=== PATIENT | female | born 1990 | race Caucasian/White ===

== ENCOUNTER → 2017-04-03 10:08 | Outpatient (CLI) | payer OTHER, SELFPAY ==
--- NOTE | 2017-04-03 10:11 | RAD_ITS ---
CLINICAL HISTORY: Female, 26 years old. Chronic left shoulder pain. PROCEDURE: ARTHROGRAM - LEFT SHOULDER CONSENT: The procedure as well as the benefits and possible complications including infection and bleeding were explained to the patient. Informed consent was obtained. FLUOROSCOPY TIME (if supplied): (0:40) minutes/seconds Injection Information: 10 cc of dilute Magnevist. Number of images obtained: 4 TECHNIQUE: (All elements of maximal sterile barrier technique followed, including US elements as applicable) The patient was in the supine position. The overlying skin was prepped and draped in usual sterile fashion. Following local anesthetic application and under direct fluoroscopic guidance, a 22-gauge spinal needle was advanced into the shoulder joint. 2 cc of Isovue-300 was injected for confirmation. Following this, 10 cc of dilute Magnevist was injected for MRI imaging. The patient tolerated the procedure well. RAD/Arthrogram Shoulder w/ MRI IMPRESSION: Successful left shoulder arthrogram for MRI imaging. Electronically Signed: John Thomas MD at 11:27 EST Tel [phone], Service support ,
--- NOTE | 2017-04-03 10:14 | MRI_ITS ---
STUDY: MRI ARTHROGRAM LEFT SHOULDER REASON FOR EXAM: Female, 26 years old. S/p fall 08/2016, exploratory surgery 09/2016 with no repair made , still has left shoulder pain and popping TECHNIQUE: Standardized fat and water weighted pulse sequences were obtained in all 3 orthogonal planes. Additional images were obtained with the arm in the ABER position. The examination was performed following intra-articular injection of 10 mL of a solution of 0.08 mL of Magnevist and 10 mL of saline COMPARISON: None. FINDINGS: Normal supraspinatus tendon. Normal infraspinatus tendon. Normal subscapularis tendon. Normal teres minor tendon. Normal supraspinatus muscle. Normal infraspinatus muscle. Normal subscapularis muscle. Normal teres minor muscle. Normal glenohumeral articulation. Normal humeral head and visualized proximal humerus. Normal biceps labral complex. Normal intracapsular long biceps tendon. Normal labrum. Normal capsulo- ligamentous complex. Normal rotator interval. Normal acromioclavicular articulation. Normal coracoclavicular ligaments. There is a Type II morphology (curved), with a neutral orientation. There is no subacromial-subdeltoid bursal fluid. Normal visualized coracohumeral and coracoacromial ligaments. Normal quadrilateral space. Normal axillary space. Normal deltoid muscle. Normal trapezius muscle. MRI/Upper Ext Jt Only W/Contrast IMPRESSION: Normal MRI arthrogram of the shoulder. No signs of internal derangement Electronically Signed: Joseph Lezama MD, FACR at 12:20 EST , Service support ,
== END ==
PROVIDERS: Family Provider Family Medicine; PCP Family Medicine; Visit Provider Orthopaedic Surgery
DX: M25.512 Pain in left shoulder (principal); G89.29 Other chronic pain
CPT/HCPCS: 23350; 73222; 77002; A9577; Q9967

== ENCOUNTER → 2018-12-30 09:00 | Outpatient (CLI) | payer OTHER, SELFPAY ==
[2017-02-13 08:20] VITALS: BMI 30.2
[2018-12-30 19:41] LABS: Chlamydia Trachomatis by PCR Negative (Negative); Neisserai gonorrhoeae by PCR Negative (Negative); Probe Check PASS; Sample Adequacy Control PASS; Specimen Processing Control PASS
[2019-01-04 17:57] LABS: HPV Reflexed? NOT INDICATED
== END ==
PROVIDERS: Family Provider Family Medicine; PCP Family Medicine; Referring Provider Obstetrics & Gynecology; Visit Provider Obstetrics & Gynecology
DX: Z12.4 Encounter for screening for malignant neoplasm of cervix (principal); Z11.3 Encounter for screening for infections with a predominantly sexual mode of transmission
CPT/HCPCS: 87491; 87591; 88175; G0145

== ENCOUNTER → 2019-01-06 06:43 | Outpatient (CLI) | payer OTHER, SELFPAY ==
[2019-01-06 07:08] LABS: Hematocrit 43.3 % (37-47); Hemoglobin 14.3 g/dL (12.0-15.0); Mean Corpuscular Hgb 28.9 pg (27.0-32.0); Mean Corpuscular Volume 87.7 fL (81-99); Mean Platelet Vol. 8.8 fl (6.2-12.0); Platelet Count 286 K/mm3 (150-450); RBC Distribution Width CV 12.5 % (11.6-14.6); RBC Distribution Width SD 40.2 fl (35.1-43.9); Red Blood Count 4.94 M/mm3 (4.2-5.4); White Blood Count 3.2 K/mm3 (4.4-11.0)
[2019-01-06 07:24] LABS: Glucose 75GTT - Fasting 91 mg/dL (70-99)
[2019-01-06 07:38] LABS: Homocysteine 7.4 umol/L (3.2-10.7)
[2019-01-06 07:40] LABS: ALB/GLOB Ratio 0.9 RATIO (0.9-2.4); AST(SGOT) 22 U/L (15-37); Alanine Aminotransfer ALT/SGPT 30 U/L (13-56); Albumin, Serum 3.8 g/dL (3.2-5.0); Alkaline Phosphatase 112 U/L (45-117); Anion Gap 4 (5-15); BUN 14 mg/dL (7-18); BUN/Creat Ratio 14.2 RATIO (10-20); Calcium,Total 9.1 mg/dL (8.5-10.1); Chloride 106 mmol/L (98-107); Creatinine, Serum 0.99 mg/dL (0.55-1.02); EST Glomerular Filtration Rate 72 mL/min (>60); Est Glom Filt Rate - Afr Amer 87 mL/min (>60); Estradiol 44.6 pg/mL; Follicle Stimulating Hormone 7.5 mIU/mL; Globulin 4.2 g/dL (2.2-4.2); Glucose 90 mg/dL (74-106); Potassium 3.9 mmol/L (3.5-5.1); Prolactin 12.5 ng/mL; Sodium Level 139 mmol/L (136-145); Thyroid Stim Hormone (TSH) 0.54 uIU/mL (0.358-3.74)
[2019-01-06 08:25] LABS: Glucose 75GTT - 30 minutes 137 mg/dL (100-160)
[2019-01-06 08:26] LABS: Glucose 75GTT - 60 minutes 91 mg/dL (100-160)
[2019-01-06 08:39] LABS: Insulin 75GTT - 60 min 56.4 mU/L (Not Estab)
[2019-01-06 08:39] LABS: Insulin 75GTT - Fasting 13.4 mU/L (2.6-37.6)
[2019-01-06 08:39] LABS: Insulin 75GTT - 30 MIN 185.4 mU/L (Not Estab.)
[2019-01-06 10:37] LABS: Glucose 75GTT - 120 minutes 87 mg/dL (70-140)
[2019-01-06 13:44] LABS: Insulin 75GTT - 120 min 75.2 mU/L (Not Estab.)
[2019-01-06 13:54] LABS: Vitamin B12 357 pg/mL (211-911); Vitamin D,25 Hydroxy 33.9 ng/mL (29.95-100.01)
[2019-01-08 15:42] LABS: Methylmalonic Acid Bld 312
[2019-01-09 12:07] LABS: DHEA Sulfate 237.8 ug/dL (84.8-378.0)
[2019-01-11 13:47] LABS: Anti-Mullerian Hormone,Serum 14.3 ng/mL (.); Sex Hormone-binding Globulin 36.5 nmol/L (24.6-122.0)
== END ==
PROVIDERS: Family Provider Family Medicine; PCP Family Medicine; Referring Provider Obstetrics & Gynecology; Visit Provider Obstetrics & Gynecology
DX: E28.2 Polycystic ovarian syndrome (principal); R73.09 Other abnormal glucose
CPT/HCPCS: 36415; 80053; 82306; 82607; 82627; 82670; 82951; 82952; 83001; 83090; 83516; 83525; 83921; 84146; 84270; 84403; 84443; 85027; 82626

== ENCOUNTER → 2021-09-05 | Outpatient (CLI) | payer OTHER, SELFPAY ==
[2021-09-11 13:56] LABS: HPV APTIMA, High Risk Negative (Negative)
== END | disposition home or self-care (01) ==
LOC: LABSPEC 13:35
PROVIDERS: PCP Family Medicine; Visit Provider Obstetrics & Gynecology
DX: Z12.4 Encounter for screening for malignant neoplasm of cervix (principal)
CPT/HCPCS: 87624; 88175; G0145

== ENCOUNTER 2023-08-11 22:20 | Emergency (ER) | payer OTHER, SELFPAY ==
[2023-08-11 22:20] VITALS: BP 123/87; PULSE 98; RESP 16; TEMP 36.6; O2SAT 99; BMI 35.6
[2023-08-11 22:49] LABS: Mucous, Urine 0 SEEN /hpf (<or=2+)
[2023-08-11 23:06] LABS: Color, Urine Yellow (Yellow); Glucose, Dipstick Normal (Normal); Ketone-Dipstick Negative (Negative); Leukocyte Esterase-Dipstick 500 /ul (Negative); Nitrite-Dipstick Negative (Negative); Occult Blood-Urine 250 /ul (Negative); Protein-Dipstick 30 mg/dl (Negative); Specific Gravity, Urine 1.015 (1.002-1.030); Urine Bilirubin Dipstick Negative (Negative); Urine Clarity Sl. Cloudy (Clear); Urine Urobilinogen Normal (Normal)
[2023-08-11 23:17] LABS: Red Blood Cells-Urine 25-50 SEEN /hpf (0-5)
[2023-08-11 23:18] LABS: Bacteria RARE /hpf (None Seen); Squamous Epithelial Cells - UA 0-5 SEEN /hpf (5-10); White Blood Cells 25-50 SEEN /hpf (0-5)
[2023-08-11 23:28] LABS: Internal QC Validated? YES +Cl - CLEAR BKGD; Pregnancy, Serum, hCG Quali. NEGATIVE Negative
--- NOTE | 2023-08-11 23:41 | CT_ITS ---
INDICATION: flank pain EXAMINATION: CT ABDOMEN AND PELVIS WITHOUT CONTRAST - CT Abdomen And Pelvis W/O Contrast Injection TECHNIQUE: Helically acquired images were obtained of the abdomen and pelvis without oral or IV contrast. The protocol utilizes one or more of the following dose reduction techniques: automated exposure control, adjustment of mA and/or kV according to patient size,and/or use of iterative reconstruction technique. IV Contrast dosage and agent: None. Oral contrast: None. RADIATION DOSAGE (If Supplied By Facility): CTDIvol = ( 15.77 ) mGy, DLP = ( 791.81 ) mGycm COMPARISON: No relevant prior comparison study available FINDINGS: LOWER CHEST: Lung bases are clear. No cardiomegaly or pericardial effusion. LIVER: Homogeneous. No focal mass. GALLBLADDER AND BILIARY TREE: No calcified gallstones. No gallbladder distension or wall edema. No intra- or extrahepatic biliary ductal dilation. PANCREAS: No focal cystic or solid mass. SPLEEN: Normal size without focal cystic or solid mass. ADRENAL GLANDS: No nodules. KIDNEYS AND URETERS: There is severe right renal atrophy. There is a nonobstructive stone in the right kidney measures 5 mm. There is moderate left hydronephrosis due to 7 mm stone in the proximal left ureter at the UPJ . PERITONEUM: No ascites or free air. No other fluid collection. BOWEL: No evidence of acute appendicitis. No stomach or bowel distension. No focal inflammatory change. LYMPH NODES: No enlarged mesenteric or retroperitoneal lymph nodes. VESSELS: Aorta is non-dilated. URINARY BLADDER: Unremarkable. REPRODUCTIVE ORGANS: Right ovarian cyst measures 4.5 cm. Left ovarian cyst measures 6 cm. ABDOMINAL WALL: No discrete abdominal or pelvic wall hernia. BONES: No lytic or blastic abnormality. CT/Abdomen/Pelvis without Cont IMPRESSION: There is moderate left hydronephrosis due to 7 mm stone in the proximal left ureter at the UPJ . Right ovarian cyst measures 4.5 cm. Left ovarian cyst measures 6 cm. Electronically Signed: Chelsey Cordova MD at 1:57 EDT Reading Location ID and State: [facility] / [place] Tel , Service support ,
[2023-08-11] MEDS: 0.9% Normal Saline (1000mL) 1,000 ML 999 ML IV (23:48)
[2023-08-11] MEDS: Ondansetron 4 MG/2 ML Vial IV (23:49)
[2023-08-11] MEDS: Morphine 4 MG/ML Syringe IV (23:49)
[2023-08-11 23:58] LABS: Absolute Lymphocyte Count 1.37 X10^3/uL (0.83-4.51); Absolute Neutrophil Count 10.3 X10^3/uL (2.0-7.7); Basophil# 0.06 X10^3/uL; Basophil% 0.5 % (0-1); Eosinophil# 0.07 X10^3/uL; Eosinophils% 0.5 % (0-5); Hematocrit 42.7 % (37-47); Hemoglobin 14.5 g/dL (12.0-15.0); Lymphocyte # 1.37 X10^3/ul (0.83-4.51); Lymphocyte % 10.7 % (19-41); Mean Corpuscular Hgb 29.5 pg (27.0-32.0); Mean Corpuscular Volume 86.8 fL (81-99); Mean Platelet Vol. 9.1 fl (6.2-12.0); Monocyte# 0.95 X10^3/uL; Monocyte% 7.4 % (0-10); NRBC Flagged by Analyzer 0 % (0-5); Neutrophil # 10.25 X10^3/uL (2.7-7.7); Neutrophil % 80.3 % (47-70); Platelet Count 367 K/mm3 (150-450); RBC Distribution Width CV 12.1 % (11.6-14.6); RBC Distribution Width SD 38.4 fl (35.1-43.9); Red Blood Count 4.92 M/mm3 (4.2-5.4); White Blood Count 12.8 K/mm3 (4.4-11.0)
[2023-08-12 00:20] VITALS: RESP 18
[2023-08-12 00:42] LABS: Anion Gap 7 (5-15); BUN 16 mg/dL (7-18); BUN/Creat Ratio 14.7 RATIO (10-20); Calcium,Total 9.4 mg/dL (8.5-10.1); Chloride 104 mmol/L (98-107); Creatinine, Serum 1.09 mg/dL (0.55-1.02); EST Glomerular Filtration Rate 62 mL/min (>60); Est Glom Filt Rate - Afr Amer 75 mL/min (>60); Estimated Creatinine Clearance 77.28 ml/min; Glucose 110 mg/dL (74-106); Potassium 3.3 mmol/L (3.5-5.1); Sodium Level 138 mmol/L (136-145)
--- NOTE | 2023-08-12 02:17 | EX.ED.DYSGE1 ---
HPI History of Present Illness Chief Complaint: Flank Pain Informant: patient and family Narrative Narrative: Patient is a 32-year-old female with no significant past medical history. She states for the past month she has been having pain in her left-sided low back. She states there is no excessive activity or trauma prior to the pain beginning. She denies any loss of bowel or bladder control or IV drug use. She states that however the pain became more intense and is radiating into her left groin/abdomen and secondary to the worsening symptoms she presents for evaluation [facility] Medical History no medical history Home Medications ?Medication ?Instructions ?Recorded ?Last Taken ?Type norgestimate 0.25 mg-ethinyl 1 tab PO QDAY 02/13/17 Unknown History estradiol 35 mcg tablet (Previfem) cephalexin 500 mg capsule 500 mg PO TID 7 days #21 caps 08/12/23 Unknown Rx ketorolac 10 mg tablet 10 mg PO 4X/DAY PRN pain 5 days 08/12/23 Unknown Rx #20 tabs ondansetron 4 mg disintegrating 4 mg PO TID PRN nausea and 08/12/23 Unknown Rx tablet vomiting #21 tabs oxycodone-acetaminophen 5 mg-325 1 tab PO Q6H PRN pain 3 days #12 08/12/23 Unknown Rx mg tablet (Percocet) tabs tamsulosin 0.4 mg capsule (Flomax) 0.4 mg PO DAILY #14 caps 08/12/23 Unknown Rx Allergy/AdvReac Type Severity Reaction Status Date / Time No Known Allergies Allergy Verified 08/11/23 22:22 Family History (Updated 02/13/17 @ 08:23 by Amilcar Sood) Father Hypertension Surgical History (Updated 02/13/17 @ 08:22 by Amilcar Sood) History of arthroscopy of left shoulder Cystic hygroma Social History (Updated 02/13/17 @ 12:[address] Jacki Pathak, DO) Smoking Status: Never smoker ROS ROS ED Constitutional Constitutional ED: Denies chills or fever(s) ENT ENT ED: Denies sore throat Cardiovascular Cardiovascular: Denies chest pain Respiratory/Chest Respiratory/Chest: Denies cough or dyspnea Gastrointestinal Gastrointestinal: Reports abdominal pain and nausea; Denies diarrhea or vomiting Genitourinary Genitourinary ED: Denies dysuria or hematuria Musculoskeletal Musculoskeletal: Reports back pain Integumentary Denies rash Neurologic Neurologic: Denies headache(s), paresthesias or weakness Hematologic/Lymphatic Hematologic/Lymphatic: Denies easy bleeding or easy bruising EXAM Physical Exam Const Vital Signs: 08/11/23 22:20 08/12/23 00:20 Temperature 97.8 F Temperature Source Temporal Pulse Rate 98 Respiratory Rate 16 18 Blood Pressure 123/87 H Blood Pressure Mean 99 Pulse Ox 99 Oxygen Delivery Method Room Air MDM MDM MDM Narrative Medical decision making narrative: Patient presented to the ER with stable vitals. However with her left-sided back pain increasing today there is concern for potential UTI versus pyelonephritis versus kidney stone versus ovarian cyst versus intestinal infection such as diverticulitis. Therefore basic blood work was obtained as well as CT scan. As the patient denied any loss of bowel or bladder control or IV drug use I do not feel there is workup needed for cauda equina or epidural abscess. Patient's blood work revealed no signs of acute kidney injury or severe electro abnormality and urine does not show changes concerning for acute infection. CT scan revealed a kidney stone on the left which correlates with her location and worsening pain but there is also bilateral ovarian cysts. Based on her chronicity of symptoms and location concern for torsion is low and therefore she will have an outpatient transvaginal ultrasound ordered by do not feel there is need for an emergent transvaginal ultrasound. On reevaluation the patient is resting comfortably and reports near resolution of her pain. Therefore with persistent stable vital signs no signs of acute kidney injury or urosepsis and low concern for torsion she can be discharged home and follow-up on an outpatient basis Lab Data Labs: Laboratory Results - last 24 hr 08/11/23 08/11/23 08/11/23 22:40 23:12 23:16 WBC RBC Hgb Hct MCV MCH MCHC RDW Std Deviation RDW Coeff of John Plt Count MPV Immature Gran % (Auto) Neut % (Auto) Lymph % (Auto) [place] % (Auto) Eos % (Auto) Baso % (Auto) Absolute Neuts (auto) Absolute Lymphs (auto) Nucleated RBC % Sodium 138 Potassium 3.3 L Chloride 104 Carbon Dioxide 27.0 Anion Gap 7 BUN 16 Creatinine 1.09 H Estim Creat Clear Calc 77.28 Est GFR (MDRD) Af Amer 75 Est GFR (MDRD) Non-Af 62 BUN/Creatinine Ratio 14.7 Glucose 110 H Calcium 9.4 Serum , Qual NEGATIVE Urine Color Yellow Urine Clarity Sl. Cloudy Urine pH 6.0 Ur Specific [place] 1.015 Urine Protein 30 H Urine Glucose (UA) Normal Urine Ketones Negative Urine Occult Blood 250 H Urine Nitrite Negative Urine Bilirubin Negative Urine Urobilinogen Normal Ur Leukocyte Esterase 500 H Urine RBC 25-50 SEEN Urine WBC 25-50 SEEN Ur Squamous Epith Cells 0-5 SEEN Urine Bacteria RARE Urine Mucus 0 SEEN 08/11/23 23:41 WBC 12.8 H RBC 4.92 Hgb 14.5 Hct 42.7 MCV 86.8 MCH 29.5 MCHC 34.0 RDW Std Deviation 38.4 RDW Coeff of John 12.1 Plt Count 367 MPV 9.1 Immature Gran % (Auto) 0.600 Neut % (Auto) 80.3 H Lymph % (Auto) 10.7 L [place] % (Auto) 7.4 Eos % (Auto) 0.5 Baso % (Auto) 0.5 Absolute Neuts (auto) 10.3 H Absolute Lymphs (auto) 1.37 Nucleated RBC % 0 Sodium Potassium Chloride Carbon Dioxide Anion Gap BUN Creatinine Estim Creat Clear Calc Est GFR (MDRD) Af Amer Est GFR (MDRD) Non-Af BUN/Creatinine Ratio Glucose Calcium Serum , Qual Urine Color Urine Clarity Urine pH Ur Specific [place] Urine Protein Urine Glucose (UA) Urine Ketones Urine Occult Blood Urine Nitrite Urine Bilirubin Urine Urobilinogen Ur Leukocyte Esterase Urine RBC Urine WBC Ur Squamous Epith Cells Urine Bacteria Urine Mucus Radiography Diagnostic Testing: Clinical Impression(s) from Imaging Studies Abdomen/Pelvis CT 08/11/23 23:41 IMPRESSION: There is moderate left hydronephrosis due to 7 mm stone in the proximal left ureter at the UPJ . Right ovarian cyst measures 4.5 cm. Left ovarian cyst measures 6 cm. Electronically Signed: Chelsey Cordova MD at 1:57 EDT , Discharge Plan Triage Chief Complaint: Flank Pain ED Provider: Buddy Alvarez Dx/Rx/DC Orders Clinical Impression: Kidney stone, Renal colic, Ovarian cyst Instructions: ED Ovarian Cyst, ED Kidney Stone with Pain Prescriptions: New ketorolac 10 mg tablet 10 mg PO 4X/DAY PRN (Reason: pain) 5 Days Qty: 20 0RF tamsulosin [Flomax] 0.4 mg capsule 0.4 mg PO DAILY Qty: 14 0RF cephalexin 500 mg capsule 500 mg PO TID 7 Days Qty: 21 0RF oxycodone-acetaminophen [Percocet] 5-325 mg tablet 1 tab PO Q6H PRN (Reason: pain) 3 Days Qty: 12 0RF ondansetron 4 mg tablet,disintegrating 4 mg PO TID PRN (Reason: nausea and vomiting) Qty: 21 0RF No Action norgestimate-ethinyl estradiol [Previfem] 0.25-35 mg-mcg tablet 1 tab PO QDAY Primary Care Provider: Jc Leslie Referrals: Jc Leslie DO [Primary Care Provider] - Lee Walsh MD [Med Staff - Active Staff] - Activity Restrictions/Additional Instructions: Please obtain your outpatient ultrasound to further assess your ovarian cysts. Take the prescribed medication as directed to help control pain from the kidney stone. If your pain is not controlled or you develop a fever over 100.4 please return for repeat evaluation. Otherwise follow-up with urology to discuss further treatment options such as stenting or lithotripsy if you do not pass the stone spontaneously. Print Language: Other Disposition Disposition: Home, Self Care Discharge Date/Time: 08/12/23 02:50
[2023-08-12] MEDS: Ketorolac 30 MG/ML Syringe IV (02:32)
[2023-08-12 02:39] VITALS: BP 128/91; PULSE 84; RESP 18; TEMP 36.7; O2SAT 97
== END 2023-08-12 02:50 | disposition home or self-care (01) ==
PROVIDERS: Emergency Provider Emergency Medicine; PCP Family Medicine; Visit Provider Emergency Medicine
DX: N13.2 Hydronephrosis with renal and ureteral calculous obstruction (principal); N83.202 Unspecified ovarian cyst, left side; N83.201 Unspecified ovarian cyst, right side; Z79.899 Other long term (current) drug therapy
CPT/HCPCS: 74176; 80048; 81001; 84703; 85025; 96361; 96374; 96375; 99282; J7030; A4216; J2405

== ENCOUNTER → 2023-08-12 | Outpatient (CLI) | payer OTHER, SELFPAY ==
--- NOTE | 2023-08-12 11:18 | US_ITS ---
STUDY: ULTRASOUND OF THE FEMALE PELVIS - COMPLETE REASON FOR EXAM: Female, 32 years old. Bilateral ovarian cyst LMP: July 07, 2023. TECHNIQUE: Transvaginal TECHNICAL QUALITY: Adequate. COMPARISON: Comparison is made with prior CT scan done and pelvis dated August 12, 2023. FINDINGS: The uterus is anteverted and is in a midline position. The uterus measures 8 cm x 3.8 cm x 3.4 cm. There are nabothian cysts of the cervix. The endometrium measures 4 mm in thickness, and is hyperechoic. There is no demonstrated endometrial mass. There is no demonstrated myometrial mass. I.U.D. - The patient does not have an I.U.D. The right ovary is visualized. The right ovary measures 4.2 cm x 4 cm x 2.3 cm. There is a 2.9 cm x 3.8 cm x 1.9 cm simple cyst in the ovary. There is no visualized right adnexal mass or complex lesion. There is normal arterial and normal venous vascularity. The left ovary is visualized. The left ovary measures 5.3 cm x 5.2 cm x 4 cm. There is a 4.9 cm x 4.47 x 3.4 cm complex cyst in the left ovary. Septations are seen within it. Sonographic follow-up recommended. There is no visualized left adnexal mass or complex lesion. There is normal arterial and normal venous vascularity. There is minimal fluid in the cul-de-sac. US/Transvaginal Non- IMPRESSION: Simple cyst in the right ovary. Complex cyst in the left ovary as described. Sonographic follow-up recommended. Electronically Signed: John Thomas MD at 13:01 EDT ,
== END | disposition home or self-care (01) ==
LOC: US 11:15
PROVIDERS: PCP Family Medicine; Referring Provider Emergency Medicine; Visit Provider Emergency Medicine
DX: N83.201 Unspecified ovarian cyst, right side (principal); N83.202 Unspecified ovarian cyst, left side
CPT/HCPCS: 76830

== ENCOUNTER → 2023-10-06 | Outpatient (CLI) | payer OTHER, SELFPAY | END | disposition home or self-care (01) | LOC: LABSPEC 16:42 | PROVIDERS: PCP Family Medicine; Referring Provider Urology; Visit Provider Urology | DX: N39.0 Urinary tract infection, site not specified (principal) | CPT/HCPCS: 87086; 87088 ==

== ENCOUNTER → 2024-10-05 | Outpatient (CLI) | payer OTHER, SELFPAY ==
--- NOTE | 2024-10-05 08:20 | RAD_ITS ---
PROCEDURE: ABDOMEN SINGLE VIEW 10/05/2024 REASON FOR EXAM: CALCULUS OF URETER TECHNIQUE: ABDOMEN SINGLE VIEW COMPARISON: 08/12/2023 CT FINDINGS: Clear lung bases. No free air. Nonobstructed bowel. 2 mm left renal calcification. 2 mm right renal calcification. Previously noted left ureteral stone no longer seen. RAD/Abdomen Single View IMPRESSION: Previously noted left ureteral stone is no longer seen and has probably passed. Correlate with clinical history. Reading Location: [facility]-
== END | disposition home or self-care (01) ==
LOC: LAB 08:12 → RAD 08:13
PROVIDERS: PCP Family Medicine; Referring Provider Urology; Visit Provider Urology
DX: N20.1 Calculus of ureter (principal)
CPT/HCPCS: 74018

== ENCOUNTER 2024-12-22 15:27 | Emergency (ER) | payer OTHER, SELFPAY ==
[2024-12-22 15:28] VITALS: BP 133/86; PULSE 123; RESP 16; TEMP 36.6; O2SAT 99; BMI 30.9
--- NOTE | 2024-12-22 16:21 | ED.VIS.FEGU ---
HPI HPI - Female History of Present Illness Chief Complaint: Complaint Informant: patient Associated Symptoms Associated Symptoms: Positive for Dysuria Narrative Narrative: 34-year-old female history of kidney stones and UTI. Also has a degenerative right kidney. But still functions. States she has had hematuria for 2 days body aches. Has been taking Azo without relief. Denies any significant unilateral pain. Denies any fever or chills. Says she has had dysuria and hematuria. Prior similar symptoms: Yes Recent Illness/Hospitalization: No PFSH PFSH Home Medications ?Medication ?Instructions ?Recorded ?Last Taken ?Type norgestimate 0.25 mg-ethinyl 1 tab PO QDAY 02/13/17 Unknown History estradiol 0.035 mg tablet (Previfem) nitrofurantoin 100 mg PO Q12H 5 days #10 caps 12/22/24 Unknown Rx monohydrate/macrocrystals 100 mg capsule (Macrobid) phentermine 37.5 mg tablet 37.5 mg PO DAILY 12/22/24 Unknown History topiramate 50 mg tablet 50 mg PO DAILY 12/22/24 Unknown History venlafaxine 75 mg capsule,extended 75 mg PO DAILY 12/22/24 Unknown History release 24 hr Allergy/AdvReac Type Severity Reaction Status Date / Time No Known Allergies Allergy Verified 12/22/24 15:32 Family History Father Hypertension Surgical History History of arthroscopy of left shoulder Cystic hygroma Social History Smoking Status: Never smoker ROS ROS ED ROS Narrative Dysuria. Hematuria. Constitutional Constitutional ED: Denies chills or fever(s) ENT ENT ED: Denies ear pain Cardiovascular Cardiovascular: Denies chest pain Respiratory/Chest Respiratory/Chest: Denies cough or dyspnea Gastrointestinal Gastrointestinal: Denies abdominal pain, constipation, diarrhea, melena, nausea or vomiting Genitourinary Genitourinary ED: Reports dysuria and hematuria Musculoskeletal Musculoskeletal: Denies arthralgias Integumentary Denies abscess Neurologic Neurologic: Denies headache(s) Psychiatric Psychiatric: Denies anxiety Endocrine Endocrinology: Denies heat intolerance Hematologic/Lymphatic Hematologic/Lymphatic: Denies easy bleeding, easy bruising or lymphadenopathy Allergic/Immunologic Allergic/Immunologic ED: Denies mouth swelling, tongue swelling or urticaria EXAM Physical Exam Narrative Exam Narrative: 34-year-old female sitting upright in bed vital signs stable afebrile. No acute distress. Pulse ox 99% on room air no hypoxia. H EENT exam pupils round react light. Moist with membranes. Neck nontender no lymphadenopathy. Back nontender. No CVA tenderness. Lungs clear to auscultation bilaterally. Heart regular rhythm rate about 110 no murmur. Chest wall ribs nontender. Abdomen soft, nontender, nondistended, normal bowel sounds without peritoneal signs. No localizing tenderness. Moving all 4 extremities. Nontender no edema. Normal strength and range of motion. Neurologically she is awake alert. Answering questions following commands. Benign exam. Const Vital Signs: 12/22/24 15:28 12/22/24 17:28 12/22/24 18:29 Temperature 97.8 F 98.2 F Temperature Source Oral Pulse Rate 123 H 111 H 107 H Respiratory Rate 16 18 18 Blood Pressure 133/86 H 119/86 H 120/79 Blood Pressure Mean 101 97 92 Pulse Ox 99 97 97 Oxygen Delivery Method Room Air Room Air MDM MDM MDM Narrative Medical decision making narrative: 34-year-old female suspect UTI clinically does not appear to be a kidney stone. UA will be checked. Last menstrual period was 2 weeks ago and she states there is no issue to be . I do not think she needs blood work. Repeat exam around 6:11 PM patient doing well. UA is cloudy with positive nitrates will be treated with UTI. Macrobid given here. 1 pill twice a day for 5 days. Outpatient follow-up as needed. Return if worse. History & Record Review Discussion w/independent historian: Patient Additional record(s) reviewed:: Prior inpatient record, Prior outpatient record, Prior ED visit and Prior labs Lab Data Attestation: I reviewed the patient's lab results. Lab results narrative: UA consistent with UTI. Cloudy and positive nitrates. 5-10 white cells. 25-50 red cells and 4+ bacteria. Labs: Laboratory Results - last 24 hr 12/22/24 16:20 Urine Color SEE COMMENT BELOW Urine Clarity Sl. Cloudy Urine pH 6.0 Ur Specific [place] 1.015 Urine Protein 15 H Urine Glucose (UA) Normal Urine Ketones Negative Urine Occult Blood 50 H Urine Nitrite Positive H Urine Bilirubin 3 H Urine Urobilinogen 8 H Ur Leukocyte Esterase 100 H Urine RBC 5-10 SEEN Urine WBC 25-50 SEEN Ur Squamous Epith Cells 0-5 SEEN Amorphous Sediment 1+ Urine Bacteria 4+ Urine Mucus 0 SEEN Discharge Plan Triage Chief Complaint: Complaint ED Provider: Roger Granado Dx/Rx/DC Orders Clinical Impression: UTI (urinary tract infection) Instructions: ED Cystitis Female Adult Prescriptions: New nitrofurantoin monohyd/m-cryst [Macrobid] 100 mg capsule 100 mg PO Q12H 5 Days Qty: 10 0RF Rx Instructions: must administer with a meal/food No Action norgestimate-ethinyl estradiol [Previfem] 0.25-35 mg-mcg tablet 1 tab PO QDAY phentermine 37.5 mg tablet 37.5 mg PO DAILY topiramate 50 mg tablet 50 mg PO DAILY venlafaxine 75 mg capsule,extended release 24hr 75 mg PO DAILY Primary Care Provider: Care Physician,No Primary Referrals: Jc Leslie DO [Non-Staff, Family Practice] - 3-5 Days if not improving Activity Restrictions/Additional Instructions: Plenty of fluids. You can continue the Azo. Cranberry juice. You have a urinary tract infection. You will be started on antibiotic Macrobid 1 pill twice a day for 5 days. Follow-up with your doctor if not improving or return to emergency department feeling a lot worse. Print Language: Other Disposition Disposition: Home, Self Care Discharge Date/Time: 12/22/24 18:30
[2024-12-22 16:32] LABS: Mucous, Urine 0 SEEN /hpf (<or=2+)
[2024-12-22 17:17] LABS: Glucose, Dipstick Normal (Normal); Ketone-Dipstick Negative (Negative); Leukocyte Esterase-Dipstick 100 /ul (Negative); Nitrite-Dipstick Positive (Negative); Occult Blood-Urine 50 /ul (Negative); Protein-Dipstick 15 mg/dl (Negative); Specific Gravity, Urine 1.015 (1.002-1.030)
[2024-12-22 17:26] LABS: Color, Urine SEE COMMENT BELOW (Yellow); Urine Bilirubin Dipstick 3 mg/dL (Negative)
[2024-12-22 17:28] VITALS: BP 119/86; PULSE 111; RESP 18; O2SAT 97
[2024-12-22 18:29] VITALS: BP 120/79; PULSE 107; RESP 18; TEMP 36.8; O2SAT 97
[2024-12-22 18:33] LABS: Red Blood Cells-Urine 5-10 SEEN /hpf (0-5); Squamous Epithelial Cells - UA 0-5 SEEN /hpf (5-10)
== END 2024-12-22 18:30 | disposition home or self-care (01) ==
PROVIDERS: Emergency Provider Emergency Medicine; Visit Provider Emergency Medicine
DX: N39.0 Urinary tract infection, site not specified (principal); N28.89 Other specified disorders of kidney and ureter
CPT/HCPCS: 81001; 99282

== ENCOUNTER → 2025-02-01 | Outpatient (CLI) | payer OTHER, SELFPAY ==
--- NOTE | 2025-02-01 16:02 | CT_ITS ---
PROCEDURE: CT ABDOMEN/PELVIS WITHOUT CONTRAST 02/01/2025 REASON FOR EXAM: GENERALIZED ABDOMINAL PAIN TECHNIQUE: Procedure Code: CTABDPEL Modality: CT Procedure: ABDOMEN/PELVIS WITHOUT CONT Noncontrast technique limits evaluation of the abdominal and pelvic viscera. Coronal and Sagittal reconstruction series were provided. One or more dose reduction techniques were used (e.g., Automated exposure control, adjustment of the mA and/or kV according to patient size, use of iterative reconstruction technique). RADIATION DOSE SUMMARY: CTDlvol: 12.01 mGy DLP: 557.14 mGycm COMPARISON: 08/12/2023 FINDINGS: Lung bases: Clear. Liver: Unremarkable. Gallbladder: Unremarkable. Spleen: Unremarkable. Pancreas: Unremarkable. Adrenals: Unremarkable. Kidneys: Atrophic right kidney with nephrolithiasis and/or parenchymal calcifications, unchanged. Tiny subcentimeter nonobstructive stone versus parenchymal calcification in the lower pole of the left kidney, unchanged. No ureteral calculi or hydroureteronephrosis. Bladder: Mild circumferential bladder wall thickening versus underdistention. Reproductive Organs: Unremarkable uterus and adnexae. Bowel: No evidence of obstruction or active inflammation. Normal appendix. Lymph nodes: No enlarged abdominopelvic lymph nodes. Vasculature: Normal caliber abdominal aorta and IVC. Peritoneum / Retroperitoneum: No ascites or free air. Bones: No significant abnormality. CT/Abdomen/Pelvis without Cont IMPRESSION: Urinary bladder wall thickening versus underdistention; correlate clinically fo r possible cystitis. Small subcentimeter nonobstructive renal stones and/or parenchymal calcificatio ns. No ureteral calculi or hydroureteronephrosis on either side. Atrophic right kidney, unchanged. Reading Location: [id number]
== END | disposition home or self-care (01) ==
LOC: CT 16:01
PROVIDERS: PCP Family Medicine; Referring Provider Urology; Visit Provider Urology
DX: R10.84 Generalized abdominal pain (principal)
CPT/HCPCS: 74176

== ENCOUNTER → 2025-02-01 | Outpatient (CLI) | payer OTHER, SELFPAY ==
--- OUTSIDE RECORDS SUMMARY | 2025-02-01 19:09 | XMS RPT_ITS | CCD ---
Author Organization [facility] Care Team Providers Care Tanning Consultant Name Role Phone AlekpieterYannick Unavailable Unavailable UNKNOWN, PROVIDER Unavailable Unavailable Petrilla, Jc Unavailable Unavailable Rejisspieter Yannick Unavailable Unavailable UNKNOWN, PROVIDER Unavailable Unavailable Mariama, Jc Unavailable Unavailable Petrilla DOJc F Primary Care Provider Mariama DO, Jc Primary Care Provider Mariama DO [facility] Primary Care Provider [phone] Mariama RIVAS [facility] Primary Care Provider Mariama RIVAS Jc Ольга Primary Care Provide r Mariama RIVAS, Dr. Greene Primary Care Provider Nico MARTINEZ, Dr. Lee Guerrero Attending Provider Nico MARTINEZ, Dr. Lee Guerrero Referring Provider JC LESLIE Attending Unavailable PETRILLA, JC Primary Care Unavailable YOON DUDLEY Attending Unavailable PETRILLA, JC Referring Unavailable PETRILLA, JC Primary Care Unavailable TIMOTHY XIAO Admitting Unavailable TIMOTHY XIAO Attending Unavailable PETRILLA, JC Primary Care Unavailable BLACK, YOON Attending Unavailable PETRILLA, JC Primary Care Unavailable PETRILLA, JC Attending Unavailable PETRILLA, JC Primary Care Unavailable BLACK, YOON Attending Unavailable BLACK YOON Referring Unavailable PETRILLA, JC Primary Care Unavailable PETRILLA, JC Attending Unavailable PETRILLA, JC Primary Care Unavailable VELMA BENNETT Attending Unavail able PETRILLA, JC ОЛЬГА Primary Care Unavail able PETRILLA, [facility] Primary Care Unavail able PETRILLA, [facility] Primary Care Unavail able LILLY MUNIZ Referring Unavailable VELMA BENNETT Attending Unavail able [facility] Unavail able VELMA BENNETT Referring Unavail able [facility] MARTHA MEYER Attending Unavailable [facility] Unavail able MARIELY SANCHES Attending Unavailable [facility] Unavail able VELMA BENNETT Attending Unavail able VELMA BENNETT Attending Unavail able [facility] Unavail able [facility] Unavailable Lee Walsh Referring Unavailable Lee Walsh Attending Unavailable Roger Granado Attending Unavailable Care Physician, No Primary Primary Care Unava ilable Medications Current Medications Medication Drug Class(es) Dates Sig (Normalized) Sig (Original) amoxicillin 500 mg oral capsule (2 sources) Penicillin-class Antibacterial Start: 04-27-2024 End: 05-07-2024 take 1 capsule by mouth three times daily amoxicillin (Amoxil) 500 MG capsule Take 1 capsule (500 mg) by mouth 3 times daily for 10 days. 30 capsule 04/27/2024 05/07/2024 Active cefuroxime 250 mg oral tablet (1 source) Cephalosporin Antibacterial Start: 12-26-2022 End: 01-05-2023 take 1 tablet by mouth twice daily cefuroxime (Ceftin) 250 MG tablet Take 1 tablet (250 mg) by mouth 2 times daily for 10 days. 20 tablet 0 12/26/2022 01/05/2023 Active Ethinyl Estradiol / norgestimate (20 sources) Progestin, Estrogen Start: 10-15-2024 take 1 tablet by mouth once daily norgestimate-ethi nyl estradiol 0.25-0.035 mg tablet Indications: Irregular periods Take 1 tablet by mouth once daily. 28 tablet 3 10/15/2024 Active Start: 12-09-2023 take 1 tablet by tete th once daily Sprintec 28 0.25-35 MG-MCG tablet Take 1 tablet by mouth daily. 12/09/2023 Active Start: 11-20-2023 End: 10-14-2024 take 1 tablet by mouth once daily norgestimate 0.25 mg-ethinyl estradiol 35 mcg 0.25-35 mg-mcg per tablet Indications: Irregular periods Take 1 tablet by mouth once daily. 90 tablet 3 11/20/2023 10/14/2024 Discontinued Start: 11-20-2023 take 1 tablet by tete th once daily norgestimate 0.25 mg-ethinyl estradiol 35 mcg 0.25-35 mg-mcg per tablet Indications: Irregular periods Take 1 tablet by mouth once daily. 90 tablet 3 11/20/2023 Active Start: 01-17-2021 End: 09-02-2023 ESTARYLLA 0.25-35 mg-mcg per tablet Start: 01-17-2021 ESTARYLLA 0.25 -35 mg-mcg per tablet Start: 02-13-2017 Norgestimate-E thinyl Estradiol (Previfem) 0.25-35 mg-mcg tablet Active 1 {tbl} PO daily February 13, 2017 1:00am Start: 02-13-2017 take 1 tablet by tete th once daily Norgestimate-Ethinyl Estradiol (Previfem) 0.25-35 mg-mcg tablet Active 1 TABLET PO daily February 13, 2017 1:00am Start: 02-07-2017 End: 02-13-2017 Norgestimate-Ethinyl Estradi ol (Tri-Sprintec (28)) 0.18/0.215/0.25 mg-35 mcg (28) tablet Discontinued 1 {tbl} PO daily February 07, 2017 1:00am February 13, 2017 9:21am Start: 02-07-2017 End: 02-13-2017 take 1 tablet by mouth once daily Norgestimate-Ethinyl Estradiol (Tri-Sprintec (28)) 0.18/0.215/0.25 mg-35 mcg (28) tablet Discontinued 1 TABLET PO daily February 07, 2017 1:00am February 13, 2017 9:21am ketorolac tromethamine 10 mg oral tablet (1 source) Nonsteroidal Anti-inflammatory Drug, Cyclooxygenase Inhibitor Start: 08-12-2023 take 1 tablet by mouth four times daily as needed for pain Ketorolac 10 mg tablet Active 10 mg PO 4 TIMES DAILY as needed for pain 20 5 0 August 12, 2023 2:18am 24 hr metFORMIN hydrochloride 500 mg extended release oral tablet (3 sources) Biguanide Start: 09-07-2024 End: 12-06-2024 take 2 tablets by mouth twice daily metFORMIN ER (GLUCOPHAGE XR) 500 mg 24 hr tablet Indications: Insulin resistance Take 2 tablets by mouth two times a day. 120 tablet 2 09/07/2024 12/06/2024 Active phentermine hydrochloride 37.5 mg oral tablet (10 sources) Sympathomimetic Amine Anorectic Start: 07-27-2024 End: 01-23-2025 Phentermine HCl 37.5 mg tablet Indications: Class 2 obesity with body mass index (BMI) of 35.0 to 35.9 in adult, unspecified obesity type, unspecified whether serious comorbidity present Take 1 tablet by mouth daily before breakfast for 90 days. Patient should start on October 25, 2024. 30 tablet 2 10/25/2024 01/23/2025 Active predniSONE 10 mg oral tablet (1 source) Start: 08-19-2024 End: 08-31-2024 predniSONE (DELTASONE) 10 mg tablet Indications: Skin rash Take 4 tabs daily x 3 days, then 3 tabs x 3 days, 2 tabs x 3 days, then 1 tab x3 days with food. 30 tablet 08/19/2024 08/31/2024 Active sulfamethoxazole 800 mg / trimethoprim 160 mg oral tablet (1 source) Dihydrofolate Reductase Inhibitor Antibacterial, Sulfonamide Antimicrobial Start: 08-19-2024 End: 2024 take 1 tablet by mouth twice daily sulfamethoxazole -trimethoprim (BACTRIM DS) 800-160 mg per tablet Indications: Skin rash Take 1 tablet by mouth two times a day for 7 days. 14 tablet 08/19/2024 2024 Active tamsulosin hydrochloride 0.4 mg oral capsule (4 sources) alpha-Adrenergic Sushil Start: 08-12-2023 End: 11-20-2023 tamsulosin (FLOMAX) 0.4 mg 08/12/2023 11/20/2023 Discontinued topiramate 50 mg oral tablet (10 sources) Start: 07-27-2024 End: 01-12-2025 take 1 tablet by mouth once daily at bedtime topiramate (TOPAMAX) 50 mg tablet Indications: Migraine without status migrainosus, not intractable, unspecified migraine type Take 1 tablet by mouth daily at bedtime. 30 tablet 2 10/14/2024 01/12/2025 Active 24 hr venlafaxine 75 mg extended release oral capsule (20 sources) Serotonin and Norepinephrine Reuptake Inhibitor Start: 04-27-2024 End: 12-10-2024 take 1 capsule by mouth once daily at mealtime venlafaxine XR (Effexor XR) 75 MG 24 hr capsule Take 1 capsule (75 mg) by mouth daily. Take with food. 30 capsule 5 10/11/2024 12/10/2024 Active Start: 03-02-2024 End: 04-27-2024 take 1 capsule by mouth every twenty-four hours venlafaxine XR (Effexor XR) 37.5 MG 24 hr capsule TAKE 1 CAPSULE BY MOUTH DAILY.DO NOT CRUSH OR CHEW 90 capsule 1 03/02/2024 04/27/2024 Discontinued (Dose adjustment) Start: 01-08-2024 End: 03-08-2024 take 1 capsule by mouth once daily venlafaxine XR (Effexor XR) 37.5 MG 24 hr capsule Take 1 capsule (37.5 mg) by mouth daily. Do not crush or chew. 30 capsule 1 01/08/2024 03/02/2024 Discontinued venlafaxine ER ( EFFEXOR XR) 37.5 mg 24 hr capsule 75 mg. Active Completed/Discontinued Medications Medication Drug Class(es) Dates Sig (Normalized) Sig (Original) acetaminophen 325 mg / oxyCODONE hydrochloride 5 mg oral tablet (9 sources) Opioid Agonist Start: 08-12-2023 End: 11-20-2023 oxyCODONE-acetamino phen 5 mg-325 mg/5 mL (PERCOCET) 5-325 mg/5 mL solution 08/12/2023 11/20/2023 Discontinued Start: 08-12-2023 End: 01-08-2024 take 1 tablet by mouth every six hours as needed for pain oxyCODONE-acetaminophen (Percocet) 5-325 MG tablet Indications: Renal stone Take 1 tablet by mouth every 6 hours as needed for severe pain (7-10) for up to 20 doses. 20 tablet 08/14/2023 01/08/2024 Discontinued (Therapy completed) barium sulfate (E-Z-Paque) 96 % suspension 146.6667 g (2 sources) Start: 06-29-2024 End: 06-29-2024 take 146.6667 g by mouth once as needed 146.6667 g (50 mL), Oral, IMG once PRN, UGI, Starting on Fri06/29/24 at 0950, For 1 dose cephalexin 500 mg oral capsule (6 sources) Cephalosporin Antibacterial Start: 08-16-2024 End: 08-21-2024 take 1 capsule by mouth four times daily cephALEXin (KEFLEX) 500 mg capsule Take 1 capsule by mouth four times daily for 5 days. 20 capsule 08/16/2024 08/19/2024 Discontinued Start: 08-12-2023 take 1 capsule by [facility] three times daily Cephalexin 500 mg capsule Active 500 mg PO THREE TIMES A DAY 21 7 0 August 12, 2023 12:00am Start: 03-10-2023 End: 03-17-2023 cephalexin (Keflex) 500 MG c apsule Indications: Cellulitis of chest wall Take 1 capsule (500 mg) by mouth in the morning and 1 capsule (500 mg) at noon and 1 capsule (500 mg) in the evening and 1 capsule (500 mg) before bedtime. Do all this for 7 days. 28 capsule 0 03/10/2023 03/17/2023 Active ibuprofen 200 mg oral tablet (20 sources) Nonsteroidal Anti-inflammatory Drug End: 01-08-2024 take 1 tablet by mouth every six hours as needed ibuprofen 200 MG tablet Take 200 mg by mouth every 6 hours as needed. 01/08/2024 Discontinued (Therapy completed) insulin lispro 100 unt/ml injectable solution (2 sources) Insulin Analog Start: 02-07-2017 End: 02-13-2017 inject 1 [IU] by subcutaneous injection every hour Insulin Lispro (Humalog U-100 Insulin) 100 unit/mL solution Discontinued 1 units/hr Continuous Subcutaneous Infusion February 07, 2017 1:00am February 13, 2017 9:40am naproxen 500 mg oral tablet (4 sources) Nonsteroidal Anti-inflammatory Drug Start: 05-17-2022 End: 05-17-2023 take 1 tablet by mouth in the morning naproxen (Naprosyn) 500 MG tablet Indications: Chronic pain of left knee Take 1 tablet (500 mg) by mouth in the morning and 1 tablet (500 mg) in the evening. Take with meals. 30 tablet 0 05/17/2022 07/30/2022 Discontinued (Therapy completed) omeprazole 40 mg delayed release oral capsule (16 sources) Proton Pump Inhibitor Start: 08-24-2024 End: 11-22-2024 take 1 capsule by mouth twice daily before mealtime omeprazole (PriLOSEC) [address] capsule Take 1 capsule (40 mg) by mouth 2 times daily (before meals). Do not crush or chew. 180 capsule 08/24/2024 10/11/2024 Discontinued (Therapy completed) Start: 05-25-2024 End: 08-24-2024 take 1 capsule by mouth once daily before dinner omeprazole (PriLOSEC) [address] capsule Take 1 capsule (40 mg) by mouth daily (before dinner). Do not crush or chew. 90 capsule 05/25/2024 08/24/2024 Discontinued 2 ml ondansetron 2 mg/ml injection (3 sources) Serotonin-3 Receptor Antagonist Start: 08-24-2024 End: 08-24-2024 4 mg, IntraVENous, Once PRN, nausea, vomiting, Starting on Fri08/24/24 at 0705, For 1 dose, Preprocedure Start: 08-12-2023 take 1 tablet by tete th three times daily as needed for nausea and vomiting Ondansetron 4 mg tablet,disintegrating Active 4 mg PO THREE TIMES A DAY as needed for nausea and vomiting 0 August 12, 2023 2:20am pantoprazole 40 mg delayed release oral tablet (13 sources) Proton Pump Inhibitor Start: 01-08-2024 End: 09-07-2024 take 1 tablet by mouth once daily pantoprazole (ProtoNix) 40 MG EC tablet TAKE 1 TABLET (40 MG) BY MOUTH DAILY. DO NOT CRUSH, CHEW, OR SPLIT. 90 tablet 1 03/02/2024 05/25/2024 Discontinued (Ineffective) 5 ml sodium chloride 9 mg/ml injection (6 sources) Start: 08-24-2024 End: 08-24-2024 10 mL, IntraVENous, Every 12 hours scheduled (2 times per day), First dose on Fri08/24/24 at 0900, Preprocedure Start: 08-24-2024 End: 08-24-2024 take 100 mL intravenously every hour as needed, then take 20 mL intravenously every hour as needed 5-250 mL/hr, IntraVENous, PRN, if patient receiving piggyback infusions and maintenance fluids are not ordered OR KVO fluids to protect IV site / prevent frequent line interruptions/ long duration, Starting on Fri08/24/24 at 0705, Preprocedure, For piggyback infusion, administer at same rate as piggyback for a total of 25 mL. Enter 25 mL into dose field and piggyback rate into rate field of order. If piggyback is infusing at a rate less than 100 mL/hr, enter 25 mL into dose field and 100 mL/hr into rate field of order. For KVO fluids, enter rate of 20 mL/hr or less into rate field of order. Start: 08-24-2024 End: 08-24-2024 take 10 mL intravenously once as needed 10 mL, IntraVENous, PRN, line care, Starting on Fri08/24/24 at 0705, Preprocedure, After every IV line use Problems Active Problems Problem Classification Problem Date Documented Da te Episodic/Chronic Abdominal hernia (17 sources) Hiatal hernia; Translations: [Diaphragmatic hernia without obstruction or gangrene] Onset: 5 07-27-2024 Episodic Abdominal pain (2 sources) Pain in female pelvis; Translations: [Pelvic and perineal pain] 11-20-2023 Episodic Anxiety disorders (20 sources) Mixed anxiety and depressive disorder; Translations: [Anxiety disorder, unspecified] Onset: 4 01-08-2024 Chronic Calculus of urinary tract (20 sources) Kidney stone; Translations: [Calculus of kidney] Onset: 4 08-14-2023 Episodic Disorders of lipid metabolism (5 sources) Dyslipidemia; Translations: [Hyperlipidemia, unspecified] Onset: 5 11-28-2023 Chronic Esophageal disorders (20 sources) Gastroesophageal reflux disease without esophagitis; Translations: [Gastro-esophageal reflux disease without esophagitis] Onset: 4 Resolved: 5 01-08-2024 Chronic Female infertility (1 source) Anovulation; Translations: [Female infertility associated with anovulation] 08-20-2023 Chronic Genitourinary symptoms and ill-defined conditions (1 source) Hematuria, unspecified; Translations: [Hematuria, unspecified] Onset: 5 Episodic Headache; including migraine (4 sources) Migraine; Translations: [Migraine, unspecified, not intractable, without status migrainosus] Onset: 5 07-27-2024 Chronic Joint disorders and dislocations; trauma-related (9 sources) Patellofemoral syndrome of left knee; Translations: [Patellofemoral disorders, left knee] Chronic Joint disorders and dislocations; trauma-related (1 source) Subluxation of patellofemoral joint; Translations: [Unspecified subluxation of left patella, initial encounter] Episodic Menstrual disorders (4 sources) Irregular periods; Translations: [Irregular menstruation, unspecified] 11-20-2023 Chronic Mood disorders (2 sources) Mood disorders; Translations: [Depression, unspecified] Onset: Other and unspecified benign neoplasm (1 source) Osteochondroma of bone; Translations: [Benign neoplasm of long bones of left lower limb] 07-30-2022 Episodic Other connective tissue disease (9 sources) Hamstring injury; Translations: [Other specified enthesopathies of left lower limb, excluding foot] Episodic Other diseases of kidney and ureters (1 source) Hydronephrosis co-occurrent and due to calculus of kidney and ureter; Translations: [Hydronephrosis with renal and ureteral calculous obstruction] 08-20-2023 Episodic Other gastrointestinal disorders (2 sources) Constipation; Translations: [Constipation, unspecified] 09-07-2024 Episodic Other gastrointestinal disorders (1 source) Constipation, unspecified; Translations: [Constipation, unspecified constipation type] Onset: 5 Episodic Other non-traumatic joint disorders (2 sources) Other specific joint derangements of left shoulder, not elsewhere classified; Translations: [Oth specific joint derangements of left shoulder, NEC] Onset: 7 Chronic Other nutritional; endocrine; and metabolic disorders (4 sources) Obesity; Translations: [Class 2 obesity with body mass index (BMI) of 35.0 to 35.9 in adult, unspecified obesity type, unspecified whether serious comorbidity present] 11-28-2023 Chronic Other nutritional; endocrine; and metabolic disorders (3 sources) Insulin resistance; Translations: [Insulin resistance] 07-27-2024 Chronic Other nutritional; endocrine; and metabolic disorders (3 sources) Cholesterol level - finding; Translations: [Lipoprotein deficiency] 07-27-2024 Chronic Other nutritional; endocrine; and metabolic disorders (1 source) Lipoprotein deficiency; 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)] Onset: 5 Chronic Other nutritional; endocrine; and metabolic disorders (1 source) Body mass index (BMI) 35.0-35.9, adult; Translations: [Class 2 obesity with body mass index (BMI) of 35.0 to 35.9 in adult, unspecified obesity type, unspecified whether serious comorbidity present] Onset: 5 Chronic Other skin disorders (1 source) Mass of lower limb; Translations: [Localized swelling, mass and lump, left lower limb] Episodic Other skin disorders (1 source) Eruption; Translations: [Rash and other nonspecific skin eruption] 08-19-2024 Episodic Other upper respiratory infections (1 source) Chronic sinusitis; Translations: [Chronic sinusitis, unspecified] 12-26-2022 Chronic Ovarian cyst (3 sources) Complex ovarian cyst; Translations: [Other ovarian cyst, unspecified side] 08-20-2023 Episodic Residual codes; unclassified (1 source) Insomnia, unspecified; Translations: [Insomnia, unspecified type] Onset: 5 Episodic Unclassified (2 sources) GI Problem; Translations: [GI Problem] Onset: 4 Unclassified (1 source) Insulin resistance; Translations: [Insulin resistance] Onset: 5 Unclassified (1 source) Class 2 obesity with body mass index (BMI) of 35.0 to 35.9 in adult, unspecified obesity type, unspecified whether serious comorbidity present; Translations: [Class 2 obesity with body mass index (BMI) of 35.0 to 35.9 in adult, unspecified obesity type, unspecified whether serious comorbidity present] Onset: 5 Past or Other Problems Problem Classification Problem Date Documented Da te Episodic/Chronic Allergic reactions (2 sources) Inflammatory dermatosis; Translations: [Dermatitis, unspecified] Onset: 08-16-2024 08-16-2024 Episodic Other non-traumatic joint disorders (2 sources) Pain in left shoulder; Translations: [Pain in left shoulder] Onset: 09-02-2016 Episodic Other non-traumatic joint disorders (20 sources) Pain in left knee; Translations: [Pain in joint, lower leg] Onset: 05-17-2022 Resolved: 12-26-2022 Episodic Other screening for suspected conditions (not mental disorders or infectious disease) (12 sources) Patient encounter status; Translations: [Encounter for screening for lipoid disorders] Onset: 07-27-2024 07-27-2024 Episodic Other skin disorders (1 source) Rash and other nonspecific skin eruption; Translations: [Skin rash] Onset: 08-19-2024 Episodic Other upper respiratory disease (1 source) Pain in throat Onset: 04-15-2024 Episodic Other upper respiratory infections (4 sources) Sore throat symptom; Translations: [Acute pharyngitis, unspecified] Onset: 04-27-2024 04-15-2024 Episodic Skin and subcutaneous tissue infections (20 sources) Cellulitis of chest wall ; Translations: [Cellulitis of chest wall] Onset: 03-10-2023 Resolved: 01-08-2024 03-10-2023 Episodic Results Test Name Value Interpretation Reference Range Facility Emergency Department Summary on 12-22-2024 Emergency Department Summary [facility] Medical Records Department [address] [place] [id number] Emergency Department Summary 12/22/24 MR#: [id number] Acct: [id number] Name: SWATHI NEELY Rep #: [id number] : 1990 34 From: Roger Granado MD PCP: Care Physician,No Primary Status:DEP ER Location: ED HPI HPI - Female History of Present Illness Chief Complaint: Complaint Informant: patient Associated Symptoms Associated Symptoms: Positive for Dysuria Narrative Narrative: 34-year-old female history of kidney stones and UTI. Also has a degenerative right kidney. But still functions. States she has had hematuria for 2 days body aches. Has been taking Azo without relief. Denies any significant unilateral pain. Denies any fever or chills. Says she has had dysuria and hematuria. Prior similar symptoms: Yes Recent Illness/Hospitalizatio n: No PFSH PFSH Home Medications ???Medication ???Instructions ???Recorded ???Last Taken ???Type norgestimate 0.25 mg-ethinyl 1 tab PO QDAY 02/13/17 Unknown His tory estradiol 0.035 mg tablet (Previfem) nitrofurantoin 100 mg PO Q12H 5 days #10 caps Unknown Rx monohydrate/macrocryst als 100 mg capsule (Macrobid) phentermine 37.5 mg tablet 37.5 mg PO DAILY 12/22/24 Unknown History topiramate 50 mg tablet 50 mg PO DAILY 12/22/24 Unknown Hi story venlafaxine 75 mg capsule,extended 75 mg PO DAILY 12/22/24 Unknown History release 24 hr Allergy/AdvReac Type Severity Reaction Status Date / Time No Known Allergies Allergy Verified 12/22/24 15:32 Family History Father Hypertension Surgical History History of arthroscopy of left shoulder Cystic hygroma Social History Smoking Status: Never smoker ROS ROS ED ROS Narrative Dysuria. Hematuria. Constitutional Constitutional ED: Denies chills or fever(s) ENT ENT ED: Denies ear pain Cardiovascular Cardiovascular: Denies chest pain Respiratory/Chest Respiratory/Chest: Denies cough or dyspnea Gastrointestinal Gastrointestinal: Denies abdominal pain, constipation, diarrhea, melena, nausea or vomiting Genitourinary Genitourinary ED: Reports dysuria and hematuria Musculoskeletal Musculoskeletal: Denies arthralgias Integumentary Denies abscess Neurologic Neurologic: Denies headache(s) Psychiatric Psychiatric: Denies anxiety Endocrine Endocrinology: Denies heat intolerance Hematologic/Lymphatic Hematologic/Lymphatic: Denies easy bleeding, easy bruising or lymphadenopathy Allergic/Immunologic Allergic/Immunologic ED: Denies mouth swelling, tongue swelling or urticaria EXAM Physical Exam Narrative Exam Narrative: 34-year-old female sitting upright in bed vital signs stable afebrile. No acute distress. Pulse ox 99% on room air no hypoxia. H EENT exam pupils round react light. Moist with membranes. Neck nontender no lymphadenopathy. Back nontender. No CVA tenderness. Lungs clear to auscultation bilaterally. Heart regular rhythm rate about 110 no murmur. Chest wall ribs nontender. Abdomen soft, nontender, nondistended, normal bowel sounds without peritoneal signs. No localizing tenderness. Moving all 4 extremities. Nontender no edema. Normal strength and range of motion. Neurologically she is awake alert. Answering questions following commands. Benign exam. Const Vital Signs: 12/22/24 15:28 12/22/24 17:28 12/22/24 18:29 Temperature 97.8 F 98.2 F Temperature Source Oral Pulse Rate 123 H 111 H 107 H Respiratory Rate 16 18 18 Blood Pressure 133/86 H 119/86 H 120/79 Blood Pressure Mean 101 97 92 Pulse Ox 99 97 97 Oxygen Delivery Method Room Air Room Air MDM MDM MDM Narrative Medical decision making narrative: 34-year-old female suspect UTI clinically does not appear to be a kidney stone. UA will be checked. Last menstrual period was 2 weeks ago and she states there is no issue to be . I do not think she needs blood work. Repeat exam around 6:11 PM patient doing well. UA is cloudy with positive nitrates will be treated with UTI. Macrobid given here. 1 pill twice a day for 5 days. Outpatient follow-up as needed. Return if worse. History Record Review Discussion w/independent historian: Patient Additional record(s) reviewed:: Prior inpatient record, Prior outpatient record, Prior ED visit and Prior labs Lab Data Attestation: I reviewed the patient's lab results. Lab results narrative: UA consistent with UTI. Cloudy and positive nitrates. 5-10 white cells. 25-50 red cells and 4+ bacteria. Labs: Laboratory Results - last 24 hr 12/22/24 16:20 Urine Color SEE COMMENT BELOW Urine Clarity Sl. Cloudy (more content not included)... Normal [facility] Urinalysis, Completeon 12-22 AMORPHOUS 1+ Normal [facility] Comment on above: Order Comment: CLEAN CATCH Performed By: #### L [id number] #### [facility] [address] [place], [place], [id number] BACTERIA 4+ /hpf Normal None Seen [facility] Comment on above: Order Comment: CLEAN CATCH Performed By: #### L [id number] #### [facility] [address] [place], [address] EPI,SQUAMOUS 0-5 SEEN Normal 5-10 [facility] Comment on above: Order Comment: CLEAN CATCH Performed By: #### [id number] #### [facility] [address] [place], [address] RBC 5-10 SEEN Normal 0-5 [facility] Comment on above: Order Comment: CLEAN CATCH Performed By: #### L [id number] #### [facility] [address] [place], [address] WBC 25-50 SEEN Normal 0-5 [facility] Comment on above: Order Comment: CLEAN CATCH Performed By: #### L [id number] #### [facility] [address] [place], [address] Mucus Ql (Urine sed) 0 SEEN Normal [facility] Comment on above: Order Comment: CLEAN CATCH Performed By: #### L [id number] #### [facility] [address] [place], [address] CNOVon 12-08-2024 CNOV Office Visit (OBGYWM ) SWATHI NEELY ([id number]) 1990 F Date Time Provider Department 12/08/24 3:30 PM VELMA BENNETT OBGYWM During your visit today, we recorded the following information about you: Pulse Blood pressure Weight 97/minute 116/80 75.3 kg Velma Bennett MD 12/08/2024 4:29 PM Signed Some documentation from previous visit of 10/14/24 was copied and pasted, documentation has been reviewed and edited as necessary for today's visit. Patient Summary: Swathi is a 34 year old Female who presents for follow-up evaluation of obesity/weight management to treat and prevent related co-morbidities. In our previous visits we have discussed lifestyle intervention including a nutrition recommendations and physical activity optimization. Her last office visit was 8 weeks ago. Assessment/plan from last visit: - Patient has not been taking metformin consistently due to nausea and forgetfulness. - Advised setting an alarm to take metformin with dinner; instructed to titrate dose slowly as tolerated. - Recommended Super B complex supplement to prevent B12 deficiency. - Encouraged continuation of high-protein, low-carbohydrate diet; advised to increase protein intake to 120g/day and maintain hydration. - Advised to continue daily walks and incorporate resistance training 2-4 times per week. - Continue topiramate. - Discussed potential for topiramate to cause spotting with control pills. - Weight reduced from 199 lbs to 168 lbs; waist circumference reduced from 37.5 inches to 33.5 inches. - Continue phentermine; prescription refilled. - Discussed that weight loss can also impact menstrual cycles. - Follow-up in November. 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 - Despite challenges, has lost 2-3 pounds since the last visit and views maintaining weight as a positive outcome. - Consistently consumes a protein drink for breakfast but struggles with lunch and dinner planning due to a busy schedule and limited food preferences. - Engages in physical activity, including playing pickleball 2-3 times a week and occasional walking, but notes a decrease in activity since the school year began. - Enjoys salty snacks, particularly popcorn, and has switched to mini bags to control portions. - Denies any issues with current medications, including phentermine and topiramate, and is taking topiramate once daily. - Takes metformin with dinner when remembered but finds it challenging to maintain consistency due to a variable schedule. - Reports poor sleep quality, attributing it to stress from work. - not tracking food currently - eating more high carb Weight loss since last vist: 2 lbs total weight lost 33 lbs 16%= 166lbs 12/08/24 166 lb 10/14/24 168 lb 09/07/24 182lbs 07/27/24: 199lbs (initial weight) Anti-obesity medications: Topiramate/phentermine . Benefit:decreased cravings, decreased portion sizes Adverse effects: tingling in fingers occasionally, constipation Anti-obesity medications: Metformin (start 09/07/24) Benefit:insulin 18 Adverse effects: Weight promoting medications: Effexor Previous Diet (initial appointment): Awake - 5:45-6 during school year B -7:30- flavored water with javed w/ caffeine, pack of PB crackers S - L - [id number]- yogurt- chobani (regular), pretzels, leftovers- cheesy potato, pasta, chicken quesadila S - D - 3:30-4pm- chicken quesadilla, pasta, cheesy potato. Out to dinner once per week- maldivian S - 8pm- popcorn, pretzels, chips- salty Fluids: water w/ javed (48-54 oz), ning, smirnoff one per day in evening. Bedtime - 9-10pm (wakes up 2-3x per night) Quality of diet: 24hr recall suggests unhealthy diet. Characterization of diet:Structured and evening snacking. Clay Hoister of impaired eating habits:excessive hunger, mindlessness , boredom, and emotion Eating Disorder no Cravings: salty Dietary changes: B - protein shake - muscle milk now fairlife S - L - deer bologna and cheese, sausage and cheese , protein shake instead sometimes if busy, apple. Leftovers- lasagna S - D - meat and vegetable w/ fruit apple or omaira S - Fluids - 64-80oz one x per week sugar free smirnoff Eating 3 meals a day, including breakfast Increasing water intake Controlling portions Identify hunger and satiety cues Limiting processed foods Increasing protein Reducing carbohydrates Mindful Eating strategies Current Barriers: reduced physical activity Exercise: stable Regular exercise: no Strength/resistance exercise:no Barriers to regular exercise? no Work-related activity:Sedentary.but is on her f (more content not included)... Normal [facility] CNOVon 10-14-2024 CNOV Office Visit (OBGYWM ) SWATHI NEELY ([id number]) 1990 F Date Time Provider Department 10/14/24 9:20 AM VELMA BENNETT During your visit today, we recorded the following information about you: Pulse Blood pressure Weight Last Period 120/minute 120/80 76.2 kg 10/10/24 Velma Bennett MD 10/14/2024 10:17 AM Signed Some documentation from previous visit of 09/07/24 was copied and pasted, documentation has been reviewed and edited as necessary for today's visit. Patient Summary: Swathi is a 34 year old Female who presents for follow-up evaluation of obesity/weight management to treat and prevent related co-morbidities. In our previous visits we have discussed lifestyle intervention including a nutrition recommendations and physical activity optimization. Her last office visit was 5 weeks ago. Assessment/plan from last visit: - Initiated Metformin 500 mg once daily with dinner, with gradual titration as tolerated to a maximum of 2000 mg daily (1000 mg BID). - Continue current management with Effexor. -continue topiramate - Significant weight loss of 17 lbs and reduction in waist circumference from 37.5 inches to 35.25 inches. - Current medications include Phentermine and Topiramate, both taken in the morning. - Discussed potential side effect of tingling in fingers, likely related to medication. - Advised on the importance of maintaining a high protein intake (minimum 90 grams daily) and incorporating two protein shakes per day if necessary to meet protein goals. - continue tracking - exercise reviewed - Encouraged continuation of current dietary habits, including a protein shake for breakfast and balanced meals with protein, vegetables, and limited carbohydrates. - Discussed the benefits of Metformin in conjunction with current medications for weight management. - Scheduled follow-up appointments on October 14 and December 08 to monitor progress and adjust treatment as needed. Interval History PT specifies the following items as new or significant updates since the last appointment: -trying to get more walks in in evening - 30min - went on vacation - [place] - didn't eat perfect but - - Reports difficulty sleeping over the past week and a half. 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 - Typically experiences sleep disturbances two weeks before and after the start of the school year. - Current medication: Effexor 75 mg for anxiety. - Reports tingling in hands, which she considers normal. -- Uses the Lose It nish to track food intake. - Reports constipation has improved. Weight loss since last vist: 14 lbs total weight lost 31 lbs 10/14/24 168 lb 09/07/24 182lbs 07/27/24: 199lbs (initial weight) Anti-obesity medications: Topiramate/phentermine . Benefit:decreased cravings, decreased portion sizes Adverse effects: tingling in fingers occasionally, constipation Anti-obesity medications: Metformin (start 09/07/24) Benefit:insulin 18 Adverse effects: Weight promoting medications: Effexor Previous Diet (initial appointment): Awake - 5:45-6 during school year B -7:30- flavored water with javed w/ caffeine, pack of PB crackers S - L - [id number]- yogurt- chobani (regular), pretzels, leftovers- cheesy potato, pasta, chicken quesadila S - D - 3:30-4pm- chicken quesadilla, pasta, cheesy potato. Out to dinner once per week- maldivian S - 8pm- popcorn, pretzels, chips- salty Fluids: water w/ javed (48-54 oz), ning, smirnoff one per day in evening. Bedtime - 9-10pm (wakes up 2-3x per night) Quality of diet: 24hr recall suggests unhealthy diet. Characterization of diet:Structured and evening snacking. Clay Hoister of impaired eating habits:excessive hunger, mindlessness , boredom, and emotion Eating Disorder no Cravings: salty Dietary changes: B - protein shake - muscle milk now fairlife S - L - deer bologna and cheese, sausage and cheese , protein shake instead sometimes if busy S - D - meat and vegetable w/ fruit apple or omaira S - Fluids - 64-80oz one x per week sugar free smirnoff Eating 3 meals a day, including breakfast Increasing water intake Controlling portions Identify hunger and satiety cues Limiting processed foods Increasing protein Reducing carbohydrates Mindful Eating strategies Current Barriers: reduced physical activity Exercise: stable Regular exercise: no Strength/resistance exercise:no Barriers to regular exercise? no Work-related activity:Sedentary.but is on her feet all day Gym Membership: no Activity Tracker: no average steps per day N/A Stress: stableStress:no, Cause:None Sleep: stableDuration: 6-7 hours. EDUIN NO ; CPAP NO naps 30min-2hrs Estimated Creatinine Clearance: 96.2 mL/min (bas (more content not included)... Normal [facility] Office Visiton 10-11-2024 Follow-up visit [id number] Swathi Neely 1990 F Date Provider Department Center 10/11/2024 [id number] LESLIE F [facility] Family History Problem Relation Age of Onset No Known Problems Mother Gout Father No Known Problems Brother No Known Problems Maternal Grandmother No Known Problems Maternal Grandfather Cancer Paternal Grandmother Comments: ?intrabd Cancer Paternal Grandfather Comments: ? Colon Family Status - Relation Status Age at Mother Alive Father Alive Brother Alive Maternal Grandmother Alive Maternal Grandfather Alive Paternal Grandmother Paternal Grandfather Level of Service:[id number] [place] OFFICE/OUTPATIENT ESTABLISHED LOW MDM 20 MIN Reason for Visit and Comments: Follow-up [[id number]] - Med check Normal [facility] Progress Noteon 10-11-2024 Progress Note [facility] - [address] [facility] [id number] Visit type: Established Patient Reason for Visit: Follow-up (Med check) Assessment / Plan: Swathi was seen today for follow-up. Diagnoses and all orders for this visit: Anxiety and depression (Primary) Comments: Control, continue Effexor Gastroesophageal reflux disease without esophagitis Comments: Stable with avoidance measures History of renal calculi Comments: Noted, discussed risk for recurrent renal stones on topiramate Other orders - venlafaxine XR (Effexor XR) 75 MG 24 hr capsule; Take 1 capsule (75 mg) by mouth daily. Take with food. Subjective: Patient ID: Swathi Neely is a 34 y.o. female. HPI patient presents for Effexor refill for generalized anxiety and depression. She continues to do well. 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 Had an allergic reaction to lemon juice with a left elbow swelling. Saw Dr. Smith and treated appropriately. He is now on topiramate for migraine prevention and phentermine for weight loss purposes by her money position officer Review of Systems of note did have kidney stones last year. She knows the risk of recurrent stones on topiramate. She feels Effexor has been helpful. Not interested in cutting down the dosage. Her family and friends are very supportive. No cardiac or pulmonary concerns. No change in bowels or bladder at this time Allergies[1] Current Medications[2] Problem List[3] Social History Tobacco Use Smoking status: Never Smokeless tobacco: Never Substance Use Topics Alcohol use: Yes Alcohol/week: 1.0 standard drink of alcohol Surgical History[4] Family History[5] Objective: BP 107/78 Pulse (!) 118 Temp 36.8 ?C (98.2 ?F) (Temporal) Ht 5' 2 (1.575 m) Wt 171 lb (77.6 kg) SpO2 99% BMI 31.28 kg/m? Physical Exam Very engaging. She is well-groomed has good insight and eye contact. No thyroid or neck masses. Physiologic reflexes. Heart is regular. Pulse 100. No ectopy or murmurs. Lungs are clear. Abdomen without pain hepatosplenomegaly or masses. Extremities are pink without edema. Pulses are excellent. [1] No Known Allergies [2] Current Outpatient Medications: phentermine (Adipex-P) 37.5 MG tablet, Take 37.5 mg by mouth every morning (before breakfast)., Disp: , Rfl: Sprintec 28 0.25-35 MG-MCG tablet, Take 1 tablet by mouth daily., Disp: , Rfl: topiramate 50 MG tablet, Take 1 tablet by mouth Nightly., Disp: , Rfl: venlafaxine XR (Effexor XR) 75 MG 24 hr capsule, Take 1 capsule (75 mg) by mouth daily. Take with food., Disp: 30 capsule, Rfl: 5 [3] Patient Active Problem List Diagnosis History of renal calculi Anxiety and depression Gastroesophageal reflux disease Hiatal hernia [4] Past Surgical History: Procedure Laterality Date EGD (HISTORICAL) 08/2024 Dr. Xiao- duodenitis- bilous stasis EXTRACORPOREAL SHOCK WAVE LITHOTRYPSY, KIDNEY CALCULI (HISTORICAL) Left 07/2023 Dr. Walsh- removal 08/2023 HEMANGIOMA EXCISION 1990 SHOULDER ARTHROSCOPY Left [address] Hill [5] Family History Problem Relation Name Age of Onset No Known Problems Mother Gout Father No Known Problems Brother No Known Problems Maternal Grandmother No Known Problems Maternal Grandfather Cancer Paternal Grandmother ?intrabd Cancer Paternal Grandfather ? Colon Normal [facility] Abdomen Single Viewon 2024 Abdomen Single View [facility] Imaging Services [address] [place], [place] [address] Abdomen Single View MR#: [id number] Acct: [id number] Name: SWATHI NEELY Rep #: [id number] : 1990 F 34 From: Angel Eubanks MD PCP: Dr. Jc Leslie DO Status: REG CLI Study: Abdomen Single View Date of Exam: 10/05/24 Exam# [id number] Ordering Dr: Lee Walsh MD PROCEDURE: ABDOMEN SINGLE VIEW 10/05/2024 REASON FOR EXAM: CALCULUS OF URETER TECHNIQUE: ABDOMEN SINGLE VIEW COMPARISON: 08/12/2023 CT FINDINGS: Clear lung bases. No free air. Nonobstructed bowel. 2 mm left renal calcification. 2 mm right renal calcification. Previously noted left ureteral stone no longer seen. RAD/Abdomen Single View IMPRESSION: Previously noted left ureteral stone is no longer seen and has probably passed. Correlate with clinical history. Reading Location: [place] [address] CC: Dr. Jc Leslie DO; Dr. Lee Walsh MD Edge Drummer: Signed Normal [facility] 36on 09-08-2024 36 Called and informed of EGD results and recommendations to continue PPI therapy on going. No questions at this time. Normal [facility] CNOVon 09-07-2024 CNOV Office Visit (OBGYWM ) SWATHI NEELY ([id number]) 1990 F Date Time Provider Department 09/07/24 3:30 PM VELMA BENNETT OBMIRACLEWLisandra During your visit today, we recorded the following information about you: Pulse Blood pressure Weight 100/minute 130/92 82.6 kg Velma Bennett MD 09/07/2024 4:51 PM Signed Some documentation from previous visit of 07/27/24 was copied and pasted, documentation has been reviewed and edited as necessary for today's visit. Patient Summary: Swathi is a 34 year old Female who presents for follow-up evaluation of obesity/weight management to treat and prevent related co-morbidities. In our previous visits we have discussed lifestyle intervention including a nutrition recommendations and physical activity optimization. Her last office visit was 1 month ago. Assessment/plan from last visit: -discussed surgical options- declines - protein goal 90-135g - tracking reviewed - Consider Nutrition next visit - will start toprimate and phentermine. Reviewed off label use, common SE. Discussed h/o Stones- discussed needing to drink more water 64-90 oz minimum. - Power reviewed -previous labs reviewed from 10/2024 Interval History PT specifies the following items as new or significant updates since the last appointment: - Reports feeling more energetic and less inclined to lay around all day on days off. - Denies current issues with binge eating, emotional eating, stress eating, food cravings, high-calorie foods, large portion sizes, grazing throughout the day, excessive hunger, lack of motivation, poor sleep, or reduced physical activity. - Denies chest pain, palpitations, brain fog, or excessive grogginess from current medications. - Reports occasional tingling in fingers, more noticeable at work when exposed to cold temperatures. - Reports constipation, noting it has worsened over the last two weeks. - Struggles to eat dinner by 6:00 or 6:30 PM, sometimes not hungry but eats to avoid hunger later. - Uses a food log to track intake, shared the log with a coworker who has since lost 30 lbs. - has suggested dietary modifications for coworkers and mom. Weight loss since last vist: 17lbs total weight lost 17lbs 09/07/24 182lbs 07/27/24: 199lbs (initial weight) Anti-obesity medications: Topiramate/phentermine . Benefit:decreased cravings, decreased portion sizes Adverse effects: tingling in fingers occasionally, constipation Anti-obesity medications: Metformin (start 09/07/24) Benefit:insulin 18 Adverse effects: Weight promoting medications: Effexor Previous Diet (initial appointment): Awake - 5:45-6 during school year B -7:30- flavored water with javed w/ caffeine, pack of PB crackers S - L - [id number]- yogurt- chobani (regular), pretzels, leftovers- cheesy potato, pasta, chicken quesadila S - D - 3:30-4pm- chicken quesadilla, pasta, cheesy potato. Out to dinner once per week- maldivian S - 8pm- popcorn, pretzels, chips- salty Fluids: water w/ javed (48-54 oz), ning, smirnoff one per day in evening. Bedtime - 9-10pm (wakes up 2-3x per night) Quality of diet: 24hr recall suggests unhealthy diet. Characterization of diet:Structured and evening snacking. Clay Hoister of impaired eating habits:excessive hunger, mindlessness , boredom, and emotion Eating Disorder no Cravings: salty Dietary changes: B - protein shake - muscle milk now fairlife S - L - deer bologna and cheese, sausage and cheese S - D - meat and vegetable w/ fruit apple or omaira S - Fluids - 64-80oz one x per week sugar free smirnoff Eating 3 meals a day, including breakfast Increasing water intake Controlling portions Identify hunger and satiety cues Limiting processed foods Increasing protein Reducing carbohydrates Mindful Eating strategies Current Barriers: reduced physical activity Exercise: stable Regular exercise: no Strength/resistance exercise:no Barriers to regular exercise? no Work-related activity:Sedentary.but is on her feet all day Gym Membership: no Activity Tracker: no average steps per day N/A Stress: stableStress:no, Cause:None Sleep: stableDuration: 6-7 hours. EDUIN NO ; CPAP NO naps 30min-2hrs Estimated Creatinine Clearance: 100.3 mL/min (based on SCr of 0.8 mg/dL). PAST MEDICAL HISTORY Diagnosis Date History of depression Irregular periods Kidney stones Current Outpatient Medications Medication Sig Dispense Refill topiramate (TOPAMAX) 50 mg tablet Take 1 tablet by mouth daily at bedtime. 30 tablet 2 Phentermine HCl 37.5 mg tablet Take 1 tablet by mouth daily before breakfast for 90 days. 30 tablet 2 venlafaxine ER (EFFEXOR XR) 37.5 mg 24 hr capsule 75 mg. norgestimate 0.25 mg-ethinyl estradiol 35 mcg 0.25-35 mg-mcg per tablet Take 1 tablet by mouth once daily. [address] (PROTONIX) 40 (more content not included)... Normal [facility] 36on 09-01-2024 36 Left to call nilo delgado to review EGD results. Final Diagnosis A. DUODENUM, 1ST PART, BIOPSY: - PEPTIC DUODENITIS Comment: The biopsy shows gastric foveolar (mucin cell) metaplasia, mild non specific inflammation in lamina propria and overall preserved villous pattern, consistent with chronic peptic duodenitis. B. STOMACH, ANTRUM, BIOPSY: - REACTIVE GASTROPATHY Comment: H&E sections show no evidence of H. pylori. No intestinal metaplasia, dysplasia or malignancy identified. C. ESOPHAGO-GASTRIC JUNCTION, BIOPSY: - SQUAMOUS MUCOSA WITH ELONGATE PAPILLAE, BASAL HYPERTROPHY AND REACTIVE CHANGES. - GLANDULAR MUCOSA WITH MILD TO MODERATE CHRONIC INACTIVE GASTRITIS; NEGATIVE FOR INTESTINAL METAPLASIA OR DYSPLASIA. Comment: No intestinal metaplasia, dysplasia or malignancy identified. Overall recommendations is to continue PPI. Okay to release message as written [facility] 36 ----- Message from Timothy Xiao MD sent at 2024 4:07 PM EDT ----- Regarding: GERD EGD results Yoon, At your convenience, please inform Swathi regarding her EGD results - peptic duodenitis and some gastritis. No h. Pylori. Recommend continued PPI therapy ongoing. No evidence of Davis's on Z-line biopsy but the z-line did appear irregular overall. Thanks, KR ----- Message ----- From: BUILD UserFrancisco Javier Sent: 2024 2:14 PM EDT To: Timothy Xiao MD [facility] Nursing Noteon 07-01-2025 Nursing Note Pt and family verbalized understanding of recovery instructions, pt verbalized a readiness to be discharged home. Pt discharged home via wheelchair accompanied by RN/volunteer. Pt has had all their belongings returned to them at discharge Normal [facility] Nursing Note Pt recieved from ENDOSCOPY to phase 2 via cart with CLIENT SERVICE ASSOCIATE in attendance, pt has spontaneous respirations,pt place on monitor with alarms on, will continue to monitor Normal [facility] CNOVon 08-19-2024 CNOV Office Visit (UCWSTR ) RAMY NEELYN Antonella ([id number]) 1990 F Date Time Provider Department 08/19/24 11:00 AM MARIELY SANCHES [facility] During your visit today, we recorded the following information about you: Temperature Pulse Respiration Blood pressure 98 degrees 98/minute 20/minute 127/88 Weight 85 kg Mariely Sanches APRN.CANNERY WORKER 08/19/2024 11:47 AM Signed [facility] Subjective HPI HPI Swathi Antonella Neely is a 33 year old female who presents today for CC of painful rash/blistering of left arm. This started 5 days ago, treated with cephalexin at that time, still on that medication. Symptoms are worsened by nothing known. No known insect bite or sting. Full rom of elbow, no deep pain, only pain at rash. .Patient presents with: Derm Problem: Left arm anti cubital area, x 5 days, redness warmth whole ext, blistering, tender, increasing in blisters PAST MEDICAL HISTORY Diagnosis Date History of depression Irregular periods Kidney stones PAST SURGICAL HISTORY Procedure Laterality Date PAST SURGICAL HISTORY OF right neck/shoulder cystic hygroma SHOULDER SURGERY HX Left 2018 ALLERGIES Patient has no known allergies. MEDICATIONS topiramate (TOPAMAX) 50 mg tablet Take 1 tablet by mouth daily at bedtime. venlafaxine ER (EFFEXOR XR) 37.5 mg 24 hr capsule 75 mg. norgestimate 0.25 mg-ethinyl estradiol 35 mcg 0.25-35 mg-mcg per tablet Take 1 tablet by mouth once daily. sulfamethoxazole-trime thoprim (BACTRIM DS) 800-160 mg per tablet Take 1 tablet by mouth two times a day for 7 days. predniSONE (DELTASONE) 10 mg tablet Take 4 tabs daily x 3 days, then 3 tabs x 3 days, 2 tabs x 3 days, then 1 tab x3 days with food. Phentermine HCl 37.5 mg tablet Take 1 tablet by mouth daily before breakfast for [address] (PROTONIX) 40 mg tablet take 1 tablet (40 mg) by mouth daily. do not crush, chew, or split. (Patient not taking: Reported on 07/27/2024) No family history on file. Social History Tobacco Use Smoking status: Never Smokeless tobacco: Never Vaping Use Vaping status: Never Used Substance Use Topics Alcohol use: Yes Drug use: Never Review of Systems Constitutional: Negative for fever. Objective BP 127/88 Pulse 115 Temp 36.7 ?C (98 ?F) Resp 20 Wt 85 kg (187 lb 6.3 oz) LMP 07/27/2024 (Approximate) SpO2 97% BMI 34.00 kg/m? HR rechecked manual by provider 98 Physical Exam Constitutional: General: She is not in acute distress. Appearance: She is not toxic-appearing or diaphoretic. HENT: Head: Normocephalic and atraumatic. Cardiovascular: Rate and Rhythm: Normal rate and regular rhythm. Pulmonary: Effort: Pulmonary effort is normal. No accessory muscle usage or respiratory distress. Skin: Neurological: Mental Status: She is alert and oriented to person, place, and time. {ASSESSMENT/PLAN: 1. 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 Disposition The patient was discharged. Procedures Allergies As of Date: 08/19/2024 (No Known Allergies) Date Reviewed: 08/19/2024 Reviewed by: Ines Bazan LPN - Fully Assessed Reason for Visit: Derm Problem [33] Cmt: Left arm anti cubital area, x 5 days, redness warmth whole ext, blistering, tender, increasing in blisters Primary Visit Diagnosis:Skin rash [R21] Order(s):sulfamethoxaz ole-trimethoprim (BACTRIM DS) 800-160 mg per tabletTake 1 tablet by mouth two times a day for 7 days.Disp: 14 tabletRfl: 0 predniSONE (DELTASONE) 10 mg tabletTake 4 tabs daily x 3 days, then 3 tabs x 3 days, 2 tabs x 3 days, then 1 tab x3 days with food.Disp: 30 tabletRfl: 0 Prescriptions as of 08/19/2024 - sulfamethoxazole-trime thoprim (BACTRIM DS) 800-160 mg per tablet Take 1 tablet by mouth two times a day for 7 days. - predniSONE (DELTASONE) 10 mg tablet Take 4 tabs daily x 3 days, then 3 tabs x 3 days, 2 tabs x 3 days, then 1 tab x3 days with food. - topiramate (TOPAMAX) 50 mg tablet Take 1 tablet by mouth daily at bedtime. - Phentermine HCl 37.5 mg tablet Take 1 tablet by mouth daily before breakfast for 90 days. - pantoprazole DR (PROTONIX) 40 mg tablet take 1 tablet (40 mg) by mouth daily. do not crush, chew, or split. - venlafaxine ER (EFFEXOR XR) 37.5 mg 24 hr capsule 75 mg. - norgestimate 0.25 mg-ethinyl estradiol 35 mcg 0.25-35 mg-mcg per tablet Take 1 tablet by mouth once daily. Problem List As Of Date: 08/19/2024 (None) Prescriptions ordered this encounter Disp Refills Start End SULFAMETHOXAZOLE 800 MG-TRIMETHOPRIM* 14 t (more content not included)... Normal [facility] 36on 08-16-2024 36 S: Patient spoke wit h [facility] nurse regarding tender reddened spot on lt arm B: Onset of symptoms/concern yesterday A: patient states she woke with the concern, assumed it was a local allergic reaction. There is a reddened area about the size of her palm on the inside of elbow, swelling, warm to touch and difficulty bending lt arm. Today, the area is tender to the touch with multiple small blisters. She denies any itching, new foods, detergents, known environmental or drainage from the site. Patient has applied ice with relief. Patient unable to make it to POD appt in [place] R: Patient states she will go to local [facility]. No further needs at this time. Patient instructed to call back with new or worsening symptoms or for a follow up appt. Reason for Disposition Multiple small blisters grouped together in one area of body (i.e., dermatomal distribution or 'band' or 'stripe') and painful Protocols used: [id number] [facility] CNOVon 08-16-2024 CN Office Visit (UCWSTR ) CHINSWATHI ([id number]) 1990 F Date Time Provider Department 08/16/24 9:45 AM MARTHA MEYER [facility] During your visit today, we recorded the following information about you: Temperature Pulse Respiration Blood pressure 98.6 degrees 115/minute 21/minute 110/88 Weight 86.8 kg Martha Meyer PA 08/16/2024 9:57 AM Signed [facility] Subjective Swathi Berman Chin is a 33 year old female. Patient presents with: Rash: Blistered rash on left inner elbow x 1 day HPI Rash: - Rash began as a giant red spot on the arm yesterday, now blistered and enlarged today. - Rash is hot to the touch and very painful, but not pruritic. - Applied ice with some relief; ibuprofen provided minimal relief. - Suspects allergic reaction to lotion from mother's lawn chair. - Denies visible bite mckoy. - History of allergies to scents and lotions; uses hypoallergenic lotions. - Denies or . PAST MEDICAL HISTORY Diagnosis Date History of depression Irregular periods Kidney stones PAST SURGICAL HISTORY Procedure Laterality Date PAST SURGICAL HISTORY OF right neck/shoulder cystic hygroma SHOULDER SURGERY HX Left 2018 ALLERGIES Patient has no known allergies. MEDICATIONS topiramate (TOPAMAX) 50 mg tablet Take 1 tablet by mouth daily at bedtime. Phentermine HCl 37.5 mg tablet Take 1 tablet by mouth daily before breakfast for 90 days. venlafaxine ER (EFFEXOR XR) 37.5 mg 24 hr capsule 75 mg. norgestimate 0.25 mg-ethinyl estradiol 35 mcg 0.25-35 mg-mcg per tablet Take 1 tablet by mouth once daily. cephALEXin (KEFLEX) 500 mg capsule Take 1 capsule by mouth four times daily for [address] (PROTONIX) 40 mg tablet take 1 tablet (40 mg) by mouth daily. do not crush, chew, or split. (Patient not taking: Reported on 07/27/2024) No family history on file. Social History Tobacco Use Smoking status: Never Smokeless tobacco: Never Vaping Use Vaping status: Never Used Substance Use Topics Alcohol use: Yes Drug use: Never Review of Systems Skin: (+) arm erythema, (+) arm blisters, (+) localized warmth, (+) arm tenderness, (-) pruritus Objective BP 110/88 Pulse 115 Temp 37 ?C (98.6 ?F) Resp 21 Wt 86.8 kg (191 lb 5 oz) LMP 07/27/2024 (Approximate) SpO2 99% BMI 34.71 kg/m? Physical Exam Vitals and nursing note reviewed. Constitutional: General: She is not in acute distress. Appearance: Normal appearance. She is not toxic-appearing. Skin: General: Skin is warm and dry. Findings: Erythema and rash present. Rash is vesicular. Comments: Erythematous circular area to L inner elbow. + warmth noted. No lymphatic streaking. Blistering noted. Neurological: Mental Status: She is alert. {1. Dermatitis (L30.9) 2. Skin infection (L08.9) - Erythematous, blistering rash on the arm, warm and tender to touch, no pruritus. Onset following contact with potential allergen (mother's lotion) on a lawn chair. - Differential diagnosis includes allergic contact dermatitis and skin infection. - Obtained swab for varicella-zoster virus (shingles) testing; results pending. - Initiated antibiotic therapy to cover potential bacterial infection. - Advised to keep the affected area clean and dry, and to continue applying ice for symptomatic relief. - Instructed to monitor for signs of systemic infection, such as red streaks or high fever, and to seek emergency care if these occur. - Patient may continue working; advised to cover the area to prevent blister rupture if desired. - Will notify patient of shingles test results within 1-2 days; will prescribe antiviral treatment if positive. Normal kidney function on labs 10/2023. Recording using [employer] software for draft documentation of the visit was discussed with the patient/authorized sales and merchandising representative; all questions welcomed and answered. Patient/authorized sales and merchandising representative agreed to proceed History and Record Review External record(s) reviewed: prior outpatient record and prior labs/imaging. Findings from review of prior labs/imaging: Previous Renal Function Panel Reviewed 11/20/2023: BUN 16; Creatinine 0.87; Estimated Glomerular Filtration Rate 91 07/27/2024: BUN 11; Creatinine 0.80; Estimated Glomerular Filtration Rate 101 Differential Diagnoses - dermatitis/skin infection is more likely for the following reason(s): suggested by HANDP - shingles is less likely for the following reason(s): awaiting swab Disposition The patient was discharged. Procedures Allergies As of Date: 08/16/2024 (No Known Allergies) Date Reviewed: 08/16/2024 Reviewed by: Marysol Cruz MA - Fully Assessed Reason for Visit: Rash [1087] Cmt: Blistered rash on left inner elbow x 1 day Primary Visit Diagnosis:Dermatitis [L30.9] Other Visit Diagnosis:Skin infection [L08.9] Order (more content not included)... Normal [facility] HSV+VZV DNA SADIE+probe Ql (Un sp spec)on 08-16-2024 HSV 1 DNA SADIE+probe Ql (Unsp spec) Not detected Normal Not Detected [facility] Comment on above: Order Comment: Speci men Type: SWABOrdering Facility: [facility] Address: [address] [place] [address] Performed By: #### 3 3027-4 ####[facility] LABCLIA [id number] [place] [address] [place] HSV 2 DNA SADIE+probe Ql (Unsp spec) Not detected Normal Not Detected [facility] Comment on above: Order Comment: Speci men Type: SWABOrdering Facility: [facility] Address: [address] [place] [address] Performed By: #### 3 3027-4 ####[facility] LABCLIA [id number] [address] [facility] VZV DNA SADIE+probe Ql (Unsp spec) Not detected Normal Not Detected [facility] Comment on above: Order Comment: Speci men Type: SWABOrdering Facility: [facility] Address: [address] [place] [address] Performed By: #### 3 3027-4 ####[facility] [id number] [address] 36on 08-10-2024 36 Left message for patient to return call to the office. To schedule nurse visit. [facility] 36 Car Barbosa MA Notified from alternate office that patient blood pressure was elevated. Have her recheck blood pressure in the office in 3 to 4 weeks Previous Messages ----- Message ----- From: FLORA Joseph CNP Sent: 07/27/2024 1:57 PM EDT To: Jc Leslie DO Attached Notes Progress Notes by Zoila León MA at 07/27/2024 1:00 PM Author: Zoila León MA Service: General Surgery Author Type: Calenderer Filed: 07/27/2024 1:57 PM Encounter Date: 07/27/2024 Note Type: Progress Notes Status: Signed Timber Framer: Zoila León MA (Calenderer) We want to inform you that your patient's blood pressure was noted to be elevated in our office today. We thank you for trusting us with your patient's health. Last BP: BP Readings from Last 2 Encounters: 07/27/24 (!) 145/100 05/25/24 (!) 136/90 Normal [facility] 36 Our office spoke wit h the patient to remind them of their EGD appointment . The patient is scheduled with Dr. Xiao on 08/24/2024 with arrival time of 6:30 at [facility]. Verified that the patient has the prep information and all questions were answered. Normal [facility] 25(OH)D3 [facility] 25-hydroxyvitamin D3 [Mass/Vol] 55.9 ng/mL Normal 31.0-80.0 [facility] Comment on above: Order Comment: Speci men Type: BLOOD SPECIMENOrdering Facility: [facility] Address: [address] [place] [address] Result Comment: Clas sification of 25 [place] Vitamin D status: Deficiency/Insufficiency: < or = 30 ng/ml. Sufficiency/Optimal Levels: 31-80 ng/mL Toxicity: > 100 ng/mL. Test performed by chemiluminescent immunoassay. Performed By: #### 1 989-3 ####[facility] LABCLIA [id number] [address] OF [facility] CNOVon 07-27-2024 CNOV Office Visit (OBGYWM ) SWATHI NEELY ([id number]) 1990 F Date Time Provider Department 07/27/24 10:20 AM VELMA BENNETT OBGY[facility] During your visit today, we recorded the following information about you: Pulse Blood pressure Weight Height 100/minute 112/62 90.3 kg 1.581 m Last Period 07/27/24 Velma Bennett MD 07/27/2024 1:01 PM Signed Patient Summary: Swathi Neely is a 33 year old female with obesity who presents for an initial evaluation of overweight/obesity to treat and prevent co-morbidities and is interested in open to all options. Motivation for seeking treatment for the disease of overweight/obesity : She wants to feel better about herself. Goal weight: 160 lb Lowest recall weight: 140 lb (winter 2013) Highest non- recall weight: 199 lb Patient identified barriers to weight loss: She loses motivation when she doesn't see result. Time was A factor in the past. Weight History: She reports a family history of obesity and early adulthood weight gain. She states her weight gain is related to the following factors, including reduced physical activity-she was in sports in school and once she went to college her weight started going up.. Difficulty losing weight? Yes she feels she lacks motivation. History of weight loss with regain? In the past she lost weight due to stress that was her lightest weight (140 lbs) When she was not under the stress and started eating normal she gained weight back and then more. - Last Wt 07/27/24 : 90.3 kg (199 lb) 5% weight loss = 189 lbs, 10% weight loss = 179 lbs WEIGHT GRAPH: Diet/Nutrition overview: Awake - 5:45-6 during school year B -7:30- flavored water with javed w/ caffeine, pack of PB crackers S - L - 11-94H34mp- yogurt- chobani (regular), pretzels, leftovers- cheesy potato, pasta, chicken quesadila S - D - 3:30-4pm- chicken quesadilla, pasta, cheesy potato. Out to dinner once per week- maldivian S - 8pm- popcorn, pretzels, chips- salty Fluids: water w/ javed (48-54 oz), ning, smirnoff one per day in evening. Bedtime - 9-10pm (wakes up 2-3x per night) Quality of diet: 24hr recall suggests unhealthy diet. Characterization of diet:Structured and evening snacking. Clay Hoister of impaired eating habits:excessive hunger, mindlessness , boredom, and emotion Eating Disorder no Cravings: salty Sleep Duration: 6-7 hours. EDUIN NO ; CPAP NO naps 30min-2hrs Stress Stress:no, Cause:None Obesity Related Comorbidities: Prior Weight Loss Surgery:No PAST MEDICAL HISTORY Diagnosis Date History of depression Irregular periods Kidney stones PAST SURGICAL HISTORY Procedure Laterality Date PAST SURGICAL HISTORY OF right neck/shoulder cystic hygroma SHOULDER SURGERY HX Left 2018 History reviewed. No pertinent family history. Social History Tobacco Use Smoking status: Never Smokeless tobacco: Never Vaping Use Vaping status: Never Used Substance Use Topics Alcohol use: Yes Drug use: Never AOM Medications: Weight Promoting Medications: Effexor Diet/weight loss History: Past weight loss attempts? self-directed. Low Carbohydrate diet and eating healthier Exercise: Regular exercise: no Strength/resistance exercise:no Barriers to regular exercise? 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 Contraception: combined hormonal contraceptives Obesity ROS/ FHx GEN: Fatigue:yes CV: h/o palpitations/cardiac arrhythmia, Chest pain: no HTN: no PULM: Asthma:no GI: GERD:yes-had XR 06/29/24 sees Yoon Dud[facility] ; Gallstones:no ; Fatty liver disease:no Pancreatitis: no MSK: Joint Pain:no : Nephrolithiasis: yes- summer 2023 left kidney (lithotripsy) Symptoms of PCOS: no NEURO: Migraines/ROME: yes (once per month- lasts 2-3 days) ; H/o seizures: no Glaucoma:no; Cataracts no Symptoms of or History of pseudotumor cerebri:no Family or personal History of MEN2 or Medullary thyroid cancer: no PE BP 112/62 Pulse 100 Ht 158.1 cm (5' 2.25) Wt 90.3 kg (199 lb) LMP 07/27/2024 (Approximate) SpO2 98% BMI 36.11 kg/m? Waist Circumference: 37.5 Neck Circumference: 37cm GENERAL: Female in NAD. General adiposity. SKIN: acanthosis nigricans no, Skin tags: no Hirsutism: no HEENT: PERRL, No supraclavicular adiposity. No dorsal adiposity. ABDOMEN: Large pannus; EXTREMITIES: peripheral edema: no Results: reviewed with the patient No visits with results within 3 Month(s) from this visit. Latest known visit with results is: Office Visit on 04/15/2024 Component Date Value Ref Range Status Strep A (POCT) 04/15/2024 Negative Negative Final Procedural Control 04/15/2024 Valid Final Impression: Swathi Neely is a 33 year old Female (more content not included)... Normal [facility] Comprehensive metabolic 2000 panelOrdered By: Mounika Whitt on 07-27-2024 Albumin [Mass/Vol] 4 g/dL 3.9 - 4.9 g/dL [facility] ALP [Catalytic activity/Vol] 102 U/L 34 - 123 U/L [facility] ALT [Catalytic activity/Vol] 16 U/L 7 - 38 U/L [facility] Anion gap [Moles/Vol] 13 mmol/L 8 - 15 mmol/L [facility] AST [Catalytic activity/Vol] 16 U/L 13 - 35 U/L [facility] Bilirubin [Mass/Vol] 0.3 mg/dL 0.2 - 1 .3 mg/dL [facility] Calcium [Mass/Vol] 9.4 mg/dL 8.5 - 10. 2 mg/dL [facility] Chloride [Moles/Vol] 101 mmol/L 98 - 10 7 mmol/L [facility] CO2 [Moles/Vol] 22 mmol/L 22 - 30 mmol/L [facility] Creatinine [Mass/Vol] 0.8 mg/dL 0.58 - 0.96 mg/dL [facility] GFR/1.73 sq M.predicted among non-blacks MDRD (S/P/Bld) [Vol rate/Area] 101 mL/min/{1.73_m2} - PINF [facility] Comment on above: Estimated Glomerular Filtration Rate (eGFR) is calculated using the 2020 CKD-EPI creatinine equation. This equation utilizes serum creatinine, sex, and age as parameters. The creatinine assay has traceable calibration to isotope dilution-mass spectrometry. Refer to KDIGO guidelines for clinical interpretation. In patients with unstable renal function, e.g. those with acute kidney injury, the eGFR may not accurately reflect actual GFR. Glucose [Mass/Vol] 88 mg/dL 74 - 99 mg/dL [facility] Comment on above: The [place] Diabete s Association (ADA) provides guidance for cutoff values for fasting glucose and random glucose. The ADA defines fasting as no caloric intake for at least 8 hours. Fasting plasma glucose results between 100 to 125 mg/dL indicate increased risk for diabetes (prediabetes). Fasting plasma glucose results greater than or equal to 126 mg/dL meet the criteria for diagnosis of diabetes. In the absence of unequivocal hyperglycemia, results should be confirmed by repeat testing. In a patient with classic symptoms of hyperglycemia or hyperglycemic crisis, random plasma glucose results greater than or equal to 200 mg/dL meet the criteria for diagnosis of diabetes. Reference: Standards of Medical Care in Diabetes 2016, [place] Diabetes Association. Diabetes Care. 2016.39(Suppl 1). Interpretation and review of laboratory results Normal [facility] Potassium [Moles/Vol] 3.9 mmol/L 3.7 - 5.1 mmol/L [facility] Protein [Mass/Vol] 7.7 g/dL 6.3 - 8.0 g/dL [facility] Sodium [Moles/Vol] 136 mmol/L 136 - 144 mmol/L [facility] Urea nitrogen [Mass/Vol] 11 mg/dL 7 - 21 mg/dL [facility] Comprehensive metabolic 2000 panelon 07-27-2024 Albumin [Mass/Vol] 4.0 g/dL Normal 3.9-4.9 [facility] Comment on above: Order Comment: Evy frias Type: BLOOD SPECIMENOrdering Facility: [facility] Address: [address] [place] [address] Performed By: #### 2 4323-8 ####[facility] NORTHLIA [id number] [place] [address] [place] ALP [Catalytic activity/Vol] 102 U/L Normal 34-123 [facility] Comment on above: Order Comment: Evy frias Type: BLOOD SPECIMENOrdering Facility: [facility] Address: [address] [place] [address] Performed By: #### 2 4323-8 ####[facility] [id number] [place] [address] [place] ALT [Catalytic activity/Vol] 16 U/L Normal 7-38 [facility] Comment on above: Order Comment: Evy frias Type: BLOOD SPECIMENOrdering Facility: [facility] Address: [address] [place] [address] Performed By: #### 2 4323-8 ####[facility] [id number] [place] [address] [place] Anion gap [Moles/Vol] 13 mmol/L Normal 8-15 [facility] Comment on above: Order Comment: Speci men Type: BLOOD SPECIMENOrdering Facility: [facility] Address: [address] [place] [address] Performed By: #### 2 4323-8 ####[facility] [id number] [place] [address] [place] AST [Catalytic activity/Vol] 16 U/L Normal 13-35 [facility] Comment on above: Order Comment: Speci men Type: BLOOD SPECIMENOrdering Facility: [facility] Address: [address] [place] [address] Performed By: #### 2 4323-8 ####[facility] [id number] [place] [address] [place] Bilirubin [Mass/Vol] 0.3 mg/dL Normal 0.2-1.3 [facility] Comment on above: Order Comment: Speci men Type: BLOOD SPECIMENOrdering Facility: [facility] Address: [address] [place] [address] Performed By: #### 2 4323-8 ####[facility] [id number] [place] [address] [place] Calcium [Mass/Vol] 9.4 mg/dL Normal 8.5-10.2 [facility] Comment on above: Order Comment: Speci men Type: BLOOD SPECIMENOrdering Facility: [facility] Address: [address] [place] [address] Performed By: #### 2 4323-8 ####[facility]CL[facility] [id number] [place] [address] [place] Chloride [Moles/Vol] 101 mmol/L Normal 98-107 [facility] Comment on above: Order Comment: Speci men Type: BLOOD SPECIMENOrdering Facility: [facility] Address: [address] [place] [address] Performed By: #### 2 4323-8 ####[facility] [id number] [place] [address] [place] CO2 [Moles/Vol] 22 mmol/L Normal 22-30 [facility] Comment on above: Order Comment: Speci men Type: BLOOD SPECIMENOrdering Facility: [facility] Address: [address] [place] [address] Performed By: #### 2 4323-8 ####[facility] [id number] [place] [address] [place] Creatinine [Mass/Vol] 0.80 mg/dL Normal 0.58-0.96 [facility] Comment on above: Order Comment: Speci men Type: BLOOD SPECIMENOrdering Facility: [facility] Address: [address] [place] [address] Performed By: #### 2 4323-8 ####[facility]PITALNCA [id number] [address] [place] Creatinine and Glomerular filtration rate.predicted panel (S/P/Bld) 101 mL/min/1.73m??? Normal >=60 [facility] Comment on above: Order Comment: Speci men Type: BLOOD SPECIMENOrdering Facility: [facility] Address: [address] [place] [address] Result Comment: Lita mated Glomerular Filtration Rate (eGFR) is calculated using the 2020 CKD-EPI creatinine equation. This equation utilizes serum creatinine, sex, and age as parameters. The creatinine assay has traceable calibration to isotope dilution-mass spectrometry. Refer to KDIGO guidelines for clinical interpretation. In patients with unstable renal function, e.g. those with acute kidney injury, the eGFR may not accurately reflect actual GFR. Performed By: #### 2 4323-8 ####[facility] [id number] [place] [id number] [place] Glucose [Mass/Vol] 88 mg/dL Normal 74-99 [facility] Comment on above: Order Comment: Speci men Type: BLOOD SPECIMENOrdering Facility: [facility] Address: [address] [place], [place] [id number] Result Comment: The [place] Diabetes Association (ADA) provides guidance for cutoff values for fasting glucose and random glucose. The ADA defines fasting as no caloric intake for at least 8 hours. Fasting plasma glucose results between 100 to 125 mg/dL indicate increased risk for diabetes (prediabetes). Fasting plasma glucose results greater than or equal to 126 mg/dL meet the criteria for diagnosis of diabetes. In the absence of unequivocal hyperglycemia, results should be confirmed by repeat testing. In a patient with classic symptoms of hyperglycemia or hyperglycemic crisis, random plasma glucose results greater than or equal to 200 mg/dL meet the criteria for diagnosis of diabetes. Reference: Standards of Medical Care in Diabetes 2016, [place] Diabetes Association. Diabetes Care. 2016.39(Suppl 1). Performed By: #### 2 4323-8 ####[facility] [id number] [place] [address] [place] Potassium [Moles/Vol] 3.9 mmol/L Normal 3.7-5.1 [facility] Comment on above: Order Comment: Speci men Type: BLOOD SPECIMENOrdering Facility: [facility] Address: [address] [place] [address] Performed By: #### 2 4323-8 ####[facility] [id number] [place] [address] [place] Protein [Mass/Vol] 7.7 g/dL Normal 6.3-8.0 [facility] Comment on above: Order Comment: Speci men Type: BLOOD SPECIMENOrdering Facility: [facility] Address: [address] [place], [place] [address] Performed By: #### 2 4323-8 ####[facility] [id number] [place] [address] [facility] [place] Sodium [Moles/Vol] 136 mmol/L Normal 136-144 [facility] Comment on above: Order Comment: Speci men Type: BLOOD SPECIMENOrdering Facility: [facility] Address: [address] [place] [address] Performed By: #### 2 4323-8 ####[facility] [id number] [address] [place] Urea nitrogen [Mass/Vol] 11 mg/dL Normal 7-21 [facility] Comment on above: Order Comment: Speci men Type: BLOOD SPECIMENOrdering Facility: [facility] Address: [address] [place] [address] Performed By: #### 2 4323-8 ####[facility] [id number] [address] Office Visiton 07-27-2024 Follow-up visit [id number] Swathi Neely 1990 F Date Provider Department Center 07/27/2024 [place] [facility] [place] [facility] None Family History Problem Relation Age of Onset No Known Problems Mother Gout Father No Known Problems Brother Family Status - Relation Status Age at Mother Alive Father Alive Brother Alive Level of Service:77893 [place] OFFICE/OUTPATIENT ESTABLISHED LOW MDM 20 MIN Reason for Visit and Comments: Follow-up [778174] - FU GERD Normal [facility] Progress Noteon 07-27-2024 Progress Note Placed call to patient. Unable to reach them by phone to discuss lab results. Left detailed message to return call to discuss results. Please release information to patient Normal [facility] Progress Note We want to inform yo u that your patient's blood pressure was noted to be elevated in our office today. We thank you for trusting us with your patient's health. Last BP: BP Readings from Last 2 Encounters: 07/27/24 (!) 145/100 05/25/24 (!) 136/90 Normal [facility] RF Upper gastrointestinal tr act and Small bowel Single view W contrast Heather 06-29-2024 Small hiatal hernia without spontaneous gastroesophageal reflux. Satisfactory emptying of marshmallow and bagel from the esophagus into the stomach within two stripping waves. Report Dictated on Electronically Signed By: Mariely Georges MD Electronically Signed Date/Time: 06/29/2024 2:57 PM EDT [facility] Patient Name: SWATHI NEELY : 1990 Exam Date/Time: 06/29/2024 09:48 Procedure: FL UPPER GI DOUBLE CONTRAST W KUB Ordering Provider: DUDLEY RYAN Reason For Exam: Night time reflux, regurgitation when laying flat AIR CONTRAST UGI SERIES WITH ADDITIONAL MARSHMALLOW/BAGEL BARIUM SWALLOW CLINICAL INDICATIONS: GERD. Reflux with regurgitation. COMPARISON: None. FLUOROSCOPY DOSE: Ka,r= 206.8 mGy TECHNIQUE: Biphasic exam was performed with barium and air. Barium coated food products may also be used. FINDINGS: Barium and air are administered. The esophagus is studied in the upright as well as the horizontal positions. The esophagus is normal in course and caliber. There is a small hiatal hernia without spontaneous gastroesophageal reflux. Barium flows freely from the esophagus into the stomach. The stomach and duodenum show normal mucosal patterns, with no discrete ulcer or mass. The visualized proximal jejunum is unremarkable. Additional marshmallow/bagel barium swallow performed under fluoroscopy shows satisfactory emptying of marshmallow and bagel from the esophagus into the stomach within two stripping waves. [facility] Mariely Georges MD - 06/29/2024 Patient Name: SWATHI NEELY : 1990 Exam Date/Time: 06/29/2024 09:48 Procedure: FL UPPER GI DOUBLE CONTRAST W KUB Ordering Provider: DUDLEY RYAN Reason For Exam: Night time reflux, regurgitation when laying flat AIR CONTRAST UGI SERIES WITH ADDITIONAL MARSHMALLOW/BAGEL BARIUM SWALLOW CLINICAL INDICATIONS: GERD. Reflux with regurgitation. COMPARISON: None. FLUOROSCOPY DOSE: Ka,r= 206.8 mGy TECHNIQUE: Biphasic exam was performed with barium and air. Barium coated food products may also be used. FINDINGS: Barium and air are administered. The esophagus is studied in the upright as well as the horizontal positions. The esophagus is normal in course and caliber. There is a small hiatal hernia without spontaneous gastroesophageal reflux. Barium flows freely from the esophagus into the stomach. The stomach and duodenum show normal mucosal patterns, with no discrete ulcer or mass. The visualized proximal jejunum is unremarkable. Additional marshmallow/bagel barium swallow performed under fluoroscopy shows satisfactory emptying of marshmallow and bagel from the esophagus into the stomach within two stripping waves. IMPRESSION: Small hiatal hernia without spontaneous gastroesophageal reflux. Satisfactory emptying of marshmallow and bagel from the esophagus into the stomach within two stripping waves. Report Dictated on Electronically Signed By: Mariely Georges MD Electronically Signed Date/Time: 06/29/2024 2:57 PM EDT [facility] Radiology Study observation (narrative) [facility] RF Upper gastrointestinal tr act and Small bowel Single view W contrast POOrdered By: Mariely Georges on 06-29-2024 [facility] Office Visiton 05-25-2024 Follow-up visit [id number] Swathi Neely 1990 Provider Department Center 05/25/2024 [place] [facility] None Family History Problem Relation Age of Onset No Known Problems Mother Gout Father No Known Problems Brother Family Status - Relation Status Age at Mother Alive Father Alive Brother Alive Level of Service:24882 [place] OFFICE/OUTPATIENT NEW MODERATE MDM 45 MINUTES Reason for Visit and Comments: New Patient [542] - STEREOTYPER GERD Normal [facility] Progress Noteon 05-25-2024 Progress Note We want to inform yo u that your patient's blood pressure was noted to be elevated in our office today. We thank you for trusting us with your patient's health. Last BP: BP Readings from Last 2 Encounters: 05/25/24 (!) 135/95 04/27/24 120/82 Normal [facility] Office Visiton 04-27-2024 Follow-up visit [id number] Swathi Neely 1990 Provider Department Center 04/27/2024 [id number] SANCHEZ [facility] Family History Problem Relation Age of Onset No Known Problems Mother Gout Father No Known Problems Brother Family Status - Relation Status Age at Mother Alive Father Alive Brother Alive Level of Service:56251 [place] OFFICE/OUTPATIENT ESTABLISHED LOW MDM 20 MIN Reason for Visit and Comments: Follow-up [783312] - Med check Cough [28] - And sore throat and drainage for three weeks Normal [facility] Progress Noteon 04-27-2024 Progress Note [facility] - [address] [facility] [address] Visit type: Established Patient Reason for Visit: Follow-up (Med check) and Cough (And sore throat and drainage for three weeks) Assessment / Plan: Swathi was seen today for follow-up and cough. Diagnoses and all orders for this visit: Anxiety and depression (Primary) Comments: Improving but not at goal, increase Effexor, should consider therapy, call with update in 1 month Gastroesophageal reflux disease without esophagitis Comments: Recurrent, GI referral continue pantoprazole Acute recurrent frontal sinusitis Comments: 3 weeks of symptoms. Amoxicillin Other orders - amoxicillin (Amoxil) 500 MG capsule; Take 1 capsule (500 mg) by mouth 3 times daily for 10 days. - venlafaxine XR (Effexor XR) 75 MG 24 hr capsule; Take 1 capsule (75 mg) by mouth daily. Take with food. Subjective: Patient ID: Swathi Neely is a 33 y.o. female. HPI patient presents for refill on Effexor which has been somewhat helpful for generalized anxiety and depression. Her work is going well. However developed a URI that it has been lasting for about 3 weeks. Sinus and head congestion. No fever or confusion. No chest pain or shortness of breath. Review of Systems Protonix has helped her heartburn but persistent. No dysphagia. No lifestyle changes that would contribute to acid reflux. No early satiety melena or blood or bowel changes. control has been effective on controlling menses. No Known Allergies Current Outpatient Medications on File Prior to Visit Medication Sig Dispense Refill pantoprazole (ProtoNix) 40 MG EC tablet TAKE 1 TABLET (40 MG) BY MOUTH DAILY. DO NOT CRUSH, CHEW, OR SPLIT. 90 tablet 1 Sprintec 28 0.25-35 MG-MCG tablet Take 1 tablet by mouth daily. [DISCONTINUED] venlafaxine XR (Effexor XR) 37.5 MG 24 hr capsule TAKE 1 CAPSULE BY MOUTH DAILY.DO NOT CRUSH OR CHEW 90 capsule 1 No current facility-administered medications on file prior to visit. Patient Active Problem List Diagnosis History of renal calculi Anxiety and depression Gastroesophageal reflux disease without esophagitis Social History Tobacco Use Smoking status: Never Smokeless tobacco: Never Substance Use Topics Alcohol use: Yes Alcohol/week: 1.0 standard drink of alcohol Past Surgical History: Procedure Laterality Date EXTRACORPOREAL SHOCK WAVE LITHOTRYPSY, KIDNEY CALCULI (HISTORICAL) Left 07/2023 Dr. Walsh- removal 08/2023 HEMANGIOMA EXCISION 1990 SHOULDER ARTHROSCOPY Left [address] Hill Family History Problem Relation Name Age of Onset No Known Problems Mother Gout Father No Known Problems Brother Objective: BP 120/82 Pulse 99 Temp 36.7 ?C (98.1 ?F) (Temporal) Ht 5' 2 (1.575 m) Wt 202 lb (91.6 kg) SpO2 99% BMI 36.95 kg/m? Physical Exam no acute distress. Alert and pleasant cooperative. She has good insight eye contact and is well-groomed. Normal eardrums and oropharynx. Great postnasal drip. No neck masses or thyroid lesions. Reflexes normal. Heart is regular without murmurs. Lungs are clear. Abdomen without pain hepatosplenomegaly or masses. Extremities are normal. Normal [facility] 04-15-2024 [facility] Office Visit (UCWSTR ) SWATHI NEELY ([id number]) 1990 F Date Time Provider Department 04/15/24 3:45 PM PRIETO THOMAS [facility] During your visit today, we recorded the following information about you: Temperature Pulse Respiration Blood pressure 98.7 degrees 102/minute 16/minute 138/82 Weight Last Period 91.3 kg 03/31/24 Prieto Thomas MD 04/15/2024 4:19 PM Signed Patient presents with: Sore Throat: Entered by patient Cough: With congestion AND sore throat x10 days HPI: Feeling sick for 1 1/2 weeks. She was feeling better Friday after sleeping a lot on . 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 Positive symptoms: Cough, Sore throat, Nasal Congestion, Rhinorrhea, Fatigue, hoarse voice, Negative symptoms: Shortness of breath, Chest pain, Sinus pressure/pain, Fever, OTC: Mucinex, Nyquil, nasal spray MEDICATIONS: Current Outpatient Medications Medication Sig pantoprazole DR (PROTONIX) 40 mg tablet take 1 tablet (40 mg) by mouth daily. do not crush, chew, or split. venlafaxine ER (EFFEXOR XR) 37.5 mg 24 hr capsule TAKE 1 CAPSULE BY MOUTH DAILY.DO NOT CRUSH OR CHEW norgestimate 0.25 mg-ethinyl estradiol 35 mcg 0.25-35 mg-mcg per tablet Take 1 tablet by mouth once daily. No current facility-administered medications for this visit. ALLERGIES: ALLERGIES No Known Allergies VITALS: BP 138/82 Pulse 102 Temp 37.1 ?C (98.7 ?F) (Left Tympanic) Resp 16 Wt 91.3 kg (201 lb 4.5 oz) LMP 03/31/2024 (Approximate) SpO2 99% BMI 36.81 kg/m? PHYSICAL EXAM: GEN: mildly ill appearing HEENT: PERRL, EOMI, conjunctiva clear Ears: canals clear. TMs without erythema, bulge, or effusion Sinuses: non-tender frontal sinus, non-tender maxillary sinuses Throat: moist mucous membranes, mild erythema, no exudate Neck: supple, no thyromegaly, no lymphadenopathy, hoarse voice HEART: regular rate, regular rhythm, no murmurs LUNGS: clear to auscultation, no wheezes or crackles, no increased WOB ASSESSMENT/PLAN: 1. Sore throat - ICD9: 462, ICD10: J02.9 - STREP A MOLECULAR (POC) - negative. - suspect viral URI, possibly new illness the last 5 days. No clear signs or symptoms of secondary bacterial infection. - Discussed supportive care treatment with rest, cold medicine, and analgesia. Reviewed nasal saline irrigation as a treatment to reduce post-nasal drainage and hoarse voice. MD Gaurav Bender Kevin J, MD 04/15/2024 4:14 PM Signed NASAL SALINE IRRIGATION Sinus rinses can help with the nasal congestion and discomfort associated with sinusitis. They can clear or thin excessive mucus, remove crusting, and even remove allergy causing particles such as pollen from the nose. You can purchase commercially prepared salt mixtures or prepare your own rinse with the recipe below: INSTRUCTIONS FOR THE PREPARATION OF ISOTONIC NASAL IRRIGATION SOLUTION Fill one bottle with 8 ounces of distilled water. If you use tap water, boil it first and let it cool to room temperature. Add 1/2 teaspoon non-iodized table salt. Add 1/2 teaspoon baking soda. Mix well until dissolved. Irrigate each nostril with solution Use a commercial squeeze bottle or bulb syringe. Use ? of the bottle or one full syringe in each nostril. Squeeze saline into the upper nostril gently with your head rotated and tilted down and over a sink. Breathe through your mouth. The saline solution should come out the other nostril. A small amount may get into your mouth. Repeat the process with the other nostril. You may use these salt water rinses one to four times a day. If your nose is severely blocked do not use rinses. If you experience pain, nose bleeds, or other difficulties with the rinses, DO NOT use them. Contact your health care provider with any problems. Allergies As of Date: 04/15/2024 (No Known Allergies) Date Reviewed: 04/15/2024 Reviewed by: Susy José MA - Fully Assessed Reason for Visit: Sore Throat [200] Cmt: Entered by patient Cough [28] Cmt: With congestion AND sore throat x10 days Primary Visit Diagnosis:Sore throat [J02.9] Order(s):STREP A MOLECULAR (POC) [5430599] Order #: [id number]. #:[id number] Prescriptions as of 04/15/2024 - pantoprazole DR (PROTONIX) 40 mg tablet take 1 tablet (40 mg) by mouth daily. do not crush, chew, or split. - venlafaxine ER (EFFEXOR XR) 37.5 mg 24 hr capsule TAKE 1 CAPSULE BY MOUTH DAILY.DO NOT CRUSH OR CHEW - norgestimate 0.25 mg-ethinyl estradiol 35 mcg 0.25-35 mg-mcg per tablet Take 1 tablet by mouth once daily. Problem List As Of Date: 04/15/2024 (None) Other instructions from your clinician: NASAL SALINE IRRIGATION Sinus rinses can help with the nasal congestion and discomfort associated with sinusitis. They can clear or thin excessive mucus, remove crusting (more content not included)... Normal [facility] STREP A MOLECULAR (POC)on Procedural Control Valid [facility] Strep A (POCT) Negative Negative [facility] 36on 03-02-2024 36 Recent Visits Date Type Provider Dept 01/08/24 Office Visit Jc Leslie DO [facility] [place] Showing recent visits within past 365 days and meeting all other requirements Future Appointments Date Type Provider Dept 03/10/24 Appointment Jc Leslie DO [facility] [place] Showing future appointments within next 90 days and meeting all other requirements Requested Prescriptions Pending Prescriptions Disp Refills venlafaxine XR (Effexor XR) 37.5 MG 24 hr capsule [Pharmacy Med Name: VENLAFAXINE HCL ER 37.5 MG CAP] 30 capsule 1 Sig: TAKE 1 CAPSULE BY MOUTH DAILY.DO NOT CRUSH OR CHEW pantoprazole (ProtoNix) 40 MG EC tablet [Pharmacy Med Name: PANTOPRAZOLE SOD DR 40 MG TAB] 30 tablet 1 Sig: TAKE 1 TABLET (40 MG) BY MOUTH DAILY. DO NOT CRUSH, CHEW, OR SPLIT. Provider: Jc Leslie DO Verified pharmacy: yes Verified day(s) supplied: yes Verified refill(s) needed (previous prescription showing no refills in chart): Yes Have you received any controlled medications from any other provider? N/A Overdue for visit: No If yes - patient scheduled? Yes Most recent labs completed in chart? N/A Normal [facility] 37on 01-08-2024 37 Call with update in one month on symptoms. Normal [facility] Office Visiton 01-08-2024 Follow-up visit [id number] Swathi Neely 1990 F Date Provider Department Center 01/08/2024 [id number] LESLIE [facility] Family History Problem Relation Age of Onset No Known Problems Mother Gout Father No Known Problems Brother Family Status - Relation Status Age at Mother Alive Father Alive Brother Alive Level of Service:57965 AR OFFICE/OUTPATIENT ESTABLISHED LOW MDM 20 MIN Reason for Visit and Comments: GI Problem [156158] - Over the last month if she eats late it comes back up in her throat and the last 2 wks every time she eats she feels sick to her stomach. Normal [facility] Progress Noteon 01-08-2024 Progress Note [facility] - [address] [facility] [address] Visit type: Established Patient Reason for Visit: GI Problem (Over the last month if she eats late it comes back up in her throat and the last 2 wks every time she eats she feels sick to her stomach. ) Assessment / Plan: Swathi was seen today for gi problem. Diagnoses and all orders for this visit: Gastroesophageal reflux disease without esophagitis (Primary) Comments: Recurrent, Protonix for 6 weeks and call with update. Will need endoscopy if no better Anxiety and depression Comments: New onset, Effexor, call with update in 1 month. She defers counseling referral History of renal calculi Comments: Improved, recheck with urology in 1 year for repeat ultrasound Other orders - pantoprazole (ProtoNix) 40 MG EC tablet; Take 1 tablet (40 mg) by mouth daily. Do not crush, chew, or split. - venlafaxine XR (Effexor XR) 37.5 MG 24 hr capsule; Take 1 capsule (37.5 mg) by mouth daily. Do not crush or chew. Subjective: Patient ID: Swathi Neely is a 33 y.o. female. HPI non-smoker presents concern of a few weeks of substernal burning when she tries to lay down at night. Often feeling of burning up in the throat when she lays down. Some nausea without vomiting. Denies dysphagia or true abdominal pain. No bowel changes. No melena or blood. No loss of appetite or weight. She does not drink excessive alcohol or caffeine. No NSAID use. No history of ulcers. Review of Systems Recent workup for ovarian cyst and kidney stones reviewed. Things are better. Had a left sided lithotripsy a few months ago and that went well. There is a question of a small right kidney but urology will be following that. Creatinine normal. Extensive lab and CT of the abdomen with ultrasound of the pelvis were reviewed. Resolved ovarian cyst. Was placed on control per [employer]. Patient is concerned about ongoing anxiety and symptoms of depression. Some loss of motivation and crying spells. 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 She does not smoke or drink. He is still single. She gets along with her brother and mother and father. They are very supportive. No hallucinations or suicidal ideation. She is interested in prescription antidepressants and might consider counseling. No Known Allergies Current Outpatient Medications on File Prior to Visit Medication Sig Dispense Refill Sprintec 28 0.25-35 MG-MCG tablet Take 1 tablet by mouth daily. [DISCONTINUED] ibuprofen 200 MG tablet Take 200 mg by mouth every 6 hours as needed. [DISCONTINUED] oxyCODONE-acetaminophe n (Percocet) 5-325 MG tablet Take 1 tablet by mouth every 6 hours as needed for severe pain (7-10) for up to 20 doses. 20 tablet 0 No current facility-administered medications on file prior to visit. Patient Active Problem List Diagnosis History of renal calculi Anxiety and depression Gastroesophageal reflux disease without esophagitis Social History Tobacco Use Smoking status: Never Smokeless tobacco: Never Substance Use Topics Alcohol use: Yes Alcohol/week: 1.0 standard drink of alcohol Past Surgical History: Procedure Laterality Date EXTRACORPOREAL SHOCK WAVE LITHOTRYPSY, KIDNEY CALCULI (HISTORICAL) Left 07/2023 Dr. Walsh- removal 08/2023 HEMANGIOMA EXCISION 1990 SHOULDER ARTHROSCOPY Left [address] Hill Family History Problem Relation Name Age of Onset No Known Problems Mother Gout Father No Known Problems Brother Objective: BP 112/79 (BP Location: Left arm, Patient Position: Sitting, BP Cuff Size: Large adult) Pulse 85 Temp 36.6 ?C (97.8 ?F) (Temporal) Ht 5' 2 (1.575 m) Wt 197 lb (89.4 kg) SpO2 99% BMI 36.03 kg/m? Physical Exam very pleasant alert and engaging. She is well-groomed has good insight and eye contact. She is tearful as she talks about her depression. Normal ENT. No thyroid or neck masses. Heart is regular without murmurs. Lungs are clear. Abdomen without pain hepatosplenomegaly masses or ascites. No adenopathy. Extremities are pink without pallor or edema. Reflexes normal. Normal [facility] US Pelvison 11-24-2023 Indication irregular periods. history of cysts Impression Normal appearing anteverted uterus that measures 72 mm x 36 mm x 40 mm. Heterogeneous myometrium with few cystic areas. Endometrium has a normal trilaminar appearance and measures 6.9 mm. Normal endoemtrial contour. Both ovaries are visualized and appear normal with follicular change. No adnexal masses were observed. There is no free fluid visualized in the peritoneal cavity. Recommendations Follow up as clinically indicated. Menstrual History LMP on 09/26/2023. Contraception: none Method Transvaginal, 3D ultrasound examination, Color Doppler examination. View: Adequate visualization Uterus Uterus: Visualized Uterus position: anteverted Description of uterine malformations: none Myometrium: small cyst measuring 3 mm x 2 mm x 3 mm Endometrium: three-layer pattern Cervix details: cystic lesions identified suggesting superficial Nabothian cysts Uterus length 72 mm Uterus width 40 mm Uterus height 36 mm Uterus Vol 53.8 cm Endometrial thickness, total 6.9 mm Fibroids: No fibroids identified Polyps: No polyps identified Right Ovary Rt ovary: Visualized Rt ovary morphology: premenopausal normal follicular Rt ovary D1 25 mm Rt ovary D2 24 mm Rt ovary D3 19 mm Rt ovary Vol 5.8 cm Left Ovary Lt ovary: Visualized Lt ovary morphology: premenopausal normal follicular Lt ovary D1 23 mm Lt ovary D2 20 mm Lt ovary D3 17 mm Lt ovary Vol 4.2 cm Cul de Sac Visualized. no free fluid visualized Performed By: Tracy Bello RDMS Read By: Argenis Rivera M.D. MATERNAL MEDICINE [facility] US [place] 11-21-2023 Radiology Study observation (narrative) [facility] Comprehensive metabolic 2000 panelOrdered By: Mounika Whitt on 11-20-2023 Albumin [Mass/Vol] 4.4 g/dL 3.9 - 4.9 g/dL [facility] ALP [Catalytic activity/Vol] 105 U/L 34 - 123 U/L [facility] ALT [Catalytic activity/Vol] 12 U/L 7 - 38 U/L [facility] Anion gap [Moles/Vol] 13 mmol/L 8 - 15 mmol/L [facility] AST [Catalytic activity/Vol] 13 U/L 13 - 35 U/L [facility] Bilirubin [Mass/Vol] 0.5 mg/dL 0.2 - 1 .3 mg/dL [facility] Calcium [Mass/Vol] 9.8 mg/dL 8.5 - 10. 2 mg/dL [facility] Chloride [Moles/Vol] 102 mmol/L 98 - 10 7 mmol/L [facility] CO2 [Moles/Vol] 22 mmol/L 22 - 30 mmol/L [facility] Creatinine [Mass/Vol] 0.87 mg/dL 0.58 - 0.96 mg/dL [facility] GFR/1.73 sq M.predicted among non-blacks MDRD (S/P/Bld) [Vol rate/Area] 91 mL/min/{1.73_m2} - PINF [facility] Comment on above: Estimated Glomerular Filtration Rate (eGFR) is calculated using the 2020 CKD-EPI creatinine equation. This equation utilizes serum creatinine, sex, and age as parameters. The creatinine assay has traceable calibration to isotope dilution-mass spectrometry. Refer to KDIGO guidelines for clinical interpretation. In patients with unstable renal function, e.g. those with acute kidney injury, the eGFR may not accurately reflect actual GFR. Glucose [Mass/Vol] 95 mg/dL 74 - 99 mg/dL [facility] Comment on above: The [place] Diab[employer] [place] Association (ADA) provides guidance for cutoff values for fasting glucose and random glucose. The ADA defines fasting as no caloric intake for at least 8 hours. Fasting plasma glucose results between 100 to 125 mg/dL indicate increased risk for diabetes (prediabetes). Fasting plasma glucose results greater than or equal to 126 mg/dL meet the criteria for diagnosis of diabetes. In the absence of unequivocal hyperglycemia, results should be confirmed by repeat testing. In a patient with classic symptoms of hyperglycemia or hyperglycemic crisis, random plasma glucose results greater than or equal to 200 mg/dL meet the criteria for diagnosis of diabetes. Reference: Standards of Medical Care in Diabetes 2016, [place] Diabetes Association. Diabetes Care. 2016.39(Suppl 1). Interpretation and review of laboratory results Normal [facility] Potassium [Moles/Vol] 4.0 mmol/L 3.7 - 5.1 mmol/L [facility] Protein [Mass/Vol] 7.9 g/dL 6.3 - 8.0 g/dL [facility] Sodium [Moles/Vol] 137 mmol/L 136 - 144 mmol/L [facility] Urea nitrogen [Mass/Vol] 16 mg/dL 7 - 21 mg/dL [facility] [place] 09-02-2023 Indication Ovarian cyst, complex Impression The uterus is anteverted and measures 75 mm x 32 mm x 42 mm. The endometrial thickness is 6 mm. The right ovary measures 30 mm x 23 mm x 17 mm. The left ovary measures 34 mm x 20 mm x 23 mm and contains a 13 mm x 15 mm x 15 mm. Hemorrhagic cyst with reticular pattern/clot. There is no free fluid visualized. Recommendations Normal pelvic ultrasound. Hemorrhagic cyst normal in premenopausal patient. Menstrual History LMP on 08/23/2023. Day of cycle 10 Method Transabdominal, transvaginal, 3D ultrasound examination, Color Doppler examination Uterus Uterus: Visualized Uterus position: anteverted Description of uterine malformations: normally shaped Myometrium: normal Endometrium: normal Cervix details: cystic lesions identified suggesting superficial Nabothian cysts Uterus length 75 mm Uterus width 42 mm Uterus height 32 mm Uterus Vol 52.4 cm Endometrial thickness, total 6.0 mm Right Ovary Rt ovary: Visualized Rt ovary morphology: normal Rt ovary D1 30 mm Rt ovary D2 23 mm Rt ovary D3 17 mm Rt ovary Vol 6.4 cm Left Ovary Lt ovary: Visualized Lt ovary D1 34 mm Lt ovary D2 20 mm Lt ovary D3 23 mm Lt ovary Vol 8.1 cm Lt ovarian cyst(s): Cysts identified Lt ovarian cyst D1 13 mm Lt ovarian cyst D2 15 mm Lt ovarian cyst D3 15 mm Lt ovarian cyst mean 14.3 mm Lt ovarian cyst vol 1.532 cm Lt ovarian cyst findings: Hemorrhagic cyst with reticular pattern/clot Cul de Sac Visualized. no free fluid visualized Performed By: Jumana Cortes RDMS Read By: Cheryl Camilo M.D. MATERNAL MEDICINE [facility] [place] 09-01-2023 Radiology Study observation (narrative) [facility] Cervical or vagninal specime n microscopic examination by cytology stain (reported ason 09-05-2021 Cytology report Cyto stain Doc (Cvx/Vag) Comment . [facility] Work Phone: Comment on above: The Pap smear is a s creening test designed to aid in thedetection of premalignant and malignant conditions of theuterine cervix. It is not a diagnostic procedure andshould not be used as the sole means of detecting cervicalcancer. Both false-positive and false-negative reports dooccur. Detection in cervical specim en of any of human papilloma virus (HPV) 16, 18, 31, 33,on 09-05-2021 HPV 16+18+31+33+35+39+45+ 51+52+56+58+59+66+68 DNA Probe+sig amp Ql (Cvx) Negative Negative [facility] Work Phone: Comment on above: This nucleic acid am plification test detects fourteen high- risk HPV types (16,18,31,33,35,39,45,51,52,56,58,59,66,68)without differentiation.Performed at: [facility] - [facility] [id number] Director: Heavenly Lopez MD, Phone: [phone] at: =G - [facility] [address] [id number] Director: Heavenly Lopez MD, Phone: [phone] Laboratory - Cytologyon 08-24 Tutor Coordinator Cyto stain Nom (Cvx/Vag) [ID] Comment . [facility] Work Phone: Comment on above: Geovany Nice, Utility Bag Assembler (ASCP) Laboratory - Miscellaneous t estson 09-05-2021 Service comment (Unsp spec) [Interp] Comment . [facility] Work Phone: Comment on above: This liquid based Th inPrep(R) pap test was screened withthe use of an image guided system. Service comment (Unsp spec) [Interp] . . [facility] Work Phone: No Panel Informationon 09-05 Pathology report final diagnosis Narrative Comment . [facility] Work Phone: Comment on above: NEGATIVE FOR INTRAEP ITHELIAL LESION OR MALIGNANCY.CELLULAR CHANGES ASSOCIATED WITH INFLAMMATION ARE PRESENT. MRI Up Ext Joint w/o Contras t Lefton 09-05-2016 MRI Up Ext Joint w/o Contrast Left Patient Name: SWATHI NEELY MRI Exam Date/Time 09/05/2016 07:51:40 EDT Exam MRI Up Ext Joint w/o Contrast Left Ordering Physician DO GRIGGS PAUL E. Accession Number [id number] CPT4 Codes 83292 () Reason For Exam Internal derangement Report Clinical Information: Left shoulder internal derangement MRI left shoulder: Comparison: X-ray left shoulder September 02, 2016 Axial, oblique sagittal and oblique coronal MR imaging of the left shoulder was performed. Findings: The patient is somewhat internally rotated in position. No intrinsic signal or structural abnormality of the supraspinatus tendon is identified. There is no atrophy of the muscle belly. No fluid is seen in the subacromial- subdeltoid bursa. The infraspinatus and muscle and tendon are intact. There is mild thickening of the subscapularis tendon and subtle hyperintense T2 signal suggesting mild tendinopathy. No significant soft tissue edema is seen within the shoulder. The long head of the biceps tendon is normally located within the bicipital groove. Intra-articular biceps tendon is somewhat suboptimally visualized, felt to likely be in part due to the internal rotation of the humerus. The glenoid labrum is grossly intact. There is no significant abnormality of the acromioclavicular joint. Impression: No evidence of rotator cuff tear. Mild thickening and subtle signal within the subscapularis suggesting mild tendinopathy. Report Dictated on Final Dictating Physician: JACKIE MAGALLANES Signed Date and Time: 09/05/2016 8:14 am Signed by: JACKIE MAGALLANES Transcribed Date and Time: 09/05/2016 8:15 Normal [facility] CR Shoulder 2+ Views Lefton 09-02-2016 CR Shoulder 2+ Views Left Patient Name: SWATHI NEELY Diagnostic Radiology Exam Date/Time 09/02/2016 12:07:42 EDT Exam CR Shoulder 2+ Views Left Ordering Physician DO GRIGGS PAUL E. Accession Number [id number] CPT4 Codes 57848 () Reason For Exam pain Report CLINICAL HISTORY: pain COMPARISON: None. Technique: AP views were obtained of the left shoulder in internal/external rotation. Additionally, an axillary view was obtained. FINDINGS: Three views of the left shoulder show no acute fracture or dislocation. The joint spaces are normal with no significant degenerative changes. The alignment is anatomic. The visualized lungs are clear. IMPRESSION: No acute osseous abnormality of the left shoulder. Report Dictated on Final Dictating Physician: MD FORREST YUN ROBERT Signed Date and Time: 09/02/2016 1:59 pm Signed by: MD FORREST YUN ROBERT Transcribed Date and Time: 09/02/2016 2:00 Normal [facility] Vital Signs Date Time Vital Sign Value Performing Clinician Facility 10-14-2024 09:05-0400 Body mass index (BMI) [Ratio] 30.48 kg/m2 Velma Rivas MD Work Phone: [facility] 10-14-2024 09:05-0400 Body weight 76.2 kg Velma Rivas MD Work Phone: [facility] 10-14-2024 09:05-0400 Diastolic blood pressure 80 mm[Hg] Velma Rivas MD Work Phone: [facility] 10-14-2024 09:05-0400 Heart rate 120 /min Velma Rivas MD Work Phone: [facility] 10-14-2024 09:05-0400 SaO2% (BldA) [Mass fraction] 97 % Velma Rivas MD Work Phone: [facility] 10-14-2024 09:05-0400 Systolic blood pressure 120 mm[Hg] Velma Rivas MD Work Phone: [facility] 10-11-2024 08:20-0400 Body height 157.5 cm Jc Leslie DO Work Phone: [facility] 10-11-2024 08:20-0400 Body mass index (BMI) [Ratio] 31.28 kg/m2 Jc Leslie DO Work Phone: [facility] 10-11-2024 08:20-0400 Body temperature 98.2 [degF] Jc Leslie DO Work Phone: [facility] [place] 10-11-2024 08:20-0400 Body weight 77.56 kg Jc Leslie DO Work Phone: [facility] [facility] 10-11-2024 08:20-0400 Diastolic blood pressure 78 mm[Hg] Jc Leslie DO Work Phone: [facility] [place] [facility] 10-11-2024 08:20-0400 Heart rate 118 /min Jc Leslie DO Work Phone: [facility] [facility] 10-11-2024 08:20-0400 SaO2% (BldA) [Mass fraction] 99 % Jc Leslie DO Work Phone: [facility] [place] [facility] 10-11-2024 08:20-0400 Systolic blood pressure 107 mm[Hg] Jc Leslie DO Work Phone: [facility] 09-07-2024 15:22-0400 Body mass index (BMI) [Ratio] 33.02 kg/m2 Velma Rivas MD Work Phone: [facility] 09-07-2024 15:22-0400 Body weight 82.56 kg Velma Rivas MD Work Phone: [facility] 09-07-2024 15:22-0400 Diastolic blood pressure 92 mm[Hg] Velma Rivas MD Work Phone: [facility] 09-07-2024 15:22-0400 Heart rate 100 /min Velma Rivas MD Work Phone: [facility] 09-07-2024 15:22-0400 SaO2% (BldA) [Mass fraction] 99 % Velma Rivas MD Work Phone: [facility] 09-07-2024 15:22-0400 Systolic blood pressure 130 mm[Hg] Velma Rivas MD Work Phone: [facility] 08-24-2024 08:12-0400 Diastolic blood pressure 92 mm[Hg] Timothy Xiao MD Work Phone: [facility] 08-24-2024 08:12-0400 Heart rate 62 /min Timothy Xiao MD Work Phone: [facility] 08-24-2024 08:12-0400 Respiratory rate 16 /min Timothy Xiao MD Work Phone: [facility] [place] 08-24-2024 08:12-0400 SaO2% (BldA) [Mass fraction] 96 % Timothy Xiao MD Work Phone: [facility] 08-24-2024 08:12-0400 Systolic blood pressure 116 mm[Hg] Timothy Xiao MD Work Phone: [facility] 08-24-2024 07:52-0400 Body temperature 98.01 [degF] Timothy Xiao MD Work Phone: [facility] [place] 08-24-2024 06:53-0400 Body height 170.2 cm Timothy Xiao MD Work Phone: [facility] 08-24-2024 06:53-0400 Body mass index (BMI) [Ratio] 31.19 kg/m2 Timothy Xiao MD Work Phone: [facility] [place] 08-24-2024 06:53-0400 Body weight 90.32 kg Timothy Xiao MD Work Phone: [facility] 08-19-2024 11:44-0400 Heart rate 98 /min Mariely Sanches APRN.CANNERY WORKER Work Phone: [facility] Comment on above: regular, rechecked by provider manually. 08-19-2024 10:54-0400 Body mass index (BMI) [Ratio] 34 kg/m2 Mariely Sanches APRN.CANNERY WORKER Work Phone: [facility] 08-19-2024 10:54-0400 Body temperature 98.01 [degF] Mariely Myron PHOTOGRAPHY PROFESSOR.CANNERY WORKER Work Phone: [facility] 08-19-2024 10:54-0400 Body weight 85 kg Mariely Sanches PHOTOGRAPHY PROFESSOR.CANNERY WORKER Work Phone: [facility] 08-19-2024 10:54-0400 Diastolic blood pressure 88 mm[Hg] Mariely Sanches PHOTOGRAPHY PROFESSOR.CANNERY WORKER Work Phone: [facility] 08-19-2024 10:54-0400 Respiratory rate 20 /min Mariely Sanches PHOTOGRAPHY PROFESSOR.CANNERY WORKER Work Phone: [facility] 08-19-2024 10:54-0400 SaO2% (BldA) [Mass fraction] 97 % Mariely Sanches PHOTOGRAPHY PROFESSOR.CANNERY WORKER Work Phone: [facility] 08-19-2024 10:54-0400 Systolic blood pressure 127 mm[Hg] Mariely Sanches PHOTOGRAPHY PROFESSOR.CANNERY WORKER Work Phone: [facility] 08-16-2024 09:45-0400 Body mass index (BMI) [Ratio] 34.71 kg/m2 Krislyn Aberegg PA Work Phone: [facility] 08-16-2024 09:45-0400 Body temperature 98.6 [degF] Krislyn Aberegg PA Work Phone: [facility] 08-16-2024 09:45-0400 Body weight 86.78 kg Krislyn Aberegg PA Work Phone: [facility] 08-16-2024 09:45-0400 Diastolic blood pressure 88 mm[Hg] Krislyn Aberegg PA Work Phone: [facility] 08-16-2024 09:45-0400 Heart rate 115 /min Krislyn Aberegg PA Work Phone: [facility] 08-16-2024 09:45-0400 Respiratory rate 21 /min Krislyn Aberegg PA Work Phone: [facility] 08-16-2024 09:45-0400 SaO2% (BldA) [Mass fraction] 99 % Krislyn Aberegg PA Work Phone: [facility] 08-16-2024 09:45-0400 Systolic blood pressure 110 mm[Hg] Martha Meyer PA Work Phone: [facility] 07-27-2024 13:00-0400 Diastolic blood pressure 92 mm[Hg] Yoon Dudley PHOTOGRAPHY PROFESSOR - CANNERY WORKER Work Phone: [facility] 07-27-2024 13:00-0400 Systolic blood pressure 132 mm[Hg] Yoon Black PHOTOGRAPHY PROFESSOR - CANNERY WORKER Work Phone: [facility] 07-27-2024 12:57-0400 Body height 170.2 cm Yoon Dudley PHOTOGRAPHY PROFESSOR - CANNERY WORKER Work Phone: [facility] 07-27-2024 12:57-0400 Body mass index (BMI) [Ratio] 31.29 kg/m2 Yoon Luis Enrique PHOTOGRAPHY PROFESSOR - CANNERY WORKER Work Phone: [facility] 07-27-2024 12:57-0400 Body temperature 97.39 [degF] Yoon Dudley PHOTOGRAPHY PROFESSOR - CANNERY WORKER Work Phone: [facility] 07-27-2024 12:57-0400 Body weight 90.63 kg Yoon Dudley PHOTOGRAPHY PROFESSOR - CANNERY WORKER Work Phone: [facility] 07-27-2024 12:57-0400 Heart rate 74 /min Yoon Dudley PHOTOGRAPHY PROFESSOR - CANNERY WORKER Work Phone: [facility] 07-27-2024 10:11-0400 Body height 158.1 cm Velma Rivas MD Work Phone: [facility] 07-27-2024 10:11-0400 Body mass index (BMI) [Ratio] 36.11 kg/m2 Velma Rivas MD Work Phone: [facility] 07-27-2024 10:11-0400 Body weight 90.27 kg Velma Rivas MD Work Phone: [facility] 07-27-2024 10:11-0400 Diastolic blood pressure 62 mm[Hg] Velma Rivas MD Work Phone: [facility] 07-27-2024 10:11-0400 Heart rate 100 /min Velma Rivas MD Work Phone: [facility] 07-27-2024 10:11-0400 SaO2% (BldA) [Mass fraction] 98 % Velma Rivas MD Work Phone: [facility] 07-27-2024 10:11-0400 Systolic blood pressure 112 mm[Hg] Velma Rivas MD Work Phone: [facility] 05-25-2024 13:03-0400 Diastolic blood pressure 90 mm[Hg] Yoon Luis Enrique PHOTOGRAPHY PROFESSOR - CANNERY WORKER Work Phone: [facility] [facility] 05-25-2024 13:03-0400 Systolic blood pressure 136 mm[Hg] Yoon Luis Enrique PHOTOGRAPHY PROFESSOR - CANNERY WORKER Work Phone: [facility] [place] 05-25-2024 12:57-0400 Body height 170.2 cm Yoon Black PHOTOGRAPHY PROFESSOR - CANNERY WORKER Work Phone: [facility] [place] 05-25-2024 12:57-0400 Body mass index (BMI) [Ratio] 30.89 kg/m2 Yoon Luis Enrique PHOTOGRAPHY PROFESSOR - CANNERY WORKER Work Phone: [facility] [place] 05-25-2024 12:57-0400 Body temperature 97 [degF] Yoon Luis Enrique PHOTOGRAPHY PROFESSOR - CANNERY WORKER Work Phone: [facility] [place] 05-25-2024 12:57-0400 Body weight 89.45 kg Yoon Black PHOTOGRAPHY PROFESSOR - CANNERY WORKER Work Phone: [facility] [place] 05-25-2024 12:57-0400 Heart rate 97 /min Yoon Luis Enrique PHOTOGRAPHY PROFESSOR - CANNERY WORKER Work Phone: [facility] 04-27-2024 16:18-0500 Body height 157.5 cm Jc Leslie DO Work Phone: [facility] 04-27-2024 16:18-0500 Body mass index (BMI) [Ratio] 36.95 kg/m2 Jc Leslie DO Work Phone: [facility] 04-27-2024 16:18-0500 Body temperature 98.1 [degF] Jc Leslie DO Work Phone: [facility] 04-27-2024 16:18-0500 Body weight 91.63 kg Jc Leslie DO Work Phone: [facility] 04-27-2024 16:18-0500 Diastolic blood pressure 82 mm[Hg] Jc Leslie DO Work Phone: [facility] 04-27-2024 16:18-0500 Heart rate 99 /min Jc Leslie DO Work Phone: [facility] [facility] 04-27-2024 16:18-0500 SaO2% (BldA) [Mass fraction] 99 % Jc Leslie DO Work Phone: [facility] 04-27-2024 16:18-0500 Systolic blood pressure 120 mm[Hg] Jc Leslie DO Work Phone: [facility] 04-15-2024 15:28-0500 Body mass index (BMI) [Ratio] 36.81 kg/m2 Prieto Thomas MD Work Phone: [facility] 04-15-2024 15:28-0500 Body temperature 98.71 [degF] Prieto Thomas MD Work Phone: [facility] 04-15-2024 15:28-0500 Body weight 91.3 kg Prieto Thomas MD Work Phone: [facility] 04-15-2024 15:28-0500 Diastolic blood pressure 82 mm[Hg] Prieto Thomas MD Work Phone: [facility] 04-15-2024 15:28-0500 Heart rate 102 /min Prieto Thomas MD Work Phone: [facility] 04-15-2024 15:28-0500 Respiratory rate 16 /min Prieto Thomas MD Work Phone: [facility] 04-15-2024 15:28-0500 SaO2% (BldA) [Mass fraction] 99 % Prieto Thomas MD Work Phone: [facility] 04-15-2024 15:28-0500 Systolic blood pressure 138 mm[Hg] Prieto Thomas MD Work Phone: [facility] 01-08-2024 15:47-0500 Body height 157.5 cm Jc Freeda DO Work Phone: [facility] 01-08-2024 15:47-0500 Body mass index (BMI) [Ratio] 36.03 kg/m2 Jc Freeda DO Work Phone: [facility] 01-08-2024 15:47-0500 Body temperature 97.81 [degF] Jc Freeda DO Work Phone: [facility] 01-08-2024 15:47-0500 Body weight 89.36 kg Jc Freeda DO Work Phone: [facility] 01-08-2024 15:47-0500 Diastolic blood pressure 79 mm[Hg] Jc Freeda DO Work Phone: [facility] 01-08-2024 15:47-0500 Heart rate 85 /min Jc Freeda DO Work Phone: [facility] 01-08-2024 15:47-0500 SaO2% (BldA) [Mass fraction] 99 % Jc Freeda DO Work Phone: [facility] 01-08-2024 15:47-0500 Systolic blood pressure 112 mm[Hg] Jc Sifuenteslla DO Work Phone: [facility] 11-28-2023 07:13-0400 Body height 157.5 cm Lilly Muniz APRN.CNP Work Phone: [facility] 11-28-2023 07:13-0400 Body mass index (BMI) [Ratio] 35.85 kg/m2 Lilly Muniz APRN.CNP Work Phone: [facility] 11-28-2023 07:13-0400 Body weight 88.91 kg Lilly Haury PHOTOGRAPHY PROFESSOR.CANNERY WORKER Work Phone: [facility] 11-28-2023 07:13-0400 Diastolic blood pressure 64 mm[Hg] Lilly Haury PHOTOGRAPHY PROFESSOR.CANNERY WORKER Work Phone: [facility] 11-28-2023 07:13-0400 Systolic blood pressure 114 mm[Hg] Lilly Haury PHOTOGRAPHY PROFESSOR.CANNERY WORKER Work Phone: [facility] 11-20-2023 07:14-0400 Body weight 88.45 kg Lilly Haury PHOTOGRAPHY PROFESSOR.CANNERY WORKER Work Phone: [facility] 11-20-2023 07:14-0400 Diastolic blood pressure 78 mm[Hg] Lilly Haury PHOTOGRAPHY PROFESSOR.CANNERY WORKER Work Phone: [facility] 11-20-2023 07:14-0400 Systolic blood pressure 110 mm[Hg] Lilly Haury PHOTOGRAPHY PROFESSOR.CANNERY WORKER Work Phone: [facility] 08-20-2023 08:18-0400 Body weight 86.64 kg Vicente Lin MD Work Phone: [facility] 08-20-2023 08:18-0400 Diastolic blood pressure 68 mm[Hg] Vicente Lin MD Work Phone: [facility] 08-20-2023 08:18-0400 Systolic blood pressure 114 mm[Hg] Vicente Lin MD Work Phone: [facility] 03-10-2023 10:51-0500 Body mass index (BMI) [Ratio] 35.3 kg/m2 Annaalessandra Zamora PHOTOGRAPHY PROFESSOR - CANNERY WORKER Work Phone: [facility] 03-10-2023 10:51-0500 Body temperature 98.4 [degF] Anna Velaal PHOTOGRAPHY PROFESSOR - CANNERY WORKER Work Phone: [facility] 03-10-2023 10:51-0500 Body weight 87.54 kg Annaalessandra Contrerasenthal PHOTOGRAPHY PROFESSOR - CANNERY WORKER Work Phone: [facility] [place] 03-10-2023 10:51-0500 Diastolic blood pressure 74 mm[Hg] Anna Benenthal PHOTOGRAPHY PROFESSOR - CANNERY WORKER Work Phone: [facility] [place] 03-10-2023 10:51-0500 Heart rate 78 /min Anna Bridenthal PHOTOGRAPHY PROFESSOR - CANNERY WORKER Work Phone: [facility] [place] 03-10-2023 10:51-0500 Respiratory rate 18 /min Anna Bridenthal PHOTOGRAPHY PROFESSOR - CANNERY WORKER Work Phone: [facility] [place] 03-10-2023 10:51-0500 SaO2% (BldA) [Mass fraction] 97 % Anna Bridenthal PHOTOGRAPHY PROFESSOR - CANNERY WORKER Work Phone: [facility] [place] 03-10-2023 10:51-0500 Systolic blood pressure 126 mm[Hg] Anna Benenthal PHOTOGRAPHY PROFESSOR - CANNERY WORKER Work Phone: [facility] 12-26-2022 15:27-0400 Body height 157.5 cm Jc Leslie DO Work Phone: [facility] [place] 12-26-2022 15:27-0400 Body mass index (BMI) [Ratio] 35.3 kg/m2 Jc Leslie DO Work Phone: [facility] 12-26-2022 15:27-0400 Body temperature 97.7 [degF] Jc Leslie DO Work Phone: [facility] [place] 12-26-2022 15:27-0400 Body weight 87.54 kg Jc Leslie DO Work Phone: [employer] [place] 12-26-2022 15:27-0400 Diastolic blood pressure 66 mm[Hg] Jc Leslie DO Work Phone: [employer] [place] 12-26-2022 15:27-0400 Heart rate 96 /min Jc Leslie DO Work Phone: [facility] [place] 12-26-2022 15:27-0400 SaO2% (BldA) [Mass fraction] 99 % Jc Leslie DO Work Phone: [facility] [place] 12-26-2022 15:27-0400 Systolic blood pressure 110 mm[Hg] Jc Leslie DO Work Phone: [facility] [place] 07-30-2022 08:43-0400 Body height 157.5 cm Maddie Marina MD Work Phone: [facility] [place] 07-30-2022 08:43-0400 Body mass index (BMI) [Ratio] 36.95 kg/m2 Maddie Marina MD Work Phone: [facility] 07-30-2022 08:43-0400 Body weight 91.63 kg Maddie Marina MD Work Phone: [facility] [place] 06-13-2022 11:15-0400 Body height 157.5 cm Maddie Marina MD Work Phone: [facility] [place] 06-13-2022 11:15-0400 Body mass index (BMI) [Ratio] 36.21 kg/m2 Maddie Marina MD Work Phone: [facility] [place] 06-13-2022 11:15-0400 Body temperature 97.11 [degF] Maddie Marina MD Work Phone: [facility] [place] 06-13-2022 11:15-0400 Body weight 89.81 kg Maddie Marina MD Work Phone: [facility] [place] 05-24-2022 15:17-0400 Body height 157.5 cm Aminta Monroe PHOTOGRAPHY PROFESSOR - CANNERY WORKER Work Phone: [facility] [place] 05-24-2022 15:17-0400 Body mass index (BMI) [Ratio] 37.13 kg/m2 Aminta Monroe PHOTOGRAPHY PROFESSOR - CANNERY WORKER Work Phone: [facility] [place] 05-24-2022 15:17-0400 Body temperature 97.81 [degF] Aminta Monroe PHOTOGRAPHY PROFESSOR - CANNERY WORKER Work Phone: [facility] [place] 05-24-2022 15:17-0400 Body weight 92.08 kg Aminta Monroe PHOTOGRAPHY PROFESSOR - CANNERY WORKER Work Phone: [facility] [place] 05-24-2022 15:17-0400 Diastolic blood pressure 77 mm[Hg] Aminta Monroe PHOTOGRAPHY PROFESSOR - CANNERY WORKER Work Phone: [facility] [place] 05-24-2022 15:17-0400 Heart rate 76 /min Aminta Monroe PHOTOGRAPHY PROFESSOR - CANNERY WORKER Work Phone: [facility] [place] 05-24-2022 15:17-0400 SaO2% (BldA) [Mass fraction] 99 % Aminta Monroe PHOTOGRAPHY PROFESSOR - CANNERY WORKER Work Phone: [facility] [place] 05-24-2022 15:17-0400 Systolic blood pressure 112 mm[Hg] Aminta Monroe PHOTOGRAPHY PROFESSOR - CANNERY WORKER Work Phone: [facility] [place] 05-17-2022 14:46-0400 Body height 157.5 cm Aminta Monroe PHOTOGRAPHY PROFESSOR - CANNERY WORKER Work Phone: [facility] [place] 05-17-2022 14:46-0400 Body mass index (BMI) [Ratio] 36.76 kg/m2 Aminta Monroe PHOTOGRAPHY PROFESSOR - CANNERY WORKER Work Phone: [facility] [place] 05-17-2022 14:46-0400 Body temperature 97.81 [degF] Aminta Monroe PHOTOGRAPHY PROFESSOR - CANNERY WORKER Work Phone: [facility] [place] 05-17-2022 14:46-0400 Body weight 91.17 kg Aminta Monroe PHOTOGRAPHY PROFESSOR - CANNERY WORKER Work Phone: [facility] [place] 05-17-2022 14:46-0400 Diastolic blood pressure 76 mm[Hg] Aminta Monroe PHOTOGRAPHY PROFESSOR - CANNERY WORKER Work Phone: [facility] [place] 05-17-2022 14:46-0400 Heart rate 84 /min Aminta Monroe PHOTOGRAPHY PROFESSOR - CANNERY WORKER Work Phone: [facility] [place] 05-17-2022 14:46-0400 SaO2% (BldA) [Mass fraction] 97 % Aminta Monroe PHOTOGRAPHY PROFESSOR - CANNERY WORKER Work Phone: [facility] [place] 05-17-2022 14:46-0400 Systolic blood pressure 114 mm[Hg] Aminta Monroe PHOTOGRAPHY PROFESSOR - CANNERY WORKER Work Phone: [facility] Encounters Encounter Date Encounter Type Care Provider Facility Start: 12-22-2024 End: 12-22-2024 Emergency department patient visit Roger Loy Facility:[facility] Start: 12-08-2024 End: 12-08-2024 ambulatory VELMA RIVAS Facility:[facility] Start: 10-14-2024 End: 10-15-2024 Patient encounter procedure Velma Rivas MD Work Phone: OB/Gynecology Comment on above: Insulin resistance ( Primary Dx); Constipation, unspecified constipation type; Low HDL (under 40); Dyslipidemia; Migraine without status migrainosus, not intractable, unspecified migraine type; Class 2 obesity with body mass index (BMI) of 35.0 to 35.9 in adult, unspecified obesity type, unspecified whether serious comorbidity present Refill Request Start: 10-14-2024 End: 10-14-2024 ambulatory VELMA RIVAS Facility:[facility] Start: 10-11-2024 End: 10-11-2024 Office outpatient visit 15 minutes Jc Leslie DO Work Phone: [facility] Comment on above: Anxiety and depressi on (Primary Dx); Gastroesophageal reflux disease without esophagitis; History of renal calculi Start: 10-11-2024 End: 10-11-[address] [facility] Start: 10-05-2024 End: 10-05-[address] Jc Leslie DO Work Phone: -Radiology [facility] Start: 10-05-2024 End: 10-05-[address] Lee Walsh MD -Radiology [facility] Work Phone: Start: 10-05-2024 End: 10-05-2024 ambulatory Jc Leslie Facility:[facility] Start: 09-07-2024 End: 09-07-2024 Patient encounter procedure Velma Rivas MD Work Phone: OB/Gynecology Comment on above: Insulin resistance ( Primary Dx); Constipation, unspecified constipation type; Low HDL (under 40); Dyslipidemia; Migraine without status migrainosus, not intractable, unspecified migraine type; Class 2 obesity with body mass index (BMI) of 35.0 to 35.9 in adult, unspecified obesity type, unspecified whether serious comorbidity present Start: 09-07-2024 End: 09-07-2024 ambulatory [facility] Facility:[facility] Start: 09-01-2024 End: 09-01-2024 Follow-up encounter Yoon Dudley FLORA - CANNERY WORKER Work Phone: [facility] Comment on above: Tissue exam Start: 08-24-2024 End: 08-24-2024 ambulatory [facility] Start: 08-24-2024 End: 08-24-2024 Subsequent hospital visit by physician Timothy Xiao MD Work Phone: [facility] Endoscopy Comment on above: Gastroesophageal ref lux disease, unspecified whether esophagitis present; Hiatal hernia Start: 08-19-2024 End: 08-19-2024 Patient encounter procedure Mariely Sanches FLORA.CANNERY WORKER Work Phone: [facility] Comment on above: Skin rash (Primary D x) Start: 08-19-2024 End: 08-19-2024 ambulatory [facility] Facility:[facility] Start: 08-17-2024 End: 08-17-2024 Follow-up encounter Martha SIMMONS Work Phone: [facility] Comment on above: Results Start: 08-16-2024 End: 10-04-2024 Patient encounter procedure Martha SIMMONS Work Phone: [facility] Comment on above: Dermatitis (Primary Dx); Skin infection Start: 08-16-2024 End: 10-04-2024 ambulatory Swathi Weinberg [facility] Clinical Communication Start: 08-10-2024 End: 08-10-2024 Telephone encounter Timothy Xiao MD Work Phone: [facility] Start: 07-28-2024 End: 09-27-2024 Follow-up encounter Velma Rivas MD Work Phone: OB/Gynecology Start: 07-27-2024 End: 07-27-2024 Admission to same day surgery center Yoon Correa CNP Work Phone: [facility] Comment on above: Gastroesophageal ref lux disease, unspecified whether esophagitis present (Primary Dx); Hiatal hernia Start: 07-27-2024 End: 07-27-2024 Office outpatient visit 15 minutes Yoon Correa CNP Work Phone: [facility] Comment on above: Gastroesophageal ref lux disease without esophagitis (Primary Dx) Start: 07-27-2024 End: 07-27-2024 Patient encounter procedure Velma Rivas MD Work Phone: OB/Gynecology Comment on above: Insulin resistance ( Primary Dx); Low HDL (under 40); Dyslipidemia; Screening cholesterol level; Screening for deficiency anemia; Screening for diabetes mellitus; Screening for metabolic disorder; Screening for thyroid disorder; Encounter for vitamin deficiency screening; Class 2 obesity with body mass index (BMI) of 35.0 to 35.9 in adult, unspecified obesity type, unspecified whether serious comorbidity present; Migraine without status migrainosus, not intractable, unspecified migraine type Start: 07-27-2024 End: 07-27-2024 ambulatory Yoon Correa CNP Work Phone: [facility] Start: 07-26-2024 End: 07-26-2024 E-mail encounter from caregiver Velma Rivas MD Work Phone: OB/Gynecology Start: 07-26-2024 End: 07-26-2024 Patient encounter procedure Velma Rivas MD Work Phone: OB/Gynecology Comment on above: Weight Management co nsult appointment Start: 06-29-2024 End: 06-29-2024 Subsequent hospital visit by physician Yoon Correa CNP Work Phone: [facility] X-ray Imaging Comment on above: Gastroesophageal ref lux disease without esophagitis Start: 06-29-2024 End: 06-29-2024 ambulatory YOON DUDLEY [facility] Start: 05-25-2024 End: 05-25-2024 Office outpatient new 45 minutes Yoon Dudley PHOTOGRAPHY PROFESSOR - CANNERY WORKER Work Phone: [facility] [place] Comment on above: Gastroesophageal ref lux disease without esophagitis Start: 05-25-2024 End: 05-25-2024 ambulatory YOON DUDLEY [facility] Start: 04-29-2024 End: 04-29-2024 Telephone encounter Jc Meyer Lourdesclifford DO Work Phone: [facility] Comment on above: Referral ([facility]) Start: 04-27-2024 End: 04-27-2024 Office outpatient visit 15 minutes Jc Leslie DO Work Phone: [facility] [place] Comment on above: Anxiety and depressi on (Primary Dx); Gastroesophageal reflux disease without esophagitis; Acute recurrent frontal sinusitis Start: 04-27-2024 End: 04-27-2024 ambulatory [facility] Start: 04-15-2024 End: 04-15-2024 ambulatory JC ROLON LOURDESClifford Facility:[facility] Start: 04-15-2024 End: 04-15-2024 Patient encounter procedure Prieto Thomas MD Work Phone: [facility] Comment on above: Sore throat (Primary Dx) Start: 03-02-2024 End: 03-02-2024 Refill Jc Meyer Lourdesclifford DO Work Phone: [facility] [place] Start: 01-08-2024 End: 01-08-2024 Office outpatient visit 15 minutes Jc Meyer Mariama DO Work Phone: [facility] Comment on above: Gastroesophageal ref lux disease without esophagitis (Primary Dx); Anxiety and depression; History of renal calculi Start: 01-08-2024 End: 01-08-2024 ambulatory [facility] Start: 11-28-2023 End: 11-28-2023 Patient encounter procedure Lilly Romeedward HINES.CANNERY WORKER Work Phone: OB/Gynecology Comment on above: Pelvic pain in femal e (Primary Dx); Irregular periods; Class 2 obesity with body mass index (BMI) of 35.0 to 35.9 in adult, unspecified obesity type, unspecified whether serious comorbidity present; Dyslipidemia Start: 11-21-2023 End: 11-21-2023 ambulatory [facility] Start: 11-21-2023 End: 11-21-2023 Patient encounter procedure [employer] [facility] Start: 11-20-2023 End: 11-20-2023 Patient encounter procedure Lilly Romeedward HINES.CANNERY WORKER Work Phone: OB/Gynecology Comment on above: Pelvic pain in femal e (Primary Dx); Irregular periods Start: 09-01-2023 End: 09-02-2023 ambulatory Cheryl Camilo MD Work Phone: OB/Gynecology Start: 09-01-2023 End: 09-02-2023 Patient encounter procedure Cheryl Camilo MD Work Phone: OB/Gynecology Start: 08-20-2023 End: 08-20-2023 Patient encounter procedure Vicente Lin MD Work Phone: OB/Gynecology Comment on above: Anovulation (Primary Dx); Ovarian cyst, complex; Hydronephrosis with renal and ureteral calculus obstruction Start: 08-15-2023 End: 08-15-2023 Telephone encounter Jc Betsy Mariama DO Work Phone: [facility] Comment on above: Referral Start: 08-14-2023 End: 08-14-2023 Orders Only Jc Betsy Mariama DO Work Phone: [facility] Comment on above: Renal stone (Primary Dx) Start: 03-10-2023 ambulatory Geetha thomas RN [facility] Clinical Communication Start: 03-10-2023 Patient encounter procedure Geetha Orr RN [facility] Clinical Communication Start: 03-10-2023 End: 03-10-2023 Office outpatient visit 15 minutes Anna Contrerasstella PHOTOGRAPHY PROFESSOR - CANNERY WORKER Work Phone: [facility] Comment on above: Cellulitis of chest wall (Primary Dx) Start: 12-26-2022 End: 12-26-2022 Office outpatient visit 15 minutes Jc Leslie Work Phone: [facility] Comment on above: Sinobronchitis (Prim janis Dx) Start: 12-26-2022 ambulatory Jud [facility] Cl inical Communication Start: 12-26-2022 Patient encounter procedure Jud [facility] Clinical Communication Start: 09-11-2022 End: 09-11-2022 Follow-up encounter Maddie Marina MD Work Phone: [facility] Comment on above: Hamstring tendonitis of left thigh (Primary Dx); Patellofemoral pain syndrome of left knee Start: 09-04-2022 End: 09-04-2022 ambulatory Maddie Marina MD Work Phone: [facility] Comment on above: Hamstring tendonitis of left thigh (Primary Dx); Patellofemoral pain syndrome of left knee Start: 08-28-2022 End: 08-28-2022 Follow-up encounter Maddie Marina MD Work Phone: [facility] Comment on above: Hamstring tendonitis of left thigh (Primary Dx); Patellofemoral pain syndrome of left knee Start: 08-19-2022 End: 08-19-2022 Follow-up encounter Maddie Marina MD Work Phone: [facility] Comment on above: Hamstring tendonitis of left thigh (Primary Dx); Patellofemoral pain syndrome of left knee Start: 08-12-2022 End: 08-12-2022 Follow-up encounter Vince Brandt PT [facility] Comment on above: Hamstring tendonitis of left thigh (Primary Dx); Patellofemoral pain syndrome of left knee Start: 07-30-2022 End: 07-30-2022 Office outpatient visit 15 minutes Maddie Marina MD Work Phone: [facility] Comment on above: Patellofemoral pain syndrome of left knee (Primary Dx); Hamstring tendonitis of left thigh; Osteochondroma of fibula, left Start: 06-13-2022 End: 06-13-2022 Office outpatient new 45 minutes Maddie Marina MD Work Phone: [facility] Comment on above: Lower leg mass, left (Primary Dx); Chronic pain of left knee; Patellar subluxation, left, initial encounter; Patellofemoral pain syndrome of left knee; Hamstring tendonitis of left thigh Start: 05-24-2022 End: 05-24-2022 Office outpatient visit 10 minutes Aminta Monroe PHOTOGRAPHY PROFESSOR - CANNERY WORKER Work Phone: [facility] Comment on above: Chronic pain of left knee (Primary Dx) Start: 05-17-2022 End: 05-17-2022 Office outpatient visit 15 minutes Aminta Monroe PHOTOGRAPHY PROFESSOR - CANNERY WORKER Work Phone: [facility] Comment on above: Chronic pain of left knee (Primary Dx) Start: 09-05-2021 End: 09-05-2021 Patient encounter procedure [facility], Specimen Start: 09-05-2016 Ambulatory [facility] Start: 09-02-2016 Ambulatory [facility] Facility: [id number] Procedures Date Procedure Procedure Detail Performing Clinician Start: 10-05-2024 Plain X-ray abdomen Dr. Jc Leslie DO Work Phone: Start: 07-27-2024 Follow-up visit Follow-up YOON LUDWIG Start: 06-29-2024 Radiologic exam upr gi trc double contrast study Yoon Dudley PHOTOGRAPHY PROFESSOR - CANNERY WORKER Work Phone: Start: 04-15-2024 STREP A MOLECULAR (POC) Prieto Thomas MD Work Phone: Start: 11-21-2023 Us pelvic nonobstetr ic real-time image complete Lilly Muniz CANNERY WORKER Work Phone: Start: 09-01-2023 Us pelvic nonobstetr ic real-time image complete Vicente Lin MD Work Phone: Plan of Treatment Date Care Activity Detail Author Start: 08-25-2066 RSV Immunization for Adults (1 - 1-dose 75+ series) RSV Immunization for Adults (1 - 1-dose 75+ series) [facility] Start: 2051 RSV Immunization aged 60 or older (1 - 1-dose 60+ series) RSV Immunization aged 60 or older (1 - 1-dose 60+ series) [facility] Start: 08-25-2041 Zoster Vaccines (1 of 2) Zoster Vaccines (1 of 2) [facility] Start: 03-01-2025 End: 03-01-2025 Patient encounter procedure 03/01/2025 3:30 PM EST Office Visit OB/Gynecology [address] [place] [address] Velma Bennett MD [address] [place] [address] weight management follow up OB/Gynecology Comment on above: weight management follow up Start: 12-08-2024 End: 12-08-2024 Patient encounter procedure 12/08/2024 3:30 PM EDT Office Visit OB/Gynecology [address] [place] [address] Velma Bennett MD [address] [place] [address] weight management follow up OB/Gynecology Comment on above: weight management follow up Start: 10-28-2024 Depression Monitoring Depression Monitoring [facility] Start: 10-25-2024 Influenza vaccination [facility] Start: 10-20-2024 End: 10-20-2024 Patient encounter procedure 10/20/2024 8:00 AM EDT Office Visit [facility] [address] [place] [id number] Jc Leslie, [address] [place] [address] [facility] Start: 10-14-2024 End: 10-14-2024 Patient encounter procedure 10/14/2024 9:20 AM EDT Office Visit OB/Gynecology [address] [place], [place] [id number] Velma Bennett MD [address] [place], [place] [phone] weight management follow up OB/Gynecology Comment on above: weight management follow up Start: 09-09-2024 End: 09-09-2024 Patient encounter procedure 09/09/2024 2:00 PM EDT Office Visit OB/Gynecology [address] [place], [place] [id number] Velma Bennett MD [address] [place], [place] [id number] weight management follow up OB/Gynecology Comment on above: weight management follow up Start: 08-24-2024 End: 08-24-2024 Admission to same day surgery center 08/24/2024 7:30 AM EDT - 08/24/2024 8:15 AM EDT Surgery [facility] Endoscopy [address] [place] [address] Timothy Xiao MD [address] [place], [place] [id number] ESOPHAGOGASTRODUODENOSCOPY WITH BIOPSY [21167 (CPT )] [facility] Endoscopy Comment on above: ESOPHAGOGASTRODUODENOSCOPY WITH BIOPSY [ 61541 (CPT )] Start: 08-24-2024 Subsequent hospital visit by physician 08/24/2024 7:30 AM EDT Hospital Encounter [facility] Endoscopy [address] [place] [id number] Timothy Xiao MD [address] [place] [address] [facility] Endoscopy Start: 08-24-2024 End: 08-24-2024 Egd transoral biopsy single/multiple [facility] Gastroenterology Start: 08-16-2024 End: 11-15-2024 Herpes simplex virus+Varicella zoster virus DNA [Presence] in Unspecified specimen by SADIE with probe detection 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 ZOSTER VIRUS (VZV), NAAT, LESION SWAB Lab Routine Dermatitis Skin infection Expected: 08/16/2024, Expires: 11/15/2024 [facility] Work Phone: Comment on above: Expected: 08/16/2024, Expires: Start: 08-02-2024 End: 08-02-2024 Patient encounter procedure 08/02/2024 10:20 AM EDT Office Visit OB/Gynecology [address] [place], [place] [phone] Velma Bennett MD [address] [place] [address] NEW WEIGHT MGT OB/Gynecology Comment on above: NEW WEIGHT MGT Start: 07-27-2024 End: 10-26-2024 25-hydroxyvitamin D3 [Mass/volume] in Serum or Plasma [facility] Work Phone: Comment on above: Expected: 07/27/2024, Expires: Start: 07-27-2024 End: 07-27-2024 Patient encounter procedure OB/Gynecolog y Comment on above: NEW WEIGHT MGT-LM patient needs 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 Start: 07-06-2024 Depression Monitoring Depression Monitoring [facility] Start: 06-29-2024 End: 06-29-2024 Patient encounter procedure 06/29/2024 9:00 AM EDT Appointment [facility] [address] [place] [phone] Yoon Dudley APRN - CANNERY WORKER [address] [facility] [address] [place] [address] [facility] X-ray Imaging Start: 05-25-2024 End: 05-25-2025 RF Upper gastrointestinal tract and Small bowel Single view W contrast PO FL upper GI double contrast w KUB Imaging Routine Gastroesophageal reflux disease without esophagitis Expected: 05/25/2024, Expires: 05/25/2025 [facility] Work Phone: Comment on above: Expected: 05/25/2024, Expires: Start: 03-10-2024 End: 03-10-2024 Patient encounter procedure 03/10/2024 4:30 PM EST Office Visit [facility] [address] [place] [address] Jc Leslie F, [address] [place] [address] [facility] Start: 11-21-2023 End: 11-21-2023 ambulatory 11/21/2023 2:00 PM EDT Procedure OB/Gynecology [address] [place] [address] Irregular periods [N92.6] OB/Gynecology Comment on above: Irregular periods [N92.6] Start: 11-20-2023 End: 02-19-2024 17-Hydroxyprogesterone [Mass/volume] in Serum or Plasma [facility] Comment on above: Expected: 11/20/2023, Expires: Start: 11-20-2023 End: 02-19-2024 Choriogonadotropin.beta subunit [Units/volume] in Serum or Plasma [facility] Comment on above: Expected: 11/20/2023, Expires: 4 Start: 11-20-2023 End: 12-26-2024 DHEA-S BLD [facility] Comment on above: Expected: 11/20/2023, Expires: Start: 11-20-2023 End: 02-19-2024 Fasting glucose [Mass/volume] in Serum or Plasma [facility] Comment on above: Expected: 11/20/2023, Expires: Start: 11-20-2023 End: 02-19-2024 Follitropin [Units/volume] in Serum or Plasma [facility] Comment on above: Expected: 11/20/2023, Expires: Start: 11-20-2023 End: 02-19-2024 Hemoglobin A1c in Blood [facility] Comment on above: Expected: 11/20/2023, Expires: Start: 11-20-2023 End: 02-19-2024 Insulin [Units/volume] in Serum or Plasma [facility] Comment on above: Expected: 11/20/2023, Expires: Start: 11-20-2023 End: 02-19-2024 Lipid 1996 panel - Serum or Plasma [facility] Comment on above: Expected: 11/20/2023, Expires: Start: 11-20-2023 End: 02-19-2024 Lutropin [Units/volume] in Serum or Plasma [facility] Comment on above: Expected: 11/20/2023, Expires: Start: 11-20-2023 End: 02-19-2024 Progesterone [Mass/volume] in Serum or Plasma [facility] Comment on above: Expected: 11/20/2023, Expires: 4 Start: 11-20-2023 End: 02-19-2024 Prolactin [Mass/volume] in Serum or Plasma [facility] Comment on above: Expected: 11/20/2023, Expires: Start: 11-20-2023 End: 02-19-2024 TESTOSTERONE, FREE AND TOTAL, BY EQUILIBRIUM ULTRAFILTRATION MASS SPECTROMETRY [facility] Comment on above: Expected: 11/20/2023, Expires: Start: 11-20-2023 End: 02-19-2024 Thyrotropin [Units/volume] in Serum or Plasma [facility] Work Phone: Comment on above: Expected: 11/20/2023, Expires: 4 Start: 11-20-2023 End: 11-19-2024 US Pelvis PELVIC US WHI Anc Imaging Routine Irregular periods Expected: 11/20/2023, Expires: 11/19/2024 [facility] Comment on above: Expected: 11/20/2023, Expires: 5 Start: 10-26-2023 Covid-19 Vaccine ( season) Covid-19 Vaccine () [facility] Start: 10-26-2023 Influenza vaccination [facility] Start: 2023 End: 2023 ambulatory 2023 9:30 AM EDT Procedure OB/Gynecology [address] [place] [address] Ovarian cyst, complex [N83.299] OB/Gynecology Comment on above: Ovarian cyst, complex [N83.299] Start: 08-20-2023 End: 11-19-2023 Cancer Ag 125 [Units/volume] in Serum or Plasma [facility] Work Phone: Comment on above: Expected: 08/20/2023, Expires: 4 Start: 08-20-2023 End: 08-19-2024 US Pelvis PELVIC US I Anc Imaging Routine Ovarian cyst, complex Expected: 08/20/2023, Expires: 08/19/2024 [facility] Comment on above: Expected: 08/20/2023, Expires: 5 Start: 02-24-2023 Behavioral Health Screening Behavioral Health Screening [facility] Start: 10-25-2022 COVID-19 Vaccine ( season) COVID-19 Vaccine () [facility] Start: 10-25-2022 Influenza vaccination [facility] Start: 10-02-2022 End: 10-02-2022 ambulatory 10/02/2022 3:00 PM EDT Evaluation [facility] [address] [place] [address] Vince Brandt, PT [facility] Start: 09-18-2022 End: 09-18-2022 Follow-up encounter 09/18/2022 4:00 PM EDT Follow-Up [facility] [address] [place] [address] Vince Brandt, PT [facility] Start: 09-11-2022 End: 09-11-2022 Follow-up encounter 09/11/2022 3:00 PM EDT Follow-Up [facility] [address] [place] [address] Vince Brandt, PT [facility] Start: 09-10-2022 End: 09-10-2022 Patient encounter procedure 09/10/2022 8:30 AM EDT Office Visit [facility] [address] [place] [address] Maddie Marina MD [address] [place] [address] [facility] Start: 09-02-2022 End: 09-02-2022 ambulatory 09/02/2022 3:30 PM EDT Evaluation [facility] [address] [place] [address] Vince Brandt, PT [facility] Start: 08-28-2022 End: 08-28-2022 Follow-up encounter 08/28/2022 4:00 PM EDT Follow-Up [facility] [address] [place] [address] Maddie Marina MD [address] [place] [address] Vince Brandt, PT [facility] Start: 2022 End: 2022 Follow-up encounter 2022 3:30 PM EDT Follow-Up [facility] [address] [place] [address] Vijay Garcia, PT [facility] Start: 08-19-2022 End: 08-19-2022 Follow-up encounter 08/19/2022 3:30 PM EDT Follow-Up [facility] [address] [place] [address] Vijay Garcia, PT [facility] Start: 08-05-2022 End: 08-05-2022 ambulatory 08/05/2022 3:30 PM EDT Evaluation [facility] [address] [place] [address] Maddie Marina MD [address] [place] [address] Vince Brandt, PT [facility] Start: 06-13-2022 End: 06-14-2023 MR Lower leg - left WO contrast MR tibia fibula left wo IV contrast Imaging Routine Chronic pain of left knee Patellar subluxation, left, initial encounter Lower leg mass, left Expected: 06/13/2022, Expires: 06/14/2023 [facility] Work Phone: Comment on above: Expected: 06/13/2022, Expires: Start: 05-24-2022 End: 05-24-2022 Patient encounter procedure 05/24/2022 Office Visit Family Medicine Aminta Monroe, PHOTOGRAPHY PROFESSOR - CANNERY WORKER [address] [place] [address] [facility] Start: 05-17-2022 End: 05-18-2023 XR Knee - left 4 Views [facility] Work Phone: Comment on above: Expected: 05/17/2022, Expires: 4 Start: 10-25-2021 Influenza vaccination Influenza Vaccine (#1) [facility] Start: 08-25-2021 Screening for malignant neoplasm of cervix [facility] Start: 08-25-2018 HPV Vaccine (1 - 3-dose SCDM series) HPV Vaccine (1 - 3-dose SCDM series) [facility] Start: 08-25-2012 Screening for malignant neoplasm of cervix [facility] Start: 08-25-2010 DTaP/Tdap/Td Vaccines (1 - Tdap) DTaP/Tdap/Td Vaccines (1 - Tdap) [facility] Start: 08-25-2010 Hepatitis B Vaccine (1 of 3 - 19+ 3-dose series) Hepatitis B Vaccine (1 of 3 - 19+ 3-dose series) [facility] Start: 08-25-2010 Hepatitis B Vaccines (1 of 3 - 19+ 3-dose series) Hepatitis B Vaccines (1 of 3 - 19+ 3-dose series) [facility] Start: 08-25-2010 Urine microalbumin profile DTaP,Tdap,Td Vaccine (1 - Tdap) [facility] Start: 08-25-2009 Anxiety Screening Anxiety Screening [facility] Start: 08-25-2009 Depression Screening Depression Screening [facility] Start: 08-25-2009 Hepatitis C screening Hepatitis C Screening [facility] Start: 08-25-2009 HIV screening HIV Screening [facility] Start: 08-25-2004 Varicella vaccination Varicella Vaccines (1 of 2 - 13+ 2-dose series) [facility] Start: 2003 Depression Screening Depression Screening [facility] Start: 08-25-1998 DTaP/Tdap/Td Vaccines (1 - Tdap) DTaP/Tdap/Td Vaccines (1 - Tdap) [facility] Start: 08-25-1992 MMR Vaccines (1 of 1 - Standard series) MMR Vaccines (1 of 1 - Standard series) [facility] Start: 08-25-1992 Varicella vaccination Varicella Vaccines (1 of 2 - 2-dose childhood series) [facility] Start: 02-26-1992 COVID-19 Vaccine (#1) COVID-19 Vaccine (#1) [facility] Start: 1991 Hepatitis B Vaccines (1 of 3 - 3-dose series) Hepatitis B Vaccines (1 of 3 - 3-dose series) [facility] Start: 1991 HIV screening HIV Screening [facility] Start: 1991 Lipid panel Lipid Panel [facility] Tissue exam [facility] Work Phone: Comment on above: Release Upon Ordering for 1 Occurrences starting 08/24/2024 Immunizations Immunization Date Immunization Notes Care Provider Kraig rendon 08-31-2013 tuberculin skin test ; purified protein derivative solution, intradermal Aminta Correa CNP Work Phone: [facility] Payers Date Payer Category Payer Self-pay [id number] 2022 Private Health Insurance MMO SUP ERMED PPO [id number] 2021 Commercial Managed C are - HMO MMO SUPERMED [id number] 2021 Unknown 2021 Unknown [id number] Unknown [id number] Social History Date Type Detail Facility Start: 02-13-2017 Tobacco smoking stat us KYIS Unknown if ever smoked [facility] Work Phone: Start: 1990 Sex Assigned At Female W [facility] Start: 08-11-2023 End: 08-20-2023 Tobacco smoking status KYIS Never smoked tobacco [facility] Start: 05-17-2022 End: 08-19-2024 Alcohol intake Current drinker of alcohol (finding) [facility] Start: 05-17-2022 End: 08-20-2023 Alcohol intake [facility] Start: 1990 Sex Assigned At Not on file [facility] Start: 05-07-2022 End: 09-11-2022 Exposure to SARS-CoV-2 (event) Not sure [facility] Start: 07-30-2022 End: 08-20-2023 Tobacco use panel [facility] Start: 08-20-2023 Tobacco use and exposure Smokeless tobacco non-user [facility] Start: 09-11-2018 National Score (1-10 0), lower number is lower risk 62 [facility] Has the Replise, or Voltea threatened to shut off services in your home in past 12Mo No [facility] Are you now , , , , never or living with a partner? Never [facility] How often to you hav e a drink containing alcohol? 2-4 times a month [facility] How many standard drinks containing alcohol do you have on a typical day? 1 or 2 [facility] How often do you hav e 6 or more drinks on 1 occasion? Never [facility] Do you feel stress - tense, restless, nervous, or anxious, or unable to sleep at night because your mind is troubled all the time - these days [OSQ] To some extent [employer] (I/We) worried wheth er (my/our) food would run out before (I/we) got money to buy more. Never true [employer] Start: 09-24-2021 Sex Female (finding) [employer] [facility] Clinical Notes 09-05-2021 to 12-13-2024 Telephone Encounter - Michelle Molina RN - 10/15/2024 9:38 AM EDTTelephone Encounter - Michelle Molina RN - 10/15/2024 9:38 AM EDTPatient InstructionsJc Leslie DO - 10/11/2024 8:40 AM EDT Note Date & Type Note Facility 12-13-2024 Note HNO ID: [id number] Author: ?, ?, ? Service: ? Author Type: ? Type: Progress Notes Filed: 12/13/2024 09:29 Note Text: POPULATION HEALTH NAVIGATION OUTREACH Action/FYI Pcp rashmi Morris Sent mychart Reason for Outreach Attribution: Consult to Primary Care Care Gaps due: Establish Care Appointment Patient Contacted: Unable or unnecessary to reach patient: Left message [employer] message sent Navigation Signature: Carlie Villasenor Population Health Navigator December 13, 2024 9:28 AM [facility] 12-13-2024 Note Patient Outreach (NE TNAV) ---- SWATHI NEELY ([id number]) 1990 F Date Time Provider Department 12/13/24 CARLIE VILLASENOR During your visit today, we recorded the following information about you: [facility] Population Health Carlie Bazan 12/13/2024 9:29 AM Signed POPULATION HEALTH NAVIGATION OUTREACH Action/FYI Pcp rashmi Morris Sent Home Inventory S[pecialistshart Reason for Outreach Attribution: Consult to Primary Care Care Gaps due: Establish Care Appointment Patient Contacted: Unable or unnecessary to reach patient: Left message [employer] message sent Navigation Signature: Carlie Luna Health Navigator December 13, 2024 9:28 AM Allergies As of Date: 12/13/2024 (No Known Allergies) Date Reviewed: 12/08/2024 Reviewed by: Ya Morrow MA - Fully Assessed Reason for Visit: Population Health Navigation Outreach [3910] Cmt: Pcp wq Prescriptions as of 12/13/2024 - topiramate (TOPAMAX) 50 mg tablet Take 1 tablet by mouth two times a day. - metFORMIN ER (GLUCOPHAGE XR) 500 mg 24 hr tablet Take 2 tablets by mouth two times a day. - venlafaxine ER (EFFEXOR XR) 75 mg 24 hr capsule Take 75 mg by mouth. - norgestimate-ethinyl estradiol 0.25-0.035 mg tablet Take 1 tablet by mouth once daily. - Phentermine HCl 37.5 mg tablet Take 1 tablet by mouth daily before breakfast for 90 days. Patient should start on October 25, 2024. Problem List As Of Date: 12/13/2024 (None) Encounter Status:Closed by [facility] NAVIGATOR, CARLIE Antonella on 12/13/24 [facility] 12-08-2024 Note HNO ID: [id number] Author: VELMA BENNETT MD Service: ? Author Type: Physician Type: Progress Notes Filed: 12/08/2024 16:29 Note Text: Some documentation from previous visit of 10/14/24 was copied and pasted, documentation has been reviewed and edited as necessary for today's visit. Patient Summary: Swathi is a 34 year old Female who presents for follow-up evaluation of obesity/weight management to treat and prevent related co-morbidities. In our previous visits we have discussed lifestyle intervention including a nutrition recommendations and physical activity optimization. Her last office visit was 8 weeks ago. Assessment/plan from last visit: - Patient has not been taking metformin consistently due to nausea and forgetfulness. - Advised setting an alarm to take metformin with dinner; instructed to titrate dose slowly as tolerated. - Recommended Super B complex supplement to prevent B12 deficiency. - Encouraged continuation of high-protein, low-carbohydrate diet; advised to increase protein intake to 120g/day and maintain hydration. - Advised to continue daily walks and incorporate resistance training 2-4 times per week. - Continue topiramate. - Discussed potential for topiramate to cause spotting with control pills. - Weight reduced from 199 lbs to 168 lbs; waist circumference reduced from 37.5 inches to 33.5 inches. - Continue phentermine; prescription refilled. - Discussed that weight loss can also impact menstrual cycles. - Follow-up in November. 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 - Despite challenges, has lost 2-3 pounds since the last visit and views maintaining weight as a positive outcome. - Consistently consumes a protein drink for breakfast but struggles with lunch and dinner planning due to a busy schedule and limited food preferences. - Engages in physical activity, including playing pickleball 2-3 times a week and occasional walking, but notes a decrease in activity since the school year began. - Enjoys salty snacks, particularly popcorn, and has switched to mini bags to control portions. - Denies any issues with current medications, including phentermine and topiramate, and is taking topiramate once daily. - Takes metformin with dinner when remembered but finds it challenging to maintain consistency due to a variable schedule. - Reports poor sleep quality, attributing it to stress from work. - not tracking food currently - eating more high carb Weight loss since last vist: 2 lbs total weight lost 33 lbs 16%= 166lbs 12/08/24 166 lb 10/14/24 168 lb 09/07/24 182lbs 07/27/24: 199lbs (initial weight) Anti-obesity medications: Topiramate/phentermine . Benefit:decreased cravings, decreased portion sizes Adverse effects: tingling in fingers occasionally, constipation Anti-obesity medications: Metformin (start 09/07/24) Benefit:insulin 18 Adverse effects: Weight promoting medications: Effexor Previous Diet (initial appointment): Awake - 5:45-6 during school year B -7:30- flavored water with javed w/ caffeine, pack of PB crackers S - L - [id number]- yogurt- chobani (regular), pretzels, leftovers- cheesy potato, pasta, chicken quesadila S - D - 3:30-4pm- chicken quesadilla, pasta, cheesy potato. Out to dinner once per week- maldivian S - 8pm- popcorn, pretzels, chips- salty Fluids: water w/ javed (48-54 oz), ning, smirnoff one per day in evening. Bedtime - 9-10pm (wakes up 2-3x per night) Quality of diet: 24hr recall suggests unhealthy diet. Characterization of diet:Structured and evening snacking. Clay Hoister of impaired eating habits:excessive hunger, mindlessness , boredom, and emotion Eating Disorder no Cravings: salty Dietary changes: B - protein shake - muscle milk now fairlife S - L - deer bologna and cheese, sausage and cheese , protein shake instead sometimes if busy, apple. Leftovers- lasagna S - D - meat and vegetable w/ fruit apple or omaira S - Fluids - 64-80oz one x per week sugar free smirnoff Eating 3 meals a day, including breakfast Increasing water intake Controlling portions Identify hunger and satiety cues Limiting processed foods Increasing protein Reducing carbohydrates Mindful Eating strategies Current Barriers: reduced physical activity Exercise: stable Regular exercise: no Strength/resistance exercise:no Barriers to regular exercise? no Work-related activity:Sedentary.but is on her feet all day Gym Membership: no Activity Tracker: no average steps per day N/A Stress: stableStress:no, Cause:None Sleep: stableDuration: 6-7 hours. EDUIN NO ; CPAP NO naps 30min-2hrs Estimated Creatinine Clearance: 95.5 mL/min (based on SCr of 0.8 mg/ (more content not included)... [facility] 10-15-2024 Telephone encounter Note Request received via [employer]. Order changed to 30 day. Patient comment: Can this be sent as 30 day refills instead of 90 day refills so that my insurance will cover it? Michelle Molina RN [facility] 10-15-2024 Miscellaneous Notes Request received via [employer]. Order changed to 30 day. Patient comment: Can this be sent as 30 day refills instead of 90 day refills so that my insurance will cover it? Michelle Molina RN documented in this encounter [facility] 10-14-2024 Instructions Velma Bennett MD - 10/14/2024 10:16 AM EDT - Medications and Supplements - Continue your topiramate and phentermine as prescribed; your insurance requires 30-day refills for both. Plan to potato picker phentermine around October 22 (first fill available October 25). - Re-start metformin daily with dinner; set a phone alarm at dinner time and gradually increase your dose as tolerated, aiming for up to 3-4 pills per day. - Begin a daily B-complex vitamin to prevent B12 deficiency once you re taking metformin regularly. - Add magnesium (glycinate or theanate) and ashwagandha supplements to help with sleep quality and stress; trial for about 3 months and stop if you notice no benefit. 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 - Continue aiming for two consistent meals each day to make the third meal more flexible. - Track your intake on the Lose It nish; push your protein goal toward 120 grams per day and keep carbs around 50-60 grams. - Drink about three 16-ounce bottles of water daily (roughly 64 ounces total). - Physical Activity - Walk at least 10-15 minutes every day, aiming for 30 minutes when possible; keep walking shoes in your car or school to fit walks into your schedule. - Incorporate resistance training 2-4 times per week for about 10 minutes--use dumbbells, bodyweight squats, overhead presses, or a weighted vest on walks. - Each week (or every two weeks), write down specific goals (e.g., walk three times, lift twice ) and check them off to stay motivated. - Reproductive Health - Continue your current control (Sprintec); irregular spotting is most likely due to weight loss and topiramate, not a change in contraceptive effectiveness. - Follow-Up - Your next appointment is scheduled for November 29 at 3:30 pm (in-office or virtual). After that visit, we ll move to [id number] check-ins. Supplements that may improve energy/fatigue: B-complex vitamins- may support cellular energy and can reduce fatigue CoQ10- (coenzyme Q10)-could enhance mitochondrial energy production, may reduce fatigue Iron (only if iron deficiency) Rhodiola Rosea-is an Adaptogen that may reduce fatigue and boost endurance, improve depression Ashwagandha-is an adaptogen that may support stress resistance and may improve energy levels indirectly. Supports cortisol balance and may help with Abdominal fat. Creatine- may increase physical performance and short bursts of energy. L-Carnitine- could assist in fat metabolism and may improve energy Magnesium Glycinate- may improve sleep,m muscle relaxation, blood sugar control and mood. Ginseng: an adaptogen that may improve fatigue *Adaptogens: are active ingredients in certain plants and mushrooms that may impact how your body deals with stress, anxiety and fatigue. For hormonal balance and Metabolic health: Elvin-Inositol and K-Rgpfb-Glfdiotj-can improve insulin sensitivity, often used for PCOS- related weight management Magnesium- may support glucose metabolism and energy production Magnesium L-Threonate- improved sleep quality and brain health Magnesium Glycinate- calm, deeper sleep Magnesium Citrate- can aide in constipation relief Magnesium Malate- may help with chronic pain, fibromyalgia, and fatigue Morrison 3 fatty acids (fish oils)- may reduce inflammation, supports metabolism, and may aid in fat loss Chromium Picolinate- may improve blood sugar control and reduce cravings Vitamin D- low levels can be associated with weight gain and fatigue. Can aid in bone health, depression, gut health etc. Berberine- may enhance insulin sensitivity, support weight loss and blood sugar balance. N-Acetyl Cysteine (NAC) - may support ovulation, reduce insulin resistance, antioxidant benefits. CoQ10 (Ubiquinone) - used as an antioxidant which protects your cells from damage. This supplement may help with migraines, heart failure and high blood pressure. Collagen Peptides- may help with joints, skin hair and nails (note this is not a complete protein and should not be used as your protein source) Probiotics- can help support a healthy gut microbiome, which can improve digestion and overall well-being. Fiber Supplement- may improve digestive health, help with weight management, and potentially lower cholesterol levels. Fish Oil- provides Morrison 3- fatty acids which can be beneficial for heart health, reduce inflammation and support brain function. L-Carnitine- vital in transporting fatty acids in to cells for energy production. Some potential benefits are cardiovascular health, Brain function, Exercise performance and recovery, reduce fasting glucose levels. Red Yeast Rice- may help to lower cholesterol levels, particularly LDL (the bad choleasterol) it may also improve blood vessel function and decrease arterial stiffness. Not all supplements work for everyone and data can be limited. Some supplements may interfere with medications you are taking. Cholesterol Total cholesterol- is the total amount of cholesterol circulating in your blood. LDL (low density lipoprotein)- BAD cholesterol that contributes to plaque build-up your arteries which leads to heart attacks or stroke. HDL (High density lipoprotein)- GOOD cholesterol that helps clear out the cholesterol your body doesn t need Triglycerides- A type of fat that can increase your risk of heart attack or stroke. How to manage your cholesterol: Diet: reduce saturated and trans fats- which are found in full-fat dairy, red meats, processed foods (increase LDL) Increase soluble fiber (foods like beans, oats, fruits, vegetables) Incorporate healthy fats (avocados, nuts, olive oil, fatty fish)- which can increase HDL and lower LDL levels Limit sugar sweetened beverages Limit refined carbohydrates - pasta, breads, cereals etc. Focus on Whole Foods Exercise: Routine exercise can help increase HDL and lower LDL (vigorous exercise can especially help to increase HDL) Lifestyle: Maintain healthy weight Smoking cessation (smoking lowers HDL and raises LDL) Limit alcohol consumption Manage stress Medications: Statins help to lower LDL cholesterol Supplements: Fish oil , red yeast rice, Niacin, Garlic, Flaxseed What the Food Groups Do For You Miniature Set Constructor are always stressing the importance of a balanced diet, and for good reason. Each food group--and each food within a given group--offers a different nutrient package. This doesn t mean that you have to cover each group in every meal. But over the course of a day, you should have something from each group. And over the longer term--say, a week or a month--you should strive to eat a variety of foods from within each group, particularly vegetables and fruits.Here s a quick overview of what each group has to offer--and how much we should all be consuming. Vegetables and fruits. Fruit and vegetable intake is associated with reduced risk of a number of chronic diseases, including cardiovascular disease, type 2 diabetes, certain kinds of cancer, and dementia. Some of these benefits come from the nutrients and fiber in produce. These include not only the obvious vitamins and minerals, but also phytochemicals ranging from the anti-carcinogenic isothiocyanates in cruciferous vegetables like broccoli and cauliflower to antioxidants like vitamin C and hesperetin in citrus fruits. Fiber, too, is associated with a host of benefits, including bowel health, increased insulin sensitivity, and slower digestion that makes you feel garland longer. Increasing your intake of fruits and vegetables may also improve your overall diet simply by displacing less healthy foods. The USDA now recommends daily consumption of 2 to 3 cups (roughly four to six half-cup servings) of vegetables and another 1 to 2 cups of fruit (three to four half-cup servings; see Table 1, page 9).Whole grains. Carbohydrates are primarily an energy source to fuel your body. But whole grains--such as quinoa, barley, and brown rice--do even more for you. Whole grains come packaged with their natural fiber, vitamins, minerals, and phytochemicals, so they deliver additional health benefits. Perhaps that s why research shows that people who eat whole grains tend to live longer and have a lower risk of chronic diseases, especially cardiovascular disease. By contrast, refined grains (such as white flour) have been stripped of their fiber-rich bran (the outer coating of the kernel) as well as the vitamin- and mineral-packed germ (see Figure 2, at left). For people up to age 50, the recommended intake is 38 grams for men and 25 grams for women (unless they are or , in which case the recommendation goes up to 28 grams and 29 grams, respectively). The recommendation is lower for people over age 50: 30 grams for men, and 21 grams for women. Dairy. Our first food as infants is milk, and dairy is associated with improved bone health, especially in children and adolescents. While adults don t need to consume dairy products, dairy foods offer protein and an array of vitamins and minerals, including calcium. Some dairy foods ([place] yogurt, cottage cheese, other cheeses) are better sources of protein than others (milk, regular yogurt), but keep in mind that many types of cheese are high in sodium and saturated fat. If you can t consume dairy or prefer not to, make sure you meet your calcium needs through other foods or supplements. Protein. You need protein in order to maintain your muscles, bones, skin, and every other organ and tissue in your body. Protein also helps you stay satisfied and manage hunger. Not only is protein important in your overall diet, but emerging research suggests that you should have some at all three meals, especially if you are older. However, keep in mind that while it s important to get enough protein, more is not necessarily better!Protein foods are a diverse group, including both animal sources (fish and seafood, meats, poultry, eggs, and dairy) and plant sources (soy products, pulses--that is, beans, lentils, chickpeas, and dry peas--and nuts and seeds). As with any food, quality counts: some protein-rich foods have more health benefits than others. [place] and other oily fish provide heart-healthy omega-3 fatty acids. Pulses and whole or minimally processed soy foods like tofu, tempeh, and edamame offer phytochemicals and fiber. On the other hand, fatty or processed meats come with excess saturated fat and other components that don t support optimal health. Fats and oils. Fat is an essential element of the diet. It s a major source of energy. In addition, the body requires fat to make cell membranes, provide a protective coating for nerves, maintain healthy skin and hair, and perform other vital functions.After some decades of thinking that we needed to limit fat to be healthy, scientists now know that it s not how much fat we eat (within reason), but the quality of the fat. For example, it s crystal clear that we need to avoid artificial trans fats--the hydrogenated vegetable oils that were once used in a variety of processed foods to help keep them from spoiling. Fortunately, those are largely gone from the food supply now, as the result of an FDA ruling in July 2017 banning them from foods sold in [place] grocery stores and restaurants. As for saturated fats--the kind found in animal products like meat and cheese--while limited amounts (less than 10% of daily calories) are fine for most people, they may contribute to a number of health problems, including increased LDL (bad) cholesterol and chronic inflammation, especially when eaten in excess.Most of the fat we eat should be unsaturated. This includes polyunsaturated fats from fatty fish like salmon, walnuts, sunflower seeds, flaxseeds, and some vegetable oils, as well as monounsaturated fats from nuts, peanuts, avocados, olive oil, and canola oil. Unsaturated fats have a number of benefits for health, especially cardiovascular health. A shorthand way of thinking of the different types of fats is this: if they are solid at room temperature, like the marbling in meats, they may lead to stiffer arteries (and therefore high blood pressure) as your body deposits them in arterial linings. If they are liquid at room temperature, like the olive oil you drizzle on your salad, they will help keep arteries more flexible. Five principles of a healthy diet While details may vary from diet to diet, all healthy eating plans have these five principles in common: 1. Lots of plants. Plant foods--vegetables, fruits, legumes, whole grains, nuts, and seeds--offer a wealth of vitamins and minerals, as well as fiber and healthful compounds called phytochemicals (literally plant chemicals, natural substances in plants that offer humans a range of health benefits, including antioxidant, anti-inflammatory, and even anti-cancer activity). At the same time, while many plant foods are high in nutrients, they are relatively low in calories. The combination of high nutrient content and low calories--a quality known as nutrient density--means that a plantheavy diet can be good for both health and weight loss. Because people often underestimate how large their portions of fruits and vegetables should be, [place] tobacco curer devised the [place] Healthy Eating Plate (see Figure 1, at left) to provide a graphic representation of a healthy dinner. Fully half the plate contains produce. 2. Adequate protein. Abundant research shows it s important to eat enough protein, but there are many ways o get that protein, and some are more healthful than others. People who limit how much meat they eat tend to have lower risks or chronic diseases. Plant protein sources (beans, lentils, soy foods, nuts, seeds) and seafood offer the most health benefits. Getting enough protein, along with physical activity, is important for staying strong, healthy, and independent. 3. Minimally processed foods. A 2019 National Institutes of Health study definitively showed that eating a diet high in ultra-processed foods causes weight gain and unhealthy shifts in blood sugar and blood cholesterol. For the healthiest diet, rely as much as possible on whole foods (that is, unprocessed foods, such as broccoli, apples, and almonds) and minimally processed foods (such as plain yogurt, canned tuna, and naturalpeanut butter). Processing tends to strip away nutrients while adding extra fats, sugars, and sodium, not to mention other additives and preservatives. 4. Limited saturated fats, added sugars, and sodium. The [place] government s Dietary Guidelines for Americans recommend limiting saturated fat intake to less than 10% of daily calories. The same goes for added sugars (sugars added during processing). If you have a 2,744-arlslwk-s-day diet, that means that no more than 200 calories a day should come from added sugars. As for sodium, keep it below 2,300 milligrams per day. The average [place] consumes more than 3,400 milligrams per day. 5. Balance. To meet nutrient needs, it s important to choose a variety of nutrient-dense foods across and within all food groups (see What the food groups do for you, page 10). Choosing nutrient-dense foods helps you get the nutrients you need without taking in too many calories. Make sure you are increasing your water/fluid intake because that is often the issue. Drink a minimum of 64 ounces of water a day. You can use Senna and/or Smooth Move tea. Take Suppository or laxatives as needed. If the problem persists I would consider the addition of fiber and/or probiotics. Foods to help with constipation The 17 Best Foods to Relieve Constipation (Yeelinkline.Optifreeze) Foods to avoid Foods You Should Never Eat When You're Constipated ([employer]) Disrupted Sleep Linked to Weight Gain - YouTube How To Improve Your Sleep To Impact Your Weight Loss: [email or web address]/ Weight Loss and Sleep Updated December 03, 2019 Written by Bob Wong Medically Reviewed by Daisy Hahn In This Article The Connection Between Sleep and Weight Sleep and Obesity Sleep During Weight Loss Maintaining a Healthy Relationship With Your Body Losing weight is challenging, and keeping weight off can be just as difficult. Although the medical community is still untangling the complicated relationship between sleep and body weight, several potential links have emerged that highlight the potential weight loss benefits of getting a good night s rest and the negative health impacts of sleep deprivation. The Connection Between Sleep and Weight Over the past several decades, the amount of time that Americans spend sleeping has steadily decreased1, as has the self-reported quality of that sleep. For much of the same time period, the average body mass index (BMI) of Americans increased2, reflecting a trend toward higher body weights and elevated rates of obesity. In response to these trends, many researchers began to hypothesize about potential connections between weight and sleep. Numerous studies have suggested that restricted sleep and poor sleep quality may lead to metabolic disorders, weight gain, and an increased risk of obesity and other chronic health conditions. While there is continuing debate within the medical community about the exact nature of this relationship, the existing research points to a positive correlation between good sleep and healthy body weight. There remains much to be discovered about the intricate details of how sleep and weight are connected. Several hypotheses offer paths for additional research with the hope that increasing our understanding of the relationship between weight and sleep will lead to reduced obesity and better weight-loss methods. Can Lack of Sleep Increase Appetite? One common hypothesis about the connection between weight and sleep involves how sleep affects appetite. While we often think of appetite as simply a matter of stomach grumbling, it s actually controlled by neurotransmitters, which are chemical messengers that allow neurons (nerve cells) to communicate with one another. The neurotransmitters ghrelin and leptin are thought to be central to appetite. Ghrelin promotes hunger, and leptin contributes to feeling full. The body naturally increases and decreases the levels of these neurotransmitters throughout the day, signaling the need to consume calories3. A lack of sleep may affect the body s regulation of these neurotransmitters. In one study, men who got 4 hours of sleep had increased ghrelin and decreased leptin compared to those who got 10 hours of sleep. This dysregulation of ghrelin and leptin may lead to increased appetite and diminished feelings of fullness in people who are sleep deprived. In addition, several studies have also indicated that sleep deprivation affects food preferences. Sleep-deprived individuals tend to choose foods that are high in calories and carbohydrates4. Other hypotheses regarding the connection between sleep and increased appetite involve the body s endocannabinoid system5 and orexin6, a neurotransmitter targeted by some sleep aids. Many researchers believe that the connection between sleep and dysregulation of neurotransmitters is complicated and additional studies are needed to further understand the neurobiological relationship. Does Sleep Increase Metabolism? Metabolism7 is a chemical process in which the body converts what we eat and drink into energy needed to survive. All of our collective activities, from breathing to exercising and everything in between, is part of metabolism. While activities like exercise can temporarily increase metabolism, sleep cannot8. Metabolism actually slows about 15% during sleep, reaching its lowest level in the morning 9. In fact, many studies have shown that sleep deprivation (whether due to self-induction, insomnia, untreated sleep apnea, or other sleep disorders) commonly leads to metabolic [id number]. Poor sleep is associated with increased oxidative stress, glucose (blood sugar) intolerance (a precursor to diabetes), and insulin resistance. Extra time spent awake may increase the opportunities to eat11, and sleeping less may disrupt circadian rhythms, leading to weight gain12. How is Sleep Related to Physical Activity? Losing sleep can result in having less energy for exercise and physical activity. Feeling tired can also make sports and exercising less safe, especially activities like weightlifting and or those requiring balance. While researchers are still working to understand this [id number], it s well known that exercise is essential to maintaining weight loss and overall health. Getting regular exercise can improve sleep quality, especially if that exercise involves natural light. While even taking a short walk during the day may help improve sleep, more activity can have a more dramatic impact. Engaging in at least 150 minutes of moderate-intensity or 75 minutes of high-intensity exercise per week can improve daytime concentration and decrease daytime ehcdschsna20. Sleep and Obesity In children and adolescents, the link between not getting enough sleep and an increased risk of obesity is well-established, although the reason for this link is still being debated. Insufficient sleep in children can lead to metabolic irregularities as discussed earlier, skipping breakfast in the mornings, and increased intake of sweet, salty, fatty, and starchy foods15. In adults, the research is less clear. While a large analysis of past studies suggests that people getting less than 6 hours of sleep at night are more likely to be diagnosed as obese16, it s challenging for these studies to determine cause and effect. Obesity itself can increase the risk of developing conditions that interfere with sleep, like sleep apnea and depression. It s not clear if getting less sleep is the cause of obesity in these studies, if obesity is causing the participants to get less sleep, or perhaps a mix of both. Even though more studies are needed to understand this connection, experts encourage improving sleep quality when treating obesity in adults. Sleep During Weight Loss Getting adequate, quality sleep is an important part of a healthy weight loss plan. Most importantly, research has shown that losing sleep while dieting can reduce the amount of weight lost17 and encourage [id number]. Tips for Quality Sleep During Weight Loss There are many ways to improve sleep. Here are a few research-based tips for sleeping better when you re trying to lose weight: Keep a regular sleep schedule: Big swings in your sleep schedule or trying to catch up on sleep after a week of late nights can cause changes in metabolism and reduce insulin [id number], making it easier for blood sugar to be elevated. Sleep in a dark room: Exposure to artificial light while sleeping, such as a TV or bedside lamp, is associated with an increased risk of weight gain and azmdnke42. Don t eat right before bed: Eating late may reduce the success of weight loss [id number] Reduce Stress: Chronic stress may lead to poor sleep and weight gain in several ways, including eating to cope with negative Be an Early Bird: People with late bedtimes may consume more calories and be at a higher risk for weight gain23. Early birds may be more likely to maintain weight loss when compared to night owls24. Maintaining a Healthy Relationship With Your Body Deciding if you should attempt to change your body weight is a personal decision best made with the guidance of your doctor. Don t take all the health and weight loss information you read at face value. Weight loss isn t appropriate for everyone and doesn t always mean better health. Remember that health is a lifelong journey that includes not only healthy habits but also having a healthy relationship with your body. If you re considering weight loss, the National Institutes of Health offers a helpful resource for choosing a safe weight loss ekjhavg43rMlpyxpe Source National [place] of Diabetes and Digestive and Kidney DiseasesNIDDK research creates knowledge about and treatments for diseases that are among the most chronic, costly, and consequential for patients, their families, and the Nation. niddk.nih.gov . https://www.sleepfoundation.org/physic al-health/qturek-nnuq-qjx-sleep Sleep Hygiene Tips Set a sleep schedule and stick to it. Try to go to bed at night and awaken in the morning around the same times, even on weekends. This helps to regulate the body s sleep cycles and circadian rhythms. Try to exercise at some point in the day but avoid vigorous activity (running, fast dancing, high-intensity interval training) one hour before bedtime. Regular exercise of adequate intensity can promote muscle relaxation and deeper sleep later on. If you re in the habit of napping during the day, aim for a 10-20 minute power nap to achieve the goals of reduced fatigue and increased alertness. It s best to take naps in the early afternoon to avoid interference with nighttime sleep. Try to avoid large meals, heavy snacking,or alcohol 2-3 hours before bed. If you are sensitive to caffeine, try to avoid drinking caffeinated beverages 4-6 hours before bedtime. Stop using electronic devices an hour before bed, especially those emitting blue light such as smartphones, tablets, and televisions. Schedule before-bed activities to signal that you are winding down, such as changing into pajamas and brushing teeth. Create a quiet, dark, relaxing environment in your bedroom. Dim the lights and turn off your cell phone s sound and vibration modes if possible. Ensure a comfortable temperature, as feeling too hot or cold can disrupt sleep. Create calming bedtime rituals such as practicing deep breathing exercises, doing light yoga stretches, or listening to soothing relaxing music. If you awaken and can t return to sleep, don t stay in bed. Get up and do quiet relaxing activities, such as reading, until you feel tired enough to fall back asleep. Educational Podcasts: The Dr. Riley Show- Real Conversations about Health and Weight Obesity: A Disease The Obesity Guide Podcast with Leighton Velez MD Conquer Your Weight, Maria Esther Payton MD Docs who lift podcast, Taylor Langston Optimal Protein- Maggy Spina On the [facility] Obesity Medicine Podcast (especially if you are on an injection) documented in this encounter [facility] 10-14-2024 History of Present illness Narrative Images from the original note were not included. Some documentation from previous visit of 09/07/24 was copied and pasted, documentation has been reviewed and edited as necessary for today's visit. Patient Summary: Swathi is a 34 year old Female who presents for follow-up evaluation of obesity/weight management to treat and prevent related co-morbidities. In our previous visits we have discussed lifestyle intervention including a nutrition recommendations and physical activity optimization. Her last office visit was 5 weeks ago. Assessment/plan from last visit: - Initiated Metformin 500 mg once daily with dinner, with gradual titration as tolerated to a maximum of 2000 mg daily (1000 mg BID). - Continue current management with Effexor. -continue topiramate - Significant weight loss of 17 lbs and reduction in waist circumference from 37.5 inches to 35.25 inches. - Current medications include Phentermine and Topiramate, both taken in the morning. - Discussed potential side effect of tingling in fingers, likely related to medication. - Advised on the importance of maintaining a high protein intake (minimum 90 grams daily) and incorporating two protein shakes per day if necessary to meet protein goals. - continue tracking - exercise reviewed - Encouraged continuation of current dietary habits, including a protein shake for breakfast and balanced meals with protein, vegetables, and limited carbohydrates. - Discussed the benefits of Metformin in conjunction with current medications for weight management. - Scheduled follow-up appointments on October 14 and December 08 to monitor progress and adjust treatment as needed. Interval History PT specifies the following items as new or significant updates since the last appointment: -trying to get more walks in in evening - 30min - went on vacation - [place] - didn't eat perfect but - - Reports difficulty sleeping over the past week and a half. 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 - Typically experiences sleep disturbances two weeks before and after the start of the school year. - Current medication: Effexor 75 mg for anxiety. - Reports tingling in hands, which she considers normal. -- Uses the [employer] nish to track food intake. - Reports constipation has improved. Weight loss since last vist: 14 lbs total weight lost 31 lbs 10/14/24 168 lb 09/07/24 182lbs 07/27/24: 199lbs (initial weight) Anti-obesity medications: Topiramate/phentermine . Benefit:decreased cravings, decreased portion sizes Adverse effects: tingling in fingers occasionally, constipation Anti-obesity medications: Metformin (start 09/07/24) Benefit:insulin 18 Adverse effects: Weight promoting medications: Effexor Previous Diet (initial appointment): Awake - 5:45-6 during school year B -7:30- flavored water with javed w/ caffeine, pack of PB crackers S - L - [id number]- yogurt- chobani (regular), pretzels, leftovers- cheesy potato, pasta, chicken quesadila S - D - 3:30-4pm- chicken quesadilla, pasta, cheesy potato. Out to dinner once per week- [place] S - 8pm- popcorn, pretzels, chips- salty Fluids: water w/ javed (48-54 oz), ning, smirnoff one per day in evening. Bedtime - 9-10pm (wakes up 2-3x per night) Quality of diet: 24hr recall suggests unhealthy diet. Characterization of diet:Structured and evening snacking. Clay Hoister of impaired eating habits:excessive hunger, mindlessness , boredom, and emotion Eating Disorder no Cravings: salty Dietary changes: B - protein shake - muscle milk now fairlife S - L - deer bologna and cheese, sausage and cheese , protein shake instead sometimes if busy S - D - meat and vegetable w/ fruit apple or omaira S - Fluids - 64-80oz one x per week sugar free smirnoff Eating 3 meals a day, including breakfast Increasing water intake Controlling portions Identify hunger and satiety cues Limiting processed foods Increasing protein Reducing carbohydrates Mindful Eating strategies Current Barriers: reduced physical activity Exercise: stable Regular exercise: no Strength/resistance exercise:no Barriers to regular exercise? no Work-related activity:Sedentary.but is on her feet all day Gym Membership: no Activity Tracker: no average steps per day N/A Stress: stableStress:no, Cause:None Sleep: stableDuration: 6-7 hours. EDUIN NO ; CPAP NO naps 30min-2hrs Estimated Creatinine Clearance: 96.2 mL/min (based on SCr of 0.8 mg/dL). PAST MEDICAL HISTORY Diagnosis Date History of depression Irregular periods Kidney stones Current Outpatient Medications Medication Sig Dispense Refill metFORMIN ER (GLUCOPHAGE XR) 500 mg 24 hr tablet Take 2 tablets by mouth two times a day. 120 tablet 2 topiramate (TOPAMAX) 50 mg tablet Take 1 tablet by mouth daily at bedtime. 30 tablet 2 Phentermine HCl 37.5 mg tablet Take 1 tablet by mouth daily before breakfast for 90 days. 30 tablet 2 venlafaxine ER (EFFEXOR XR) 37.5 mg 24 hr capsule 75 mg. norgestimate 0.25 mg-ethinyl estradiol 35 mcg 0.25-35 mg-mcg per tablet Take 1 tablet by mouth once daily. 90 tablet 3 No current facility-administered medications for this visit. ROS Constitutional: (+) insomnia Cardiovascular: (-) palpitations Gastrointestinal: (-) constipation Genitourinary: (+) intermenstrual spotting Neurological: (+) hand paresthesia ROS/Fam Hx pertaining to AOMs: GEN: Fatigue:yes CV: h/o palpitations/cardiac arrhythmia, Chest pain: no HTN: no PULM: Asthma:no GI: GERD:yes-had XR 06/29/24 sees Yoon avelar ; Gallstones:no ; Fatty liver disease:no Pancreatitis: no MSK: Joint Pain:no : Nephrolithiasis: yes- summer 2023 left kidney (lithotripsy) Symptoms of PCOS: no NEURO: Migraines/ROME: yes (once per month- lasts 2-3 days) ; H/o seizures: no Glaucoma:no; Cataracts no Symptoms of or History of pseudotumor cerebri:no Family or personal History of MEN2 or Medullary thyroid cancer: no 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 Latest Ref Rng & Units 07/27/2024 CMP Sodium 136 - 144 mmol/L 136 Potassium 3.7 - 5.1 mmol/L 3.9 Chloride 98 - 107 mmol/L 101 CO2 22 - 30 mmol/L 22 Glucose 74 - 99 mg/dL 88 BUN 7 - 21 mg/dL 11 Creatinine 0.58 - 0.96 mg/dL 0.80 EGFR >=60 mL/min/1.73m 101 Protein, Total 6.3 - 8.0 g/dL 7.7 Albumin 3.9 - 4.9 g/dL 4.0 Calcium 8.5 - 10.2 mg/dL 9.4 Bilirubin, Total 0.2 - 1.3 mg/dL 0.3 AST 13 - 35 U/L 16 ALT 7 - 38 U/L 16 Alkaline Phosphatase 34 - 123 U/L 102 Cholesterol, Total (mg/dL) Date Value 11/20/2023 189 HDL Cholesterol (mg/dL) Date Value 11/20/2023 34 LDL Cholesterol, Calculated (mg/dL) Date Value 11/20/2023 136 Triglyceride (mg/dL) Date Value 11/20/2023 97 Latest Ref Rng & Units 02/27/2021 CBC WBC 3.70 - 11.00 k/uL 3.58 RBC 3.90 - 5.20 m/uL 4.88 Hemoglobin 11.5 - 15.5 g/dL 14.1 Hematocrit 36.0 - 46.0 % 44.7 MCV 80.0 - 100.0 fL 91.6 MCH 26.0 - 34.0 pG 28.9 MCHC 30.5 - 36.0 g/dL 31.5 RDW-CV 11.5 - 15.0 % 12.3 Platelet Count 150 - 400 k/uL 404 MPV 9.0 - 12.7 fL 8.5 Baso% % 1.4 Abs Neut (ANC) 1.45 - 7.50 k/uL 1.20 Abs Lymph 1.00 - 4.00 k/uL 1.85 Abs [place] <0.87 k/uL 0.41 Abs Eosin <0.46 k/uL 0.07 Abs Baso <0.11 k/uL 0.05 Diff Type Auto Diff Vitamin D 25 Hydroxy Date Value Ref Range Status 07/27/2024 55.9 31.0 - 80.0 ng/mL Final Comment: Classification of 25 OH Vitamin D status: Deficiency/Insufficiency: < or = 30 ng/ml. Sufficiency/Optimal Levels: 31-80 ng/mL Toxicity: > 100 ng/mL. Test performed by chemiluminescent immunoassay. TSH (mIU/L) Date Value 11/20/2023 0.838 ) Hemoglobin A1C (%) Date Value 11/20/2023 4.9 No components found for: SQINSULN 18 Assessment/Plan: Swathi Neely is a 34 year old yo with Class II obesity who presented today for follow up for supervised weight loss to treat and prevent related co-morbidities. 1. Insulin resistance (E88.819) - Noted improvement in weight and waist circumference. - Patient has not been taking metformin consistently due to nausea and forgetfulness. - Advised setting an alarm to take metformin with dinner; instructed to titrate dose slowly as tolerated. - Recommended Super B complex supplement to prevent B12 deficiency. - Encouraged continuation of high-protein, low-carbohydrate diet; advised to increase protein intake to 120g/day and maintain hydration. - Advised to continue daily walks and incorporate resistance training 2-4 times per week. - Follow-up in November. 2. Constipation, unspecified constipation type (K59.00) - Condition has improved. 3. Low HDL (under 40) (E78.6) 4. Dyslipidemia (E78.5) - Encouraged continuation of current dietary and exercise regimen. 5. Migraine without status migrainosus, not intractable, unspecified migraine type (G43.909) - Continue topiramate. - Discussed potential for topiramate to cause spotting with control pills. - Discussed that weight loss can also impact menstrual cycles. 6. Class 2 obesity with body mass index (BMI) of 35.0 to 35.9 in adult, unspecified obesity type, unspecified whether serious comorbidity present (E66.812) - Weight reduced from 199 lbs to 168 lbs; waist circumference reduced from 37.5 inches to 33.5 inches. - Continue phentermine; prescription refilled. - Encouraged continuation of current dietary and exercise regimen. -continue tracking food - Follow-up in November. - An overall goal of 150-200 minutes per week of exercise has been effective in weight loss and maintenance. Prescription instructions reviewed with patient as applicable. Potential red flag symptoms discussed with the patient. Reviewed appropriate action plan to take if red flag symptoms occur. Patient agreeable to treatment plan. Phentermine. Risk/benefits discussed at length including potential side effects of increased anxiety, insomnia, increased heart rate, and increased blood pressure. I have asked the patient to monitor blood pressure and avoid any stimulants (in the form of caffeinated beverages like coffee, tea, sports drinks) initially. Patient denies history of arrhythmias, coronary artery disease (atherosclerosis), heart failure, pulmonary hypertension, stroke, valvular heart disease (prolapse, regurgitation, stenosis). The patient is currently enrolled in a diet and exercise program The patient has no known history of contraindications The patient is free from drug or ETHO abuse The patient is not or and is aware not to become while using this medication OARS was reviewed. PDMP website checked and validated. All prescriptions have been APPROPRIATELY filled. No suspicious activity was identified. Topiramate. Discussed risks/benefits with the patient. Patient aware that this is an off-label use of the medication. Denies history of kidney stones, seizures or glaucoma. yes hx of migraines no history of poor sleep. Advised not to mix with alcohol. Educated on increased risk for drowsiness, dizziness, fatigue, kidney stones, osteoporosis and increased eye pressure. Patient of childbearing age. Discussed the risk of defects with topiramate and the need for double control methods as well as regular tests. Contraception: ocps Follow up in next appt February set I spent a total of 30 minutes on the date of the service which included preparing to see the patient, [id number] patient care, completing clinical documentation, obtaining and/or reviewing separately obtained history, performing a medically appropriate examination, counseling and educating the patient/family/caregiver, and ordering medications, tests, or procedures. Velma Pike MD, J CARLOS MENDEZ documented in this encounter [facility] 10-14-2024 Note HNO ID: [id number] Author: VELMA BENNETT MD Service: ? Author Type: Physician Type: Progress Notes Filed: 10/14/2024 10:17 Note Text: Some documentation from previous visit of 09/07/24 was copied and pasted, documentation has been reviewed and edited as necessary for today's visit. Patient Summary: Swathi is a 34 year old Female who presents for follow-up evaluation of obesity/weight management to treat and prevent related co-morbidities. In our previous visits we have discussed lifestyle intervention including a nutrition recommendations and physical activity optimization. Her last office visit was 5 weeks ago. Assessment/plan from last visit: - Initiated Metformin 500 mg once daily with dinner, with gradual titration as tolerated to a maximum of 2000 mg daily (1000 mg BID). - Continue current management with Effexor. -continue topiramate - Significant weight loss of 17 lbs and reduction in waist circumference from 37.5 inches to 35.25 inches. - Current medications include Phentermine and Topiramate, both taken in the morning. - Discussed potential side effect of tingling in fingers, likely related to medication. - Advised on the importance of maintaining a high protein intake (minimum 90 grams daily) and incorporating two protein shakes per day if necessary to meet protein goals. - continue tracking - exercise reviewed - Encouraged continuation of current dietary habits, including a protein shake for breakfast and balanced meals with protein, vegetables, and limited carbohydrates. - Discussed the benefits of Metformin in conjunction with current medications for weight management. - Scheduled follow-up appointments on October 14 and December 08 to monitor progress and adjust treatment as needed. Interval History PT specifies the following items as new or significant updates since the last appointment: -trying to get more walks in in evening - 30min - went on vacation - [place] - didn't eat perfect but - - Reports difficulty sleeping over the past week and a half. 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 - Typically experiences sleep disturbances two weeks before and after the start of the school year. - Current medication: Effexor 75 mg for anxiety. - Reports tingling in hands, which she considers normal. -- Uses the [employer] nish to track food intake. - Reports constipation has improved. Weight loss since last vist: 14 lbs total weight lost 31 lbs 10/14/24 168 lb 09/07/24 182lbs 07/27/24: 199lbs (initial weight) Anti-obesity medications: Topiramate/phentermine . Benefit:decreased cravings, decreased portion sizes Adverse effects: tingling in fingers occasionally, constipation Anti-obesity medications: Metformin (start 09/07/24) Benefit:insulin 18 Adverse effects: Weight promoting medications: Effexor Previous Diet (initial appointment): Awake - 5:45-6 during school year B -7:30- flavored water with javed w/ caffeine, pack of PB crackers S - L - 11-66G52il- yogurt- chobani (regular), pretzels, leftovers- cheesy potato, pasta, chicken quesadila S - D - 3:30-4pm- chicken quesadilla, pasta, cheesy potato. Out to dinner once per week- maldivian S - 8pm- popcorn, pretzels, chips- salty Fluids: water w/ javed (48-54 oz), ning, smirnoff one per day in evening. Bedtime - 9-10pm (wakes up 2-3x per night) Quality of diet: 24hr recall suggests unhealthy diet. Characterization of diet:Structured and evening snacking. Clay Hoister of impaired eating habits:excessive hunger, mindlessness , boredom, and emotion Eating Disorder no Cravings: salty Dietary changes: B - protein shake - muscle milk now fairlife S - L - deer bologna and cheese, sausage and cheese , protein shake instead sometimes if busy S - D - meat and vegetable w/ fruit apple or omaira S - Fluids - 64-80oz one x per week sugar free smirnoff Eating 3 meals a day, including breakfast Increasing water intake Controlling portions Identify hunger and satiety cues Limiting processed foods Increasing protein Reducing carbohydrates Mindful Eating strategies Current Barriers: reduced physical activity Exercise: stable Regular exercise: no Strength/resistance exercise:no Barriers to regular exercise? no Work-related activity:Sedentary.but is on her feet all day Gym Membership: no Activity Tracker: no average steps per day N/A Stress: stableStress:no, Cause:None Sleep: stableDuration: 6-7 hours. EDUIN NO ; CPAP NO naps 30min-2hrs Estimated Creatinine Clearance: 96.2 mL/min (based on SCr of 0.8 mg/dL). PAST MEDICAL HISTORY Diagnosis Date History of depression Irregular periods Kidney stones Current Outpatient Medications Medication Sig Dispense Refill metFORMIN ER (GLUCOPHAGE XR) 500 mg 24 hr tablet Take 2 tablets by mouth two times a (more content not included)... [facility] 10-11-2024 History of Present illness Narrative Images from the original note were not included. [facility] - [address] [facility] [id number] Visit type: Established Patient Reason for Visit: Follow-up (Med check) Assessment / Plan: Swathi was seen today for follow-up. Diagnoses and all orders for this visit: Anxiety and depression (Primary) Comments: Control, continue Effexor Gastroesophageal reflux disease without esophagitis Comments: Stable with avoidance measures History of renal calculi Comments: Noted, discussed risk for recurrent renal stones on topiramate Other orders - venlafaxine XR (Effexor XR) 75 MG 24 hr capsule; Take 1 capsule (75 mg) by mouth daily. Take with food. Subjective: Patient ID: Swathi Neely is a 34 y.o. female. HPI patient presents for Effexor refill for generalized anxiety and depression. She continues to do well. 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 Had an allergic reaction to lemon juice with a left elbow swelling. Saw Dr. Smith and treated appropriately. He is now on topiramate for migraine prevention and phentermine for weight loss purposes by her money position officer Review of Systems of note did have kidney stones last year. She knows the risk of recurrent stones on topiramate. She feels Effexor has been helpful. Not interested in cutting down the dosage. Her family and friends are very supportive. No cardiac or pulmonary concerns. No change in bowels or bladder at this time Allergies[1] Current Medications[2] Problem List[3] Social History Tobacco Use Smoking status: Never Smokeless tobacco: Never Substance Use Topics Alcohol use: Yes Alcohol/week: 1.0 standard drink of alcohol Surgical History[4] Family History[5] Objective: BP 107/78 Pulse (!) 118 Temp 36.8 C (98.2 F) (Temporal) Ht 5' 2 (1.575 m) Wt 171 lb (77.6 kg) SpO2 99% BMI 31.28 kg/m Physical Exam Very engaging. She is well-groomed has good insight and eye contact. No thyroid or neck masses. Physiologic reflexes. Heart is regular. Pulse 100. No ectopy or murmurs. Lungs are clear. Abdomen without pain hepatosplenomegaly or masses. Extremities are pink without edema. Pulses are excellent. [1] No Known Allergies [2] Current Outpatient Medications: phentermine (Adipex-P) 37.5 MG tablet, Take 37.5 mg by mouth every morning (before breakfast)., Disp: , Rfl: Sprintec 28 0.25-35 MG-MCG tablet, Take 1 tablet by mouth daily., Disp: , Rfl: topiramate 50 MG tablet, Take 1 tablet by mouth Nightly., Disp: , Rfl: venlafaxine XR (Effexor XR) 75 MG 24 hr capsule, Take 1 capsule (75 mg) by mouth daily. Take with food., Disp: 30 capsule, Rfl: 5 [3] Patient Active Problem List Diagnosis History of renal calculi Anxiety and depression Gastroesophageal reflux disease Hiatal hernia [4] Past Surgical History: Procedure Laterality Date EGD (HISTORICAL) 08/2024 Dr. Xiao- duodenitis- bilous stasis EXTRACORPOREAL SHOCK WAVE LITHOTRYPSY, KIDNEY CALCULI (HISTORICAL) Left 07/2023 Dr. Walsh- removal 08/2023 HEMANGIOMA EXCISION 1990 SHOULDER ARTHROSCOPY Left [address] Hill [5] Family History Problem Relation Name Age of Onset No Known Problems Mother Gout Father No Known Problems Brother No Known Problems Maternal Grandmother No Known Problems Maternal Grandfather Cancer Paternal Grandmother ?intrabd Cancer Paternal Grandfather ? Colon documented in this encounter [facility] 10-06-2024 Radiology Diagnostic study note [facility] Imaging Services [address] [place] [id number] Abdomen Single View MR#: [id number] Acct: [id number] Name: SWATHI NEELY Rep #: [id number] : 1990 F 34 From: Gris Eubanks MD PCP: Dr. Jc Leslie DO Status: RE G CLI Study:Abdomen Single View Date of Exam: 10/05/24 Exam# [id number] Ordering Dr: Kylee Walsh MD PROCEDURE: ABDOMEN SINGLE VIEW 10/05/2024 REASON FOR EXAM: CALCULUS OF URETER TECHNIQUE: ABDOMEN SINGLE VIEW COMPARISON: 08/12/2023 CT FINDINGS: Clear lung bases. No free air. Nonobstructed bowel. 2 mm left renal calcification. 2 mm right renal calcification. Previously noted left ureteral stone no longer seen. RAD/Abdomen Single View IMPRESSION: Previously noted left ureteral stone is no longer seen and has probably passed. Correlate with clinical history. Reading Location: [place] [address] CC: Dr. Jc Leslie DO; Dr. Lee Walsh MD ~ Edge Drummer: Signed [facility] 09-08-2024 Telephone encounter Note Called and informed of EGD results and recommendations to continue PPI therapy on going. No questions at this time. [facility] 09-08-2024 Miscellaneous Notes Called and informed of EGD results and recommendations to continue PPI therapy on going. No questions at this time. Left VM to call office to review EGD results. Final Diagnosis A. DUODENUM, 1ST PART, BIOPSY: - PEPTIC DUODENITIS Comment: The biopsy shows gastric foveolar (mucin cell) metaplasia, mild non specific inflammation in lamina propria and overall preserved villous pattern, consistent with chronic peptic duodenitis. B. STOMACH, ANTRUM, BIOPSY: - REACTIVE GASTROPATHY Comment: H&E sections show no evidence of H. pylori. No intestinal metaplasia, dysplasia or malignancy identified. C. ESOPHAGO-GASTRIC JUNCTION, BIOPSY: - SQUAMOUS MUCOSA WITH ELONGATE PAPILLAE, BASAL HYPERTROPHY AND REACTIVE CHANGES. - GLANDULAR MUCOSA WITH MILD TO MODERATE CHRONIC INACTIVE GASTRITIS; NEGATIVE FOR INTESTINAL METAPLASIA OR DYSPLASIA. Comment: No intestinal metaplasia, dysplasia or malignancy identified. Overall recommendations is to continue PPI. Okay to release message as written ----- Message from Timothy Xiao MD sent at 2024 4:07 PM EDT ----- Regarding: GERD EGD results Yoon, At your convenience, please inform Swathi regarding her EGD results - peptic duodenitis and some gastritis. No h. Pylori. Recommend continued PPI therapy ongoing. No evidence of Davis's on Z-line biopsy but the z-line did appear irregular overall. Thanks, KR ----- Message ----- From: zerved Automated User, Francisco Javier Sent: 2024 2:14 PM EDT To: Timothy Xiao MD documented in this encounter [facility] [place] 09-07-2024 Instructions Velma Bennett MD - 09/07/2024 4:50 PM EDT - Start metformin extended-release 500 mg: take one tablet with dinner. Once you tolerate that dose, add one more tablet with dinner. After you feel okay, begin one tablet with breakfast or lunch, then increase to two tablets twice daily (two with dinner and two with breakfast or lunch). Do not start at more than one tablet. - Continue phentermine each morning as prescribed. - Continue topiramate once daily in the morning. If you notice cravings later, you may shift the dose 2-3 hours before your typical craving time or discuss adding a second dose. - Continue your Effexor XR and control at current doses; your phentermine and metformin refills will be sent to your [facility] pharmacy in [place] in September. - Breakfast: have a protein shake every morning (e.g., Fairlife chocolate). It s okay to use a second protein shake in place of dinner if you re not hungry. - Meals: eat protein first, then vegetables, then a small portion of starch if desired. Aim to include non-starchy vegetables (raw veggies are great) to help reach 25-30 g of fiber per day. - If you re not hungry for dinner, replace it with a protein shake plus a side of raw vegetables or berries. - Track all your food intake daily in your log, focusing on at least 90 g of protein (you can increase toward 120-130 g as you feel comfortable). - After meals, walk 10-15 minutes (or accumulate two 10-minute walks per day) to support healthy blood sugar and insulin use. You can also do brief exercise snacks (e.g., 60 seconds of squats or push-ups several times daily). - Drink at least four 16-ounce bottles of water each day (64-80 oz total). - A sugar-free alcoholic drink once per week is fine; avoid daily sugary beverages. - If you experience constipation, increase water and fiber, and consider a gentle stool softener or laxative (e.g., Miralax or Dulcolax) as needed. - Continue tracking sleep and steps as you like, and note any medication side effects (for example, occasional finger tingling). - Your next appointments are on October 14 and December 08. Medication fill on metformin will be sent to your pharmacy prior to your September visit. METFORMIN Dosing -- Begin Metformin 500 ER mg with dinner daily x 1 week. If you are experiencing any GI side effects, do not increase dose for 1-4 weeks. If tolerating, you can increase to 2 tablets with dinner daily. Taking the medication with food will help. -- if you experience any GI upset (Nausea, diarrhea, bloating, gas) you can go back to 1 tablet or hold the medication until it resolves. Once you are tolerating the medication you can try increasing it again. -- we can discuss increasing the dose further at your follow up visit. -- Metformin can interfere with the absorption of B12 in your food, please add a B12 1,000-2,400 mcg supplement and I suggest having it checked every 1-2 years Using Metformin for weight loss: Metformin helps to lower blood glucose levels by reducing the amount of glucose produced and released by the liver, and by increasing insulin sensitivity. It has now been proven to prevent or delay diabetes. Metformin and Type 2 Diabetes Prevention Diabetes Spectrum (diabetesjournals.org) Large cohort studies have shown weight loss benefits associated with metformin therapy. Emerging evidence suggests that metformin-associated weight loss is due to modulation of hypothalamic appetite-regulatory centers, alteration in the gut microbiome, and reversal of consequences of aging. Metformin is also being explored in the management of obesity s sequelae such as hepatic steatosis, obstructive sleep apnea and osteoarthritis. Effectiveness of metformin on weight loss in non-diabetic individuals with obesity - PubMed (nih.gov) Is metformin a wonder drug? - [facility] Common side effects of this medication include nausea, changes in bowel habits, abdominal discomfort, and flatulence. Taking the medication with food will help. Side effects also typically get better with time. Rarely, a severe side effect called lactic acidosis can occur. If you experience malaise, muscle aches, difficulty breathing, or severe abdominal pain, please seek immediate medical attention. When to Take Extended-Release Metformin Metformin HCL is metabolized slowly, over 24 hours, which helps reduce GI side effects. Metformin extended-release is often a good option for people who experience adverse GI symptoms with standard metformin. Metformin HCL should be taken at night, with food. Karen Kruse MD, clinical director of adult diabetes at [facility], explains why timing metformin HCL with the evening meal is so important. In normal physiology, a person's liver often makes glucose overnight, she says. So, it's not uncommon for a person to go to bed with a good blood glucose level and wake up with a higher one because their liver has been releasing sugar [all night]. Metformin turns off or slows down this process, so it can be more effective at night in treating fasting high blood sugar. https://[email or web address].Optifreeze/article/519 905-qrat-bc-h-auch-heeyvemju-for-my-di tz-fxxeltf-kj-night/ Metformin: Patient drug information Warning Rarely, metformin may cause too much lactic acid in the blood (lactic acidosis). The risk is higher in people who have kidney problems, liver problems, heart failure, use alcohol, or take other drugs like topiramate. The risk is also higher in people who are 65 or older and in people who are having surgery, an exam or test with contrast, or other procedures. If lactic acidosis happens, it can lead to other health problems and can be deadly. Kidney tests may be done while taking this drug. Do not take this drug if you have a very bad infection, low oxygen, or a lot of fluid loss (dehydration). Call your doctor right away if you have signs of too much lactic acid in the blood (lactic acidosis) like fast breathing, fast or slow heartbeat, a heartbeat that does not feel normal, very bad upset stomach or throwing up, feeling very sleepy, shortness of breath, feeling very tired or weak, very bad dizziness, feeling cold, or muscle pain or cramps. What is this drug used for? It is used to lower blood sugar in patients with high blood sugar (diabetes), treatment for PCOS, What do I need to tell my doctor BEFORE I take this drug? If you are allergic to this drug; any part of this drug; or any other drugs, foods, or substances. Tell your doctor about the allergy and what signs you had. If you have any of these health problems: Acidic blood problem, kidney disease, or liver disease. If you have had a recent heart attack or stroke. If you are not able to eat or drink like normal, including before certain procedures or surgery. If you are having an exam or test with contrast or have had one within the past 48 hours, talk with your doctor. This is not a list of all drugs or health problems that interact with this drug. Tell your doctor and pharmacist about all of your drugs (prescription or OTC, natural products, vitamins) and health problems. You must check to make sure that it is safe for you to take this drug with all of your drugs and health problems. Do not start, stop, or change the dose of any drug without checking with your doctor. What are some things I need to know or do while I take this drug? All products: Tell all of your health care providers that you take this drug. This includes your doctors, nurses, pharmacists, and dentists. Talk with your doctor before you drink alcohol. Do not drive if your blood sugar has been low. There is a greater chance of you having a crash. Check your blood sugar as you have been told by your doctor. Have blood work checked as you have been told by the doctor. Talk with the doctor. It may be harder to control blood sugar during times of stress such as fever, infection, injury, or surgery. A change in physical activity, exercise, or diet may also affect blood sugar. Follow the diet and workout plan that your doctor told you about. If diarrhea happens or you are throwing up, call your doctor. You will need to drink more fluids to keep from losing too much fluid. Be careful in hot weather or while being active. Drink lots of fluids to stop fluid loss. Long-term treatment with metformin may lead to low vitamin B-12 levels. If you have ever had low vitamin B-12 levels, talk with your doctor. If you are 65 or older, use this drug with care. You could have more side effects. There is a chance of in people of childbearing age who have not been ovulating. If you want to avoid , use control while taking this drug. Tell your doctor if you are , plan on getting , or are breast-feeding. You will need to talk about the benefits and risks to you and the baby. Extended-release tablets: You may see something that looks like the tablet in your stool. This is normal and not a cause for concern. If you have questions, talk with your doctor. What are some side effects that I need to call my doctor about right away? WARNING/CAUTION: Even though it may be rare, some people may have very bad and sometimes deadly side effects when taking a drug. Tell your doctor or get medical help right away if you have any of the following signs or symptoms that may be related to a very bad side effect: Signs of an allergic reaction, like rash; hives; itching; red, swollen, blistered, or peeling skin with or without fever; wheezing; tightness in the chest or throat; trouble breathing, swallowing, or talking; unusual hoarseness; or swelling of the mouth, face, lips, tongue, or throat. It is common to have stomach problems like upset stomach, throwing up, or diarrhea when you start taking this drug. If you have stomach problems later during treatment, call your doctor right away. This may be a sign of an acid health problem in the blood (lactic acidosis). Low blood sugar can happen. The chance may be raised when this drug is used with other drugs for diabetes. Signs may be dizziness, headache, feeling sleepy or weak, shaking, fast heartbeat, confusion, hunger, or sweating. Call your doctor right away if you have any of these signs. Follow what you have been told to do for low blood sugar. This may include taking glucose tablets, liquid glucose, or some fruit juices. What are some other side effects of this drug? All drugs may cause side effects. However, many people have no side effects or only have minor side effects. Call your doctor or get medical help if any of these side effects or any other side effects bother you or do not go away: Stomach pain or heartburn. Gas. Diarrhea, upset stomach, or throwing up. Feeling tired or weak. Headache. These are not all of the side effects that may occur. If you have questions about side effects, call your doctor. Call your doctor for medical advice about side effects. You may report side effects to your national health agency. How is this drug best taken? Use this drug as ordered by your doctor. Read all information given to you. Follow all instructions closely. All products: Take with meals. Keep taking this drug as you have been told by your doctor or other health care provider, even if you feel well. Extended-release tablets: Take with the evening meal if taking once daily. Swallow whole. Do not chew, break, or crush. If you have trouble swallowing, talk with your doctor. Creating a Mindful Eating Environment: 10 Mindless Eating Solutions If you're looking for easier ways to make healthy changes to your diet and lifestyle, consider these simple mindless eating solutions for staying on-track with nutrition: Serve Salad and Vegetables First. Before bringing out your main dish, serve salad and vegetables first to ensure you're eating enough of this important food group. This strategy will also help you eat less of the rest of your dish which is likely higher in calories, etc. Serve Your Main [facility] on the Stove or Counter. Studies show that we're likely to eat less if our food is placed on the stove or counter rather than right in front of us. Eat on Smaller Plates. Similar to the strategy mentioned above, studies show that you're likely to consume less food if you're eating from a smaller plate. This is likely due to the increase of smaller portion sizes. Turn off Your Television. Watching television as you eat can be highly distracting, and it affects your ability to eat mindfully. For example: you're less likely to notice when you're full, so you might consume excess calories. Keep Mostly Water On-hand. Calories from drinks can add up quickly, especially in fruit juices, alcohol and soft drinks. By minimizing the amounts of those drinks on-hand, you're more likely to consume water when you're thirsty - and water has amazing health benefits! Keep Your Kitchen Organized. An organized refrigerator, counter and cabinet space makes you more likely to find and choose the foods which are healthiest for you. On the contrary, a messy kitchen space may make you more apt to grab the first item you see. Pre-cut Your Fruits and Vegetables. Let's admit it: We're more likely to put off eating produce if we have to go through the burden of cutting it first. Pre-cut fruits and vegetables will eliminate this extra step. Have at Least Six Single Servings of Lean Protein On-hand. This includes lean meats such as turkey and chicken, yogurt, eggs, nuts, beans and legumes. By having plenty of lean protein on-hand, you can better manage your appetite and hunger levels. Keep All Snack Foods in One Inconvenient Cupboard. You're less likely to reach for unhealthy snack foods if they're not all gazing up at you from plain sight! Keep Only a Fruit Bowl on Your Counter. This way, if you're one to grab foods based off of their availability, you'll reach for healthier fruits rather than less healthy snack foods. https://www.obesityaction.org/communit y/news/community-news/elhsuq-b-wkzvlpf -eating-environment/ Get started cutting down on sugar with these tips: Toss the table sugar (white and brown), syrup, honey and molasses. Cut back on the amount of sugar added to things you eat or drink regularly like cereal, pancakes, coffee or tea. Try cutting the usual amount of sugar you add by half and wean down from there. Swap out the soda. Water is best, but if you want something sweet to drink or are trying to lose weight, diet drinks can be a better choice than sugary drinks. Eat fresh, frozen, dried or canned fruits. Choose fruit canned in water or natural juice. Avoid fruit canned in syrup, especially heavy syrup. Drain and rinse in a colander to remove excess syrup or juice. Compare food labels and choose products with the lowest amounts of added sugars. Dairy and fruit products will contain some natural sugars. Added sugars can be identified in the ingredients list. Add fruit. Instead of adding sugar to cereal or oatmeal, try fresh fruit (bananas, cherries or strawberries) or dried fruit (raisins, cranberries or apricots). Cut the serving back. When baking cookies, brownies or cakes, cut the sugar called for in your recipe by one-third to one-half. Often you won t notice the difference. Try extracts. Instead of adding sugar in recipes, use extracts like almond, vanilla, orange or lemon. Replace it completely. Enhance foods with spices instead of sugar. Try mila, allspice, cinnamon or nutmeg. Substitute. Switch out sugar with unsweetened applesauce in recipes (use equal amounts). Limit Non-nutritive Sweeteners. If you are trying to lose weight, a temporary fix to satisfying your sweet tooth may be with non-nutritive sweeteners. But watch out! Make sure that swapping sugary options for non-nutritive sweeteners now doesn t lead to eating more later. https://www.heart.org/en/healthy-livin g/healthy-eating/eat-smart/sugar/tips- vii-abothwt-zrdw-on-sugar Why You May Want to Weigh Yourself Every Day At any given moment, an estimated 24% of men and 38% of women in the [place] are trying to lose weight (1Trusted Source). Meanwhile, obesity has skyrocketed and working-age adults are gaining about 2.2 pounds (1 kg) annually, on average (2Trusted Source, 3Trusted Source). Recent studies have shown that daily self-weighing may be a powerful tool for both losing and maintaining weight. However, many people believe that weighing yourself daily contributes to bad mental health and disordered eating habits. So what should you believe? This article sets the record straight on whether you should start weighing yourself daily. Weighing Yourself Daily Helps You Lose More Weight The simple act of self-weighing has received lots of attention and stirred up controversy for years. Some people have even thrown away their scale, claiming that it s a highly misleading weight loss tool that results in bad self-esteem and disordered eating habits (4, 5). However, recent studies generally agree that daily weighing is associated with greater weight loss and less weight regain than less-frequent self-weighing (6Trusted Source, 7, 8, 9). One study showed that participants who weighed themselves daily for six months lost 13 more pounds (6 kg), on average, than those who weighed themselves less frequently (10. What s more, those who weigh themselves daily tend to adopt more favorable weight control behaviors, exercise better restraint toward food and eat impulsively less often (10, 11). Interestingly, adopting healthy weight-related behaviors has been shown to be especially important when people emerge from adolescence into adulthood (12). One study in participants aged 18-25 showed that daily self-weighing resulted in better weight loss than less-frequent weighing (13). The researchers concluded that daily self-weighing is a particularly valuable self-regulation tool for this age group. Furthermore, another study showed that people who weighed themselves every day ate 347 fewer calories per day than those who did not. After six months, the group that weighed themselves daily ended up losing a whopping 10 times more weight than the control group (14). BOTTOM LINE: Daily self-weighing may cause people to lose more weight and gain less of it back, compared to less-frequent weighing. Daily Weighing May Motivate You and Improve Self-Control Being aware of your weight is a march factor in successful weight loss. Awareness of your weight trend -- that is, whether your weight is going up or down -- is also important. In fact, weighing yourself more often is linked to weight control, while weighing yourself less often has been associated with weight gain. One study found that participants who weighed themselves less often were more likely to report increased calorie intake and decreased restraint toward food (15). Self-weighing promotes self-regulation and awareness of your weight trend and weight-related behaviors. That s why it generally results in greater weight loss (14). Although the exact number on the scale may be unimportant, monitoring weight loss progress motivates you to keep going and generally improves weight-related behavior and self-control. Also, by being more aware of your weight, you can quickly react to lapses in your progress and make necessary adjustments to maintain your goal. Since most people are able to sustain a habit of daily self-weighing, the adherence and acceptability of it is generally quite high (16Trusted Source, 17, 18, 19, 20). It s a minor addition to your daily routine that may help you reap major benefits for your weight. BOTTOM LINE: Daily self-weighing helps you maintain awareness of your weight. Monitoring weight loss progress further motivates you to keep going and improves your self-control. Daily Weighing Helps You Keep the Weight Off Frequent self-weighing has been shown to be a great way to prevent weight gain in the long-term (15, 2, 22, 23). One study investigated how much self-weighing frequency predicted weight oil change technician two years in working adults (24Trusted Source). It found that there was a significant link between self-weighing frequency and weight change. In normal-weight individuals, daily weighing resulted in a slight weight loss, while those who weighed themselves monthly gained 4.4 pounds (2 kg), on average. However, the largest difference was in overweight individuals. Those who weighed themselves daily lost 10 pounds (4.4 kg), while those who weighed themselves monthly gained 2.2 pounds (1 kg), on average (24). Another study came to a similar conclusion, showing that self-weighing was a significant predictor of body weight over time. Participants lost an extra pound (0.45 kg) of body weight for every 11 days they self-weighed (25). The main reason why this is so effective is that consistent self-weighing allows you to catch weight gain before it escalates and make the necessary changes to prevent more weight gain (15). BOTTOM LINE: Daily weighing may help prevent long-term weight gain, especially in overweight people. Weighing Yourself Daily Is Not as Bad as People Think Not so long ago, frequent self-weighing was thought to be damaging to your mental health. This notion still exists today. Self-weighing is claimed to have negative effects on your mood by continuously reinforcing that your body size is not ideal or appropriate, resulting in an increased risk of developing an eating disorder (4Trusted Source, 5Trusted Source). Although this may be true in a small group of people, most studies have repeatedly come to a different conclusion (9Trusted Source, 26Trusted Source, 27Trusted Source). The available research suggests there is very little evidence that frequent self-weighing is a cause of negative mood or body dissatisfaction, especially as part of a weight loss program (8Trusted Source, 12Trusted Source, 14Trusted Source, 26Trusted Source, 28Trusted Source, 29Trusted Source). In fact, studies indicate that frequent self-weighing may increase body satisfaction, rather than decrease it (9Trusted Source). That said, there is a group of people who may develop a negative body image, low self-esteem or undesirable eating behaviors as a result of daily self-weighing (30Trusted Source). If you find that daily self-weighing causes you to have bad feelings about yourself or your eating behaviors, you should find other methods to measure your progress. BOTTOM LINE: Most studies do not link frequent self-weighing to negative mood or body dissatisfaction. Some even associate them with higher body satisfaction. How to Weigh Yourself for Best Results The best time to weigh yourself is right after you wake up, after going to the bathroom and before you eat or drink. Your weight tends to fluctuate less in the morning than later in the day when you ve had plenty to eat and drink. That is also why people weigh the least in the morning. Also, it is best if you always weigh yourself in similar clothing each day. However, you need to keep in mind that your weight may fluctuate from day to day and can be affected by many factors, including: What you ate or drank the previous day Bloating or water retention Menstrual cycle Whether you ve had bowel movements recently Therefore, it is important to assess the trend of your weight over a longer period of time, instead of drawing conclusions from each and every weighing. A basic scale will do just fine. However, many scales also have the ability to measure your body mass index (BMI), body fat percentage and muscle mass, which may help you get a better picture of your progress. There are also several apps available for your phone or computer that allow you to easily enter your daily weight and see the trend of your weight change. Happy Scale for iPhone and Lizbeth for Android are two such apps. BOTTOM LINE: It is best to weigh yourself right after you wake up, after going to the bathroom and before you eat or drink anything. Other Ways to Track Your Progress Although self-weighing may be a valuable tool, it has some limitations. If you re exercising and gaining muscle, the scale may not show your progress and instead simply show that you have gained weight. While losing weight can indicate progress, a scale does not differentiate between healthy weight (muscle) and unhealthy weight (fat). Therefore, it may be good to add other ways of tracking your progress to your regimen. Here are some examples: Measure circumference: Muscle has much less volume than fat, so your circumference may be decreasing even if your weight stays the same or goes up. Measure body fat percentage: By measuring your body fat percentage, you can observe changes in fat mass, regardless of your weight. Take pictures of yourself regularly: You can observe any changes in your physique by comparing photos of yourself in similar clothing. Note how your clothes feel: Any changes in your weight will probably affect how your clothes fit. Feeling them become looser or tighter is one of the best indicators of changes in your body. BOTTOM LINE: Other ways to track your progress include measuring your circumference, measuring your body fat percentage and taking pictures of yourself. Take Home Message Weighing yourself every day can help increase your awareness of your weight and weight-related behaviors. It may help you lose more weight and prevent you from gaining that weight back in the long-term. Daily self-weighing may just be that extra motivation you need to achieve your weight goals. [email or web address].[employer].com/nutrition/d aily-weighing documented in this encounter [facility] 09-07-2024 History of Present illness Narrative Images from the original note were not included. Some documentation from previous visit of 07/27/24 was copied and pasted, documentation has been reviewed and edited as necessary for today's visit. Patient Summary: Swathi is a 34 year old Female who presents for follow-up evaluation of obesity/weight management to treat and prevent related co-morbidities. In our previous visits we have discussed lifestyle intervention including a nutrition recommendations and physical activity optimization. Her last office visit was 1 month ago. Assessment/plan from last visit: -discussed surgical options- declines - protein goal 90-135g - tracking reviewed - Consider Nutrition next visit - will start toprimate and phentermine. Reviewed off label use, common SE. Discussed h/o Stones- discussed needing to drink more water 64-90 oz minimum. - Power reviewed -previous labs reviewed from 10/2024 Interval History PT specifies the following items as new or significant updates since the last appointment: - Reports feeling more energetic and less inclined to lay around all day on days off. - Denies current issues with binge eating, emotional eating, stress eating, food cravings, high-calorie foods, large portion sizes, grazing throughout the day, excessive hunger, lack of motivation, poor sleep, or reduced physical activity. - Denies chest pain, palpitations, brain fog, or excessive grogginess from current medications. - Reports occasional tingling in fingers, more noticeable at work when exposed to cold temperatures. - Reports constipation, noting it has worsened over the last two weeks. - Struggles to eat dinner by 6:00 or 6:30 PM, sometimes not hungry but eats to avoid hunger later. - Uses a food log to track intake, shared the log with a coworker who has since lost 30 lbs. - has suggested dietary modifications for coworkers and mom. Weight loss since last vist: 17lbs total weight lost 17lbs 09/07/24 182lbs 07/27/24: 199lbs (initial weight) Anti-obesity medications: Topiramate/phentermine . Benefit:decreased cravings, decreased portion sizes Adverse effects: tingling in fingers occasionally, constipation Anti-obesity medications: Metformin (start 09/07/24) Benefit:insulin 18 Adverse effects: Weight promoting medications: Effexor Previous Diet (initial appointment): Awake - 5:45-6 during school year B -7:30- flavored water with javed w/ caffeine, pack of PB crackers S - L - [id number]- yogurt- chobani (regular), pretzels, leftovers- cheesy potato, pasta, chicken quesadila S - D - 3:30-4pm- chicken quesadilla, pasta, cheesy potato. Out to dinner once per week- maldivian S - 8pm- popcorn, pretzels, chips- salty Fluids: water w/ javed (48-54 oz), ning, smirnoff one per day in evening. Bedtime - 9-10pm (wakes up 2-3x per night) Quality of diet: 24hr recall suggests unhealthy diet. Characterization of diet:Structured and evening snacking. Clay Hoister of impaired eating habits:excessive hunger, mindlessness , boredom, and emotion Eating Disorder no Cravings: salty Dietary changes: B - protein shake - muscle milk now fairlife S - L - deer bologna and cheese, sausage and cheese S - D - meat and vegetable w/ fruit apple or omaira S - Fluids - 64-80oz one x per week sugar free smirnoff Eating 3 meals a day, including breakfast Increasing water intake Controlling portions Identify hunger and satiety cues Limiting processed foods Increasing protein Reducing carbohydrates Mindful Eating strategies Current Barriers: reduced physical activity Exercise: stable Regular exercise: no Strength/resistance exercise:no Barriers to regular exercise? no Work-related activity:Sedentary.but is on her feet all day Gym Membership: no Activity Tracker: no average steps per day N/A Stress: stableStress:no, Cause:None Sleep: stableDuration: 6-7 hours. EDUIN NO ; CPAP NO naps 30min-2hrs Estimated Creatinine Clearance: 100.3 mL/min (based on SCr of 0.8 mg/dL). PAST MEDICAL HISTORY Diagnosis Date History of depression Irregular periods Kidney stones Current Outpatient Medications Medication Sig Dispense Refill topiramate (TOPAMAX) 50 mg tablet Take 1 tablet by mouth daily at bedtime. 30 tablet 2 Phentermine HCl 37.5 mg tablet Take 1 tablet by mouth daily before breakfast for 90 days. 30 tablet 2 venlafaxine ER (EFFEXOR XR) 37.5 mg 24 hr capsule 75 mg. norgestimate 0.25 mg-ethinyl estradiol 35 mcg 0.25-35 mg-mcg per tablet Take 1 tablet by mouth once daily. [address] (PROTONIX) 40 mg tablet take 1 tablet (40 mg) by mouth daily. do not crush, chew, or split. (Patient not taking: Reported on 07/27/2024) No current facility-administered medications for this visit. ROSConstitutional: (+) decreased appetite, (-) insomnia Cardiovascular: (-) chest pain, (-) palpitations Gastrointestinal: (+) constipation Neurological: (+) finger tingling, (-) numbness, (-) brain fog Psychiatric: (-) stress ROS/Fam Hx pertaining to AOMs: GEN: Fatigue:yes CV: h/o palpitations/cardiac arrhythmia, Chest pain: no HTN: no PULM: Asthma:no GI: GERD:yes-had XR 06/29/24 sees Yoon avelar ; Gallstones:no ; Fatty liver disease:no Pancreatitis: no MSK: Joint Pain:no : Nephrolithiasis: yes- summer 2023 left kidney (lithotripsy) Symptoms of PCOS: no NEURO: Migraines/ROME: yes (once per month- lasts 2-3 days) ; H/o seizures: no Glaucoma:no; Cataracts no Symptoms of or History of pseudotumor cerebri:no Family or personal History of MEN2 or Medullary thyroid cancer: no 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 Latest Ref Rng & Units 07/27/2024 CMP Sodium 136 - 144 mmol/L 136 Potassium 3.7 - 5.1 mmol/L 3.9 Chloride 98 - 107 mmol/L 101 CO2 22 - 30 mmol/L 22 Glucose 74 - 99 mg/dL 88 BUN 7 - 21 mg/dL 11 Creatinine 0.58 - 0.96 mg/dL 0.80 EGFR >=60 mL/min/1.73m 101 Protein, Total 6.3 - 8.0 g/dL 7.7 Albumin 3.9 - 4.9 g/dL 4.0 Calcium 8.5 - 10.2 mg/dL 9.4 Bilirubin, Total 0.2 - 1.3 mg/dL 0.3 AST 13 - 35 U/L 16 ALT 7 - 38 U/L 16 Alkaline Phosphatase 34 - 123 U/L 102 Cholesterol, Total (mg/dL) Date Value 11/20/2023 189 HDL Cholesterol (mg/dL) Date Value 11/20/2023 34 LDL Cholesterol, Calculated (mg/dL) Date Value 11/20/2023 136 Triglyceride (mg/dL) Date Value 11/20/2023 97 Latest Ref Rng & Units 02/27/2021 CBC WBC 3.70 - 11.00 k/uL 3.58 RBC 3.90 - 5.20 m/uL 4.88 Hemoglobin 11.5 - 15.5 g/dL 14.1 Hematocrit 36.0 - 46.0 % 44.7 MCV 80.0 - 100.0 fL 91.6 MCH 26.0 - 34.0 pG 28.9 MCHC 30.5 - 36.0 g/dL 31.5 RDW-CV 11.5 - 15.0 % 12.3 Platelet Count 150 - 400 k/uL 404 MPV 9.0 - 12.7 fL 8.5 Baso% % 1.4 Abs Neut (ANC) 1.45 - 7.50 k/uL 1.20 Abs Lymph 1.00 - 4.00 k/uL 1.85 Abs [place] <0.87 k/uL 0.41 Abs Eosin <0.46 k/uL 0.07 Abs Baso <0.11 k/uL 0.05 Diff Type Auto Diff Vitamin D 25 Hydroxy Date Value Ref Range Status 07/27/2024 55.9 31.0 - 80.0 ng/mL Final Comment: Classification of 25 OH Vitamin D status: Deficiency/Insufficiency: < or = 30 ng/ml. Sufficiency/Optimal Levels: 31-80 ng/mL Toxicity: > 100 ng/mL. Test performed by chemiluminescent immunoassay. TSH (mIU/L) Date Value 11/20/2023 0.838 ) Hemoglobin A1C (%) Date Value 11/20/2023 4.9 No components found for: SQINSULN 18 Assessment/Plan: Swathi Neely is a 34 year old yo with Class II obesity who presented today for follow up for supervised weight loss to treat and prevent related co-morbidities. 1. Insulin resistance (E88.819) - Insulin level at 15. - Initiated Metformin 500 mg once daily with dinner, with gradual titration as tolerated to a maximum of 2000 mg daily (1000 mg BID). - Educated on potential side effects of Metformin, including bloating, diarrhea, and nausea; advised to maintain a low-carbohydrate, low-sugar, and low-fat diet to minimize side effects. - Discussed the importance of Metformin in improving insulin sensitivity and reducing the risk of developing diabetes. - continue whole foods. high protein, low carb 2. Constipation, unspecified constipation type (K59.00) - Likely secondary to Phentermine use. - Advised increasing water intake to 64-80 oz daily and consuming high-fiber foods such as raw vegetables and fruits. - Recommended use of stool softeners or laxatives (e.g., Dulcolax, Miralax) as needed. 3. Low HDL (under 40) (E78.6) 4. Dyslipidemia (E78.5) - Encouraged continuation of current dietary habits focusing on high protein intake and reduction of processed foods. - Advised incorporating more whole foods and vegetables to improve lipid profile. - routine exercise 5. Migraine without status migrainosus, not intractable, unspecified migraine type (G43.909) - Continue current management with Effexor. -continue topiramate 6. Class 2 obesity with body mass index (BMI) of 35.0 to 35.9 in adult, unspecified obesity type, unspecified whether serious comorbidity present (E66.812) - Significant weight loss of 17 lbs and reduction in waist circumference from 37.5 inches to 35.25 inches. - Current medications include Phentermine and Topiramate, both taken in the morning. - Discussed potential side effect of tingling in fingers, likely related to medication. - Advised on the importance of maintaining a high protein intake (minimum 90 grams daily) and incorporating two protein shakes per day if necessary to meet protein goals. - continue tracking - exercise reviewed - Encouraged continuation of current dietary habits, including a protein shake for breakfast and balanced meals with protein, vegetables, and limited carbohydrates. - Discussed the benefits of Metformin in conjunction with current medications for weight management. - Scheduled follow-up appointments on October 14 and December 08 to monitor progress and adjust treatment as needed. - An overall goal of 150-200 minutes per week of exercise has been effective in weight loss and maintenance. Prescription instructions reviewed with patient as applicable. Potential red flag symptoms discussed with the patient. Reviewed appropriate action plan to take if red flag symptoms occur. Patient agreeable to treatment plan. Phentermine. Risk/benefits discussed at length including potential side effects of increased anxiety, insomnia, increased heart rate, and increased blood pressure. I have asked the patient to monitor blood pressure and avoid any stimulants (in the form of caffeinated beverages like coffee, tea, sports drinks) initially. Patient denies history of arrhythmias, coronary artery disease (atherosclerosis), heart failure, pulmonary hypertension, stroke, valvular heart disease (prolapse, regurgitation, stenosis). The patient is currently enrolled in a diet and exercise program The patient has no known history of contraindications The patient is free from drug or ETHO abuse The patient is not or and is aware not to become while using this medication OARS was reviewed. PDMP website checked and validated. All prescriptions have been APPROPRIATELY filled. No suspicious activity was identified. Topiramate. Discussed risks/benefits with the patient. Patient aware that this is an off-label use of the medication. Denies history of kidney stones, seizures or glaucoma. yes hx of migraines no history of poor sleep. Advised not to mix with alcohol. Educated on increased risk for drowsiness, dizziness, fatigue, kidney stones, osteoporosis and increased eye pressure. Patient of childbearing age. Discussed the risk of defects with topiramate and the need for double control methods as well as regular tests. Contraception: ocps Follow up in next appt set I spent a total of 40 minutes on the date of the service which included preparing to see the patient, [id number] patient care, completing clinical documentation, obtaining and/or reviewing separately obtained history, performing a medically appropriate examination, counseling and educating the patient/family/caregiver, and ordering medications, tests, or procedures. Velma Pike MD, FACOG, J CARLOS documented in this encounter [facility] 09-07-2024 Note HNO ID: [id number] Author: VELMA BENNETT MD Service: ? Author Type: Physician Type: Progress Notes Filed: 09/07/2024 16:51 Note Text: Some documentation from previous visit of 07/27/24 was copied and pasted, documentation has been reviewed and edited as necessary for today's visit. Patient Summary: Swathi is a 34 year old Female who presents for follow-up evaluation of obesity/weight management to treat and prevent related co-morbidities. In our previous visits we have discussed lifestyle intervention including a nutrition recommendations and physical activity optimization. Her last office visit was 1 month ago. Assessment/plan from last visit: -discussed surgical options- declines - protein goal 90-135g - tracking reviewed - Consider Nutrition next visit - will start toprimate and phentermine. Reviewed off label use, common SE. Discussed h/o Stones- discussed needing to drink more water 64-90 oz minimum. - Power reviewed -previous labs reviewed from 10/2024 Interval History PT specifies the following items as new or significant updates since the last appointment: - Reports feeling more energetic and less inclined to lay around all day on days off. - Denies current issues with binge eating, emotional eating, stress eating, food cravings, high-calorie foods, large portion sizes, grazing throughout the day, excessive hunger, lack of motivation, poor sleep, or reduced physical activity. - Denies chest pain, palpitations, brain fog, or excessive grogginess from current medications. - Reports occasional tingling in fingers, more noticeable at work when exposed to cold temperatures. - Reports constipation, noting it has worsened over the last two weeks. - Struggles to eat dinner by 6:00 or 6:30 PM, sometimes not hungry but eats to avoid hunger later. - Uses a food log to track intake, shared the log with a coworker who has since lost 30 lbs. - has suggested dietary modifications for coworkers and mom. Weight loss since last vist: 17lbs total weight lost 17lbs 09/07/24 182lbs 07/27/24: 199lbs (initial weight) Anti-obesity medications: Topiramate/phentermine . Benefit:decreased cravings, decreased portion sizes Adverse effects: tingling in fingers occasionally, constipation Anti-obesity medications: Metformin (start 09/07/24) Benefit:insulin 18 Adverse effects: Weight promoting medications: Effexor Previous Diet (initial appointment): Awake - 5:45-6 during school year B -7:30- flavored water with javed w/ caffeine, pack of PB crackers S - L - [id number]- yogurt- chobani (regular), pretzels, leftovers- cheesy potato, pasta, chicken quesadila S - D - 3:30-4pm- chicken quesadilla, pasta, cheesy potato. Out to dinner once per week- maldivian S - 8pm- popcorn, pretzels, chips- salty Fluids: water w/ javed (48-54 oz), ning, smirnoff one per day in evening. Bedtime - 9-10pm (wakes up 2-3x per night) Quality of diet: 24hr recall suggests unhealthy diet. Characterization of diet:Structured and evening snacking. Clay Hoister of impaired eating habits:excessive hunger, mindlessness , boredom, and emotion Eating Disorder no Cravings: salty Dietary changes: B - protein shake - muscle milk now fairlife S - L - deer bologna and cheese, sausage and cheese S - D - meat and vegetable w/ fruit apple or omaira S - Fluids - 64-80oz one x per week sugar free smirnoff Eating 3 meals a day, including breakfast Increasing water intake Controlling portions Identify hunger and satiety cues Limiting processed foods Increasing protein Reducing carbohydrates Mindful Eating strategies Current Barriers: reduced physical activity Exercise: stable Regular exercise: no Strength/resistance exercise:no Barriers to regular exercise? no Work-related activity:Sedentary.but is on her feet all day Gym Membership: no Activity Tracker: no average steps per day N/A Stress: stableStress:no, Cause:None Sleep: stableDuration: 6-7 hours. EDUIN NO ; CPAP NO naps 30min-2hrs Estimated Creatinine Clearance: 100.3 mL/min (based on SCr of 0.8 mg/dL). PAST MEDICAL HISTORY Diagnosis Date History of depression Irregular periods Kidney stones Current Outpatient Medications Medication Sig Dispense Refill topiramate (TOPAMAX) 50 mg tablet Take 1 tablet by mouth daily at bedtime. 30 tablet 2 Phentermine HCl 37.5 mg tablet Take 1 tablet by mouth daily before breakfast for 90 days. 30 tablet 2 venlafaxine ER (EFFEXOR XR) 37.5 mg 24 hr capsule 75 mg. norgestimate 0.25 mg-ethinyl estradiol 35 mcg 0.25-35 mg-mcg per tablet Take 1 tablet by mouth once daily. [address] (PROTONIX) 40 mg tablet take 1 tablet (40 mg) by mouth daily. do not crush, chew, or split. (Patient not taking: Reported on 07/27/2024) No current facility-administered medications for this visit. ROSConstitutional: (+) decreased appetite, (-) insomnia Cardiovascular (more content not included)... [facility] 09-01-2024 Telephone encounter Note Left VM to call office to review EGD results. Final Diagnosis A. DUODENUM, 1ST PART, BIOPSY: - PEPTIC DUODENITIS Comment: The biopsy shows gastric foveolar (mucin cell) metaplasia, mild non specific inflammation in lamina propria and overall preserved villous pattern, consistent with chronic peptic duodenitis. B. STOMACH, ANTRUM, BIOPSY: - REACTIVE GASTROPATHY Comment: H&E sections show no evidence of H. pylori. No intestinal metaplasia, dysplasia or malignancy identified. C. ESOPHAGO-GASTRIC JUNCTION, BIOPSY: - SQUAMOUS MUCOSA WITH ELONGATE PAPILLAE, BASAL HYPERTROPHY AND REACTIVE CHANGES. - GLANDULAR MUCOSA WITH MILD TO MODERATE CHRONIC INACTIVE GASTRITIS; NEGATIVE FOR INTESTINAL METAPLASIA OR DYSPLASIA. Comment: No intestinal metaplasia, dysplasia or malignancy identified. Overall recommendations is to continue PPI. Okay to release message as written [facility] 09-01-2024 Telephone encounter Note ----- Message from Timothy Xiao MD sent at 2024 4:07 PM EDT ----- Regarding: GERD EGD results Yoon, At your convenience, please inform Swathi regarding her EGD results - peptic duodenitis and some gastritis. No h. Pylori. Recommend continued PPI therapy ongoing. No evidence of Davis's on Z-line biopsy but the z-line did appear irregular overall. Thanks, KR ----- Message ----- From: zerved Francisco Javier Bautista Sent: 2024 2:14 PM EDT To: Timothy Xiao MD [facility] 09-01-2024 Miscellaneous Notes Left VM to call office to review EGD results. Final Diagnosis A. DUODENUM, 1ST PART, BIOPSY: - PEPTIC DUODENITIS Comment: The biopsy shows gastric foveolar (mucin cell) metaplasia, mild non specific inflammation in lamina propria and overall preserved villous pattern, consistent with chronic peptic duodenitis. B. STOMACH, ANTRUM, BIOPSY: - REACTIVE GASTROPATHY Comment: H&E sections show no evidence of H. pylori. No intestinal metaplasia, dysplasia or malignancy identified. C. ESOPHAGO-GASTRIC JUNCTION, BIOPSY: - SQUAMOUS MUCOSA WITH ELONGATE PAPILLAE, BASAL HYPERTROPHY AND REACTIVE CHANGES. - GLANDULAR MUCOSA WITH MILD TO MODERATE CHRONIC INACTIVE GASTRITIS; NEGATIVE FOR INTESTINAL METAPLASIA OR DYSPLASIA. Comment: No intestinal metaplasia, dysplasia or malignancy identified. Overall recommendations is to continue PPI. Okay to release message as written ----- Message from Timothy Xiao MD sent at 2024 4:07 PM EDT ----- Regarding: GERD EGD results Yoon, At your convenience, please inform Swathi regarding her EGD results - peptic duodenitis and some gastritis. No h. Pylori. Recommend continued PPI therapy ongoing. No evidence of Davis's on Z-line biopsy but the z-line did appear irregular overall. Thanks, KR ----- Message ----- From: zerved Automated UserFrancisco Javier Sent: 2024 2:14 PM EDT To: Timothy Xiao MD documented in this encounter [facility] 08-24-2024 Miscellaneous Notes Pt and family verbalized understanding of recovery instructions, pt verbalized a readiness to be discharged home. Pt discharged home via wheelchair accompanied by RN/volunteer. Pt has had all their belongings returned to them at discharge Pt recieved from ENDOSCOPY to phase 2 via cart with CLIENT SERVICE ASSOCIATE in attendance, pt has spontaneous respirations,pt place on monitor with alarms on, [facility] Name: Swathi Neely Procedure Date: 08/24/2024 7:02 AM Gender: Female Date of : 1990 Age: 33 Admit Type: Outpatient Note Status: Finalized Endoscopist: Timothy Xiao MD, Procedure: Upper GI endoscopy Indications: Epigastric abdominal pain, Heartburn, Suspected esophageal reflux Findings: The Z-line was irregular. Biopsies were taken with a cold forceps for histology. Verification of patient identification for the specimen was done. Estimated blood loss was minimal. Localized mild inflammation characterized by erythema and friability was found in the gastric antrum. Biopsies were taken with a cold forceps for Helicobacter pylori testing. Verification of patient identification for the specimen was done. Estimated blood loss was minimal. Biopsies were taken with a cold forceps for Helicobacter pylori testing. Verification of patient identification for the specimen was done. Estimated blood loss was minimal. Localized mild inflammation was found in the duodenal bulb. Biopsies were taken with a cold forceps for histology. Verification of patient identification for the specimen was done. Estimated blood loss was minimal. The second portion of the duodenum was normal. Bilious fluid was found in the entire examined stomach. Impression: - Z-line irregular. Biopsied. - Duodenitis. Biopsied. - Normal second portion of the duodenum. - Bilious gastric fluid. Recommendation: - Patient has a contact number available for emergencies. The signs and symptoms of potential delayed complications were discussed with the patient. Return to normal activities tomorrow. Written discharge instructions were provided to the patient. - Resume previous diet indefinitely. - Continue present medications. - Use a proton pump inhibitor PO BID. Referring MD: Jc Wallace, Medicines: Propofol per Anesthesia Procedure: Pre-Anesthesia Assessment: - Prior to the procedure, a History and Physical was performed, and patient medications and allergies were reviewed. The patient's tolerance of previous anesthesia was also reviewed. The risks and benefits of the procedure and the sedation options and risks were discussed with the patient. All questions were answered, and informed consent was obtained. Prior Anticoagulants: The patient has taken no anticoagulant or antiplatelet agents. ASA Grade Assessment: II - A patient with mild systemic disease. After reviewing the risks and benefits, the patient was deemed in satisfactory condition to undergo the procedure. - The anesthesia plan was to use monitored anesthesia care (MAC). After obtaining informed consent, the endoscope was passed under direct vision. Throughout the procedure, the patient's blood pressure, pulse, and oxygen saturations were monitored continuously. The Endoscope was introduced through the mouth, and advanced to the second part of duodenum. The upper GI endoscopy was accomplished without difficulty. The patient tolerated the procedure well. Complications: No immediate complications. Procedure Code(s): --- Professional --- 38279, Esophagogastroduodenoscopy, flexible, transoral; with biopsy, single or multiple --- Technical --- 05429, Esophagogastroduodenoscopy, flexible, transoral; with biopsy, single or multiple Diagnosis Code(s): --- Professional --- K22.89, Other specified disease of esophagus K29.80, Duodenitis without bleeding R10.13, Epigastric pain R12, Heartburn --- Technical --- K22.89, Other specified disease of esophagus K29.80, Duodenitis without bleeding R10.13, Epigastric pain R12, Heartburn CPT copyright 2021 [employer]. All rights reserved. The codes documented in this report are preliminary and upon software tester review may be revised to meet current compliance requirements. Timothy Xiao MD 08/24/2024 7:52:25 AM Number of Addenda: 0 Note Initiated On: 08/24/2024 7:02 AM documented in this encounter [facility] 08-24-2024 Nurse Note Pt and family verbalized understanding of recovery instructions, pt verbalized a readiness to be discharged home. Pt discharged home via wheelchair accompanied by RN/volunteer. Pt has had all their belongings returned to them at discharge [facility] Work Phone: 08-24-2024 Note Patient: Swathi Salas er Procedure Summary Date: 08/24/24 Room / Location: [place] [address] / [facility] Gastroenterology Anesthesia Start: 728 Anesthesia Stop: 749 Procedure: ESOPHAGOGASTRODUODENOSCOPY WITH BIOPSY Diagnosis: Gastroesophageal reflux disease, unspecified whether esophagitis present Hiatal hernia (Gastroesophageal reflux disease, unspecified whether esophagitis present [K21.9]) (Hiatal hernia [K44.9]) Providers: Timothy Xiao MD Responsible Provider: No Anesthesiologist - Ray/MscMD Anesthesia Type: TIVA ASA Status: 2 Anesthesia Type: TIVA Vitals Value Taken Time BP 116/92 08/24/24 08:12 Temp 36.7 ?C (98 ?F) 08/24/24 07:52 Pulse 62 08/24/24 08:12 Resp 16 08/24/24 08:12 SpO2 96 % 08/24/24 08:12 Anesthesia Post Evaluation Patient location during evaluation: PACU Patient participation: complete - patient participated Level of consciousness: awake and alert Pain management: satisfactory to patient Airway patency: patent Dental Injury: no Cardiovascular status: acceptable, blood pressure returned to baseline and hemodynamically stable Respiratory status: acceptable and spontaneous ventilation Hydration status: euvolemic Nausea/Vomiting: controlled No notable events documented. Patient can be discharged once all PACU criteria has been met. [facility] 08-24-2024 Note Patient: Swathi Salas er Procedure Summary Date: 08/24/24 Room / Location: [facility] / [facility] Gastroenterology Anesthesia Start: 728 Anesthesia Stop: 749 Procedure: ESOPHAGOGASTRODUODENOSCOPY WITH BIOPSY Diagnosis: Gastroesophageal reflux disease, unspecified whether esophagitis present Hiatal hernia (Gastroesophageal reflux disease, unspecified whether esophagitis present [K21.9]) (Hiatal hernia [K44.9]) Providers: Timothy Xiao MD Responsible Provider: Sharon Anesthesiologist - Ray/MD Jamie Anesthesia Type: TIVA ASA Status: 2 Anesthesia Type: TIVA Vitals Value Taken Time BP 116/92 08/24/24 08:12 Temp 36.7 ?C (98 ?F) 08/24/24 07:52 Pulse 62 08/24/24 08:12 Resp 16 08/24/24 08:12 SpO2 96 % 08/24/24 08:12 Anesthesia Post Evaluation Patient participation: complete - patient participated Level of consciousness: alert and awake Pain management: satisfactory to patient Multimodal analgesia pain management approach Airway patency: patent Two or more strategies used to mitigate risk of obstructive sleep apnea Respiratory status: acceptable Cardiovascular status: acceptable Hydration status: acceptable No notable events documented. MIPS #430 PONV Patient did not receive an inhalational anesthetic (XX430) MIPS # 424 Perioperative Temperature Management Anesthesia time was less than 60 minutes (4256F) MIPS #477 Multimodal Pain Management Not emergent case Patient was administered multimodal pain management (two or more drugs and/or interventions excluding systemic opioids) in the periopeartive period occurring at some time between 6 hours prior to anesthesia start time until discharged from PACU (G2148) MIPS #404 Anesthesiology Smoking Abstinence The patient is not a current smoker (e.g. cigarette, cigar, pipe, e-cigarette/vaping/marijuana) If no stop here (XX404) I completed my handoff to the receiving clinician during which we: 1. Identified the patient 2. Identified the responsible provider 3. Reviewed the pertinent medical history 4. Discussed the surgical course 5. Reviewed intra-op anesthesia management and issues during anesthesia 6. Set expectations for post-procedure period 7. Allowed opportunity for questions and acknowledgement of understanding. [facility] 08-24-2024 Nurse Note Pt recieved from ENDOSCOPY to phase 2 via cart with CLIENT SERVICE ASSOCIATE in attendance, pt has spontaneous respirations,pt place on monitor with alarms on, will continue to monitor [facility] 08-24-2024 History and physical note Images from the original note were not included. Endoscopy History and Physical HPI: Swathi Neely is a 33 y.o. female who presents with GERD, here for EGD. As per our office's prior encounters for details, she underwent UGI and PPI was trialed on Omeprazole. Notes very minimal improvement with continued reflux and heartburn at night time. Did not really notice a notable difference with Omeprazole. UGI with small hiatal hernia without spontaneous GERD. She has been experiencing heartburn, bilious reflux, symptoms primarily relate to meals, and lying down after meals, symptoms occur at night for many years but for the past year seems to have been worsening. Previously tried Pantoprazole without improvement of symptoms. She reports symptoms really only at night time and states seems to happen if she eats 30-60 minutes before bed. She reports almost immediately with symptoms. Has only ever tried PPI. States does not take any OTC heartburn medications. She reports sometimes works late and does not eat until right before bed. ROS: patient denies chest pain, cough, wheezing, weight loss, dysphagia, black stools, hematemesis, diarrhea, constipation, fever, history of PUD, history of GI bleeding, irritation, globus, shortness of breath, or coughing with swallowing. Social history: no or minimal alcohol, nonsmoker, no or mild caffeine use, no ASA or NSAID's. Main complaint night time heartburn, and regurgitation No components found for: HELICOBACTER PYLORI Imaging/Endoscopy: EGD: NA UGI/Barium Swallow: 06/29/24 IMPRESSION: Small hiatal hernia without spontaneous gastroesophageal reflux. Satisfactory emptying of marshmallow and bagel from the esophagus into the stomach within two stripping waves. CT abd/pelvis: None US: None Colonoscopy: None PMHx: Medical History[1] PSHx: Surgical History[2] PFMHx: Family History[3] ALL: Allergies[4] MEDS: Current Outpatient Medications Medication Instructions omeprazole (PRILOSEC) 40 mg, Oral, Daily before dinner, Do not crush or chew. Sprintec 28 0.25-35 MG-MCG tablet 1 tablet, Daily venlafaxine XR (EFFEXOR XR) 75 mg, Oral, Daily, Take with food. 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 algebra at [employer], NS or ETOH abuse Social Drivers of Health Financial Resource Strain: Low Risk (01/07/2024) Overall Financial Resource Strain (CARDIA) Difficulty of Paying Living Expenses: Not hard at all Food Insecurity: No Food Insecurity (01/07/2024) Hunger Vital Sign Worried About Running Out of Food in the Last Year: Never true Ran Out of Food in the Last Year: Never true Transportation Needs: No Transportation Needs (01/07/2024) PRAPARE - Transportation Lack of Transportation (Medical): No Lack of Transportation (Non-Medical): No Physical Activity: Insufficiently Active (01/07/2024) Exercise Vital Sign Days of Exercise per Week: 2 days Minutes of Exercise per Session: 20 min Stress: Stress Concern Present (01/07/2024) [place] [employer] - Occupational Stress Questionnaire Feeling of Stress : To some extent Social Connections: Socially Isolated (01/07/2024) Social Connection and Isolation Panel [NHANES] Frequency of Communication with Friends and Family: More than three times a week Frequency of Social Gatherings with Friends and Family: More than three times a week Attends Sabianist Services: Never Active Member of Clubs or Organizations: No Attends Club or Organization Meetings: Never Marital Status: Never Intimate Partner Violence: Not on file Housing Stability: Low Risk (01/07/2024) Housing Stability Vital Sign Unable to Pay for Housing in the Last Year: No Number of Times Moved in the Last Year: 0 Homeless in the Last Year: No Review of Systems: I personally reviewed the patient intake form with the patient. The ROS is negative except for what is listed in HPI. Physical Examination: BP 109/80 Pulse 75 Temp (!) 35.4 C (95.8 F) (Temporal) Resp 18 Ht 5' 7 (1.702 m) Wt 199 lb 1.9 oz (90.3 kg) LMP 07/25/2024 (Approximate) SpO2 95% BMI 31.19 kg/m She stands @FLOWAMB(11)@ tall with a weight of @FLOWAMB(14)@ , resulting in a BMI of Body mass index is 31.19 kg/m .. General: The patient is awake, alert, and oriented, and is in no apparent distress. Normal affect. Head and Neck: Normocephalic and atraumatic. Normal ROM Cardiac: Regular rate and rhythm, patient on monitor Respiratory: No respiratory distress. Equal chest rise. Good inspiratory effort. Abdomen: soft, non-tender, non-distended, no masses or organomegaly Extremities: Ambulatory without assistance. Neurological: Intact sensation in 4 extremities, no focal deficits notes. Skin: No rashes or lesions noted. Warm and dry. Rectal: Not done. Hernia: no hernias found on exam Assessment and Plan Patient Active Problem List Diagnosis Date Noted History of renal calculi 01/08/2024 Anxiety and depression 01/08/2024 Gastroesophageal reflux disease without esophagitis 01/08/2024 Gastroesophageal reflux disease 07/27/2024 Hiatal hernia 07/27/2024 Plan: 33 y.o. female who presents with GERD Will perform EGD today Patient counseled on risks, benefits, and alternatives of treatment plan at length. Patient states an understanding and willingness to proceed with plan. 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 Walsh- removal 08/2023 HEMANGIOMA EXCISION 1991 SHOULDER ARTHROSCOPY Left [address] Hill [3] Family History Problem Relation Name Age of Onset No Known Problems Mother Gout Father No Known Problems Brother [4] No Known Allergies [facility] 08-24-2024 Note Endoscopy History an d Physical HPI: Swathi Neely is a 33 y.o. female who presents with GERD, here for EGD. As per our office's prior encounters for details, she underwent UGI and PPI was trialed on Omeprazole. Notes very minimal improvement with continued reflux and heartburn at night time. Did not really notice a notable difference with Omeprazole. UGI with small hiatal hernia without spontaneous GERD. She has been experiencing heartburn, bilious reflux, symptoms primarily relate to meals, and lying down after meals, symptoms occur at night for many years but for the past year seems to have been worsening. Previously tried Pantoprazole without improvement of symptoms. She reports symptoms really only at night time and states seems to happen if she eats 30-60 minutes before bed. She reports almost immediately with symptoms. Has only ever tried PPI. States does not take any OTC heartburn medications. She reports sometimes works late and does not eat until right before bed. ROS: patient denies chest pain, cough, wheezing, weight loss,dysphagia, black stools, hematemesis, diarrhea, constipation, fever, history of PUD, history of GI bleeding, irritation, globus, shortness of breath, or coughing with swallowing. Social history: no or minimal alcohol, nonsmoker, no or mild caffeine use, no ASA or NSAID's. Main complaint night time heartburn, and regurgitation No components found for: HELICOBACTER PYLORI Imaging/Endoscopy: EGD: NA UGI/Barium Swallow: 06/29/24 IMPRESSION: Small hiatal hernia without spontaneous gastroesophageal reflux. Satisfactory emptying of marshmallow and bagel from the esophagus into the stomach within two stripping waves. CT abd/pelvis: None US: None Colonoscopy: None PMHx: Medical History[1] PSHx: Surgical History[2] PFMHx: Family History[3] ALL: Allergies[4] MEDS: Current Outpatient Medications Medication Instructions omeprazole (PRILOSEC) 40 mg, Oral, Daily before dinner, Do not crush or chew. Sprintec 28 0.25-35 MG-MCG tablet 1 tablet, Daily venlafaxine XR (EFFEXOR XR) 75 mg, Oral, Daily, Take with food. 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 algebra at [employer], NS or ETOH abuse Social Drivers of Health Financial Resource Strain: Low Risk (01/07/2024) Overall Financial Resource Strain (CARDIA) Difficulty of Paying Living Expenses: Not hard at all Food Insecurity: No Food Insecurity (01/07/2024) Hunger Vital Sign Worried About Running Out of Food in the Last Year: Never true Ran Out of Food in the Last Year: Never true Transportation Needs: No Transportation Needs (01/07/2024) PRAPARE - Transportation Lack of Transportation (Medical): No Lack of Transportation (Non-Medical): No Physical Activity: Insufficiently Active (01/07/2024) Exercise Vital Sign Days of Exercise per Week: 2 days Minutes of Exercise per Session: 20 min Stress: Stress Concern Present (01/07/2024) [place] [employer] - Occupational Stress Questionnaire Feeling of Stress : To some extent Social Connections: Socially Isolated (01/07/2024) Social Connection and Isolation Panel [NHANES] Frequency of Communication with Friends and Family: More than three times a week Frequency of Social Gatherings with Friends and Family: More than three times a week Attends Sabianist Services: Never Active Member of Clubs or Organizations: No Attends Club or Organization Meetings: Never Marital Status: Never Intimate Partner Violence: Not on file Housing Stability: Low Risk (01/07/2024) Housing Stability Vital Sign Unable to Pay for Housing in the Last Year: No Number of Times Moved in the Last Year: 0 Homeless in the Last Year: No Review of Systems: I personally reviewed the patient intake form with the patient. The ROS is negative except for what is listed in HPI. Physical Examination: BP 109/80 Pulse 75 Temp (!) 35.4 ?C (95.8 ?F) (Temporal) Resp 18 Ht 5' 7 (1.702 m) Wt 199 lb 1.9 oz (90.3 kg) LMP 07/25/2024 (Approximate) SpO2 95% BMI 31.19 kg/m? She stands @FLOWAMB(11)@ tall with a weight of @FLOWAMB(14)@ , resulting in a BMI of Body mass index is 31.19 kg/m?.. General: The patient is awake, alert, and oriented, and is in no apparent distress. Normal affect. Head and Neck: Normocephalic and atraumatic. Normal ROM Cardiac: Regular rate and rhythm, patient on monitor Respiratory: No res (more content not included)... [facility] 08-24-2024 History and physical note Images from the original note were not included. Endoscopy History and Physical HPI: Swathi Neely is a 33 y.o. female who presents with GERD, here for EGD. As per our office's prior encounters for details, she underwent UGI and PPI was trialed on Omeprazole. Notes very minimal improvement with continued reflux and heartburn at night time. Did not really notice a notable difference with Omeprazole. UGI with small hiatal hernia without spontaneous GERD. She has been experiencing heartburn, bilious reflux, symptoms primarily relate to meals, and lying down after meals, symptoms occur at night for many years but for the past year seems to have been worsening. Previously tried Pantoprazole without improvement of symptoms. She reports symptoms really only at night time and states seems to happen if she eats 30-60 minutes before bed. She reports almost immediately with symptoms. Has only ever tried PPI. States does not take any OTC heartburn medications. She reports sometimes works late and does not eat until right before bed. ROS: patient denies chest pain, cough, wheezing, weight loss, dysphagia, black stools, hematemesis, diarrhea, constipation, fever, history of PUD, history of GI bleeding, irritation, globus, shortness of breath, or coughing with swallowing. Social history: no or minimal alcohol, nonsmoker, no or mild caffeine use, no ASA or NSAID's. Main complaint night time heartburn, and regurgitation No components found for: HELICOBACTER PYLORI Imaging/Endoscopy: EGD: NA UGI/Barium Swallow: 06/29/24 IMPRESSION: Small hiatal hernia without spontaneous gastroesophageal reflux. Satisfactory emptying of marshmallow and bagel from the esophagus into the stomach within two stripping waves. CT abd/pelvis: None US: None Colonoscopy: None PMHx: Medical History[1] PSHx: Surgical History[2] PFMHx: Family History[3] ALL: Allergies[4] MEDS: Current Outpatient Medications Medication Instructions omeprazole (PRILOSEC) 40 mg, Oral, Daily before dinner, Do not crush or chew. Sprintec 28 0.25-35 MG-MCG tablet 1 tablet, Daily venlafaxine XR (EFFEXOR XR) 75 mg, Oral, Daily, Take with food. 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 algebra at [employer], NS or ETOH abuse Social Drivers of Health Financial Resource Strain: Low Risk (01/07/2024) Overall Financial Resource Strain (CARDIA) Difficulty of Paying Living Expenses: Not hard at all Food Insecurity: No Food Insecurity (01/07/2024) Hunger Vital Sign Worried About Running Out of Food in the Last Year: Never true Ran Out of Food in the Last Year: Never true Transportation Needs: No Transportation Needs (01/07/2024) PRAPARE - Transportation Lack of Transportation (Medical): No Lack of Transportation (Non-Medical): No Physical Activity: Insufficiently Active (01/07/2024) Exercise Vital Sign Days of Exercise per Week: 2 days Minutes of Exercise per Session: 20 min Stress: Stress Concern Present (01/07/2024) [place] [employer] - Occupational Stress Questionnaire Feeling of Stress : To some extent Social Connections: Socially Isolated (01/07/2024) Social Connection and Isolation Panel [NHANES] Frequency of Communication with Friends and Family: More than three times a week Frequency of Social Gatherings with Friends and Family: More than three times a week Attends Sabianist Services: Never Active Member of Clubs or Organizations: No Attends Club or Organization Meetings: Never Marital Status: Never Intimate Partner Violence: Not on file Housing Stability: Low Risk (01/07/2024) Housing Stability Vital Sign Unable to Pay for Housing in the Last Year: No Number of Times Moved in the Last Year: 0 Homeless in the Last Year: No Review of Systems: I personally reviewed the patient intake form with the patient. The ROS is negative except for what is listed in HPI. Physical Examination: BP 109/80 Pulse 75 Temp (!) 35.4 C (95.8 F) (Temporal) Resp 18 Ht 5' 7 (1.702 m) Wt 199 lb 1.9 oz (90.3 kg) LMP 07/25/2024 (Approximate) SpO2 95% BMI 31.19 kg/m She stands @FLOWAMB(11)@ tall with a weight of @FLOWAMB(14)@ , resulting in a BMI of Body mass index is 31.19 kg/m .. General: The patient is awake, alert, and oriented, and is in no apparent distress. Normal affect. Head and Neck: Normocephalic and atraumatic. Normal ROM Cardiac: Regular rate and rhythm, patient on monitor Respiratory: No respiratory distress. Equal chest rise. Good inspiratory effort. Abdomen: soft, non-tender, non-distended, no masses or organomegaly Extremities: Ambulatory without assistance. Neurological: Intact sensation in 4 extremities, no focal deficits notes. Skin: No rashes or lesions noted. Warm and dry. Rectal: Not done. Hernia: no hernias found on exam Assessment and Plan Patient Active Problem List Diagnosis Date Noted History of renal calculi 01/08/2024 Anxiety and depression 01/08/2024 Gastroesophageal reflux disease without esophagitis 01/08/2024 Gastroesophageal reflux disease 07/27/2024 Hiatal hernia 07/27/2024 Plan: 33 y.o. female who presents with GERD Will perform EGD today Patient counseled on risks, benefits, and alternatives of treatment plan at length. Patient states an understanding and willingness to proceed with plan. 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 Walsh- shannon 08/2023 HEMANGIOMA EXCISION 1991 SHOULDER ARTHROSCOPY Left [address] Hill [3] Family History Problem Relation Name Age of Onset No Known Problems Mother Gout Father No Known Problems Brother [4] No Known Allergies documented in this encounter [facility] [place] [facility] 08-24-2024 Note Patient: Swathi Salas er Procedure Information Date/Time: 08/24/24729 Procedure: ESOPHAGOGASTRODUODENOSCOPY WITH BIOPSY - Please schedule for 45 mins Location: [place] [id number] / [facility] Gastroenterology Providers: Timothy Xiao MD Relevant Problems Anesthesia (+) History of renal calculi GI (+) Gastroesophageal reflux disease (+) Gastroesophageal reflux disease without esophagitis (+) Hiatal hernia Neuro/Psych (+) Anxiety and depression Past Medical History: Past Medical History: 08/2023: Bilateral renal stones Comment: s/p Left lithotrypsy per Dr Walsh No date: GERD (gastroesophageal reflux disease) No date: Hemangioma Comment: cystic hemangioma of neck - removed at 5wks of age No date: Scoliosis No date: 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 Walsh- shannon 08/2023: HEMANGIOMA EXCISION 2017: SHOULDER ARTHROSCOPY; Left Comment: neg per Dr. Hill Social History: TOBACCO: reports that she has never smoked. She has never used smokeless tobacco. ETOH: reports current alcohol use of about 1.0 standard drink of alcohol per week. Social History Substance and Sexual Activity Drug Use No Family History: Family History[1] Screening: Having periods Clinical information reviewed: Tobacco Allergies Meds Med Hx Surg Hx OB Status Fam Hx Soc Hx Physical Exam Airway Mallampati: II TM distance: >3 FB Neck ROM: full Mouth Open: normalendotracheal tube not in place Cardiovascular Dental dentition normal Pulmonary Abdominal Anesthesia Plan patient is NPO appropriate Any family history or previous problems with anesthesia no ASA 2 TIVA Any family history or previous problems with anesthesia no The patient is not a current smoker. Anesthetic plan and risks discussed with patient. EDUIN Screening Labs: No results found for: WBC, HGB, HCT, MCV, PLT No results found for: SODIUM, NA, POTASSIUM, K, CHLORIDE, CL, CO2, BUN, CREATININE, GLUCOSE, CALCIUM, PROT, BILIRUBINFL, ALKPHOS, AST, ALT, EGFR, GLOB No echocardiogram results found for the past 14 days No results found for this or any previous visit. Equipment Requests: Additional Equipment Requests [1] Family History Problem Relation Name Age of Onset No Known Problems Mother Gout Father No Known Problems Brother [facility] 08-24-2024 Note Endoscopy Center- [facility] Patient Name: Swathi Neely Procedure Date: 08/24/2024 7:02 AM Gender: Female Date of : 1990 Age: 33 Admit Type: Outpatient Note Status: Finalized Endoscopist: Timothy Xiao MD, Procedure: Upper GI endoscopy Indications: Epigastric abdominal pain, Heartburn, Suspected esophageal reflux Findings: The Z-line was irregular. Biopsies were taken with a cold forceps for histology. Verification of patient identification for the specimen was done. Estimated blood loss was minimal. Localized mild inflammation characterized by erythema and friability was found in the gastric antrum. Biopsies were taken with a cold forceps for Helicobacter pylori testing. Verification of patient identification for the specimen was done. Estimated blood loss was minimal. Biopsies were taken with a cold forceps for Helicobacter pylori testing. Verification of patient identification for the specimen was done. Estimated blood loss was minimal. Localized mild inflammation was found in the duodenal bulb. Biopsies were taken with a cold forceps for histology. Verification of patient identification for the specimen was done. Estimated blood loss was minimal. The second portion of the duodenum was normal. Bilious fluid was found in the entire examined stomach. Impression: - Z-line irregular. Biopsied. - Duodenitis. Biopsied. - Normal second portion of the duodenum. - Bilious gastric fluid. Recommendation: - Patient has a contact number available for emergencies. The signs and symptoms of potential delayed complications were discussed with the patient. Return to normal activities tomorrow. Written discharge instructions were provided to the patient. - Resume previous diet indefinitely. - Continue present medications. - Use a proton pump inhibitor PO BID. Referring MD: Jc Wallace, Medicines: Propofol per Anesthesia Procedure: Pre-Anesthesia Assessment: - Prior to the procedure, a History and Physical was performed, and patient medications and allergies were reviewed. The patient's tolerance of previous anesthesia was also reviewed. The risks and benefits of the procedure and the sedation options and risks were discussed with the patient. All questions were answered, and informed consent was obtained. Prior Anticoagulants: The patient has taken no anticoagulant or antiplatelet agents. ASA Grade Assessment: II - A patient with mild systemic disease. After reviewing the risks and benefits, the patient was deemed in satisfactory condition to undergo the procedure. - The anesthesia plan was to use monitored anesthesia care (MAC). After obtaining informed consent, the endoscope was passed under direct vision. Throughout the procedure, the patient's blood pressure, pulse, and oxygen saturations were monitored continuously. The Endoscope was introduced through the mouth, and advanced to the second part of duodenum. The upper GI endoscopy was accomplished without difficulty. The patient tolerated the procedure well. Complications: No immediate complications. Procedure Code(s): --- Professional --- 54276, Esophagogastroduodenoscopy, flexible, transoral; with biopsy, single or multiple --- Technical --- 55199, Esophagogastroduodenoscopy, flexible, transoral; with biopsy, single or multiple Diagnosis Code(s): --- Professional --- K22.89, Other specified disease of esophagus K29.80, Duodenitis without bleeding R10.13, Epigastric pain R12, Heartburn --- Technical --- K22.89, Other specified disease of esophagus K29.80, Duodenitis without bleeding R10.13, Epigastric pain R12, Heartburn CPT copyright 2021 [employer]. All rights reserved. The codes documented in this report are preliminary and upon software tester review may be revised to meet current compliance requirements. Timothy Xiao MD 08/24/2024 7:52:25 AM Number of Addenda: 0 Note Initiated On: 08/24/2024 7:02 AM [facility] 08-24-2024 Procedure note Endoscopy [facility] Procedure Date: 08/24/2024 7:02 AM Gender: Female Date of : 1990 Age: 33 Admit Type: Outpatient Note Status: Finalized Endoscopist: Timothy Xiao MD, Procedure: Upper GI endoscopy Indications: Epigastric abdominal pain, Heartburn, Suspected esophageal reflux Findings: The Z-line was irregular. Biopsies were taken with a cold forceps for histology. Verification of patient identification for the specimen was done. Estimated blood loss was minimal. Localized mild inflammation characterized by erythema and friability was found in the gastric antrum. Biopsies were taken with a cold forceps for Helicobacter pylori testing. Verification of patient identification for the specimen was done. Estimated blood loss was minimal. Biopsies were taken with a cold forceps for Helicobacter pylori testing. Verification of patient identification for the specimen was done. Estimated blood loss was minimal. Localized mild inflammation was found in the duodenal bulb. Biopsies were taken with a cold forceps for histology. Verification of patient identification for the specimen was done. Estimated blood loss was minimal. The second portion of the duodenum was normal. Bilious fluid was found in the entire examined stomach. Impression: - Z-line irregular. Biopsied. - Duodenitis. Biopsied. - Normal second portion of the duodenum. - Bilious gastric fluid. Recommendation: - Patient has a contact number available for emergencies. The signs and symptoms of potential delayed complications were discussed with the patient. Return to normal activities tomorrow. Written discharge instructions were provided to the patient. - Resume previous diet indefinitely. - Continue present medications. - Use a proton pump inhibitor PO BID. Referring MD: Jc Petrilla, Jc F. Petrilla, DO Medicines: Propofol per Anesthesia Procedure: Pre-Anesthesia Assessment: - Prior to the procedure, a History and Physical was performed, and patient medications and allergies were reviewed. The patient's tolerance of previous anesthesia was also reviewed. The risks and benefits of the procedure and the sedation options and risks were discussed with the patient. All questions were answered, and informed consent was obtained. Prior Anticoagulants: The patient has taken no anticoagulant or antiplatelet agents. ASA Grade Assessment: II - A patient with mild systemic disease. After reviewing the risks and benefits, the patient was deemed in satisfactory condition to undergo the procedure. - The anesthesia plan was to use monitored anesthesia care (MAC). After obtaining informed consent, the endoscope was passed under direct vision. Throughout the procedure, the patient's blood pressure, pulse, and oxygen saturations were monitored continuously. The Endoscope was introduced through the mouth, and advanced to the second part of duodenum. The upper GI endoscopy was accomplished without difficulty. The patient tolerated the procedure well. Complications: No immediate complications. Procedure Code(s): --- Professional --- 72570, Esophagogastroduodenoscopy, flexible, transoral; with biopsy, single or multiple --- Technical --- 11491, Esophagogastroduodenoscopy, flexible, transoral; with biopsy, single or multiple Diagnosis Code(s): --- Professional --- K22.89, Other specified disease of esophagus K29.80, Duodenitis without bleeding R10.13, Epigastric pain R12, Heartburn --- Technical --- K22.89, Other specified disease of esophagus K29.80, Duodenitis without bleeding R10.13, Epigastric pain R12, Heartburn CPT copyright 2021 [employer]. All rights reserved. The codes documented in this report are preliminary and upon software tester review may be revised to meet current compliance requirements. Timothy Xiao MD 08/24/2024 7:52:25 AM Number of Addenda: 0 Note Initiated On: 08/24/2024 7:02 AM [facility] 08-19-2024 Note HNO ID: [id number] Author: MARIELY ASNCHES APRN.CANNERY WORKER Service: ? Author Type: Nurse Practitioner Type: Progress Notes Filed: 08/19/2024 11:47 Note Text: [facility] Subjective HPI HPI Swathi Neely is a 33 year old female who presents today for CC of painful rash/blistering of left arm. This started 5 days ago, treated with cephalexin at that time, still on that medication. Symptoms are worsened by nothing known. No known insect bite or sting. Full rom of elbow, no deep pain, only pain at rash. .Patient presents with: Derm Problem: Left arm anti cubital area, x 5 days, redness warmth whole ext, blistering, tender, increasing in blisters PAST MEDICAL HISTORY Diagnosis Date History of depression Irregular periods Kidney stones PAST SURGICAL HISTORY Procedure Laterality Date PAST SURGICAL HISTORY OF right neck/shoulder cystic hygroma SHOULDER SURGERY HX Left 2018 ALLERGIES Patient has no known allergies. MEDICATIONS topiramate (TOPAMAX) 50 mg tablet Take 1 tablet by mouth daily at bedtime. venlafaxine ER (EFFEXOR XR) 37.5 mg 24 hr capsule 75 mg. norgestimate 0.25 mg-ethinyl estradiol 35 mcg 0.25-35 mg-mcg per tablet Take 1 tablet by mouth once daily. sulfamethoxazole-trimethoprim (BACTRIM DS) 800-160 mg per tablet Take 1 tablet by mouth two times a day for 7 days. predniSONE (DELTASONE) 10 mg tablet Take 4 tabs daily x 3 days, then 3 tabs x 3 days, 2 tabs x 3 days, then 1 tab x3 days with food. Phentermine HCl 37.5 mg tablet Take 1 tablet by mouth daily before breakfast for [address] (PROTONIX) 40 mg tablet take 1 tablet (40 mg) by mouth daily. do not crush, chew, or split. (Patient not taking: Reported on 07/27/2024) No family history on file. Social History Tobacco Use Smoking status: Never Smokeless tobacco: Never Vaping Use Vaping status: Never Used Substance Use Topics Alcohol use: Yes Drug use: Never Review of Systems Constitutional: Negative for fever. Objective BP 127/88 Pulse 115 Temp 36.7 ?C (98 ?F) Resp 20 Wt 85 kg (187 lb 6.3 oz) LMP 07/27/2024 (Approximate) SpO2 97% BMI 34.00 kg/m? HR rechecked manual by provider 98 Physical Exam Constitutional: General: She is not in acute distress. Appearance: She is not toxic-appearing or diaphoretic. HENT: Head: Normocephalic and atraumatic. Cardiovascular: Rate and Rhythm: Normal rate and regular rhythm. Pulmonary: Effort: Pulmonary effort is normal. No accessory muscle usage or respiratory distress. Skin: Neurological: Mental Status: She is alert and oriented to person, place, and time. {ASSESSMENT/PLAN: 1. 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 Disposition The patient was discharged. Procedures [facility] 08-19-2024 History of Present illness Narrative Images from the original note were not included. [facility] Subjective HPI HPI Swathi Neely is a 33 year old female who presents today for CC of painful rash/blistering of left arm. This started 5 days ago, treated with cephalexin at that time, still on that medication. Symptoms are worsened by nothing known. No known insect bite or sting. Full rom of elbow, no deep pain, only pain at rash. .Patient presents with: Derm Problem: Left arm anti cubital area, x 5 days, redness warmth whole ext, blistering, tender, increasing in blisters PAST MEDICAL HISTORY Diagnosis Date History of depression Irregular periods Kidney stones PAST SURGICAL HISTORY Procedure Laterality Date PAST SURGICAL HISTORY OF right neck/shoulder cystic hygroma SHOULDER SURGERY HX Left 2018 ALLERGIES Patient has no known allergies. MEDICATIONS topiramate (TOPAMAX) 50 mg tablet Take 1 tablet by mouth daily at bedtime. venlafaxine ER (EFFEXOR XR) 37.5 mg 24 hr capsule 75 mg. norgestimate 0.25 mg-ethinyl estradiol 35 mcg 0.25-35 mg-mcg per tablet Take 1 tablet by mouth once daily. sulfamethoxazole-trimethoprim (BACTRIM DS) 800-160 mg per tablet Take 1 tablet by mouth two times a day for 7 days. predniSONE (DELTASONE) 10 mg tablet Take 4 tabs daily x 3 days, then 3 tabs x 3 days, 2 tabs x 3 days, then 1 tab x3 days with food. Phentermine HCl 37.5 mg tablet Take 1 tablet by mouth daily before breakfast for [address] (PROTONIX) 40 mg tablet take 1 tablet (40 mg) by mouth daily. do not crush, chew, or split. (Patient not taking: Reported on 07/27/2024) No family history on file. Social History Tobacco Use Smoking status: Never Smokeless tobacco: Never Vaping Use Vaping status: Never Used Substance Use Topics Alcohol use: Yes Drug use: Never Review of Systems Constitutional: Negative for fever. Objective BP 127/88 Pulse 115 Temp 36.7 C (98 F) Resp 20 Wt 85 kg (187 lb 6.3 oz) LMP 07/27/2024 (Approximate) SpO2 97% BMI 34.00 kg/m HR rechecked manual by provider 98 Physical Exam Constitutional: General: She is not in acute distress. Appearance: She is not toxic-appearing or diaphoretic. HENT: Head: Normocephalic and atraumatic. Cardiovascular: Rate and Rhythm: Normal rate and regular rhythm. Pulmonary: Effort: Pulmonary effort is normal. No accessory muscle usage or respiratory distress. Skin: Neurological: Mental Status: She is alert and oriented to person, place, and time. {ASSESSMENT/PLAN: 1. Skin rash - ICD9: 782.1, ICD10: R21 Unclear etiology, contact dermatitis vs infection vs insect sting Stop cephalexin Start bactrim and prednisone F/u with dermatology if s/s persist Urgent f/u for worsening s/s - SULFAMETHOXAZOLE 800 MG-TRIMETHOPRIM 160 MG TABLET - PREDNISONE 10 MG TABLET Mariely Sanches APRN.LAUREL History and Record Review External record(s) reviewed: prior outpatient record. Disposition The patient was discharged. Procedures documented in this encounter [facility] 08-17-2024 Telephone encounter Note Patient given results and verbalized understanding of instructions given. Debbie Parker MA [facility] 08-17-2024 Miscellaneous Notes Patient given results and verbalized understanding of instructions given. Debbie Parker MA Please contact patient and let her know herpes swab/shingle swab was negative. Continue antibiotic as prescribed at visit yesterday. documented in this encounter [facility] 08-17-2024 Telephone encounter Note Please contact patient and let her know herpes swab/shingle swab was negative. Continue antibiotic as prescribed at visit yesterday. [facility] 08-16-2024 Note HNO ID: [id number] Author: MARTHA MEYER PA Service: ? Author Type: Physician Verifying Specialist Type: Progress Notes Filed: 08/16/2024 09:57 Note Text: [facility] Subjective Swathi Neely is a 33 year old female. Patient presents with: Rash: Blistered rash on left inner elbow x 1 day HPI Rash: - Rash began as a giant red spot on the arm yesterday, now blistered and enlarged today. - Rash is hot to the touch and very painful, but not pruritic. - Applied ice with some relief; ibuprofen provided minimal relief. - Suspects allergic reaction to lotion from mother's lawn chair. - Denies visible bite mckoy. - History of allergies to scents and lotions; uses hypoallergenic lotions. - Denies or . PAST MEDICAL HISTORY Diagnosis Date History of depression Irregular periods Kidney stones PAST SURGICAL HISTORY Procedure Laterality Date PAST SURGICAL HISTORY OF right neck/shoulder cystic hygroma SHOULDER SURGERY HX Left 2018 ALLERGIES Patient has no known allergies. MEDICATIONS topiramate (TOPAMAX) 50 mg tablet Take 1 tablet by mouth daily at bedtime. Phentermine HCl 37.5 mg tablet Take 1 tablet by mouth daily before breakfast for 90 days. venlafaxine ER (EFFEXOR XR) 37.5 mg 24 hr capsule 75 mg. norgestimate 0.25 mg-ethinyl estradiol 35 mcg 0.25-35 mg-mcg per tablet Take 1 tablet by mouth once daily. cephALEXin (KEFLEX) 500 mg capsule Take 1 capsule by mouth four times daily for [address] (PROTONIX) 40 mg tablet take 1 tablet (40 mg) by mouth daily. do not crush, chew, or split. (Patient not taking: Reported on 07/27/2024) No family history on file. Social History Tobacco Use Smoking status: Never Smokeless tobacco: Never Vaping Use Vaping status: Never Used Substance Use Topics Alcohol use: Yes Drug use: Never Review of Systems Skin: (+) arm erythema, (+) arm blisters, (+) localized warmth, (+) arm tenderness, (-) pruritus Objective BP 110/88 Pulse 115 Temp 37 ?C (98.6 ?F) Resp 21 Wt 86.8 kg (191 lb 5 oz) LMP 07/27/2024 (Approximate) SpO2 99% BMI 34.71 kg/m? Physical Exam Vitals and nursing note reviewed. Constitutional: General: She is not in acute distress. Appearance: Normal appearance. She is not toxic-appearing. Skin: General: Skin is warm and dry. Findings: Erythema and rash present. Rash is vesicular. Comments: Erythematous circular area to L inner elbow. + warmth noted. No lymphatic streaking. Blistering noted. Neurological: Mental Status: She is alert. {1. Dermatitis (L30.9) 2. Skin infection (L08.9) - Erythematous, blistering rash on the arm, warm and tender to touch, no pruritus. Onset following contact with potential allergen (mother's lotion) on a lawn chair. - Differential diagnosis includes allergic contact dermatitis and skin infection. - Obtained swab for varicella-zoster virus (shingles) testing; results pending. - Initiated antibiotic therapy to cover potential bacterial infection. - Advised to keep the affected area clean and dry, and to continue applying ice for symptomatic relief. - Instructed to monitor for signs of systemic infection, such as red streaks or high fever, and to seek emergency care if these occur. - Patient may continue working; advised to cover the area to prevent blister rupture if desired. - Will notify patient of shingles test results within 1-2 days; will prescribe antiviral treatment if positive. Normal kidney function on labs 10/2023. Recording using [employer] software for draft documentation of the visit was discussed with the patient/authorized sales and merchandising representative; all questions welcomed and answered. Patient/authorized sales and merchandising representative agreed to proceed History and Record Review External record(s) reviewed: prior outpatient record and prior labs/imaging. Findings from review of prior labs/imaging: Previous Renal Function Panel Reviewed 11/20/2023: BUN 16; Creatinine 0.87; Estimated Glomerular Filtration Rate 91 07/27/2024: BUN 11; Creatinine 0.80; Estimated Glomerular Filtration Rate 101 Differential Diagnoses - dermatitis/skin infection is more likely for the following reason(s): suggested by HANDP - shingles is less likely for the following reason(s): awaiting swab Disposition The patient was discharged. Procedures [facility] 08-16-2024 History of Present illness Narrative Images from the original note were not included. [facility] Subjective Swathi Neely is a 33 year old female. Patient presents with: Rash: Blistered rash on left inner elbow x 1 day HPI Rash: - Rash began as a giant red spot on the arm yesterday, now blistered and enlarged today. - Rash is hot to the touch and very painful, but not pruritic. - Applied ice with some relief; ibuprofen provided minimal relief. - Suspects allergic reaction to lotion from mother's lawn chair. - Denies visible bite mckoy. - History of allergies to scents and lotions; uses hypoallergenic lotions. - Denies or . PAST MEDICAL HISTORY Diagnosis Date History of depression Irregular periods Kidney stones PAST SURGICAL HISTORY Procedure Laterality Date PAST SURGICAL HISTORY OF right neck/shoulder cystic hygroma SHOULDER SURGERY HX Left 2018 ALLERGIES Patient has no known allergies. MEDICATIONS topiramate (TOPAMAX) 50 mg tablet Take 1 tablet by mouth daily at bedtime. Phentermine HCl 37.5 mg tablet Take 1 tablet by mouth daily before breakfast for 90 days. venlafaxine ER (EFFEXOR XR) 37.5 mg 24 hr capsule 75 mg. norgestimate 0.25 mg-ethinyl estradiol 35 mcg 0.25-35 mg-mcg per tablet Take 1 tablet by mouth once daily. cephALEXin (KEFLEX) 500 mg capsule Take 1 capsule by mouth four times daily for [address] (PROTONIX) 40 mg tablet take 1 tablet (40 mg) by mouth daily. do not crush, chew, or split. (Patient not taking: Reported on 07/27/2024) No family history on file. Social History Tobacco Use Smoking status: Never Smokeless tobacco: Never Vaping Use Vaping status: Never Used Substance Use Topics Alcohol use: Yes Drug use: Never Review of Systems Skin: (+) arm erythema, (+) arm blisters, (+) localized warmth, (+) arm tenderness, (-) pruritus Objective BP 110/88 Pulse 115 Temp 37 C (98.6 F) Resp 21 Wt 86.8 kg (191 lb 5 oz) LMP 07/27/2024 (Approximate) SpO2 99% BMI 34.71 kg/m Physical Exam Vitals and nursing note reviewed. Constitutional: General: She is not in acute distress. Appearance: Normal appearance. She is not toxic-appearing. Skin: General: Skin is warm and dry. Findings: Erythema and rash present. Rash is vesicular. Comments: Erythematous circular area to L inner elbow. + warmth noted. No lymphatic streaking. Blistering noted. Neurological: Mental Status: She is alert. {1. Dermatitis (L30.9) 2. Skin infection (L08.9) - Erythematous, blistering rash on the arm, warm and tender to touch, no pruritus. Onset following contact with potential allergen (mother's lotion) on a lawn chair. - Differential diagnosis includes allergic contact dermatitis and skin infection. - Obtained swab for varicella-zoster virus (shingles) testing; results pending. - Initiated antibiotic therapy to cover potential bacterial infection. - Advised to keep the affected area clean and dry, and to continue applying ice for symptomatic relief. - Instructed to monitor for signs of systemic infection, such as red streaks or high fever, and to seek emergency care if these occur. - Patient may continue working; advised to cover the area to prevent blister rupture if desired. - Will notify patient of shingles test results within 1-2 days; will prescribe antiviral treatment if positive. Normal kidney function on labs 10/2023. Recording using [employer] software for draft documentation of the visit was discussed with the patient/authorized sales and merchandising representative; all questions welcomed and answered. Patient/authorized sales and merchandising representative agreed to proceed History and Record Review External record(s) reviewed: prior outpatient record and prior labs/imaging. Findings from review of prior labs/imaging: Previous Renal Function Panel Reviewed 11/20/2023: BUN 16; Creatinine 0.87; Estimated Glomerular Filtration Rate 91 07/27/2024: BUN 11; Creatinine 0.80; Estimated Glomerular Filtration Rate 101 Differential Diagnoses - dermatitis/skin infection is more likely for the following reason(s): suggested by H&P - shingles is less likely for the following reason(s): awaiting swab Disposition The patient was discharged. Procedures documented in this encounter [facility] 08-16-2024 Telephone encounter Note S: Patient spoke with CAC nurse regarding tender reddened spot on lt arm B: Onset of symptoms/concern yesterday A: patient states she woke with the concern, assumed it was a local allergic reaction. There is a reddened area about the size of her palm on the inside of elbow, swelling, warm to touch and difficulty bending lt arm. Today, the area is tender to the touch with multiple small blisters. She denies any itching, new foods, detergents, known environmental or drainage from the site. Patient has applied ice with relief. Patient unable to make it to POD appt in [place] R: Patient states she will go to local [facility]. No further needs at this time. Patient instructed to call back with new or worsening symptoms or for a follow up appt. Reason for Disposition Multiple small blisters grouped together in one area of body (i.e., dermatomal distribution or 'band' or 'stripe') and painful Protocols used: [id number] 08-16-2024 Miscellaneous Notes S: Patient spoke with [facility] nurse regarding tender reddened spot on lt arm B: Onset of symptoms/concern yesterday A: patient states she woke with the concern, assumed it was a local allergic reaction. There is a reddened area about the size of her palm on the inside of elbow, swelling, warm to touch and difficulty bending lt arm. Today, the area is tender to the touch with multiple small blisters. She denies any itching, new foods, detergents, known environmental or drainage from the site. Patient has applied ice with relief. Patient unable to make it to POD appt in [place] R: Patient states she will go to local [facility]. No further needs at this time. Patient instructed to call back with new or worsening symptoms or for a follow up appt. Reason for Disposition Multiple small blisters grouped together in one area of body (i.e., dermatomal distribution or 'band' or 'stripe') and painful Protocols used: [id number] documented in this encounter [facility] 08-10-2024 Telephone encounter Note Our office spoke with the patient to remind them of their EGD appointment . The patient is scheduled with Dr. Xiao on 08/24/2024 with arrival time of 6:30 at [facility]. Verified that the patient has the prep information and all questions were answered. [facility] 08-10-2024 Miscellaneous Notes Our office spoke with the patient to remind them of their EGD appointment . The patient is scheduled with Dr. Xiao on 08/24/2024 with arrival time of 6:30 at [facility]. Verified that the patient has the prep information and all questions were answered. documented in this encounter [facility] 07-27-2024 History of Present illness Narrative We want to inform you that your patient's blood pressure was noted to be elevated in our office today. We thank you for trusting us with your patient's health. Last BP: BP Readings from Last 2 Encounters: 07/27/24 (!) 145/100 05/25/24 (!) 136/90 Images from the original note were not included. [facility] History and Physical Patient ID: Swathi Neely [id number] 33 y.o. 1990 Swathi Neely is a 33 y.o. female who is following up on GERD symptoms. Below is HPI from last visit. Since last visit underwent UGI and PPI was trialed on Omeprazole. Since last office visit notes very minimal improvement with continued reflux and heartburn at night time. Did not really notice a notable difference with Omeprazole. UGI with small hiatal hernia without spontaneous GERD. HPI 05/25/24: Swathi Neely is a 33 y.o. female who complains of GERD type symptoms. She has been experiencing heartburn, bilious reflux, symptoms primarily relate to meals, and lying down after meals, symptoms occur at night for many years but for the past year seems to have been worsening. Previously tried Pantoprazole without improvement of symptoms. She reports symptoms really only at night time and states seems to happen if she eats 30-60 minutes before bed. She reports almost immediately with symptoms. Has only ever tried PPI. States does not take any OTC heartburn medications. She reports sometimes works late and does not eat until right before bed. ROS: patient denies chest pain, cough, wheezing, weight loss, dysphagia, black stools, hematemesis, diarrhea, constipation, fever, history of PUD, history of GI bleeding, irritation, globus, shortness of breath, or coughing with swallowing. Social history: no or minimal alcohol, nonsmoker, no or mild caffeine use, no ASA or NSAID's. Main complaint night time heartburn, and regurgitation No components found for: HELICOBACTER PYLORI Imaging/Endoscopy: EGD: NA UGI/Barium Swallow: 06/29/24 IMPRESSION: Small hiatal hernia without spontaneous gastroesophageal reflux. Satisfactory emptying of marshmallow and bagel from the esophagus into the stomach within two stripping waves. CT abd/pelvis: None US: None Colonoscopy: None Medical History[1] Surgical History[2] Current Medications[3] Allergies[4] Review of Systems: Review of Systems Constitutional: Negative for appetite change, chills, fatigue, fever and unexpected weight change. Respiratory: Negative for cough, shortness of breath and wheezing. Cardiovascular: Negative for chest pain and palpitations. Gastrointestinal: Negative for abdominal pain, constipation, diarrhea, nausea, rectal pain and vomiting. Skin: Negative for rash and wound. Neurological: Negative for seizures and syncope. Hematological: Negative for adenopathy. Does not bruise/bleed easily. Physical Exam: BP (!) 132/92 Pulse 74 Temp 36.3 C (97.4 F) Ht 5' 7 (1.702 m) Wt 199 lb 12.8 oz (90.6 kg) BMI 31.29 kg/m Physical Exam No orders of the defined types were placed in this encounter. LABS: CBC: No results found for: WBC, HGB, HCT, MCV, PLT CMP: No results found for: NA, K, CL, CO2, BUN, CREATININE, AGRATIO, LABGLOM, GLUCOSE, PROT, CALCIUM, BILITOT, ALKPHOS, AST, ALT Lipase: No results found for: LIPASE Coags: No results found for: PTSEC, INR, APTT Follow Up: No follow-ups on file. ASSESSMENT/PLAN: GERD: - The pathophysiology of reflux is discussed. - Anti-reflux measures such as raising the head of the bed, avoiding tight clothing or belts, avoiding eating late at night and not lying down shortly after mealtime and achieving weight loss are discussed. -Avoid ASA, NSAID's, caffeine, peppermints, alcohol and tobacco. - OTC H2 blockers and/or antacids are often very helpful for PRN use. - PPI daily 30-60 minutes before meal.Continue Given persistent GERD symptoms recommend EGD for further evaluation of HH, r/o ulcer intestinal metaplasia, H.Pylori. Patient counseled on risks, benefits, and alternatives of treatment plan at length while in the office today. Patient states an understandingand willingness to proceed with plan. 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 Walsh- removal 08/2023 HEMANGIOMA EXCISION 1991 SHOULDER ARTHROSCOPY Left [address] Hill [3] Current Outpatient Medications Medication Sig Dispense Refill omeprazole (PriLOSEC) [address] capsule Take 1 capsule (40 mg) by mouth daily (before dinner). Do not crush or chew. 90 capsule 0 Sprintec 28 0.25-35 MG-MCG tablet Take 1 tablet by mouth daily. venlafaxine XR (Effexor XR) 75 MG 24 hr capsule Take 1 capsule (75 mg) by mouth daily. Take with food. 30 capsule 5 No current facility-administered medications for this visit. [4] No Known Allergies Placed call to patient. Unable to reach them by phone to discuss lab results. Left detailed message to return call to discuss results. Please release information to patient documented in this encounter [facility] 07-27-2024 History of Present illness Narrative We want to inform you that your patient's blood pressure was noted to be elevated in our office today. We thank you for trusting us with your patient's health. Last BP: BP Readings from Last 2 Encounters: 07/27/24 (!) 145/100 05/25/24 (!) 136/90 Images from the original note were not included. [facility] History and Physical Patient ID: Swathi Neely [id number] 33 y.o. 1990 Swathi Neely is a 33 y.o. female who is following up on GERD symptoms. Below is HPI from last visit. Since last visit underwent UGI and PPI was trialed on Omeprazole. Since last office visit notes very minimal improvement with continued reflux and heartburn at night time. Did not really notice a notable difference with Omeprazole. UGI with small hiatal hernia without spontaneous GERD. HPI 05/25/24: Swathi Neely is a 33 y.o. female who complains of GERD type symptoms. She has been experiencing heartburn, bilious reflux, symptoms primarily relate to meals, and lying down after meals, symptoms occur at night for many years but for the past year seems to have been worsening. Previously tried Pantoprazole without improvement of symptoms. She reports symptoms really only at night time and states seems to happen if she eats 30-60 minutes before bed. She reports almost immediately with symptoms. Has only ever tried PPI. States does not take any OTC heartburn medications. She reports sometimes works late and does not eat until right before bed. ROS: patient denies chest pain, cough, wheezing, weight loss, dysphagia, black stools, hematemesis, diarrhea, constipation, fever, history of PUD, history of GI bleeding, irritation, globus, shortness of breath, or coughing with swallowing. Social history: no or minimal alcohol, nonsmoker, no or mild caffeine use, no ASA or NSAID's. Main complaint night time heartburn, and regurgitation No components found for: HELICOBACTER PYLORI Imaging/Endoscopy: EGD: NA UGI/Barium Swallow: 06/29/24 IMPRESSION: Small hiatal hernia without spontaneous gastroesophageal reflux. Satisfactory emptying of marshmallow and bagel from the esophagus into the stomach within two stripping waves. CT abd/pelvis: None US: None Colonoscopy: None Medical History[1] Surgical History[2] Current Medications[3] Allergies[4] Review of Systems: Review of Systems Constitutional: Negative for appetite change, chills, fatigue, fever and unexpected weight change. Respiratory: Negative for cough, shortness of breath and wheezing. Cardiovascular: Negative for chest pain and palpitations. Gastrointestinal: Negative for abdominal pain, constipation, diarrhea, nausea, rectal pain and vomiting. Skin: Negative for rash and wound. Neurological: Negative for seizures and syncope. Hematological: Negative for adenopathy. Does not bruise/bleed easily. Physical Exam: BP (!) 132/92 Pulse 74 Temp 36.3 C (97.4 F) Ht 5' 7 (1.702 m) Wt 199 lb 12.8 oz (90.6 kg) BMI 31.29 kg/m Physical Exam No orders of the defined types were placed in this encounter. LABS: CBC: No results found for: WBC, HGB, HCT, MCV, PLT CMP: No results found for: NA, K, CL, CO2, BUN, CREATININE, AGRATIO, LABGLOM, GLUCOSE, PROT, CALCIUM, BILITOT, ALKPHOS, AST, ALT Lipase: No results found for: LIPASE Coags: No results found for: PTSEC, INR, APTT Follow Up: No follow-ups on file. ASSESSMENT/PLAN: GERD: - The pathophysiology of reflux is discussed. - Anti-reflux measures such as raising the head of the bed, avoiding tight clothing or belts, avoiding eating late at night and not lying down shortly after mealtime and achieving weight loss are discussed. -Avoid ASA, NSAID's, caffeine, peppermints, alcohol and tobacco. - OTC H2 blockers and/or antacids are often very helpful for PRN use. - PPI daily 30-60 minutes before meal.Continue Given persistent GERD symptoms recommend EGD for further evaluation of HH, r/o ulcer intestinal metaplasia, H.Pylori. Patient counseled on risks, benefits, and alternatives of treatment plan at length while in the office today. Patient states an understandingand willingness to proceed with plan. 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 Walsh- removal 08/2023 HEMANGIOMA EXCISION 1991 SHOULDER ARTHROSCOPY Left [address] Hill [3] Current Outpatient Medications Medication Sig Dispense Refill omeprazole (PriLOSEC) [address] capsule Take 1 capsule (40 mg) by mouth daily (before dinner). Do not crush or chew. 90 capsule 0 Sprintec 28 0.25-35 MG-MCG tablet Take 1 tablet by mouth daily. venlafaxine XR (Effexor XR) 75 MG 24 hr capsule Take 1 capsule (75 mg) by mouth daily. Take with food. 30 capsule 5 No current facility-administered medications for this visit. [4] No Known Allergies documented in this encounter [facility] 07-27-2024 Note [facility] History and Physical Patient ID: Swathi Neely [id number] 33 y.o. 1990 Swathi Neely is a 33 y.o. female who is following up on GERD symptoms. Below is HPI from last visit. Since last visit underwent UGI and PPI was trialed on Omeprazole. Since last office visit notes very minimal improvement with continued reflux and heartburn at night time. Did not really notice a notable difference with Omeprazole. UGI with small hiatal hernia without spontaneous GERD. HPI 05/25/24: Swathi Neely is a 33 y.o. female who complains of GERD type symptoms. She has been experiencing heartburn, bilious reflux, symptoms primarily relate to meals, and lying down after meals, symptoms occur at night for many years but for the past year seems to have been worsening. Previously tried Pantoprazole without improvement of symptoms. She reports symptoms really only at night time and states seems to happen if she eats 30-60 minutes before bed. She reports almost immediately with symptoms. Has only ever tried PPI. States does not take any OTC heartburn medications. She reports sometimes works late and does not eat until right before bed. ROS: patient denies chest pain, cough, wheezing, weight loss, dysphagia, black stools, hematemesis, diarrhea, constipation, fever, history of PUD, history of GI bleeding, irritation, globus, shortness of breath, or coughing with swallowing. Social history: no or minimal alcohol, nonsmoker, no or mild caffeine use, no ASA or NSAID's. Main complaint night time heartburn, and regurgitation No components found for: HELICOBACTER PYLORI Imaging/Endoscopy: EGD: NA UGI/Barium Swallow: 06/29/24 IMPRESSION: Small hiatal hernia without spontaneous gastroesophageal reflux. Satisfactory emptying of marshmallow and bagel from the esophagus into the stomach within two stripping waves. CT abd/pelvis: None US: None Colonoscopy: None Medical History[1] Surgical History[2] Current Medications[3] Allergies[4] Review of Systems: Review of Systems Constitutional: Negative for appetite change, chills, fatigue, fever and unexpected weight change. Respiratory: Negative for cough, shortness of breath and wheezing. Cardiovascular: Negative for chest pain and palpitations. Gastrointestinal: Negative for abdominal pain, constipation, diarrhea, nausea, rectal pain and vomiting. Skin: Negative for rash and wound. Neurological: Negative for seizures and syncope. Hematological: Negative for adenopathy. Does not bruise/bleed easily. Physical Exam: BP (!) 132/92 Pulse 74 Temp 36.3 ?C (97.4 ?F) Ht 5' 7 (1.702 m) Wt 199 lb 12.8 oz (90.6 kg) BMI 31.29 kg/m? Physical Exam No orders of the defined types were placed in this encounter. LABS: CBC: No results found for: WBC, HGB, HCT, MCV, PLT CMP: No results found for: NA, K, CL, CO2, BUN, CREATININE, AGRATIO, LABGLOM, GLUCOSE, PROT, CALCIUM, BILITOT, ALKPHOS, AST, ALT Lipase: No results found for: LIPASE Coags: No results found for: PTSEC, INR, APTT Follow Up: No follow-ups on file. ASSESSMENT/PLAN: GERD: - The pathophysiology of reflux is discussed. - Anti-reflux measures such as raising the head of the bed, avoiding tight clothing or belts, avoiding eating late at night and not lying down shortly after mealtime and achieving weight loss are discussed. -Avoid ASA, NSAID's, caffeine, peppermints, alcohol and tobacco. - OTC H2 blockers and/or antacids are often very helpful for PRN use. - PPI daily 30-60 minutes before meal.Continue Given persistent GERD symptoms recommend EGD for further evaluation of HH, r/o ulcer intestinal metaplasia, H.Pylori. Patient counseled on risks, benefits, and alternatives of treatment plan at length while in the office today. Patient states an understandingand willingness to proceed with plan. 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 Walsh- removal 08/2023 HEMANGIOMA EXCISION 1991 SHOULDER ARTHROSCOPY Left [address] Hill [3] Current Outpatient Medications Medication Sig Dispense Refill omeprazole (PriLOSEC) [address] capsule Take 1 capsule (40 mg) by mouth daily (before dinner). Do not crush or chew. 90 capsule 0 Sprintec 28 0.25-35 MG-MCG tablet Take 1 tablet by mouth daily. venlafaxine XR (Effexor XR) 75 MG 24 hr capsule Take 1 capsule (75 mg) by mouth daily. Take with food. 30 capsule 5 No current facility-administered medications for this visit. [4] No Known Allergies [facility] 07-27-2024 Instructions Velma Bennett MD - 07/27/2024 10:13 AM EDT Images from the original note were not included. Weight Management: You have taken the initiative to become a healthier version of yourself and to decrease the risks that come with the diagnosis of obesity or being overweight. We are happy to help you along this journey but know this is a lifetime commitment to yourself. Losing just 3-10 % of your body weight can decrease your risks of many other serious diseases like diabetes, heart disease, osteoarthritis, hypertension, cancer and so many others. During this time you will have triumphs, setbacks and plateaus- your body will fight against you but we are here to give you the tools and the resources to continue to reach your goals. We recommend during this time that you track your weight daily or at least five times per week as well as tracking your nutrition. You may track your activity but do not use hitting your fitness goals as a reward system as this can derail your success. We recommend weekly physical activity of 150-200 min/week-although physical exercise, this will be especially important for weight maintenance. Exercise can have many other benefits including improving insulin resistance, improving balance, bone health, improving mental health and cardiovascular health. Do not feel overwhelmed - we will discuss this more at your visits. Our time will be limited with each visit but we will try to touch on factors that are important to you and to your overall goals. We will try to set a goal at the end of each visit and then decide on what we want to accomplish with your upcoming visits. On your After Visit Summary (AVS), we will provide you with information that may be useful during this journey so please remember to read the information given. Check your AVS a few days after your appointment because we may have added more information specifically for you. Remember that if you are placed on medications, they are tools that can help you succeed but you must put in the work. Your nutrition will be the main factor. There are medications that work well for some and not for others- so it may take time to find the right combination for your body's needs. Please remember that factors such as other health co-morbidities one might have, as well as insurance coverage, will play a factor in determining which medications you can take. Most of the newer medications that are all the craze ,injectables, may not be covered or will only be covered if you fail months of oral medications or have Type 2 diabetes so please be patient with the process. It would be beneficial for you to determine what your insurance covers as far as Anti-Obesity Medications (AOMs), Nutritional Counseling, behavioral intervention and weight loss surgery. Please call your health insurance prior to your first appointment and write down coverage for each of those therapies. Most importantly, remember that ultimately our goal is to help you get to a healthier weight which will decrease your overall health risks. We will work together as a team and try to reach your personalized goals as well. Follow-up appointments Please arrive to follow-up visits a minimum of 15 minutes prior to your appointment. Follow-up weight management visits can be virtual. You will need to report a current blood pressure, heart rate (pulse) and weight at the beginning of each virtual appointment so you will need to have a reliable BP cuff, either wrist or upper arm. If you need to reschedule your appointment time or switch from an in-office visit to a virtual visit or vice versa, you need to call our office as we have designated appointment slots. This should not be done on [facility] as you will not be scheduled appropriately and will need to be rescheduled. We appreciate that you have entrusted us with your health and know that we are committed to this process with you. Sincerely, Velma Rivas MD, ANDREA, J CARLOS & Swathi Aranda CNP Advanced Education from the [employer] Obesity Obesity is a disease that affects nearly one-third of the adult [place] population (approximately 60 million). The number of overweight and obese Americans has continued to increase since 1960, a trend that is not slowing down. Today, 64.5 percent of adult Americans (about 127 million) are categorized as being overweight or obese. Each year, obesity causes at least 300,000 excess deaths in the [place] and healthcare costs of [place] adults with obesity amount to approximately $100 billion. (AOA) Obesity is a complex, multi-factorial chronic disease involving: Environmental (social and cultural) The tendency toward obesity is a result of our environment: lack of physical activity along with high-calorie, low-cost foods. Home, work, school, and even the community can inhibit a healthy lifestyle. Genetic (Hereditary plays a large role in determining how susceptible people are to overweight and obesity). Genes also influence how the body johnson calories for energy and stores fat. Physiologic, metabolic, behavioral (eating too many calories while not getting enough exercise) and psychological components. It is the second leading cause of preventable in the [place] Behavioral changes brought on by economic development, modernization and urbanization have been linked to the rise in global obesity. Calculating BMI Body Mass Index (BMI) is a measurement tool used to determine excess body weight. Overweight is defined as a BMI of 25 or more, obesity is 30 or more, and severe obesity is 40 or more. You can visit www.nhlbi.nih.gov to estimate your BMI. Obesity Related Health Conditions The morbidity and mortality risk from being overweight is proportional to its degree. Individuals with morbid obesity, therefore, have the highest risk for developing numerous illnesses that often reduce mobility and quality of life due to their excess weight. In particular, type 2 diabetes, gallbladder disease and osteoarthritis have been found to increase concurrently with higher BMI. Premature , a 20-year shorter life span, has also been found in individuals with morbid obesity. All of the systems that make the body function are affected by morbid obesity. Type 2 diabetes Gallbladder disease and gallstones Liver disease Osteoarthritis, a disease in which the joints deteriorate. This is possibly the result of excess weight on the joints. Gout, another disease affecting the joints Pulmonary (breathing) problems, including sleep apnea in which a person can stop breathing for a short time during sleep Reproductive problems in women, including menstrual irregularities and infertility Gastroesophageal reflux/heartburn Hypertension Heart Disease Depression Psychological disorders/social impairments Urinary Stress Incontinence Obesity is also linked to higher rates of certain types of cancer. Obese men are more likely than non-obese men to from cancer of the colon, rectum, or prostate. Obese women are more likely than non-obese women to from cancer of the gallbladder, breast, uterus, cervix, or ovaries [email or web address] ---- - Eat primarily whole foods. Limit carbs, especially processed carbs. Eat - Meat, vegetables and fruits with skin on if possible, eggs, cheese. - Do not drink your calories - 30 grams of protein for your first meal of the day decreases your hunger during the day by up to 40 %. Options include: Premier Protein or generic 30 gm protein 1 gm sugar or 5 eggs or 2-3 eggs and some unbreaded meat and/or cheese. No fruit, vegetables, bread, grain, yogurt, Smoothies, etc. - Walk for 15 minutes immediately after meal. TOPIRAMATE -- Take 25mg at bedtime for 1-2 weeks -- Then increase to 50mg in the morning or 25 mg twice a day after the initial 1-2 weeks as long as you are not having bothersome side effects. -- You can take the tablet it at night at first (because of potential sleepiness side effects), but then you can take earlier around dinner after you have started the medication for a few days. You also may be able to take it in the morning if easier. -- We may increase the dose to 75mg a few weeks later if there is no change with 50mg, Typically the maximum medication dose would be 150mg daily but rarely would we need to titrate medication dose that high. -- The exact mechanism of topiramate on energy balance regulation is not clearly understood. Topiramate affects body mass index, fasting [id number]-[id number] ratio, and serum leptin and cortisol levels. It has shown to improve hypothalamic insulin and leptin signaling and action and reduce obesity in mice. These changes may be march factors in weight loss due to topiramate. If at any point you are feeling the effects of the medication you can stay at that dose or if you experience side effects you can decrease it to the previous dose. -- Please see the handout to review the potential side effects and to explain this further -- Please let me know if you experience any changes in your vision, worsening depression or mood problems, or an increase in suicidal thoughts or behaviors. --This medication should NOT be combined with alcohol. Risks of drinking alcohol while taking this medication include mental and psychological side effects, including confusion, dizziness, drowsiness, and depression. -- There is an increased risk for oral clefts when topiramate is used in the first trimester of . -- There is a possible decrease in contraceptive efficacy when using estrogen-containing control with topiramate, please use a back up form of control such as condoms and monitor for throughout treatment. -- If you decide that you would like to get or if you have any of these side effects please let me know and we can safely discontinue the medication. - If you are on loop diuretic or thiazide diuretic we will want to monitor your potassium level, especially if you have a history of low potassium. - It is important to taper off of this medication when we finished with treatment, typically decreasing the dose 25 mg a week. Stopping Topiramate abruptly can cause irritability, anxiety and difficulty concentrating. Topiramate (toe pyre a mate) What are the common names? Topamax Why is this medication prescribed? Topiramate is an anti-epileptic medications which has been approved by the FDA for patients 10 years of age or older for treatment of seizures. However, topiramate also has other uses such as the treatment of migraines. It also causes decrease in appetite and weight loss. The mechanism of weight loss is thought to be through inhibition of mitochondrial enzymes involved in energy expenditure and metabolism. Topiramate may work by helping you feel less hungry, less driven to eat, more satisfied with less food. What special precautions should I follow? Before having topiramate prescribed, tell your doctor and pharmacist: If you have allergies to any component of topiramate If you are , plan to become , are breast-feeding, or if you become while taking topiramate What are the warnings and precautions for this medication? Immediately discontinue the medicine and seek medical help if you have severe cognitive/neuropsychiatric adverse symptoms or eye symptoms. Cognitive/neuropsychiatric adverse events: symptoms may include confusion, psychomotor slowing, difficulty with concentration/attention, difficulty with memory, speech or language problems, particularily word-finding difficulties, somnolence or fatigue Acute myopia and secondary angle closure glaucoma, usually within 1 month of starting treatment: symptoms may include blurred vision, redness and/or pain in the eye Oligohydrosis (decrease sweating) and hyperthermia (elevation in body temperature) Increase in suicidal behavior or ideation Metabolic acidosis, non-gap hyperchloremic (decreased serum bicarbonate below normal levels) resulting in hyperventilation or fatigue Kidney stones Paresthesias (numbness or tingling in hands or feet) Ataxia Dizziness Increase in urination frequency Drug interactions. Use of monamine oxidase inhibitors (MAOI s), valproic acid, Caution use with dehydration or diarrheal illness, hepatic or renal impairment In case of emergency/overdose In case of overdose, call your local poison control center at or call local emergency services at [phone]. What other information should I know? Keep all appointments with your doctor and the laboratory. Do not let anyone else take your medication. Topiramate use needs to be monitored closely. Prescriptions may be refilled only a limited number of times. Keep a written list of all of your prescription and nonprescription (wxtf-[id number]) medicines, in addition to vitamins, minerals, or other dietary supplements. How should I monitor while on this medication? Your doctor will check your baseline kidney function and electrolytes prior to starting this medication, then periodically. Continue to improve your dietary and physical activity habits as the combination works best while on this medication. Start out by taking the medication at bedtime as it can cause fatigue and sleepiness. Be sure to eat regular meals. Less hunger does not make it appropriate to skip meals. Make sure to have an eye exam, including the pressure in your eyes (intra-ocular pressure), once a year. What should I do if I forget a dose? Skip the missed dose and continue your regular dosing schedule the next day. Do not take a double dose to make up for a missed one. Sources Pubmed Health: http://www.ncbi.nlm.nih.gov/pubmedheal th/ETT5255511/ Drugs.com http://www.drugs.com/pro/topiramate.ht ml PHENTERMINE -- Please take tablet or capsule as directed. May need to decrease dose or stop if uncontrolled BP or sustained elevated pulse. -- Please monitor your blood pressure (either purchase BP cuff, or go to pharmacy to check your BP at a local pharmacy). Please avoid any stimulants (in the form of caffeinated beverages like coffee, tea, sports drinks) and caution with decongestants. We will require an updated blood pressure and heart rate at follow up visits (this includes virtual visits). -- Please monitor for , if at any point you become please stop the medication. THIS IS A SUMMARY OF OUR DISCUSSION ABOUT THIS MEDICATION. PLEASE READ IT IS IMPORTANT FOR YOUR WEIGHT LOSS PLAN Per updated [place] state rules, initially, a one month supply of phentermine is prescribed. You will need to be seen every month for the first 3 months for follow-up and to assess effectiveness with a total 5% weight loss in that 3 month period. If the phentermine is effective for you, treatment with phentermine can continue with a one month supply of phentermine prescribed at a time with 2 refills. You, the patient, are responsible for making an appointment to see a provider within 12 weeks in order to get a refill of this medication. It is imperative that you get this (and future) phentermine prescriptions within 7 days as pharmacists will NOT refill prescriptions outside this 7 day window per State law. Phentermine can only be prescribed for a 3 month interval at a time. You are aware of the following statements per the [facility] pharmacy board rules. 1. Timely refills are required 2. Every 12 weeks office visits are required. 3. ALL prescriptions need to be filled within 7 days of the written prescription 4. Refills need to be done EVEN IF there is medication still available ? Phentermine (fen ter meen) What are the common names? Adipex-P, Ionamin Why is this medication prescribed? Phentermine was approved by the FDA in 1959 for short term weight loss. It works by decreasing appetite. Phentermine is absorbed by the body and travels to the appetite center of the brain. It works by helping you feel less hungry, less driven to eat, more satisfied with less food. I ve heard about fen-phen. Will phentermine affect my heart? The two drug combination fenfluramine/phentermine, usually called fen-phen, became popular in the early as a diet pill. However, it was withdrawn by the FDA in late 1996 after studies which showed that fenfluramine can cause fatal pulmonary hypertension and heart valve problems. Phentermine is not a combination medication and does not contain the compound fenfluramine. What special precautions should I follow? Before having phentermine prescribed, tell your doctor and pharmacist: If you have allergies to any component of phentermine If you are , plan to become , are breast-feeding, or if you become while taking phentermine What are the absolute contraindications? Stroke or Transient Ischemic Attacks Cardiac arrhythmias or Atrial fibrillation Coronary artery disease Seizure Disorder Uncontrolled blood pressure Angina Congestive Heart Failure Valvular Heart Disease or primary pulmonary hypertension Drug interactions. Use of monamine oxidase inhibitors (MAOI s) What are the side effects of phentermine? Immediately discontinue the medicine and seek medical help if you have severe symptoms such as chest pain, shortness of breath, feeling faint, ability to think clearly, eye pain or other visual symptoms: Palpitations (strong or rapid heartbeat) Difficulty sleeping or falling asleep Elevated blood pressure Dry mouth Anxiety or agitation Getting a stimulant/or hyper effect or jitteriness-(Usually goes away after a few days or weeks) Glaucoma In case of emergency/overdose In case of overdose, call your local poison control center at or call local emergency services at [phone]. What other information should I know? Keep all appointments with your doctor and the laboratory. Do not let anyone else take your medication. Phentermine is a controlled substance. It is FDA approved for up to 3 months. Prescriptions may be refilled only a limited number of times. Keep a written list of all of your prescription and nonprescription (mrej-szv-nicncwl) medicines, in addition to vitamins, minerals, or other dietary supplements. If you are taking the extended-release (long-acting) tablets, do not split, chew, or crush them tablet. There are some tablets that can be crushed and mixed with food Alcohol can make the side effects of phentermine worse How should I monitor while on this medication? Please check your blood pressure (BP) and resting pulse weekly (twice a week in the first 2 weeks). If the BP is over 140/90 (either one), or if the resting pulse is over 96 per minute (count for 10 seconds and multiply by 6), then stop the medication and call your doctor. Continue to improve your dietary and physical activity habits as the combination works best while on this medication. Start out by taking the medication in the morning at least 30 minutes prior to meals. If the effect seems to wear off by dinner time, try taking it later in the morning, but taking too late may result in trouble falling asleep. Be sure to eat regular meals. Less hunger does not make it appropriate to skip meals. Monitor your caffeine intake and use of decongestants as they may worsen the effects of phentermine Make sure to have an eye exam, including the pressure in your eyes (intra-ocular pressure), once a year. What should I do if I forget a dose? Skip the missed dose and continue your regular dosing schedule the next day. Do not take a double dose to make up for a missed one. Sources [facility] Consumer Medication Info: http://www.ncbi.nlm.nih.gov/pubmedheal th/YNB2605645/ AMA patient handouts: http://www.amaassn.org/ama1/pub/upload /mm/433/phrxsurgery.pdf Drugs.com: http://www.drugs.com/pro/phentermine.h tml Nutrition Reminders: NO NAKED CARBS!! Protein >= Carbs for each meal (if you are going to eat 50g carbs for lunch you should eat 50g protein or more). If you do not eat your carbs for lunch you do not get to save them for dinner- you use them or lose them. Balance your Protein between meals. Unless told otherwise your Minimum protein each day is 30grams per meal but don t be afraid to eat more (try to aim for 1.6g protein per Kilogram of bodyweight). Focus on WHOLE FOODS if you can as your Gut Microbiome will benefit and you will feel more satisfied - the only caviot to this is protein shakes if needed. Water intake should be a minimum of 64oz per day- but more is better (to an extent) unless you have a medical condition that requires you to keep it to a minimum. Nothing is off limits- this is not about restricting yourself- this about learning what your body can have and still respond well to and learning how to balance food and still feel good. Track your food, weigh your food, measure your portion sizes as most people underestimate their food by approximately 40%. You should be tracking your Carbohydrates and Protein daily. It s ok if you had a bad day- write it down and move on! Weigh yourself daily or at least 5 times per week, it will help to keep you accountable. If you are hungry- think about your stress level, your sleep (did you get 7.5-9hrs?) and your protein consumption- if you did not meet your goals then those could be contributing to your hunger. During weight loss phase it is ok to use two protein shakes per day and eating one meal along with it - studies have shown you will lose more weight and keep it off. Take a multivitamin daily Sit less Move more- Exercise including resistance training is very important for your health and if you are not getting routine exercise right now there will come a point when it will become an important piece of this process. Do Not skip meals- it could lead to you not getting enough protein or overeating at your next meal. Intermittent fasting can be a good tool for some but right now try to eat 3 regular meals. Only consume snacks if you are truly hungry. Meal replacements: Meal Replacements Plant-based protein bars Meal replacements. One option that works for some people is to use meal replacements, as in the DiRECT and Look AHEAD trials.The available options in Look AHEAD included shakes, bars, and meals from a variety of companies (Vi[employer]one, [employer], [employer]medex, and [employer]). The calorie content was 150 to 220 calories, depending on the product. People who used meal replacements 12 times a week instead of preparing their own meals lost about 11% of their weight in the first year, whereas those who used just two per week lost about 6% of their weight. Keep in mind, though, that people in the trial who used meal replacements also tended to consume a healthier diet over all; they were more likely to have met their goals for dietary fat, fruits and vegetables, and dairy foods, and to have cut back on sweets, than those who didn t use meal replacements. Similarly, in the DiRECT trial, participants consumed special nutritionally complete shakes and soups (the Counterweight-Plus program) for the first 12 weeks.If you opt for meal-replacement drinks, bars, or frozen entrees, here are some criteria to look for: calories, 150 to 300 fat, 3 to 10 grams protein, > 20 grams sugar < 5 g Meal replacements are typically fortified with vitamins and minerals and contain some fiber. Because they are calorie controlled, the amount of added sugars is usually minimal. If you want to try this approach to boost weight loss, ask your dietitian or another member of your health care team how to incorporate the replacements into your meal planning and discuss whether you might need to reduce your doses of diabetes medications to prevent hypoglycemia (low blood sugar) as you cut calories and lose weight. It is important to find a meal-replacement product that suits your taste. If you prefer not to consume processed foods, you can make your own portion-controlled versions. Note that meal replacements don t work for everyone. While some people like meal-replacement shakes, bars, and soups and find them to be a convenient way to sustain a reduced calorie intake over time, others don t feel satisfied drinking them and often end up simply adding them to what they d normally eat--which could lead to weight gain. What s more, some people have a hard time readjusting to eating real food after they stop using meal replacements. 5 (FIVE) gram carb vegetable options 1 cup raw OR cup cooked: Asparagus [place] sprouts Beets Broccoli Brussel sprouts Cabbage Carrots Cauliflower Celery [place] Eggplant Green beans Lettuce Peppers Snap peas Spaghetti squash Spinach Tomato Turnips Zucchini 15 gram carb vegetable options cup cooked corn or hominy corn on the cob, large (5 oz) cup cooked green peas 4.3 gm complete protein cup cooked omrel beans 1 small potato or sweet potato cup cooked potato, plain cup cooked sweet potato, plain 1 cup winter squash (pumpkin, acorn, butternut) 1 cup marinara or pasta sauce - check label cup tomato juice cup tomato puree Beans, Seeds, Nuts cup cooked beans (kidney, kaplan, red, green, etc.) cup cooked lentils cup baked beans 4 tablespoons nut butter <15 gram carb fruit options Berries have the lowest sugar content 1/2 medium apple - 12.5 carbs 1/2 medium avocado - 6.5 gm carbs 1/2 medium banana - 15 carbs 1/2 cup blueberries - 11 carbs - may actually help you lose weight 1/2 cup fresh cherries -11 carbs 1 medium Oma[place] -9 carbs 1/2 cup fresh cranberries - 6.5 carbs 1/2 c grapes - 15 carbs 1/2 medium grapefruit - 10.5 carbs 1/2 cup diced honeydew melon - 8 carbs 1 medium kiwi without skin - 11 carbs 1/2 cup sliced salma -14 carbs 1 medium nectarine - 15 carbs 1 medium orange -15.5 carbs 1 medium peach -14.5 carbs 1/2 cup fresh pineapple -11 carbs 1 medium plum -7.5 carbs 1 prune - 6 carbs 1/4 c raisins - 31.25 carbs 1/2 cup raspberries -7.5 carbs 1/2 c strawberries - 12.7 carbs 1 medium tangerine -12 carbs 1/2 cup diced watermelon - 6 carbs Grains Brown rice 1/2 c 5.5g protein 24 carb White long-grain rice 1/2 c 2g protein 22.5 carb Quinoa 1/2 c 4 gm complete protein 25 carb Oatmeal, old fashioned 1/2 c 5g protein 27g carb Protein - no carbs Egg 1 large - 6g Egg white 1 large 3.6g 3 oz is approximately the size of a deck of cards and equals 21 g protein so 4 oz is 28 gm protein Beef, Chicken, [place], Pork, Singh 1 oz 7g Fish, Tuna Fish 1 oz 7g (Starkist tuna packet 2.6 oz 17 gm protein) Seafood (Crabmeat, Shrimp, Lobster) 1 oz 6g Protein shakes (read labels) Premier Protein or generic [employer] Equate, Me[employer] High Performance- 30g protein & 1g carb - meal replacement Premier Protein powder or generic- 30 g protein, 1g carb Fairlife 30 gram protein - 30g protein & 3g carb BOOST Glucose Control Max 30g Protein Nutritional Drink - 30g protein & 1 carb - meal replacement Slimfast High Protein - 20g protein & 1g carb Ensure Max Protein Nutrition Shake 30g protein & 2 carb OWYN plant based 100 % vegan no dairy, soy, wheat/gluten 32g protein 0 net carb (not a meal replacement) Premier Protein plant protein powder - 25g protein, 0 sugar/2g carb Vanilla and chocolate (not a meal replacement) Protein AND carbs Beef/[place] Jerky 1 oz dried 10-15g protein - check carb count, can be high if sugar added Slim Samm - 6 gm protein and 4 net carb Great Value original turkey sausage sticks - 7 gm protein and 2 gm carb Raheem & Jose (at [facility]) Original smoked sausage sticks - 8 gm protein and 0 carb Imitation Crab Meat 1 oz - 2g protein & 4g carb Milk, skim 2% or 1% 8 oz - 8g protein & 12g carb Fairlife 2% milk 8 oz -13g protein & 6g carb [place] yogurt Full Fat [place] Yogurt 1 cup - 20.4g protein & 9.1g carb 2% [place] Yogurt 1 cup - 22.7g protein & 9.1g carb 0% (fat-free) [place] Yogurt - 1 cup 24g protein & 9.3g carb Aldi Protein [place] yogurt single svg - 13/g15g protein & 7g carb Chobani Zero Sugar single svg: - 12g protein & 5g carb Dannon [place] Light + Fit 1 single svg - 12g protein & 9g carb Oikos Pro single svg - 20g protein & 8g carb Oikos Triple Zero [place] Nonfat Yogurt 1 single svg - 15g protein & 7g carb :ratio, KETO Friendly Dairy Snack 1 single svg - 15g protein & 2g carb :ratio Protein 1 single svg - 25g protein & 8g carb Two Good Lowfat [place] Yogurt, [place], Lower Sugar - 12g protein & 2g carb Yoplait Protein 1 single svg 15g protein & 5g carb Dairy Free - [place] unsweetened [place] almond/soy 15g protein & 3g carb Dairy Free - True Goodness by [facility] coconut-based yogurt alternative 1 g protein 1 g net carb 180 duncan Drinkable yogurts: Chobani drinkable 15g, 20g and 30g protein & 18 carb (too many carbs for breakfast) Chobani Zero Sugar 10g protein 6g carbs 50 calories Oikos Pro drinkable yogurt 1 single svg - 23g protein & 8g carb :ratio Protein 26g protein 9g carb Cheese each oz Brie 5.9g protein & 0.1g carb Cheddar 7g protein & 0.4g carb Jaime 6.7g protein & 0.7g carb Cream Cheese 1.7g protein & 1.2g carb [employer] whipped [place] cream cheese (WM) 2 T 3g protein 2g carb Feta 4g protein & 1.2g carb Mozzarella 6.3g protein & 0.6g carb Parmesan 10g protein & 0.9g carb [place] 7.6g protein & 1.5g carb Cottage Cheese 1/2 c Breakstone 2% 13g protein 7g carb Chrissy 2% 13g protein 5 g carb Good Culture 2% 14g protein 3g carb Lactaid 13g protein 5g carb Michel s Low Fat 12g protein & 4g carb Legumes Lentils cup 9g protein & 20g carb Morel beans cup 7g protein & 20g carb Kidney, Black, [place], Cannellini beans cup 8g protein & 20g carb Chickpeas 1/2 c 6g protein & 15g carb Soybeans 1/2 c 14g complete protein & 8.5g carb [place] milk, unsweetened 8 oz 1g protein & 2g carb Soy milk 8 oz 3.5g protein & 1.6g carb Tofu 1/2 cup 10g protein & 2.3g carb Peanut butter, natural 2 Tbsp 7-8g protein & 4g net carbs, 190 calories PB2 powder 2 Tbsp 6g protein & 5g carb Nuts and Seeds per oz Almonds - 5.9g protein & 6.1g carb [place] Nuts - 4.0g protein & 3.4g carb Cashews - 5.1g protein & 9.2g carb Hazelnuts - 4.2g protein & 4.7g carb Hemp seeds/hearts 3 T/30 gms - 9.5 gm complete protein and 2.5 gm carb Peanuts - 7g protein & 4.6g carb Pecans - 2.6g protein & 3.9g carb Pistachios - 5.8g protein & 7.8g carb Pumpkin Seeds - 6.9g protein & 5g carb [place] Seeds - 5.8g protein & 5.6g carb Walnuts - 4.3g protein & 3.8g carb Edamame Beans (soybean) snack 1 pack 11 gm complete protein 2 carb When you take medications like TOPAMAX and ZONEGRAN they tend to cause an imbalance in your pH levels. This imbalance causes side effects like foggy head, forgetfulness, confusion, difficulty recalling simple words or names, and tingling in your hands and feet. Citric acid may help to neutralize the imbalance caused by the medication. Also stay hydrated! With low fluid intake, urine output is decreased and urine flow is slower, both of which increase the risk of pH imbalance. Avoid soda as well. Increase the proportion of fruits and vegetables and reduce your daily protein intake to 0.8-1.0 g per kg body weight. [employer] Link: Guvera : TRUE LEMON Water Enhancer True Lemon (Digital Ally) If neither of these are effective you can try: Euphasia https://Prepair/p ages/urvvlhf-hnay-zkvsdhy Sources https://www.ncbi.nlm.nih.gov/pmc/artic les/SHA7409046/ https://www.ncbi.nlm.nih.gov/pmc/artic les/ECJ8804688/ 14 Ways to Lower Your Insulin Levels Insulin is an extremely important hormone that s produced by your pancreas. It has many functions, such as allowing your cells to take in sugar from your blood for energy. However, living with chronically high levels of insulin, also known as hyperinsulinemia, can lead to excessive weight gain and serious health problems like heart disease and cancer (1, 2, 3). High blood insulin levels can also cause your cells to become resistant to the hormone s effects. This condition, known as insulin resistance, leads your pancreas to produce even more insulin, creating a precarious cycle (4). If your doctor has advised you to lower your insulin levels, here are 14 things you can do. 1. Follow a lower-carb eating plan Of the three macronutrients -- carbohydrates, protein, and fat -- carbs raise blood sugar and insulin levels the most. Even though carbs are an essential part of most balanced, nutritious diets, lower-carb diets can be very effective for losing weight and managing diabetes (5, 6). Many studies have confirmed the effectiveness of lower-carb eating plans for lowering insulin levels and increasing insulin sensitivity, especially when compared with other diets. People living with health conditions characterized by insulin resistance, such as metabolic syndrome and polycystic ovary syndrome (PCOS), may experience a dramatic lowering of insulin with carb restriction (6, 7, 8). In a smaller study from 2008, people with metabolic syndrome were randomized to receive either a low fat or low carb diet containing 1,500 calories (9). Insulin levels dropped by an average of 50% in the low carb group, compared with 19% in the low fat group. Those on the low carb diet also lost more weight (9). In another small study from 2012, when people with PCOS ate a lower-carb diet containing enough calories to maintain their weight, they experienced greater reductions in insulin levels than when they ate a higher-carb diet (10). Summary While carbohydrates are typically an important part of a balanced diet, lower-carb diets have been shown to increase insulin sensitivity and reduce insulin levels in people living with obesity, diabetes, metabolic syndrome, and PCOS. 2. Consider supplementing with apple cider vinegar Apple cider vinegar (ACV) may help prevent insulin and blood sugar spikes after eating, particularly when consumed with high carbohydrate foods (11). One review found that consuming 2-6 tablespoons of vinegar daily appears to improve glycemic response to carbohydrate-rich meals. It s important to note, however, that this review incorporated studies that used other forms of vinegar in addition to ACV (12). Another review of studies found that consuming vinegar with meals affects both blood glucose and insulin levels. Individuals consuming vinegar with meals had lower blood sugar and insulin levels than those who didn t consume it. But again, this review did not specify ACV (13). A third review of studies from 2020 specifically targeted ACV analyzed its effect on glycemic control in adults (14). The researchers found that consuming ACV significantly decreased fasting blood sugar and HbA1C (a measure of blood sugar over time). However, ACV did not seem to affect fasting insulin levels or insulin resistance (14). Summary Vinegar may help ease high blood sugar and insulin levels after meals, particularly when those meals are high in carbs. However, results are mixed and more research is needed -- especially around apple cider vinegar in particular. 3. Keep an eye on portion sizes Your pancreas releases different amounts of insulin depending on the type of food you eat, but eating a large amount of foods that cause your body to produce extra insulin can eventually lead to hyperinsulinemia. This is of particular concern for people who are already living with obesity and insulin resistance (15). In one small 2017 study, otherwise healthy people classified as having either a normal BMI or a higher BMI each ate meals with different glycemic loads for a few days. Researchers found that while the meals with a higher glycemic load (those with more sugar and carbs) spiked everyone s blood sugar, the blood sugar of individuals with BMIs in the obese category stayed elevated longer (16). Consuming fewer calories has consistently been shown to increase insulin sensitivity and decrease insulin levels in people living with excess weight and obesity, regardless of the type of diet they consume (17, 18, 19, 20). One small study from 2011 analyzed different weight loss methods in 157 people living with metabolic syndrome, which is a group of conditions that include a larger waist circumference and high blood sugar (19). The researchers found that fasting insulin levels decreased by 16% in the group that practiced calorie restriction and 12% in the group that practiced portion control (19, 21). Even though calorie restriction has been shown to ease excess insulin levels, It s a good idea to seek the help of a cornice maker or doctor before making any dietary changes to be sure you aren t missing out on any important macro or micronutrients. Summary Reducing calorie intake can help lower insulin levels in people living with excess weight or obesity who have type 2 diabetes or metabolic syndrome. 4. Lower your intake of all forms of sugar Sugar may very well be the most important ingredient to keep an eye on if you re trying to lower your insulin levels. Diets high in added sugar are associated with insulin resistance and may promote the development of metabolic disease (22). In a small study from 2008, otherwise healthy people were tasked with eating an increased amount of either candy (sugar) or peanuts (fat). The candy group experienced a 31% increase in fasting insulin levels, while the peanut group had a 12% increase (23). In another small study from 2013, otherwise healthy adults consumed jams containing varying amounts of sugar. The adults who consumed high sugar jams saw their insulin levels rise significantly as compared with those who ate the lower-sugar jams (24). Fructose is a type of natural sugar found in table sugar, honey, fruit, corn syrup, agave, and syrup. While some studies have singled out fructose as particularly harmful for blood sugar control and insulin resistance, there isn t enough evidence to suggest fructose is more harmful than other types of sugars when consumed in moderate amounts (25). Indeed, one study found that replacing glucose or sucrose with fructose actually lowered peak post-meal blood sugar and insulin levels, especially in people with prediabetes or type 1 or type 2 diabetes (26). Summary A high intake of sugar in any form has been shown to increase insulin levels and promote insulin resistance if consumed for a length of time. 5. Prioritize physical activity Engaging in regular physical activity can have powerful insulin-lowering effects. Aerobic exercise appears to be very effective at increasing insulin sensitivity in people living with obesity or type 2 diabetes (27, 28, 29). One study looked at the effect of sustained aerobic exercise versus high intensity interval training on metabolic fitness in men with obesity (29). Although both groups experienced improvements in fitness, only the group that performed sustained aerobic activity experienced significantly lower insulin levels (29). There s also research showing that resistance training can help decrease insulin levels in older adults and people who are more sedentary (30, 31). And lastly, combining aerobic and resistance exercise may be the best choice when it comes to positively affecting insulin sensitivity and levels (32, 33). Summary Aerobic exercise, strength training, or a combination of both may help lower insulin levels and increase insulin sensitivity. 6. Try adding cinnamon to foods and beverages Cinnamon is a delicious spice loaded with health-promoting antioxidants. Recent studies suggest that both individuals living with insulin resistance and those with relatively normal insulin levels who supplement with cinnamon may experience enhanced insulin sensitivity and decreased insulin levels (34, 35, 36). In one small, well-designed study, women with PCOS who took 1.5 grams of cinnamon powder daily for 12 weeks had significantly lower fasting insulin and insulin resistance than women who took a placebo (35). In another small, well-designed study, individuals living with type 2 diabetes who took 500 mg of cinnamon powder twice daily for 3 months had lower fasting insulin and insulin resistance than those who took a placebo (34). Improvements in insulin and insulin sensitivity were most pronounced for individuals with higher BMIs (34). It s important to note that there is no recommended dose of cinnamon that has been tested across the board, and not all studies have found that cinnamon helps lower insulin levels or increases insulin sensitivity. Cinnamon s effects may vary from person to person (37, 38). Summary Some studies have found that adding cinnamon to foods or beverages lowers insulin levels and increases insulin sensitivity, but results are mixed. 7. When eating carbs, choose complex carbs While complex carbs are an important part of a nutritious diet, refined or simple carbs don t usually contain a lot of fiber or micronutrients and are digested very quickly. Refined carbs include simple sugars as well as grains that have had the fibrous parts removed. Some examples are cereal with added sugar, highly processed fast foods, foods made with refined flour like certain breads and pastries, and white rice (39). Regularly consuming refined carbs can lead to several health problems, including high insulin levels and weight gain (40, 41). Furthermore, refined carbs have a high glycemic index (GI). The GI is a scale that measures a specific food s capacity to raise blood sugar. Glycemic load takes into account a food s glycemic index and the amount of digestible carbs contained in a serving (42). Some studies comparing foods with different glycemic loads have found that eating a rghs-zmkqexjv-lknq food raises insulin levels more than eating the same portion of a mri-ynmheaoy-rsuq food, even if the carb contents of the two foods are similar (43, 44). However, other studies comparing exwb-qrefvxeh-zhsk and ezga-bleqvotg-ijosg diets with tgz-ugquigrr-txjp and sff-wuzdurok-tnsmx diets have found no difference in their effects on insulin levels or insulin sensitivity (45, 46). Summary Replacing refined carbs, which are digested quickly and can sharply raise blood sugar, with slower-digesting complex carbs and whole grains may help lower insulin levels. 8. Increase your overall activity level Living an active lifestyle can help reduce insulin levels. A 2005 study of more than 1,600 people found that the most sedentary people (who didn t spend free time engaged in moderate or vigorous activity) were nearly twice as likely to have metabolic syndrome as those who did at least 150 minutes of moderate activity per week (47). Other studies have shown that getting up and walking around, rather than sitting for prolonged periods, can help keep insulin levels from spiking after a meal (48). One study looked at the effect of physical activity on insulin levels in men with extra weight who were at risk for type 2 diabetes. Those who took the most steps per day had the greatest reduction in insulin levels and belly fat compared with those who took the fewest steps (49). Summary Avoiding sitting for prolonged periods and increasing the amount of time you spend walking or doing other moderate activities may help reduce insulin levels. 9. Consider intermittent fasting Intermittent fasting (an eating plan where you have set hours for eating and set hours for fasting during a 24-hour period) has been popping up in headlines recently, specifically around its possible weight loss benefits. Research also suggests intermittent fasting may help reduce insulin levels as effectively as or more effectively than daily calorie restriction (50, 51). A 2019 study compared alternate-day fasting with calorie restriction in adults with extra weight or obesity and insulin resistance (52). Those using alternate-day fasting for 12 months had greater reductions in fasting insulin and insulin resistance than those who restricted their calorie intake, as well as those in the control group (52). Although many people find intermittent fasting beneficial and enjoyable, it doesn t work for everyone and may cause problems in some people. A doctor or cornice maker can help you figure out whether intermittent fasting is right for you and how to do it safely. Summary Intermittent fasting may help reduce insulin levels. However, more research needs to be done, and this way of eating may not suit everyone. 10. Increase soluble fiber intake Soluble fiber provides a number of health benefits, including aiding in weight loss and reducing blood sugar levels. After you eat, the soluble fiber in food absorbs water and forms a gel, which slows down the movement of food through your digestive tract. This promotes feelings of fullness and keeps your blood sugar and insulin from rising too quickly after a meal (53, 54). One observational study from 2013 found that individuals assigned female at who ate the most soluble fiber were half as likely to be insulin-resistant as individuals assigned female who ate the least soluble fiber (55). Soluble fiber also helps feed the friendly bacteria that live in your colon, which may improve gut health and reduce insulin resistance. In a 6-week controlled study of older women with obesity, those who took flaxseed (which contains soluble fiber) experienced greater increases in insulin sensitivity and lower insulin levels than women who took a probiotic or placebo (56). Overall, fiber from whole foods appears to be more effective at reducing insulin than fiber in supplement form, although results are mixed. One study found that insulin decreased when people consumed black beans but not when they took a fiber supplement (57). Summary Soluble fiber, especially from whole foods, has been shown to increase insulin sensitivity and lower insulin levels, particularly in people living with obesity or type 2 diabetes. 11. Concentrate on weight loss, if advised The distribution of fat throughout your body is determined by age, sex hormones, and genetic variation (58). An overabundance of belly fat -- also known as visceral or abdominal fat -- in particular is linked to many health issues. Visceral fat can promote inflammation and insulin resistance, which drives hyperinsulinemia (59, 60, 61). A small study from 2013 suggests that losing visceral fat can lead to increased insulin sensitivity and lower insulin levels (62). Interestingly, another small study from 2013 found that people who lost abdominal fat retained the benefits for insulin sensitivity even after regaining a portion of the belly fat (63). There is no way to specifically target visceral fat when losing weight. However, visceral fat loss is linked to subcutaneous fat loss, so when you lose weight in general, you ll likely also lose visceral fat. Furthermore, studies show that when you lose weight, you lose a higher percentage of visceral fat than fat throughout the rest of your body (64). If your doctor has advised you to lose weight, talk with them about the best weight loss program for you. Summary If your doctor advises you to do so, losing visceral fat can increase insulin sensitivity and help reduce your insulin levels. While you can t target visceral fat specifically, when you lose weight overall, you lose visceral fat as well. 12. Incorporate green tea into your diet Green tea contains high amounts of an antioxidant known as epigallocatechin gallate (EGCG), which may help fight insulin resistance (65, 66, 67). In a 2016 study, postmenopausal individuals living with obesity and high insulin levels who took green tea extract experienced a small decrease in insulin over 12 months, while those who took a placebo had increased insulin levels following the intervention (66). In a 2013 review, researchers reported that green tea appeared to significantly lower fasting insulin levels in high quality studies (67). However, there are other high quality studies on green tea supplementation that have not shown a reduction in insulin levels or increased insulin sensitivity (68). Summary Several studies have found that green tea may increase insulin sensitivity and decrease insulin levels, but results are mixed. 13. Eat more fatty fish There are many reasons to consume fatty fish like salmon, sardines, mackerel, chapa, and anchovies. They provide high quality protein and are some of the best sources of long-chain omega-3 fats, which offer many health benefits (69). Studies have shown that the omega-3s in fatty fish may also help reduce insulin resistance in people living with obesity, gestational diabetes, and PCOS (70, 71, 72). According to the U.[place] Department of Health and Human Service s Dietary Guidelines for Americans, adults can safely consume at least 8 ounces of seafood per week (based on a 2,000-calorie diet). Young children should eat less. People who are or should eat 8-12 ounces of a variety of seafood per week, choosing options that are lower in mercury (73). While eating fish is typically recommended over taking supplements for a variety of reasons (more omega-3s aren t always better, and fish has additional nutrients and vitamins), fish oil supplements are sold widely in stores and are often used in studies. These supplements contain the same long-chain omega-3 fats as the fish itself, but the effective dosage has not yet been determined (74). Despite the need for more research, fish oil has been shown to support healthy blood sugar. One small 2011 study in individuals with PCOS found a significant 8.4% decrease in insulin levels in a group who took fish oil, compared with a group who took a placebo (71). Another study from 2012 found that children and adolescents with obesity who took fish oil supplements significantly reduced their insulin resistance and triglyceride levels (72). Finally, a review of 17 studies found that taking fish oil supplements is associated with increased insulin sensitivity in people living with metabolic disorders (75). Summary The long-chain omega-3s in fatty fish may help reduce insulin resistance and insulin levels, especially in those with metabolic disorders. While fish oil supplements are sold widely and often used in studies, the effective dosing has not yet been determined. 14. Get the right amount and type of protein Consuming adequate protein at meals can be beneficial for controlling your weight and insulin levels. In a small study from 2014, premenopausal individuals living with obesity had lower insulin levels after consuming a high protein breakfast compared with a low protein breakfast. They also felt garland and ate fewer calories at lunch (76). However, protein stimulates insulin production so that your muscles can take up amino acids. Therefore, eating very high amounts over a prolonged period may lead to higher insulin levels in otherwise healthy individuals (77). A larger study from 2018 sheds some light on these diverging results: When it comes to protein, dietary patterns are important. For instance, researchers found that individuals who ate a majority of plant proteins were less likely to develop type 2 diabetes, while individuals who ate a lot of protein in the form of red meat had a greater likelihood of living with or developing type 2 diabetes (78). So while protein is important, eating a variety of protein that isn t overly processed and is nutrient-dense is even more important. https://www.[place].Optifreeze/nutrition/1 6-hjju-ac-lower-insulin A Short Walk After Meals Is All It Takes to Lower Blood Sugar Researchers studying older adults with pre-diabetes found that 15 minutes of gbph-qk-xhayclup exercise after every meal curbed risky blood sugar spikes all day. Seniors are more prone to developing diabetes, but a little exercise could make a big difference. A study published today in Diabetes Care found that three short walks each day after meals were as effective at reducing blood sugar over 24 hours as a single 45-minute walk at the same moderate pace. Even better, taking an evening constitutional was found to be much more effective at lowering blood sugar following supper. The evening meal, often the largest of the day, can significantly raise 24-hour glucose levels. The innovative exercise science study was conducted at the Clinical Exercise Physiology Laboratory at the [facility] ([facility]) using whole room calorimeters. Tamika Saha, Ph.D., chair of the [facility] Department of Exercise Science, led the study. These findings are good news for people in their 70s and 80s who may feel more capable of engaging in intermittent physical activity on a daily basis, Yifan said in a press release. Putting Humans in a Box to Measure Their Energy Use The whole room calorimeter (WRM), which looks like a very small hotel room, is a controlled-air environment for human study that allows scientists to calculate a person s energy expenditure by testing samples of air. The balance of oxygen consumed and carbon dioxide produced varies according to the activity level of the person in the room. The WR also measures the body s use of different food fuels, such as carbohydrates, proteins, and fats. The 10 study participants spent three 48-hour periods in the small calorimeter rooms. Each room was equipped with a bed, toilet, sink, treadmill, television, and computer, leaving little room to move around. Participants ate standardized meals, and their blood sugar levels were monitored continuously using blood tests. The first day in the [facility] served as a control period, with no exercise. On the second day, participants either walked at a moderate pace on the treadmill for 15 minutes after each meal, or for 45 minutes in either the late morning or before supper. The researchers observed that the evening post-meal walk was the most effective in lowering blood sugar levels for a full 24 hours. The typical exaggerated rise in blood sugar after supper--which often lasts well into the night and hand spring repairer--was curbed significantly as soon as the participants started to walk on the treadmill, the study authors said. How Age Affects Insulin Resistance An estimated 79 million Americans have pre-diabetes, according to the National Diabetes Education Program run by the National Institutes of Health. But many people have no idea they are at risk. According to Yifan, older people may be particularly susceptible to poor blood sugar control after meals because inactive muscles contribute to insulin resistance. The problem is compounded by slow or low insulin secretion by the pancreas, which often occurs as the body ages. Post-meal high blood sugar is a march risk factor in the progression from impaired glucose tolerance (pre-diabetes) to type 2 diabetes and cardiovascular disease, Yifan explained. Other studies have suggested that weight loss and exercise can prevent type 2 diabetes. The authors say theirs is the first study to examine short bouts of physical activity timed around the risky period following meals--a time when blood sugar can rise rapidly and potentially cause damage to internal organs and blood vessels. The muscle contractions connected with short walks were immediately effective in blunting the potentially damaging elevations in post-meal blood sugar commonly observed in older people, Yifan said. If the findings of this small study hold up to further testing, it could lead to an inexpensive prevention strategy for pre-diabetes, which can develop over time into type 2 diabetes. Back in the day, it was de rigueur to take a morning, noon, and evening walk. The time has come to get up from the table, tie on those walking shoes, and take a little stroll around the block. https://www.[place].Optifreeze/health-news /ubeep-lshpewx-fcxgo-jpxki-mw-mlghjbl- ytcig-yzjti-[email or web address] Why You May Want to Weigh Yourself Every Day At any given moment, an estimated 24% of men and 38% of women in the [place] are trying to lose weight (1[employer]). Meanwhile, obesity has skyrocketed and working-age adults are gaining about 2.2 pounds (1 kg) annually, on average (2[employer], 3[employer]). Recent studies have shown that daily self-weighing may be a powerful tool for both losing and maintaining weight. However, many people believe that weighing yourself daily contributes to bad mental health and disordered eating habits. So what should you believe? This article sets the record straight on whether you should start weighing yourself daily. Weighing Yourself Daily Helps You Lose More Weight The simple act of self-weighing has received lots of attention and stirred up controversy for years. Some people have even thrown away their scale, claiming that it s a highly misleading weight loss tool that results in bad self-esteem and disordered eating habits (4, 5). However, recent studies generally agree that daily weighing is associated with greater weight loss and less weight regain than less-frequent self-weighing (6[employer], 7, 8, 9). One study showed that participants who weighed themselves daily for six months lost 13 more pounds (6 kg), on average, than those who weighed themselves less frequently (10. What s more, those who weigh themselves daily tend to adopt more favorable weight control behaviors, exercise better restraint toward food and eat impulsively less often (10, 11). Interestingly, adopting healthy weight-related behaviors has been shown to be especially important when people emerge from adolescence into adulthood (12). One study in participants aged 18-25 showed that daily self-weighing resulted in better weight loss than less-frequent weighing (13). The researchers concluded that daily self-weighing is a particularly valuable self-regulation tool for this age group. Furthermore, another study showed that people who weighed themselves every day ate 347 fewer calories per day than those who did not. After six months, the group that weighed themselves daily ended up losing a whopping 10 times more weight than the control group (14). BOTTOM LINE: Daily self-weighing may cause people to lose more weight and gain less of it back, compared to less-frequent weighing. Daily Weighing May Motivate You and Improve Self-Control Being aware of your weight is a march factor in successful weight loss. Awareness of your weight trend -- that is, whether your weight is going up or down -- is also important. In fact, weighing yourself more often is linked to weight control, while weighing yourself less often has been associated with weight gain. One study found that participants who weighed themselves less often were more likely to report increased calorie intake and decreased restraint toward food (15). Self-weighing promotes self-regulation and awareness of your weight trend and weight-related behaviors. That s why it generally results in greater weight loss (14). Although the exact number on the scale may be unimportant, monitoring weight loss progress motivates you to keep going and generally improves weight-related behavior and self-control. Also, by being more aware of your weight, you can quickly react to lapses in your progress and make necessary adjustments to maintain your goal. Since most people are able to sustain a habit of daily self-weighing, the adherence and acceptability of it is generally quite high (16[employer], 17, 18, 19, 20). It s a minor addition to your daily routine that may help you reap major benefits for your weight. BOTTOM LINE: Daily self-weighing helps you maintain awareness of your weight. Monitoring weight loss progress further motivates you to keep going and improves your self-control. Daily Weighing Helps You Keep the Weight Off Frequent self-weighing has been shown to be a great way to prevent weight gain in the long-term (15, 2, 22, 23). One study investigated how much self-weighing frequency predicted weight oil change technician two years in working adults ([employer]). It found that there was a significant link between self-weighing frequency and weight change. In normal-weight individuals, daily weighing resulted in a slight weight loss, while those who weighed themselves monthly gained 4.4 pounds (2 kg), on average. However, the largest difference was in overweight individuals. Those who weighed themselves daily lost 10 pounds (4.4 kg), while those who weighed themselves monthly gained 2.2 pounds (1 kg), on average (24). Another study came to a similar conclusion, showing that self-weighing was a significant predictor of body weight over time. Participants lost an extra pound (0.45 kg) of body weight for every 11 days they self-weighed (25). The main reason why this is so effective is that consistent self-weighing allows you to catch weight gain before it escalates and make the necessary changes to prevent more weight gain (15). BOTTOM LINE: Daily weighing may help prevent long-term weight gain, especially in overweight people. Weighing Yourself Daily Is Not as Bad as People Think Not so long ago, frequent self-weighing was thought to be damaging to your mental health. This notion still exists today. Self-weighing is claimed to have negative effects on your mood by continuously reinforcing that your body size is not ideal or appropriate, resulting in an increased risk of developing an eating disorder ([employer], [employer]). Although this may be true in a small group of people, most studies have repeatedly come to a different conclusion ([employer], [employer], [employer]). The available research suggests there is very little evidence that frequent self-weighing is a cause of negative mood or body dissatisfaction, especially as part of a weight loss program ([employer], [employer], [employer], [employer], [employer], [employer]). In fact, studies indicate that frequent self-weighing may increase body satisfaction, rather than decrease it ([employer]). That said, there is a group of people who may develop a negative body image, low self-esteem or undesirable eating behaviors as a result of daily self-weighing ([employer]). If you find that daily self-weighing causes you to have bad feelings about yourself or your eating behaviors, you should find other methods to measure your progress. BOTTOM LINE: Most studies do not link frequent self-weighing to negative mood or body dissatisfaction. Some even associate them with higher body satisfaction. How to Weigh Yourself for Best Results The best time to weigh yourself is right after you wake up, after going to the bathroom and before you eat or drink. Your weight tends to fluctuate less in the morning than later in the day when you ve had plenty to eat and drink. That is also why people weigh the least in the morning. Also, it is best if you always weigh yourself in similar clothing each day. However, you need to keep in mind that your weight may fluctuate from day to day and can be affected by many factors, including: What you ate or drank the previous day Bloating or water retention Menstrual cycle Whether you ve had bowel movements recently Therefore, it is important to assess the trend of your weight over a longer period of time, instead of drawing conclusions from each and every weighing. A basic scale will do just fine. However, many scales also have the ability to measure your body mass index (BMI), body fat percentage and muscle mass, which may help you get a better picture of your progress. There are also several apps available for your phone or computer that allow you to easily enter your daily weight and see the trend of your weight change. Happy Scale for iPhone and Lizbeth for Android are two such apps. BOTTOM LINE: It is best to weigh yourself right after you wake up, after going to the bathroom and before you eat or drink anything. Other Ways to Track Your Progress Although self-weighing may be a valuable tool, it has some limitations. If you re exercising and gaining muscle, the scale may not show your progress and instead simply show that you have gained weight. While losing weight can indicate progress, a scale does not differentiate between healthy weight (muscle) and unhealthy weight (fat). Therefore, it may be good to add other ways of tracking your progress to your regimen. Here are some examples: Measure circumference: Muscle has much less volume than fat, so your circumference may be decreasing even if your weight stays the same or goes up. Measure body fat percentage: By measuring your body fat percentage, you can observe changes in fat mass, regardless of your weight. Take pictures of yourself regularly: You can observe any changes in your physique by comparing photos of yourself in similar clothing. Note how your clothes feel: Any changes in your weight will probably affect how your clothes fit. Feeling them become looser or tighter is one of the best indicators of changes in your body. BOTTOM LINE: Other ways to track your progress include measuring your circumference, measuring your body fat percentage and taking pictures of yourself. Take Home Message Weighing yourself every day can help increase your awareness of your weight and weight-related behaviors. It may help you lose more weight and prevent you from gaining that weight back in the long-term. Daily self-weighing may just be that extra motivation you need to achieve your weight goals. [email or web address] documented in this encounter [facility] 07-27-2024 Note HNO ID: [id number] Author: VELMA BENNETT MD Service: ? Author Type: Physician Type: Progress Notes Filed: 07/27/2024 13:01 Note Text: Patient Summary: Swathi Neely is a 33 year old female with obesity who presents for an initial evaluation of overweight/obesity to treat and prevent co-morbidities and is interested in open to all options. Motivation for seeking treatment for the disease of overweight/obesity : She wants to feel better about herself. Goal weight: 160 lb Lowest recall weight: 140 lb (winter 2013) Highest non- recall weight: 199 lb Patient identified barriers to weight loss: She loses motivation when she doesn't see result. Time was A factor in the past. Weight History: She reports a family history of obesity and early adulthood weight gain. She states her weight gain is related to the following factors, including reduced physical activity-she was in sports in school and once she went to college her weight started going up.. Difficulty losing weight? Yes she feels she lacks motivation. History of weight loss with regain? In the past she lost weight due to stress that was her lightest weight (140 lbs) When she was not under the stress and started eating normal she gained weight back and then more. - Last Wt 07/27/24 : 90.3 kg (199 lb) 5% weight loss = 189 lbs, 10% weight loss = 179 lbs WEIGHT GRAPH: Diet/Nutrition overview: Awake - 5:45-6 during school year B -7:30- flavored water with javed w/ caffeine, pack of PB crackers S - L - [id number]- yogurt- chobani (regular), pretzels, leftovers- cheesy potato, pasta, chicken quesadila S - D - 3:30-4pm- chicken quesadilla, pasta, cheesy potato. Out to dinner once per week- maldivian S - 8pm- popcorn, pretzels, chips- salty Fluids: water w/ javed (48-54 oz), ning, smirnoff one per day in evening. Bedtime - 9-10pm (wakes up 2-3x per night) Quality of diet: 24hr recall suggests unhealthy diet. Characterization of diet:Structured and evening snacking. Clay Hoister of impaired eating habits:excessive hunger, mindlessness , boredom, and emotion Eating Disorder no Cravings: salty Sleep Duration: 6-7 hours. EDUIN NO ; CPAP NO naps 30min-2hrs Stress Stress:no, Cause:None Obesity Related Comorbidities: Prior Weight Loss Surgery:No PAST MEDICAL HISTORY Diagnosis Date History of depression Irregular periods Kidney stones PAST SURGICAL HISTORY Procedure Laterality Date PAST SURGICAL HISTORY OF right neck/shoulder cystic hygroma SHOULDER SURGERY HX Left 2018 History reviewed. No pertinent family history. Social History Tobacco Use Smoking status: Never Smokeless tobacco: Never Vaping Use Vaping status: Never Used Substance Use Topics Alcohol use: Yes Drug use: Never AOM Medications: Weight Promoting Medications: Effexor Diet/weight loss History: Past weight loss attempts? self-directed. Low Carbohydrate diet and eating healthier Exercise: Regular exercise: no Strength/resistance exercise:no Barriers to regular exercise? 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: combined hormonal contraceptives Obesity ROS/ FHx GEN: Fatigue:yes CV: h/o palpitations/cardiac arrhythmia, Chest pain: no HTN: no PULM: Asthma:no GI: GERD:yes-had XR 06/29/24 sees Yoon courtney valentino ; Gallstones:no ; Fatty liver disease:no Pancreatitis: no MSK: Joint Pain:no : Nephrolithiasis: yes- summer 2023 left kidney (lithotripsy) Symptoms of PCOS: no NEURO: Migraines/ROME: yes (once per month- lasts 2-3 days) ; H/o seizures: no Glaucoma:no; Cataracts no Symptoms of or History of pseudotumor cerebri:no Family or personal History of MEN2 or Medullary thyroid cancer: no PE BP 112/62 Pulse 100 Ht 158.1 cm (5' 2.25) Wt 90.3 kg (199 lb) LMP 07/27/2024 (Approximate) SpO2 98% BMI 36.11 kg/m? Waist Circumference: 37.5 Neck Circumference: 37cm GENERAL: Female in NAD. General adiposity. SKIN: acanthosis nigricans no, Skin tags: no Hirsutism: no HEENT: PERRL, No supraclavicular adiposity. No dorsal adiposity. ABDOMEN: Large pannus; EXTREMITIES: peripheral edema: no Results: reviewed with the patient No visits with results within 3 Month(s) from this visit. Latest known visit with results is: Office Visit on 04/15/2024 Component Date Value Ref Range Status Strep A (POCT) 04/15/2024 Negative Negative Final Procedural Control 04/15/2024 Valid Final Impression: Swathi Neely is a 33 year old Female with Class II obesity (Body mass index is 36.11 kg/m?.) who has early adulthood obesity with several periods of weight loss followed by weight gain . The causes of her obesity are multifactorial, biological, psychological and social and environmental. Specific factors include increased co (more content not included)... [facility] 07-27-2024 History of Present illness Narrative Images from the original note were not included. Patient Summary: Swathi Neely is a 33 year old female with obesity who presents for an initial evaluation of overweight/obesity to treat and prevent co-morbidities and is interested in open to all options. Motivation for seeking treatment for the disease of overweight/obesity : She wants to feel better about herself. Goal weight: 160 lb Lowest recall weight: 140 lb (winter 2013) Highest non- recall weight: 199 lb Patient identified barriers to weight loss: She loses motivation when she doesn't see result. Time was A factor in the past. Weight History: She reports a family history of obesity and early adulthood weight gain. She states her weight gain is related to the following factors, including reduced physical activity-she was in sports in school and once she went to college her weight started going up.. Difficulty losing weight? Yes she feels she lacks motivation. History of weight loss with regain? In the past she lost weight due to stress that was her lightest weight (140 lbs) When she was not under the stress and started eating normal she gained weight back and then more. - Last Wt 07/27/24 : 90.3 kg (199 lb) 5% weight loss = 189 lbs, 10% weight loss = 179 lbs WEIGHT GRAPH: Diet/Nutrition overview: Awake - 5:45-6 during school year B -7:30- flavored water with javed w/ caffeine, pack of PB crackers S - L - [id number]- yogurt- chobani (regular), pretzels, leftovers- cheesy potato, pasta, chicken quesadila S - D - 3:30-4pm- chicken quesadilla, pasta, cheesy potato. Out to dinner once per week- maldivian S - 8pm- popcorn, pretzels, chips- salty Fluids: water w/ javed (48-54 oz), ning, smirnoff one per day in evening. Bedtime - 9-10pm (wakes up 2-3x per night) Quality of diet: 24hr recall suggests unhealthy diet. Characterization of diet:Structured and evening snacking. Clay Hoister of impaired eating habits:excessive hunger, mindlessness , boredom, and emotion Eating Disorder no Cravings: salty Sleep Duration: 6-7 hours. EDUIN NO ; CPAP NO naps 30min-2hrs Stress Stress:no, Cause:None Obesity Related Comorbidities: Prior Weight Loss Surgery:No PAST MEDICAL HISTORY Diagnosis Date History of depression Irregular periods Kidney stones PAST SURGICAL HISTORY Procedure Laterality Date PAST SURGICAL HISTORY OF right neck/shoulder cystic hygroma SHOULDER SURGERY HX Left 2018 History reviewed. No pertinent family history. Social History Tobacco Use Smoking status: Never Smokeless tobacco: Never Vaping Use Vaping status: Never Used Substance Use Topics Alcohol use: Yes Drug use: Never AOM Medications: Weight Promoting Medications: Effexor Diet/weight loss History: Past weight loss attempts? self-directed. Low Carbohydrate diet and eating healthier Exercise: Regular exercise: no Strength/resistance exercise:no Barriers to regular exercise? 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25) Wt 90.3 kg (199 lb) LMP 07/27/2024 (Approximate) SpO2 98% BMI 36.11 kg/m Waist Circumference: 37.5 Neck Circumference: 37cm GENERAL: Female in NAD. General adiposity. SKIN: acanthosis nigricans no, Skin tags: no Hirsutism: no HEENT: PERRL, No supraclavicular adiposity. No dorsal adiposity. ABDOMEN: Large pannus; EXTREMITIES: peripheral edema: no Results: reviewed with the patient No visits with results within 3 Month(s) from this visit. Latest known visit with results is: Office Visit on 04/15/2024 Component Date Value Ref Range Status Strep A (POCT) 04/15/2024 Negative Negative Final Procedural Control 04/15/2024 Valid Final Impression: Swathi Neely is a 33 year old Female with Class II obesity (Body mass index is 36.11 kg/m .) who has early adulthood obesity with several periods of weight loss followed by weight gain . The causes of her obesity are multifactorial, biological, psychological and social and environmental. Specific factors include increased consumption of high calorie/process foods, suboptimal physical activity, inadequate sleep duration, and poor sleep quality. She has several weight-related medical comorbidities which increase her cardiovascular mortality risk. There are additional metabolic obesity complications including dyslipidemia and insulin resistance . Other medical conditions as above. Regarding her lifestyle, as above, she has a few behavioral contributors ; her physical activity is non-existent. Overall, it is clear that her quality of life is mildly compromised by her weight. It is likely a combination of weight loss therapies will be needed. She appears motivated today. Plan: -- Based on the severity and resistance of the obesity/overweight with co-morbidities, I believe a combination of behavioral and pharmacological intervention is the best and most appropriate intermediate therapeutic option. -- We discussed several strategies to track food intake and increase mindfulness around eating while will decrease calorie intake. She was counseled on the following: Eating primarily whole foods. Limit carbs, especially processed carbs. Do not drink your calories 30 grams of protein for breakfast decreases your hunger during the day by up to 40 % Premier Protein or generic 30 gm protein 1 gm sugar Walk for 15 minutes immediately a meal. -- Encouraged the patient to improve her physical activity. Although cardiovascular exercise is most beneficial for weight loss initially, we discussed healthy muscle from a combination of resistance training and cardiovascular exercise is the best intermediate plan. An overall goal of 150-200 minutes per week of exercise has been effective in weight loss and maintenance. -- Reviewed that monitoring weight daily and food intake can have a positive impact on overall weight loss and maintenance of weight loss. Activity tracking can be used to stay on target for exercise however should not be used to reward oneself She understands that there can be limitations of pharmacotherapy due to contraindications, side effects and cost. Patient was told to contact her insurance company to see what AOMs and supervised behavioral medical appointments are currently covered. Patient understands she will have more success when following a healthy lifestyle. We reviewed continued use of online tracking of daily weights, food journal and if desired physical activity. We reviewed that during management she is to report any concerning side effects of any pharmacotherapy she is placed on. She understands that she will need routine follow up in the office. Prior to any virtual visits in the future she will need to check her Blood pressure, weight, and pulse. -discussed surgical options- declines - protein goal 90-135g - tracking reviewed - Consider Nutrition next visit - will start toprimate and phentermine. Reviewed off label use, common SE. Discussed h/o Stones- discussed needing to drink more water 64-90 oz minimum. - Power reviewed -previous labs reviewed from 10/2024 (E88.819) Insulin resistance (primary encounter diagnosis) (E78.6) Low HDL (under 40) (E78.5) Dyslipidemia (Z13.220) Screening cholesterol level (Z13.0) Screening for deficiency anemia (Z13.1) Screening for diabetes mellitus (Z13.228) Screening for metabolic disorder (Z13.29) Screening for thyroid disorder (Z13.21) Encounter for vitamin deficiency screening (E66.812, Z68.35) Class 2 obesity with body mass index (BMI) of 35.0 to 35.9 in adult, unspecified obesity type, unspecified whether serious comorbidity present (G43.909) Migraine without status migrainosus, not intractable, unspecified migraine type Prescription instructions reviewed with patient as applicable. Potential red flag symptoms discussed with the patient. Reviewed appropriate action plan to take if red flag symptoms occur. Patient agreeable to treatment plan. -- follow-up visit in 5 weeks for management of above interventions I spent a total of 70 minutes on the date of the service which included preparing to see the patient, [id number] patient care, completing clinical documentation, obtaining and/or reviewing separately obtained history, performing a medically appropriate examination, counseling and educating the patient/family/caregiver, and ordering medications, tests, or procedures. Velma Pike MD, FACOG, DABOM documented in this encounter [facility] 05-25-2024 History of Present illness Narrative We want to inform you that your patient's blood pressure was noted to be elevated in our office today. We thank you for trusting us with your patient's health. Last BP: BP Readings from Last 2 Encounters: 05/25/24 (!) 135/95 04/27/24 120/82 Images from the original note were not included. [facility] Surgery History and Physical Patient ID: Swathi Neely [id number] 33 y.o. 1990 Swathi Neely is a 33 y.o. female who complains of GERD type symptoms. She has been experiencing heartburn, bilious reflux, symptoms primarily relate to meals, and lying down after meals, symptoms occur at night for many years but for the past year seems to have been worsening. Previously tried Pantoprazole without improvement of symptoms. She reports symptoms really only at night time and states seems to happen if she eats 30-60 minutes before bed. She reports almost immediately with symptoms. Has only ever tried PPI. States does not take any OTC heartburn medications. She reports sometimes works late and does not eat until right before bed. ROS: patient denies chest pain, cough, wheezing, weight loss, dysphagia, black stools, hematemesis, diarrhea, constipation, fever, history of PUD, history of GI bleeding, irritation, globus, shortness of breath, or coughing with swallowing. Social history: no or minimal alcohol, nonsmoker, no or mild caffeine use, no ASA or NSAID's. 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 Walsh- removal 08/2023 HEMANGIOMA EXCISION 1991 SHOULDER ARTHROSCOPY Left [address] Hill Current Outpatient Medications Medication Sig Dispense Refill Sprintec 28 0.25-35 MG-MCG tablet Take 1 tablet by mouth daily. venlafaxine XR (Effexor XR) 75 MG 24 hr capsule Take 1 capsule (75 mg) by mouth daily. Take with food. 30 capsule 5 omeprazole (PriLOSEC) [address] capsule Take 1 capsule (40 mg) by mouth every morning (before breakfast). Do not crush or chew. 90 capsule 0 No current facility-administered medications for this visit. No Known Allergies Review of Systems: Review of Systems Constitutional: Negative for appetite change, chills, fatigue, fever and unexpected weight change. HENT: Negative for hearing loss, nosebleeds, sneezing, sore throat, trouble swallowing and voice change. Respiratory: Negative for cough, shortness of breath and wheezing. Cardiovascular: Negative for chest pain and palpitations. Gastrointestinal: Negative for abdominal pain, constipation, diarrhea, nausea, rectal pain and vomiting. Endocrine: Negative for polydipsia and polyuria. Genitourinary: Negative for difficulty urinating, dysuria, frequency, hematuria and urgency. Skin: Negative for rash and wound. Allergic/Immunologic: Negative for immunocompromised state. Neurological: Negative for seizures and syncope. Hematological: Negative for adenopathy. Does not bruise/bleed easily. Psychiatric/Behavioral: Negative for agitation and confusion. Physical Exam: BP (!) 136/90 Pulse 97 Temp 36.1 C (97 F) Ht 5' 7 (1.702 m) Wt 197 lb 3.2 oz (89.4 kg) BMI 30.89 kg/m Physical Exam Constitutional: Appearance: Normal appearance. HENT: Head: Normocephalic. Eyes: Pupils: Pupils are equal, round, and reactive to light. Cardiovascular: Rate and Rhythm: Normal rate and regular rhythm. Pulses: Normal pulses. Pulmonary: Effort: Pulmonary effort is normal. No respiratory distress. Breath sounds: Normal breath sounds. No rales. Abdominal: General: Bowel sounds are normal. Palpations: Abdomen is soft. There is no mass. Tenderness: There is abdominal tenderness in the right upper quadrant and epigastric area. Musculoskeletal: General: No swelling or tenderness. Cervical back: Normal range of motion. No tenderness. Lymphadenopathy: Cervical: No cervical adenopathy. Skin: General: Skin is warm and dry. Neurological: Mental Status: She is alert and oriented to person, place, and time. Psychiatric: Behavior: Behavior normal. Orders Placed This Encounter Procedures FL upper GI double contrast w KUB LABS: CBC: No results found for: WBC, HGB, HCT, MCV, PLT CMP: No results found for: NA, K, CL, CO2, BUN, CREATININE, AGRATIO, LABGLOM, GLUCOSE, PROT, CALCIUM, BILITOT, ALKPHOS, AST, ALT Lipase: No results found for: LIPASE Coags: No results found for: PTSEC, INR, APTT Follow Up: No follow-ups on file. ASSESSMENT/PLAN: GERD: The pathophysiology of reflux is discussed. Anti-reflux measures such as raising the head of the bed, avoiding tight clothing or belts, avoiding eating late at night (Does not want to alter this) and not lying down shortly after mealtime and achieving weight loss are discussed. Avoid ASA, NSAID's, caffeine, peppermints, alcohol and tobacco. OTC H2 blockers and/or antacids are often very helpful for PRN use. However, for persisting chronic or daily symptoms, prescription strength H2 blockers or a trial of PPI's are often used. Further recommendations to her: Rx for PPI is written, UGI series ordered. Instructed PPI trial alternative PPI Omeprazole to be taken in evening since majority of symptoms at night time. Instructed okay for OTC pepcid or tums or other non PPI acid reflux medication as needed. She should alert me if there are persistent symptoms, dysphagia, weight loss or GI bleeding. FUV is scheduled after completion of above tests. Patient counseled on risks, benefits, and alternatives of treatment plan at length while in the office today. Patient states an understandingand willingness to proceed with plan. I spent 45 minutes total on the day of the visit obtaining history, reviewing imaging and laboratory results, performing a physical exam and providing patient education and counseling. Yoon QUINN documented in this encounter [facility] 05-25-2024 Note Armand fofana History and Physical Patient ID: Swathi Neely [id number] 33 y.o. 1990 Swathi Neely is a 33 y.o. female who complains of GERD type symptoms. She has been experiencing heartburn, bilious reflux, symptoms primarily relate to meals, and lying down after meals, symptoms occur at night for many years but for the past year seems to have been worsening. Previously tried Pantoprazole without improvement of symptoms. She reports symptoms really only at night time and states seems to happen if she eats 30-60 minutes before bed. She reports almost immediately with symptoms. Has only ever tried PPI. States does not take any OTC heartburn medications. She reports sometimes works late and does not eat until right before bed. ROS: patient denies chest pain, cough, wheezing, weight loss, dysphagia, black stools, hematemesis, diarrhea, constipation, fever, history of PUD, history of GI bleeding, irritation, globus, shortness of breath, or coughing with swallowing. Social history: no or minimal alcohol, nonsmoker, no or mild caffeine use, no ASA or NSAID's. 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 Walsh- removal 08/2023 HEMANGIOMA EXCISION 1991 SHOULDER ARTHROSCOPY Left [address] Hill Current Outpatient Medications Medication Sig Dispense Refill Sprintec 28 0.25-35 MG-MCG tablet Take 1 tablet by mouth daily. venlafaxine XR (Effexor XR) 75 MG 24 hr capsule Take 1 capsule (75 mg) by mouth daily. Take with food. 30 capsule 5 omeprazole (PriLOSEC) [address] capsule Take 1 capsule (40 mg) by mouth every morning (before breakfast). Do not crush or chew. 90 capsule 0 No current facility-administered medications for this visit. No Known Allergies Review of Systems: Review of Systems Constitutional: Negative for appetite change, chills, fatigue, fever and unexpected weight change. HENT: Negative for hearing loss, nosebleeds, sneezing, sore throat, trouble swallowing and voice change. Respiratory: Negative for cough, shortness of breath and wheezing. Cardiovascular: Negative for chest pain and palpitations. Gastrointestinal: Negative for abdominal pain, constipation, diarrhea, nausea, rectal pain and vomiting. Endocrine: Negative for polydipsia and polyuria. Genitourinary: Negative for difficulty urinating, dysuria, frequency, hematuria and urgency. Skin: Negative for rash and wound. Allergic/Immunologic: Negative for immunocompromised state. Neurological: Negative for seizures and syncope. Hematological: Negative for adenopathy. Does not bruise/bleed easily. Psychiatric/Behavioral: Negative for agitation and confusion. Physical Exam: BP (!) 136/90 Pulse 97 Temp 36.1 ?C (97 ?F) Ht 5' 7 (1.702 m) Wt 197 lb 3.2 oz (89.4 kg) BMI 30.89 kg/m? Physical Exam Constitutional: Appearance: Normal appearance. HENT: Head: Normocephalic. Eyes: Pupils: Pupils are equal, round, and reactive to light. Cardiovascular: Rate and Rhythm: Normal rate and regular rhythm. Pulses: Normal pulses. Pulmonary: Effort: Pulmonary effort is normal. No respiratory distress. Breath sounds: Normal breath sounds. No rales. Abdominal: General: Bowel sounds are normal. Palpations: Abdomen is soft. There is no mass. Tenderness: There is abdominal tenderness in the right upper quadrant and epigastric area. Musculoskeletal: General: No swelling or tenderness. Cervical back: Normal range of motion. No tenderness. Lymphadenopathy: Cervical: No cervical adenopathy. Skin: General: Skin is warm and dry. Neurological: Mental Status: She is alert and oriented to person, place, and time. Psychiatric: Behavior: Behavior normal. Orders Placed This Encounter Procedures FL upper GI double contrast w KUB LABS: CBC: No results found for: WBC, HGB, HCT, MCV, PLT CMP: No results found for: NA, K, CL, CO2, BUN, CREATININE, AGRATIO, LABGLOM, GLUCOSE, PROT, CALCIUM, BILITOT, ALKPHOS, AST, ALT Lipase: No results found for: LIPASE Coags: No results found for: PTSEC, INR, APTT Follow Up: No follow-ups on file. ASSESSMENT/PLAN: GERD: The pathophysiology of reflux is discussed. Anti-reflux measures such as raising the head of the bed, avoiding tight clothing or belts, avoiding eating late at night (Does not want to alter this) and not lying down shortly after mealtime and achievin (more content not included)... [facility] 04-29-2024 Note [place] [facility] [place] and doctor's signature [facility] 04-29-2024 Telephone encounter Note Referral [place] [facility] [place] dx and doctor's signature [facility] 04-29-2024 Miscellaneous Notes Referral [place] [facility] [place] dx and doctor's signature documented in this encounter [facility] 04-27-2024 History of Present illness Narrative Images from the original note were not included. [facility] - [address] [facility] [id number] Visit type: Established Patient Reason for Visit: Follow-up (Med check) and Cough (And sore throat and drainage for three weeks) Assessment / Plan: Swathi was seen today for follow-up and cough. Diagnoses and all orders for this visit: Anxiety and depression (Primary) Comments: Improving but not at goal, increase Effexor, should consider therapy, call with update in 1 month Gastroesophageal reflux disease without esophagitis Comments: Recurrent, GI referral continue pantoprazole Acute recurrent frontal sinusitis Comments: 3 weeks of symptoms. Amoxicillin Other orders - amoxicillin (Amoxil) 500 MG capsule; Take 1 capsule (500 mg) by mouth 3 times daily for 10 days. - venlafaxine XR (Effexor XR) 75 MG 24 hr capsule; Take 1 capsule (75 mg) by mouth daily. Take with food. Subjective: Patient ID: Swathi Neely is a 33 y.o. female. HPI patient presents for refill on Effexor which has been somewhat helpful for generalized anxiety and depression. Her work is going well. However developed a URI that it has been lasting for about 3 weeks. Sinus and head congestion. No fever or confusion. No chest pain or shortness of breath. Review of Systems Protonix has helped her heartburn but persistent. No dysphagia. No lifestyle changes that would contribute to acid reflux. No early satiety melena or blood or bowel changes. control has been effective on controlling menses. No Known Allergies Current Outpatient Medications on File Prior to Visit Medication Sig Dispense Refill pantoprazole (ProtoNix) 40 MG EC tablet TAKE 1 TABLET (40 MG) BY MOUTH DAILY. DO NOT CRUSH, CHEW, OR SPLIT. 90 tablet 1 Sprintec 28 0.25-35 MG-MCG tablet Take 1 tablet by mouth daily. [DISCONTINUED] venlafaxine XR (Effexor XR) 37.5 MG 24 hr capsule TAKE 1 CAPSULE BY MOUTH DAILY.DO NOT CRUSH OR CHEW 90 capsule 1 No current facility-administered medications on file prior to visit. Patient Active Problem List Diagnosis History of renal calculi Anxiety and depression Gastroesophageal reflux disease without esophagitis Social History Tobacco Use Smoking status: Never Smokeless tobacco: Never Substance Use Topics Alcohol use: Yes Alcohol/week: 1.0 standard drink of alcohol Past Surgical History: Procedure Laterality Date EXTRACORPOREAL SHOCK WAVE LITHOTRYPSY, KIDNEY CALCULI (HISTORICAL) Left 07/2023 Dr. Walsh- removal 08/2023 HEMANGIOMA EXCISION 1991 SHOULDER ARTHROSCOPY Left [address] Hill Family History Problem Relation Name Age of Onset No Known Problems Mother Gout Father No Known Problems Brother Objective: BP 120/82 Pulse 99 Temp 36.7 C (98.1 F) (Temporal) Ht 5' 2 (1.575 m) Wt 202 lb (91.6 kg) SpO2 99% BMI 36.95 kg/m Physical Exam no acute distress. Alert and pleasant cooperative. She has good insight eye contact and is well-groomed. Normal eardrums and oropharynx. Great postnasal drip. No neck masses or thyroid lesions. Reflexes normal. Heart is regular without murmurs. Lungs are clear. Abdomen without pain hepatosplenomegaly or masses. Extremities are normal. documented in this encounter [facility] 04-27-2024 Instructions Jc Leslie DO - 04/27/2024 4:30 PM EST Call with update on higher dose Effexor in 1 month. If not effective as you desire we may increase Effexor to next dosage at that time. You might consider counseling as well. documented in this encounter [facility] 04-27-2024 Note Call with update on higher dose Effexor in 1 month. If not effective as you desire we may increase Effexor to next dosage at that time. You might consider counseling as well. [facility] 04-15-2024 Instructions Prieto Thomas MD - 04/15/2024 4:14 PM EST NASAL SALINE IRRIGATION Sinus rinses can help with the nasal congestion and discomfort associated with sinusitis. They can clear or thin excessive mucus, remove crusting, and even remove allergy causing particles such as pollen from the nose. You can purchase commercially prepared salt mixtures or prepare your own rinse with the recipe below: INSTRUCTIONS FOR THE PREPARATION OF ISOTONIC NASAL IRRIGATION SOLUTION Fill one bottle with 8 ounces of distilled water. If you use tap water, boil it first and let it cool to room temperature. Add 1/2 teaspoon non-iodized table salt. Add 1/2 teaspoon baking soda. Mix well until dissolved. Irrigate each nostril with solution Use a commercial squeeze bottle or bulb syringe. Use of the bottle or one full syringe in each nostril. Squeeze saline into the upper nostril gently with your head rotated and tilted down and over a sink. Breathe through your mouth. The saline solution should come out the other nostril. A small amount may get into your mouth. Repeat the process with the other nostril. You may use these salt water rinses one to four times a day. If your nose is severely blocked do not use rinses. If you experience pain, nose bleeds, or other difficulties with the rinses, DO NOT use them. Contact your health care provider with any problems. documented in this encounter [facility] 04-15-2024 Note HNO ID: [id number] Author: PRIETO THOMAS MD Service: ? Author Type: Physician Type: Progress Notes Filed: 04/15/2024 16:19 Note Text: Patient presents with: Sore Throat: Entered by patient Cough: With congestion AND sore throat x10 days HPI: Feeling sick for 1 1/2 weeks. She was feeling better Friday after sleeping a lot on . 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 Positive symptoms: Cough, Sore throat, Nasal Congestion, Rhinorrhea, Fatigue, hoarse voice, Negative symptoms: Shortness of breath, Chest pain, Sinus pressure/pain, Fever, OTC: Mucinex, Nyquil, nasal spray MEDICATIONS: Current Outpatient Medications Medication Sig pantoprazole DR (PROTONIX) 40 mg tablet take 1 tablet (40 mg) by mouth daily. do not crush, chew, or split. venlafaxine ER (EFFEXOR XR) 37.5 mg 24 hr capsule TAKE 1 CAPSULE BY MOUTH DAILY.DO NOT CRUSH OR CHEW norgestimate 0.25 mg-ethinyl estradiol 35 mcg 0.25-35 mg-mcg per tablet Take 1 tablet by mouth once daily. No current facility-administered medications for this visit. ALLERGIES: ALLERGIES No Known Allergies VITALS: BP 138/82 Pulse 102 Temp 37.1 ?C (98.7 ?F) (Left Tympanic) Resp 16 Wt 91.3 kg (201 lb 4.5 oz) LMP 03/31/2024 (Approximate) SpO2 99% BMI 36.81 kg/m? PHYSICAL EXAM: GEN: mildly ill appearing HEENT: PERRL, EOMI, conjunctiva clear Ears: canals clear. TMs without erythema, bulge, or effusion Sinuses: non-tender frontal sinus, non-tender maxillary sinuses Throat: moist mucous membranes, mild erythema, no exudate Neck: supple, no thyromegaly, no lymphadenopathy, hoarse voice HEART: regular rate, regular rhythm, no murmurs LUNGS: clear to auscultation, no wheezes or crackles, no increased WOB ASSESSMENT/PLAN: 1. Sore throat - ICD9: 462, ICD10: J02.9 - STREP A MOLECULAR (POC) - negative. - suspect viral URI, possibly new illness the last 5 days. No clear signs or symptoms of secondary bacterial infection. - Discussed supportive care treatment with rest, cold medicine, and analgesia. Reviewed nasal saline irrigation as a treatment to reduce post-nasal drainage and hoarse voice. Prieto Thomas MD [facility] 04-15-2024 History of Present illness Narrative Patient presents with: Sore Throat: Entered by patient Cough: With congestion & sore throat x10 days HPI: Feeling sick for 1 1/2 weeks. She was feeling better Friday after sleeping a lot on . 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 Positive symptoms: Cough, Sore throat, Nasal Congestion, Rhinorrhea, Fatigue, hoarse voice, Negative symptoms: Shortness of breath, Chest pain, Sinus pressure/pain, Fever, OTC: Mucinex, Nyquil, nasal spray MEDICATIONS: Current Outpatient Medications Medication Sig pantoprazole DR (PROTONIX) 40 mg tablet take 1 tablet (40 mg) by mouth daily. do not crush, chew, or split. venlafaxine ER (EFFEXOR XR) 37.5 mg 24 hr capsule TAKE 1 CAPSULE BY MOUTH DAILY.DO NOT CRUSH OR CHEW norgestimate 0.25 mg-ethinyl estradiol 35 mcg 0.25-35 mg-mcg per tablet Take 1 tablet by mouth once daily. No current facility-administered medications for this visit. ALLERGIES: ALLERGIES No Known Allergies VITALS: BP 138/82 Pulse 102 Temp 37.1 C (98.7 F) (Left Tympanic) Resp 16 Wt 91.3 kg (201 lb 4.5 oz) LMP 03/31/2024 (Approximate) SpO2 99% BMI 36.81 kg/m PHYSICAL EXAM: GEN: mildly ill appearing HEENT: PERRL, EOMI, conjunctiva clear Ears: canals clear. TMs without erythema, bulge, or effusion Sinuses: non-tender frontal sinus, non-tender maxillary sinuses Throat: moist mucous membranes, mild erythema, no exudate Neck: supple, no thyromegaly, no lymphadenopathy, hoarse voice HEART: regular rate, regular rhythm, no murmurs LUNGS: clear to auscultation, no wheezes or crackles, no increased WOB ASSESSMENT/PLAN: 1. Sore throat - ICD9: 462, ICD10: J02.9 - STREP A MOLECULAR (POC) - negative. - suspect viral URI, possibly new illness the last 5 days. No clear signs or symptoms of secondary bacterial infection. - Discussed supportive care treatment with rest, cold medicine, and analgesia. Reviewed nasal saline irrigation as a treatment to reduce post-nasal drainage and hoarse voice. Prieto Thomas MD documented in this encounter [facility] 03-02-2024 Telephone encounter Note Recent Visits Date Type Provider Dept 01/08/24 Office Visit Jc Leslie DO [facility] Showing recent visits within past 365 days and meeting all other requirements Future Appointments Date Type Provider Dept 03/10/24 Appointment Jc Meyer DO [place] [facility] Showing future appointments within next 90 days and meeting all other requirements Requested Prescriptions Pending Prescriptions Disp Refills venlafaxine XR (Effexor XR) 37.5 MG 24 hr capsule [Pharmacy Med Name: VENLAFAXINE HCL ER 37.5 MG CAP] 30 capsule 1 Sig: TAKE 1 CAPSULE BY MOUTH DAILY.DO NOT CRUSH OR CHEW pantoprazole (ProtoNix) 40 MG EC tablet [Pharmacy Med Name: PANTOPRAZOLE SOD DR 40 MG TAB] 30 tablet 1 Sig: TAKE 1 TABLET (40 MG) BY MOUTH DAILY. DO NOT CRUSH, CHEW, OR SPLIT. Provider: Jc Leslie DO Verified pharmacy: yes Verified day(s) supplied: yes Verified refill(s) needed (previous prescription showing no refills in chart): Yes Have you received any controlled medications from any other provider? N/A Overdue for visit: No If yes - patient scheduled? Yes Most recent labs completed in chart? N/A [facility] 03-02-2024 Miscellaneous Notes Recent Visits Date Type Provider Dept 01/08/24 Office Visit Jc Meyer DO [place] [facility] Showing recent visits within past 365 days and meeting all other requirements Future Appointments Date Type Provider Dept 03/10/24 Appointment Jc Leslie DO [facility] Showing future appointments within next 90 days and meeting all other requirements Requested Prescriptions Pending Prescriptions Disp Refills venlafaxine XR (Effexor XR) 37.5 MG 24 hr capsule [Pharmacy Med Name: VENLAFAXINE HCL ER 37.5 MG CAP] 30 capsule 1 Sig: TAKE 1 CAPSULE BY MOUTH DAILY.DO NOT CRUSH OR CHEW pantoprazole (ProtoNix) 40 MG EC tablet [Pharmacy Med Name: PANTOPRAZOLE SOD DR 40 MG TAB] 30 tablet 1 Sig: TAKE 1 TABLET (40 MG) BY MOUTH DAILY. DO NOT CRUSH, CHEW, OR SPLIT. Provider: Jc Leslie DO Verified pharmacy: yes Verified day(s) supplied: yes Verified refill(s) needed (previous prescription showing no refills in chart): Yes Have you received any controlled medications from any other provider? N/A Overdue for visit: No If yes - patient scheduled? Yes Most recent labs completed in chart? N/A documented in this encounter [facility] 01-08-2024 History of Present illness Narrative Images from the original note were not included. [facility] - [address] [facility] [id number] Visit type: Established Patient Reason for Visit: GI Problem (Over the last month if she eats late it comes back up in her throat and the last 2 wks every time she eats she feels sick to her stomach. ) Assessment / Plan: Swathi was seen today for gi problem. Diagnoses and all orders for this visit: Gastroesophageal reflux disease without esophagitis (Primary) Comments: Recurrent, Protonix for 6 weeks and call with update. Will need endoscopy if no better Anxiety and depression Comments: New onset, Effexor, call with update in 1 month. She defers counseling referral History of renal calculi Comments: Improved, recheck with urology in 1 year for repeat ultrasound Other orders - pantoprazole (ProtoNix) 40 MG EC tablet; Take 1 tablet (40 mg) by mouth daily. Do not crush, chew, or split. - venlafaxine XR (Effexor XR) 37.5 MG 24 hr capsule; Take 1 capsule (37.5 mg) by mouth daily. Do not crush or chew. Subjective: Patient ID: Swathi Neely is a 33 y.o. female. HPI non-smoker presents concern of a few weeks of substernal burning when she tries to lay down at night. Often feeling of burning up in the throat when she lays down. Some nausea without vomiting. Denies dysphagia or true abdominal pain. No bowel changes. No melena or blood. No loss of appetite or weight. She does not drink excessive alcohol or caffeine. No NSAID use. No history of ulcers. Review of Systems Recent workup for ovarian cyst and kidney stones reviewed. Things are better. Had a left sided lithotripsy a few months ago and that went well. There is a question of a small right kidney but urology will be following that. Creatinine normal. Extensive lab and CT of the abdomen with ultrasound of the pelvis were reviewed. Resolved ovarian cyst. Was placed on control per [employer] CAMERA OPERATOR. Patient is concerned about ongoing anxiety and symptoms of depression. Some loss of motivation and crying spells. 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 She does not smoke or drink. He is still single. She gets along with her brother and mother and father. They are very supportive. No hallucinations or suicidal ideation. She is interested in prescription antidepressants and might consider counseling. No Known Allergies Current Outpatient Medications on File Prior to Visit Medication Sig Dispense Refill Sprintec 28 0.25-35 MG-MCG tablet Take 1 tablet by mouth daily. [DISCONTINUED] ibuprofen 200 MG tablet Take 200 mg by mouth every 6 hours as needed. [DISCONTINUED] oxyCODONE-acetaminophen (Percocet) 5-325 MG tablet Take 1 tablet by mouth every 6 hours as needed for severe pain (7-10) for up to 20 doses. 20 tablet 0 No current facility-administered medications on file prior to visit. Patient Active Problem List Diagnosis History of renal calculi Anxiety and depression Gastroesophageal reflux disease without esophagitis Social History Tobacco Use Smoking status: Never Smokeless tobacco: Never Substance Use Topics Alcohol use: Yes Alcohol/week: 1.0 standard drink of alcohol Past Surgical History: Procedure Laterality Date EXTRACORPOREAL SHOCK WAVE LITHOTRYPSY, KIDNEY CALCULI (HISTORICAL) Left 07/2023 Dr. Walsh- removal 08/2023 HEMANGIOMA EXCISION 1991 SHOULDER ARTHROSCOPY Left [address] Hill Family History Problem Relation Name Age of Onset No Known Problems Mother Gout Father No Known Problems Brother Objective: BP 112/79 (BP Location: Left arm, Patient Position: Sitting, BP Cuff Size: Large adult) Pulse 85 Temp 36.6 C (97.8 F) (Temporal) Ht 5' 2 (1.575 m) Wt 197 lb (89.4 kg) SpO2 99% BMI 36.03 kg/m Physical Exam very pleasant alert and engaging. She is well-groomed has good insight and eye contact. She is tearful as she talks about her depression. Normal ENT. No thyroid or neck masses. Heart is regular without murmurs. Lungs are clear. Abdomen without pain hepatosplenomegaly masses or ascites. No adenopathy. Extremities are pink without pallor or edema. Reflexes normal. documented in this encounter [facility] 01-08-2024 Instructions Jc Leslie DO - 01/08/2024 4:00 PM EST Call with update in one month on symptoms. documented in this encounter [facility] 11-28-2023 Instructions Lilly Muniz APRN.CANNERY WORKER - 11/28/2023 7:28 AM EDT Polycystic Ovary Syndrome Women with polycystic ovary syndrome (PCOS) have a hormonal imbalance that interferes with normal reproductive processes. PCOS usually starts at puberty and is associated with irregular periods and other hormone related symptoms. The most concerning issues with PCOS are the increase of infertility, the risk of developing type 2 diabetes and cardiovascular disease, and the higher risk of developing endometrial (uterine) cancer at an early age. What are the symptoms of PCOS? Irregular menstrual periods, or no menstrual periods at all Decreased frequency or complete lack of ovulation, resulting in problems with infertility Obesity, often specifically characterized by weight gain in the upper body and abdomen Oily skin and hair and persistent acne into adulthood Abnormal hair growth, in a masculine distribution (facial hair, heavy hair growth on arms, chest, and abdomen) Tendency to develop type 2 diabetes What causes PCOS syndrome? Research is ongoing to uncover a cause for PCOS. There is evidence that shows a link between certain forms of PCOS and family history, suggesting a genetic basis for the condition. How is PCOS diagnosed? Most cases can be diagnosed with a thorough evaluation of your medical history and symptoms, as well as a physical exam. A blood test may be required to measure the levels of various hormones. In some cases, an ultrasound of the ovaries may help with diagnosis. How is PCOS treated? Although PCOS can be treated with medications, treatment is often highly dependent on your goals and your symptoms. If you want to become , you may need the assistance of oral or injected fertility medications. If you do not want to become , you may consider control pills to prevent and regulate periods. Other symptoms such as unwanted hair growth, acne, obesity, and diabetes should be managed by specialists in those areas. Specific treatment options should be discussed with your physician. How can PCOS be prevented? There is no known prevention for PCOS. However, through proper nutrition and weight management many women with polycystic ovary syndrome can avoid developing diabetes and cardiovascular problems. How can I improve my chances of conceiving if I have PCOS? While specific fertility issues should be addressed with your physician, there are some general healthcare guidelines that may improve your chances of becoming : Folic acid (400 mcg. supplement a day, with a diet rich in folic acid, including leafy green vegetables, dried beans, liver, and citrus fruits) Limit caffeine (Fewer than two caffeinated beverages per day) Eat well (Healthy well-balanced diet) Exercise and maintain a healthy weight (Maintain a normal exercise routine, 20 to 30 minutes per day, 4 to 5 times per week.) This information is provided by your physician and the [facility] and the [facility] [email or web address]. This information has not been designed to replace a physician's medical assessment and medical judgment. Copyright 1994- 2012 [facility]. All rights reserved This information is provided by the [facility] and is not intended to replace the medical advice of your doctor or health care provider. Please consult your health care provider for advice about a specific medical condition. For additional health information, please contact the [facility] Information at the [facility] or toll-free extension [phone]. If you prefer, you may visit [email or web address] or [email or web address]. This document was last reviewed on: 2009 index#[id number] documented in this encounter [facility] 11-28-2023 History of Present illness Narrative Swathi Neely is a 33 year old female who presents for a follow up visit to go over her test results. HPI: Swathi presents for a follow up visit to go over her ultrasound and labs. She was last seen in the office 11/20/2023 for pelvic pain. Ultrasound on 11/21/23 showed: Normal appearing anteverted uterus that measures 72 mm x 36 mm x 40 mm. Heterogeneous myometrium with few cystic areas. Endometrium has a normal trilaminar appearance and measures 6.9 mm. Normal endoemtrial contour. Both ovaries are visualized and appear normal with follicular change. No adnexal masses were observed. There is no free fluid visualized in the peritoneal cavity. Labs showed a low HDL (34), elevated Non HDL (155) TC:HDL Ratio (5.56) Elevated LDL: 136 LDL:HDL: 4.00 Has not started OCP for irregular periods. Periods range from every 30 days to 5 months. Pelvic pain is improved. Rates it as a 3/10. OB History T0 L0 SAB0 IAB0 Ectopic0 Multiple0 Live Births0 Conditioning Room Worker History LMP: 09/26/2023, Having periods Age at Menarche: Age at First : Age at Menopause: Conditioning Room Worker History Comments: Sexual Activity: Not Currently; Male Contraception: No contraception data on record PAST MEDICAL HISTORY Diagnosis Date NEGATIVE MEDICAL HISTORY PAST SURGICAL HISTORY Procedure Laterality Date PAST SURGICAL HISTORY OF right neck/shoulder cystic hygroma SHOULDER SURGERY HX Left No family history on file. Social History Tobacco Use Smoking status: Never Smokeless tobacco: Never Vaping Use Vaping status: Never Used Substance Use Topics Alcohol use: Yes Drug use: Never Current Outpatient Medications Medication Sig norgestimate 0.25 mg-ethinyl estradiol 35 mcg 0.25-35 mg-mcg per tablet Take 1 tablet by mouth once daily. No current facility-administered medications for this visit. Allergies As of Date: 11/28/2023 (No Known Allergies) Fully Assessed 11/28/2023 REVIEW OF SYSTEMS Expanded ROS: LINE CAMERA OPERATOR: + irregular periods Allergies and current medication updated:Yes SENSITIVE EXAM: The sensitive examination was discussed with the Patient or Patient's Authorized Support Team Assoc. As applicable, any other physician, advance practice provider, medical student, or other health professional student that will be observing or involved in the sensitive examination for educational or training purposes was discussed with the Patient or Authorized Support Team Assoc. The Patient or Authorized Support Team Assoc has agreed to proceed with the sensitive examination. (Sensitive examination includes inspection and/or palpation of the breasts, pelvis, prostate and anorectal regions). EXAM: BP 114/64 Wt 196 lb (88.9kg) LMP 09/26/2023 GENERAL: pleasant, female in no apparent distress HEENT: Normocephalic, atraumatic, mucus membranes moist, and no lesions CHEST: Normal inspiratory effort NEURO: alert and oriented x3,exam grossly non-focal EXTREMITIES: normal ASSESSMENT AND PLAN: 1. Pelvic pain in female - ICD9: 625.9, ICD10: R10.2 (primary diagnosis) - Improving - Discussed possibility of adenomyosis based on ultrasound - Discussed OCP may improve this pain. Discussed option of chronic pelvic pain clinic as well. 2. Irregular periods - ICD9: 626.4, ICD10: N92.6 - Discussed possibility of PCOS - Denies hirsutism or ongoing acne, occasional acne with periods - Testosterone level pending - To notify if going longer than 2-3 months without period. Reviewed risk of uterine hyperplasia 3. Class 2 obesity with body mass index (BMI) of 35.0 to 35.9 in adult, unspecified obesity type, unspecified whether serious comorbidity present - ICD9: 278.00, V85.35, ICD10: E66.812, Z68.35 - Discussed 5-10% reduction in body weight can improve cycle regulation significantly - CONSULT TO [facility]NAGEMENT [facility] - Recommend walking after meals and increasing protein intake 4. Dyslipidemia - ICD9: 272.4, ICD10: E78.5 - Discussed first line therapy as improving diet and exercise RTO for annual. Lilly Muniz APRN.CNP Medical Decision Making: Problems: Moderate: 2+ stable chronic illnesses Data: Unique test result(s) reviewed: 3+ Risk: Low: Low risk from testing/treatment Moderate: Drug management Medical Decision Making Level: 4 - Moderate documented in this encounter 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 Encounter Diagnosis ICD-10-CM 1. Irregular periods N92.6 Please see report under imaging tab. Argenis Rivera MD November 24, 2023 8:58 AM documented in this encounter [facility] 11-20-2023 Instructions Lilly Muniz APRN.CANNERY WORKER - 11/20/2023 7:30 AM EDT Oral Contraceptives: The Pill Beginning the Pill Pills come in either a 21 day pack or a 28 day pack. With the 21 day pack you will take one pill for 21 days then no pill for 7 days, during which time you will have what is known as withdrawal bleeding. The 28 day pack allows you to take a pill every day of the cycle with no interruptions. The first 21 pills are the pills with the active ingredients and the last 7 are the nonmedical pills (placebo) or they may contain iron. There will be bleeding during the week you are taking the nonmedical pills. The advantage to the 28 day pack is that you don t have to keep track of when you stopped the pill. There are a group of 28 day pills that contain 24 active pills and only 4 placebo pills. These are formulated to give you a welder shielded metal arc period. Unless otherwise instructed, you should start your pills the Friday following your first day of bleeding with your next period (if your period starts on a Friday, you should start pills the same day) Read your information packet that comes with the pills. Pill Benefits The pill is the most popular method of reversible control being used today. Millions of women rely on oral contraceptives as their control method. It is important to have an examination by your physician to determine if the pill is safe for you. There are several advantages associated with the pill: it is 97-98% effective when used correctly; may improve acne; periods are more regular and less painful; there is less iron deficiency anemia in pill users. group home use is associated with a decreased incidence of ovarian and uterine cancer. There is also no evidence that the pill increases the incidence of any cancer. How Oral Contraceptives Work Oral contraceptives come in two varieties. One is the combination pill which contains both estrogen and progesterone. Combination pills are considered 98-99% effective in preventing . This pill comes in either monophasic, which delivers the same amount of estrogen and progesterone throughout the cycle; and triphasic, which try tries to mimic the normal hormone cycle by changing the levels of the hormones in the pills during the month. There is no real advantage to taking the one over the other. The other type of pill only contains progesterone. It is best used for women who can t take estrogen. This type of pill is slightly less effective than the combination pill in preventing . It is VERY important to take the progesterone only pill at the same time every day. Oral contraceptives prevent ovulation (release of an egg from the ovary) by suppressing the pituitary gland s action. The pill does NOT prevent sexually transmitted disease. Obtaining a Prescription It is important to see your doctor before starting oral contraceptives so that you can have a full medical history taken and a physical examination given. Certain medical conditions may make the pill inappropriate for you, therefore it is very important to be honest and as complete as possible with the information you share with your doctor. The types of predisposing factors which would make the pill a poor choice of control would include: History of blood clots Stroke Serious liver disease or impaired liver function Unexplained vaginal bleeding or Cancer of the reproductive system Active gall bladder disease Hypertension Possible Side Effects It can take up to three months for your body to become adjusted to the pill. The more common side effects experienced at this time are: breakthrough spotting or bleeding, which is bleeding at any other time other than when you should be having a period; nausea or vomiting; breast tenderness; and mild fluid retention. There is no intermediate weight gain with the use of the pill. Breakthrough bleeding is the most common complaint of new pill users. There is no way to predict who will have it and there is no way of preventing it. Breakthrough bleeding usually subsides on its own with no further treatment after the first three months of taking the pill. If these symptoms continue to occur after the first three months you should check with your physician to see if there is any physical cause and possibly change to another control pill. Problems: Missed 1 pill: Take 2 pills the next day. Missed 2 pills: Take 2 pills the next day and 2 pills the following day. Also use another form of control (condoms) along with the pill for the rest of the month. Missed 3 or more pills: You have two choices. You can take two pills each day until you are on schedule, plus use an additional form of control along with the pill for the rest of the month. Or you can stop the pill and start a completely new pack of pills the next Friday. You must use another form of control with the pill for at least the first two weeks of the new pack. You re ill and you have been vomiting or have diarrhea: You must use another form of control with the pill since the pill may not be fully absorbed during your illness. Continue to use the added control until the end of the cycle. Desire to become : Stop using the pill for one month before trying to become . Taking other medications: The control pill is less effective when you take the antibiotic Rifampin, epilepsy (seizure) drugs such as phenytoin, carbamazepine, phenobarbital, topiramate and some medications for HIV. Let your doctor know if you start taking any of these medications while on the pill. Symptoms to Notify Your Doctor with Immediately: Pain in your chest or legs Continuous blurred vision Severe headaches Slurred speech Tingling or weakness on one side of your body Shortness of breath Swelling of one leg Refills of Control Pills You need to see a doctor every year for a refill of your prescription. This is necessary in order that your health can be monitored closely while you are taking control pills. If your prescription should before your next scheduled appointment you can usually get a one month extension from your doctors office if you call during regular business hours about one week before you need to start the new package of pills. This allows the physician to refer to your chart for necessary health information. documented in this encounter [facility] 11-20-2023 History of Present illness Narrative Swathi Neely is a 33 year old female who presents for problem visit of pelvic pain and irregular periods. HPI: Swathi has had pelvic pain for a couple of weeks - she thinks it may be another ovarian cyst. It ranges from sharp to dull. She rates it as a 4/10. She is not taking anything for it. Had ultrasound in ER on 08/12/23 that showed: FINDINGS: The uterus is anteverted and is in a midline position. The uterus measures 8 cm x 3.8 cm x 3.4 cm. There are nabothian cysts of the cervix. The endometrium measures 4 mm in thickness, and is hyperechoic. There is no demonstrated endometrial mass. There is no demonstrated myometrial mass. I.U.D. - The patient does not have an I.U.D. The right ovary is visualized. The right ovary measures 4.2 cm x 4 cm x 2.3 cm. There is a 2.9 cm x 3.8 cm x 1.9 cm simple cyst in the ovary. There is no visualized right adnexal mass or complex lesion. There is normal arterial and normal venous vascularity. The left ovary is visualized. The left ovary measures 5.3 cm x 5.2 cm x 4 cm. There is a 4.9 cm x 4.47 x 3.4 cm complex cyst in the left ovary. Septations are seen within it. Sonographic follow-up recommended. There is no visualized left adnexal mass or complex lesion. There is normal arterial and normal venous vascularity. There is minimal fluid in the cul-de-sac. US/Transvaginal Non- IMPRESSION: Simple cyst in the right ovary. Complex cyst in the left ovary as described. Sonographic follow-up recommended. Had a follow up ultrasound on 09/01/23 that showed: Impression The uterus is anteverted and measures 75 mm x 32 mm x 42 mm. The endometrial thickness is 6 mm. The right ovary measures 30 mm x 23 mm x 17 mm. The left ovary measures 34 mm x 20 mm x 23 mm and contains a 13 mm x 15 mm x 15 mm. Hemorrhagic cyst with reticular pattern/clot. There is no free fluid visualized. Recommendations Normal pelvic ultrasound. Hemorrhagic cyst normal in premenopausal patient LMP 09/26/2023. 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 Social History Tobacco Use Smoking status: Never Smokeless tobacco: Never Vaping Use Vaping status: Never Used Substance Use Topics Alcohol use: Yes Drug use: Never Current Outpatient Medications Medication Sig norgestimate 0.25 mg-ethinyl estradiol 35 mcg 0.25-35 mg-mcg per tablet Take 1 tablet by mouth once daily. No current facility-administered medications for this visit. 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 EXAM: BP 110/78 Wt 195 lb (88.5kg) LMP 09/26/2023 GENERAL: pleasant, female in no apparent distress HEENT: Normocephalic, atraumatic, mucus membranes moist, and no lesions CHEST: Normal inspiratory effort NEURO: alert and oriented x3,exam grossly non-focal EXTREMITIES: normal ASSESSMENT AND PLAN: 1. Pelvic pain in female - ICD9: 625.9, ICD10: R10.2 (primary diagnosis) - Reviewed signs of ovarian torsion - Tylenol and Ibuprofen as needed for pain - Ultrasound ordered 2. Irregular periods - ICD9: 626.4, ICD10: N92.6 - Wants to go back on OCP to regulate and manage cysts - Denies migraines with aura, VTE history or clotting disorder, hypertension, or liver issues. Does not smoke. - Reviewed risks and benefits, written info provided via patient instructions - Recommend labs today RTO to review ultrasound and labs. Lilly Muniz APRN.CNP Medical Decision Making: Problems: Low: Acute, uncomplicated illness or injury Data: Unique test(s) ordered: 3+ Risk: Low: Low risk from testing/treatment Moderate: Drug management Medical Decision Making Level: 4 - Moderate documented in this encounter [facility] 09-02-2023 History of Present illness Narrative The patient presents for requested ultrasound. Full report available in the Imaging tab in zerved. Cheryl Camilo MD documented in this encounter [facility] 08-20-2023 History of Present illness Narrative . 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 Swathi Neely is a 32 year old female who presents for problem visit ER follow up demonstrating a left kidney and ureteral stone with plans for surgery in 2 days. Incidentally a left and right ovarian cyst 6 and 4,[address] and confirmed on subsequent ultrasound. Sono right 3.8 cm simple cyst, Left34 cm complex ovarian cyst with septations and normal arterial and venous in both.. HPI: OB History No obstetric history on file. 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 No pertinent family history. Social History Tobacco Use Smoking status: Never Smokeless tobacco: Never Vaping Use Vaping Use: Never used Substance Use Topics Alcohol use: Yes Drug use: Never Current Outpatient Medications Medication Sig tamsulosin (FLOMAX) 0.4 mg oxyCODONE-acetaminophen 5 mg-325 mg/5 mL (PERCOCET) 5-325 mg/5 mL solution ESTARYLLA 0.25-35 mg-mcg per tablet No current facility-administered medications for this visit. Allergies As of Date: 08/20/2023 (No Known Allergies) Fully Assessed 08/20/2023 REVIEW OF SYSTEMS Abdomen: No bloating, early satiety, indigestion, or increased flatulence. No abdominal pain, nausea, vomiting, diarrhea, or constipation. Bladder: No dysuria, gross hematuria, urinary frequency, urinary urgency, or incontinence. Breast: No breast lumps, nipple d/c, overlying skin changes, redness or skin retraction. Expanded ROS: N/A Allergies and current medication updated:Yes EXAM: BP 114/68 Wt 191 lb (86.6kg) LMP 07/07/2023 GENERAL: pleasant, female in no, in mild distress related to left flank pain ABDOMEN: soft, no masses, and LLQ mildly tender w/o rebound PELVIC: external genitalia normal, normal Bartholin's glands, urethra, [place]'s glands, no vulvar lesions, no cervical lesions, good vaginal support, physiologic discharge present, normal appearing perineal body and perianal region BIMANUAL: uterus normal size, shape and consistency, no adnexal masses, non-tender, no cervical motion tenderness, and subtle adnexal tenderness NEURO: alert and oriented x3,exam grossly non-focal EXTREMITIES: normal ASSESSMENT AND PLAN: Simple and complex ovarian custs Anovulation Renal and ureteral calculi CA125 and repeat sono ftfc > 45 min Vicente Lin MD documented in this encounter 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 Diagnosis or reason for referral: cysts on ovary complex and simple Name of specialist: Unknown Name of group/practice: [facility] [phone] Patient verified insurance covers referral: Yes Patient insurance: [email or web address] Has patient seen this specialist in the past: Yes Estimated time/date patient last saw the specialist: na [facility] 08-15-2023 Miscellaneous Notes Name of caller: Swathi Relationship to patient: patient Contact phone number: [phone] Speciality referral requested for: LINE CAMERA 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 Non fluculant at this time. Recommend starting warm compresses, cephalexin 500 mg every 6 hours due to surrounding erythema. No fever of chills. Recommend following up for worsening symptoms or failure for symptoms to improve. [facility] 03-10-2023 Miscellaneous Notes Associated Problem(s): Cellulitis of chest wall Small abscess, less than 1 cm in diameter. Non fluculant at this time. Recommend starting warm compresses, cephalexin 500 mg every 6 hours due to surrounding erythema. No fever of chills. Recommend following up for worsening symptoms or failure for symptoms to improve. documented in this encounter [facility] 03-10-2023 History of Present illness Narrative Patient was identified by name and Date of . Images from the original note were not included. 03/10/2023 wSathi Neely (: 1990) is a 32 y.o. female , POD scheduled, Established patient, here for evaluation of the following chief complaint(s): Rash (Left rib cage-started in January) ASSESSMENT/PLAN: 1. Cellulitis of chest wall Assessment & Plan: Small abscess, less than 1 cm in diameter. Non fluculant at this time. Recommend starting warm compresses, cephalexin 500 mg every 6 hours due to surrounding erythema. No fever of chills. Recommend following up for worsening symptoms or failure for symptoms to improve. Orders: - cephalexin (Keflex) 500 MG capsule; Take 1 capsule (500 mg) by mouth in the morning and 1 capsule (500 mg) at noon and 1 capsule (500 mg) in the evening and 1 capsule (500 mg) before bedtime. Do all this for 7 days., Starting 03/10/2023, Until Fri03/17/2023, Normal Follow up if symptoms worsen or fail to improve. SUBJECTIVE/OBJECTIVE: HPI - Swathi Neely (: 1990) is a 32 y.o. female , Established patient of Dr. Leslie , here for evaluation of the following chief complaint(s): Rash (Left rib cage-started in January) Noted bump on the area about 2 weeks ago. Sore to touch, no fever or chills. Thought it was a pimple but it has not gone away. Does not feel sick. Did have some drainage from it about 1 week ago. Has not done anything for it. Prior to Admission medications Medication Sig Start Date End Date Taking? Authorizing Provider ibuprofen 200 MG tablet Take 200 mg by mouth every 6 hours as needed. Historical Provider, Review of Systems Constitutional: Negative for activity change, chills, fatigue and fever. Respiratory: Negative. Cardiovascular: Negative. Skin: Mass on left chest wall Vitals: 03/10/23 1051 BP: 126/74 Pulse: 78 Resp: 18 Temp: 36.9 C (98.4 F) TempSrc: Infrared SpO2: 97% Weight: 193 lb (87.5 kg) Physical Exam Constitutional: General: She is not in acute distress. Appearance: Normal appearance. She is obese. She is not ill-appearing. Cardiovascular: Rate and Rhythm: Normal rate and regular rhythm. Pulses: Normal pulses. Heart sounds: Normal heart sounds. Pulmonary: Effort: Pulmonary effort is normal. Breath sounds: Normal breath sounds. Neurological: Mental Status: She is alert and oriented to person, place, and time. Small tender palpable mass <1 cm in diameter. Non fluctuant. Minimal surrounding redness. No induration. An electronic signature was used to authenticate this note. FLORA Egan CNP 03/10/2023 12:31 PM documented in this encounter [facility] 03-10-2023 Instructions FLORA Egan CNP - 03/10/2023 11:00 AM EST Warm compresses to area 10 minutes every 2-3 hours to promote drainage. Start antibiotic therapy. The following attachments cannot be sent through Care Everywhere.Cellulitis (Skin Infection) Discharge Instructions, Adult (Mac[place])documented in this encounter [facility] 03-10-2023 Telephone encounter Note Noted [facility] 03-10-2023 Miscellaneous Notes Noted S: Patient spoke with [facility] nurse regarding skin lesion/sore B: Onset of symptoms/concern 2 weeks A: Patient calling in reporting a red, raised, warm to touch area under her left breast on her bra line -rib cage. The area is the size of an eraser but when including the redness around is the of a ping pong ball. Patient is concerned for MRSA. She has had this in the past. Requesting appt with a provider. R: [facility] nurse unable to schedule with PCP. POD scheduled for appt today with Caren ESTRADA CNP at 11:00am. Insurance verified, instructed to arrive 15 min prior and bring photo ID, insurance card. Patient understands home care advice. Patient instructed to call back with new or worsening symptoms. Reason for Disposition Looks like a boil, infected sore, or deep ulcer Answer Assessment - Initial Assessment Questions 1. APPEARANCE of LESION: What does it look like? Red, swollen, warm to touch 2. SIZE: How big is it? (e.g., inches, cm; or compare to size of pinhead, tip of pen, eraser, coin, pea, grape, ping pong ball) Eraser - including the redness around would be a ping pong size 3. COLOR: What color is it? Is there more than one color? red 4. SHAPE: What shape is it? (e.g., round, irregular) round 5. RAISED: Does it stick up above the skin or is it flat? (e.g., raised or elevated) raised 6. TENDER: Does it hurt when you touch it? (Scale 1-10; or mild, moderate, severe) Tender to touch only 7. LOCATION: Where is it located? Left side under bra on rib cage 8. ONSET: When did it first appear? 2 weeks ago 9. NUMBER: Is there just one? or Are there others? one 10. CAUSE: What do you think it is? Concern for MRSA 11. OTHER SYMPTOMS: Do you have any other symptoms? (e.g., fever) No 12. : Is there any chance you are ? When was your last menstrual period? no Protocols used: Skin Lesion - Moles or [id number] documented in this encounter [facility] [place] 03-10-2023 Telephone encounter Note S: Patient spoke with [facility] nurse regarding skin lesion/sore B: Onset of symptoms/concern 2 weeks A: Patient calling in reporting a red, raised, warm to touch area under her left breast on her bra line -rib cage. The area is the size of an eraser but when including the redness around is the of a ping pong ball. Patient is concerned for MRSA. She has had this in the past. Requesting appt with a provider. R: [facility] nurse unable to schedule with PCP. POD scheduled for appt today with Caren ESTRADA CNP at 11:00am. Insurance verified, instructed to arrive 15 min prior and bring photo ID, insurance card. Patient understands home care advice. Patient instructed to call back with new or worsening symptoms. Reason for Disposition Looks like a boil, infected sore, or deep ulcer Answer Assessment - Initial Assessment Questions 1. APPEARANCE of LESION: What does it look like? Red, swollen, warm to touch 2. SIZE: How big is it? (e.g., inches, cm; or compare to size of pinhead, tip of pen, eraser, coin, pea, grape, ping pong ball) Eraser - including the redness around would be a ping pong size 3. COLOR: What color is it? Is there more than one color? red 4. SHAPE: What shape is it? (e.g., round, irregular) round 5. RAISED: Does it stick up above the skin or is it flat? (e.g., raised or elevated) raised 6. TENDER: Does it hurt when you touch it? (Scale 1-10; or mild, moderate, severe) Tender to touch only 7. LOCATION: Where is it located? Left side under bra on rib cage 8. ONSET: When did it first appear? 2 weeks ago 9. NUMBER: Is there just one? or Are there others? one 10. CAUSE: What do you think it is? Concern for MRSA 11. OTHER SYMPTOMS: Do you have any other symptoms? (e.g., fever) No 12. : Is there any chance you are ? When was your last menstrual period? no Protocols used: Skin Lesion - Moles or [id number]-[id number]-PT [facility] 12-26-2022 History of Present illness Narrative Images from the original note were not included. [facility] [address] [place] [facility] [id number] Visit type: Established Patient Reason for Visit: Sore Throat (Chest congestion, cough) Assessment / Plan: Swathi was seen today for sore throat. Diagnoses and all orders for this visit: Sinobronchitis (Primary) Other orders - cefuroxime (Ceftin) 250 MG tablet; Take 1 tablet (250 mg) by mouth 2 times daily for 10 days. Acute onset, Robitussin-DM. COVID test as needed. also, should obtain LINE CAMERA OPERATOR exam Subjective: Patient ID: Swathi Neely is a 32 y.o. female. HPI non-smoker with 5 days of nasal drainage that is becoming yellow. Accompanied by sore throat and mild cough. No substantial fever chest pain or shortness of breath. No body aches. No loss of smell or taste. Did not check for COVID. Review of Systems generally pretty well. Non-smoker. Rarely ill. Of note she is having scant periods a few months apart. Was on control and they were regular but she stopped that. Has not had a LINE CAMERA OPERATOR exam in a while. No cardiac or pulmonary concerns. No change in bowels or bladder. No Known Allergies Current Outpatient Medications on File Prior to Visit Medication Sig Dispense Refill ibuprofen 200 MG tablet Take 200 mg by mouth every 6 hours as needed. No current facility-administered medications on file prior to visit. Patient Active Problem List Diagnosis (none) - all problems resolved or deleted Social History Tobacco Use Smoking status: Never Smokeless tobacco: Never Substance Use Topics Alcohol use: Yes Alcohol/week: 1.0 standard drink of alcohol Past Surgical History: Procedure Laterality Date HEMANGIOMA EXCISION 1990 SHOULDER ARTHROSCOPY Left [address] Hill Family History Problem Relation Name Age of Onset Gout Father Objective: BP 110/66 Pulse 96 Temp 36.5 C (97.7 F) (Temporal) Ht 5' 2 (1.575 m) Wt 193 lb (87.5 kg) SpO2 99% BMI 35.30 kg/m Physical Exam pleasant cooperative. Certainly nontoxic. Not ill-appearing. [place] PND. [place] oropharynx. No adenopathy. Normal eardrums. Nasal congestion noted. Heart is regular without murmurs. Lungs are clear. No rales wheezes or egophony. Abdomen obese without pain hepatosplenomegaly masses or ascites. Extremities are pink without edema or cyanosis documented in this encounter [facility] 12-26-2022 Telephone encounter Note noted [facility] 12-26-2022 Miscellaneous Notes noted S: Patient spoke with [facility] nurse regarding sore throat B: Onset of symptoms/concern 4 days A: hard to swallow is coughing and has not tested for COVID. 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 R: Advised to test for COVID , Scheduled Same Day appt today 12/26/22 @ Patient understands care advice. No further needs at this time. Patient instructed to call back with new or worsening symptoms. Reason for Disposition SEVERE (e.g., excruciating) throat pain Answer Assessment - Initial Assessment Questions . Protocols used: Sore Cpsamz-BCAWN-YC documented in this encounter [facility] 12-26-2022 Telephone encounter Note S: Patient spoke with [facility] nurse regarding sore throat B: Onset of symptoms/concern 4 days A: hard to swallow is coughing and has not tested for COVID. 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 R: Advised to test for COVID , Scheduled Same Day appt today 12/26/22 @ Patient understands care advice. No further needs at this time. Patient instructed to call back with new or worsening symptoms. Reason for Disposition SEVERE (e.g., excruciating) throat pain Answer Assessment - Initial Assessment Questions . Protocols used: Sore Klxcif-[id number]-EL [facility] 09-11-2022 History of Present illness Narrative Images from the original note were not included. [facility] [address] [facility] [address] Dept: [phone] Dept PHYSICAL THERAPY TREATMENT Patient Name: Swathi Neely : 1990 Date of Service: 09/11/2022 Referring Provider: Maddie Marina MD Diagnosis: Hamstring tendonitis of left thigh Reason for referral/Mechanism of injury: L Knee pain Precautions/Red Flags: None Patient Preferences: Swathi Subjective Pt reports that she went hiking for the first time since her knee started to hurt and there was a lot of pressure on her knees when she was going down hill. She reports that she is sore today due to this. Compliance with HEP: Yes Objective Objective measurements not taken today. Treatment Therapeutic Exercise Therapeutic Exercise Activity 6: Heel Digs Supine 4x15 Therapeutic Exercise Activity 7: Single Leg Bridge 2x10 Therapeutic Exercise Activity 10: Squats with BOSU 3x10 Activity 10 Comment: at railing Therapeutic Exercise Activity 11: Bike 5 mins Activity 11 Comment: Level 5 resistance Therapeutic Exercise Activity 13: lunge sliders 2x10 B Activity 13 Comment: retro/ lateral Therapeutic Exercise Activity 15: lateral/ fwd tap down with step up 1x10 B Activity 15 Comment: 6in step Therapeutic Exercise Activity 16: Captain Morgandonavon 2x30 B Activity 16 Comment: Yellow ball Assessment Skilled physical therapy interventions utilized to improve patient s impairments and work towards established goals. Patient response to treatment: Pt tolerated therapy well today. Squats with BOSU ball were increased in sets to work on progressing LE strength and endurance. Heel digs were added today to work on HS strength and single leg bridges were added to work on applying force through the front of the knee. Patient will benefit from continued physical therapy to address L knee pain and decreased strength. The rationale for today s treatment was explained to the patient. Verbal cues were provided for correct form with all exercises. Advised patient to continue with Home Exercise Program (HEP). Goals General/Ortho Patient will be independent with HEP. (Progressing) Start: 08/05/22 Expected End: 10/05/22 Patient will report decreased pain at the left knee to 0/10 with squatting for improved tolerance to recreational activity. (Progressing) Start: 08/05/22 Expected End: 10/05/22 Patient will increase ROM of the left knee into extension for improved pain level in standing at work. (Progressing) Start: 08/05/22 Expected End: 10/05/22 Patient will increase strength at the lateral left hip to 5/5 for improved knee positioning and less medial knee pain. (Progressing) Start: 08/05/22 Expected End: 10/05/22 Functional Outcome Measure: The pt will increase LEFS score to at least 77/80 to demonstrate at least a 10% improvement in LE function with squats, touchdowns, and step ups. (Progressing) Start: 09/04/22 Expected End: 10/05/22 Plan Plan for next session: Progress LE strengthening and functional activities (walking lunges/ monster walks). Time Entry Total Treatment Time Start Time: 1455 Stop Time: 1525 Time Calculation (min): 30 min PT Therapeutic Procedures Time Entry Therapeutic Exercise Time Entry: 29 OMAR Brandon documented in this encounter [facility] 09-04-2022 History of Present illness Narrative Images from the original note were not included. [facility] [address] [place] [facility] [address] Dept: [phone] Dept PHYSICAL THERAPY RE-EVALUATION Patient Name: Swathi Neely : 1990 Date of Service: 09/04/2022 Referring Provider: Maddie Marina MD Diagnosis: Hamstring tendonitis of left thigh Reason for referral/Mechanism of injury: L Knee pain Precautions/Red Flags: None Patient Preferences: Swathi Subjective General Comments: Pt reports 50% improvement from the start of therapy today. Still reports pain after working long hours, but has been having some periods of no pain now. Pain: Current: 4-5/10 Best: 0/10 Worst: 6/10 Current Level of Function: lifting heavy items and being on feet for a long period of time Objective Palpation: Tenderness to Medial aspect of the L Knee. Flexibility: Hamstrings: Left: Mod tightness and Right: Min tightness Date: 08/05/2022 09/04/2022 Knee ROM Right Left Left AROM AROM AROM Knee Flexion 130 130* (with movt) 130 Knee Extension +6 0 * 0 *C/O pain with movement Lower Quadrant Examination: Date: 08/05/2022 09/04/2022 Right Left Left Hip Flexion 5/5 5/5 5/5 Hip Abd 5/5 4+/5 5/5 Knee Ext 5/5 5/5 5/5 Knee Flex 5/5 5/5 5/5* *C/O pain with movement Special Tests: Valgus stress: negative Loida's: negative Thessaly's/Disco: Positive, IR Outcome measure: 08/05/2022: LEFS: 58/80 09/04/2022: LEFS: 67/80 Assessment Reassessment of goals and objective measures was completed today after ~1 month of physical therapy intervention to address left knee pain. The pt demonstrates good improvement noting no pain with L knee ROM and 5/5 strength with all resistive testing. Pt still presents with tenderness to palpation at medial border of L knee and pain with Thessaly's. B LE strengthening was continued today to decrease pain within the L knee with functional movements. Pt would benefit from continued therapy in order to address continued pain within the L knee to allow patient to stand long hours, lift/ squat and improve quality of life. Rehab Potential: Good Goals Active General/Ortho Patient will be independent with HEP. (Progressing) Start: 08/05/22 Expected End: 10/05/22 Patient will report decreased pain at the left knee to 0/10 with squatting for improved tolerance to recreational activity. (Progressing) Start: 08/05/22 Expected End: 10/05/22 Patient will increase ROM of the left knee into extension for improved pain level in standing at work. (Progressing) Start: 08/05/22 Expected End: 10/05/22 Patient will increase strength at the lateral left hip to 5/5 for improved knee positioning and less medial knee pain. (Progressing) Start: 08/05/22 Expected End: 10/05/22 Functional Outcome Measure: The pt will increase LEFS score to at least 66/80 to demonstrate at least a 10% improvement in LE function with squats, touchdowns, and step ups. (Completed) Start: 08/05/22 Expected End: 10/05/22 Resolved: 09/04/22 Updated to: Functional Outcome Measure: The pt will increase LEFS score to at least 77/80 to demonstrate at least a 10% improvement in LE function with squats, touchdowns, and step ups. Update reason: Pt has reached initial goal. Functional Outcome Measure: The pt will increase LEFS score to at least 77/80 to demonstrate at least a 10% improvement in LE function with squats, touchdowns, and step ups. (Progressing) Start: 09/04/22 Expected End: 10/05/22 Plan Frequency and Duration: 1/wk for 4 weeks Therapeutic Contents: client education, home exercise program, manual therapy techniques, neuromuscular re-education, therapeutic activities, therapeutic exercise, trigger point dry needle, and modalities as needed Plan for next session: Continue current LE strengthening and progress functional LE strengthening needed for long durations of standing at work/ squatting. Risks and benefits were discussed with the patient and/or family, and the patient and/or family participated with the plan of care and agrees. Treatment Therapeutic Exercise Therapeutic Exercise Activity 9: Chair squats 2x15 Therapeutic Exercise Activity 10: Squats with BOSU 2x10 Activity 10 Comment: at railing Therapeutic Exercise Activity 13: lunge sliders 2x10 B Activity 13 Comment: retro/ lateral Therapeutic Exercise Activity 14: wall squats with montserratian ball 2x10 Therapeutic Exercise Activity 16: Captain Morgans 2x30 B Activity 16 Comment: Yellow ball Patient Education: Reviewed POC and reassessment findings Time Entry Total Treatment Time Start Time: 1510 Stop Time: 1541 Time Calculation (min): 31 min PT Therapeutic Procedures Time Entry Therapeutic Exercise Time Entry: 30 OMAR Brandon documented in this encounter [facility] 08-28-2022 History of Present illness Narrative Images from the original note were not included. [facility] [address] [place] [facility] [address] Dept: [phone] Dept PHYSICAL THERAPY TREATMENT Patient Name: Swathi Neely : 1990 Date of Service: 08/28/2022 Referring Provider: Maddie Marina MD Diagnosis: Hamstring tendonitis of left thigh Reason for referral/Mechanism of injury: L Knee pain Precautions/Red Flags: None Patient Preferences: Swathi Subjective Pt reports 3/10 pain today. She stated that she did not work the last 4 days so she is decently rested coming to therapy today. She reports that her pain was at a 6-7/10 on / Friday when she was working 11hr days. Pt states that she was sore two days after her last therapy session. Compliance with HEP: Yes Objective Objective measurements not taken today. Treatment Therapeutic Exercise # of Activities: 20 Therapeutic Exercise Activity 9: Chair squats 2x15 Therapeutic Exercise Activity 10: Squats with BOSU 2x10 Activity 10 Comment: at railing Therapeutic Exercise Activity 11: Bike 5 mins Activity 11 Comment: Level 5 resistance Therapeutic Exercise Activity 13: lunge sliders 2x10 B Activity 13 Comment: retro/ lateral Therapeutic Exercise Activity 14: wall squats with montserratian ball x10 Therapeutic Exercise Activity 15: lateral tap down with step up 2x10 B Activity 15 Comment: 8 inch step Therapeutic Exercise Activity 16: Captain Suarez 2x15 B Activity 16 Comment: Yellow ball Assessment Skilled physical therapy interventions utilized to improve patient s impairments and work towards established goals. Patient response to treatment: Pt tolerated therapy well today. She stated that soreness increased over the duration of therapy today, but had no increase in pain. Lateral lunges with the slider, fwd tap downs, and captain suarez were added today to work on L LE strength. Pt stated that lateral lunges with the slider were much more challenging than retro in the L knee. Pt required minimal cueing to shorten her lateral lunge to avoid increase in L knee pain. Pt stated that she feels stronger now during chair squats than prior therapy sessions. Patient will benefit from continued physical therapy to decrease pain in L knee when working and increase strength in L LE needed to work unrestricted. The rationale for today s treatment was explained to the patient. Verbal cues were provided for correct form with all exercises. Advised patient to continue with Home Exercise Program (HEP). Goals General/Ortho Patient will be independent with HEP. (Progressing) Start: 08/05/22 Expected End: 09/04/22 Patient will report decreased pain at the left knee to 0/10 with squatting for improved tolerance to recreational activity. (Progressing) Start: 08/05/22 Expected End: 09/04/22 Patient will increase ROM of the left knee into extension for improved pain level in standing at work. (Progressing) Start: 08/05/22 Expected End: 09/04/22 Patient will increase strength at the lateral left hip to 5/5 for improved knee positioning and less medial knee pain. (Progressing) Start: 08/05/22 Expected End: 09/04/22 Functional Outcome Measure: The pt will increase LEFS score to at least 66/80 to demonstrate at least a 10% improvement in LE function with squats, touchdowns, and step ups. (Not Addressed) Start: 08/05/22 Expected End: 09/04/22 Plan Plan for next session: Continue current LE strengthening and update HEP Time Entry Total Treatment Time Start Time: 1600 Stop Time: 1631 Time Calculation (min): 31 min PT Therapeutic Procedures Time Entry Therapeutic Exercise Time Entry: 28 OMAR Brandon documented in this encounter [facility] 08-19-2022 History of Present illness Narrative Images from the original note were not included. [facility] [address] [facility] [facility] [address] Dept: [phone] Dept PHYSICAL THERAPY TREATMENT Patient Name: Swathi Neely : 1990 Date of Service: 08/19/2022 Referring Provider: Maddie Marina MD Diagnosis: Hamstring tendonitis of left thigh Reason for referral/Mechanism of injury: L Knee pain Precautions/Red Flags: None Patient Preferences: Swathi Subjective Pt denies pain to start therapy today. She reports ongoing pain while working. She reports no change in symptoms since therapy started. Compliance with HEP: Yes Objective Objective measurements not taken today. Treatment Therapeutic Exercise Therapeutic Exercise Activity 9: Chair squats 1x15 Therapeutic Exercise Activity 11: Bike 5 mins Activity 11 Comment: Level 5 resistance Therapeutic Exercise Activity 12: cable column walkouts 1x8 Activity 12 Comment: side steps, fwd andretro walks, 5 plates Therapeutic Exercise Activity 13: retro lunge sliders 2x10 Therapeutic Exercise Activity 14: wall squats with montserratian ball x10 Therapeutic Exercise Activity 15: lateral tap down with step up 2x10 B Activity 15 Comment: 8 inch step Assessment Skilled physical therapy interventions utilized to improve patient s impairments and work towards established goals. Patient response to treatment: Pt tolerated progression of exercises well today without complaints of pain throughout the session. Added cable column resistance exercises to improve hip, quad and core strength and to simulate work function. Added montserratian ball squats and lateral tap downs to further load quad and reduce reported patellofemoral pain. Patient will benefit from continued physical therapy to reduce pain while working. The rationale for today s treatment was explained to the patient. Verbal cues were provided for correct form with all exercises. Advised patient to continue with Home Exercise Program (HEP). Goals General/Ortho Patient will be independent with HEP. (Progressing) Start: 08/05/22 Expected End: 09/04/22 Patient will report decreased pain at the left knee to 0/10 with squatting for improved tolerance to recreational activity. (Progressing) Start: 08/05/22 Expected End: 09/04/22 Patient will increase ROM of the left knee into extension for improved pain level in standing at work. (Progressing) Start: 08/05/22 Expected End: 09/04/22 Patient will increase strength at the lateral left hip to 5/5 for improved knee positioning and less medial knee pain. (Progressing) Start: 08/05/22 Expected End: 09/04/22 Functional Outcome Measure: The pt will increase LEFS score to at least 66/80 to demonstrate at least a 10% improvement in LE function with squats, touchdowns, and step ups. (Not Addressed) Start: 08/05/22 Expected End: 09/04/22 Plan Plan for next session: Continue progressing resistance exercises as able Time Entry Total Treatment Time Start Time: 1533 Stop Time: 1600 Time Calculation (min): 27 min PT Therapeutic Procedures Time Entry Therapeutic Exercise Time Entry: Vijay Garcia PT documented in this encounter [facility] 08-12-2022 History of Present illness Narrative Images from the original note were not included. [facility] [address] [facility] [address] Dept: [phone] Dept PHYSICAL THERAPY TREATMENT Patient Name: Swathi Neely : 1990 Date of Service: 08/12/2022 Referring Provider: Maddie Marina MD Diagnosis: Hamstring tendonitis of left thigh Reason for referral/Mechanism of injury: L Knee pain Precautions/Red Flags: None Patient Preferences: Swathi Subjective Pt reports soreness at start of therapy today, but denies pain in the L knee. She reports that she felt good after the last session. She reports pain went up to a 6/10 while working the past week. She explains that dragging pallet jacks behind her with her right hand increase her knee pain. Compliance with HEP: Yes, at least once a day Objective Objective measurements not taken today. Treatment Therapeutic Exercise # of Activities: 20 Therapeutic Exercise Activity 1: Quad sets, 1x10 5 second hold Therapeutic Exercise Activity 2: SLR, 1x10 Therapeutic Exercise Acitivity 3: Bridge with band, 10x Activity 3 Comment: green Therapeutic Exercise Activity 4: Clamshell, 10x Activity 4 Comment: green Therapeutic Exercise Activity 5: side lying hip abduction, 10x Activity 5 Comment: green Therapeutic Exercise Activity 6: Heel Digs Supine 1x10 Therapeutic Exercise Activity 7: Single Leg Bridge 2x10 Therapeutic Exercise Activity 8: Diagonol monstar walks 2x20 Activity 8 Comment: Forward/ Backwards Therapeutic Exercise Activity 9: Chair squats with green TB 1x15 Therapeutic Exercise Activity 10: Forward lung on box 1x15 Therapeutic Exercise Activity 11: Bike 5 mins Activity 11 Comment: Level 5 resistance Assessment Skilled physical therapy interventions utilized to improve patient s impairments and work towards established goals. Patient response to treatment: Pt responded well to treatment today. Treatment started with biking in order address stiffness/ROM limitations. She denied any pain during review of her HEP. Pt did report increased pain at end range knee flexion during lunging forward on an 18 step. Chair squats with TB, monster walks, and single leg bridges were added to increase strength at B LE. Pt was cued initially for correct technique with new exercises. Patient will benefit from continued physical therapy to increase stability in L knee in order to return to work pain free and increase strength in the L knee in order to decrease pain while squatting. The rationale for today s treatment was explained to the patient. Verbal cues were provided for correct form with all exercises. Advised patient to continue with Home Exercise Program (HEP). Goals General/Ortho Patient will be independent with HEP. (Progressing) Start: 08/05/22 Expected End: 09/04/22 Patient will report decreased pain at the left knee to 0/10 with squatting for improved tolerance to recreational activity. (Progressing) Start: 08/05/22 Expected End: 09/04/22 Patient will increase ROM of the left knee into extension for improved pain level in standing at work. (Progressing) Start: 08/05/22 Expected End: 09/04/22 Patient will increase strength at the lateral left hip to 5/5 for improved knee positioning and less medial knee pain. (Progressing) Start: 08/05/22 Expected End: 09/04/22 Functional Outcome Measure: The pt will increase LEFS score to at least 66/80 to demonstrate at least a 10% improvement in LE function with squats, touchdowns, and step ups. (Not Addressed) Start: 08/05/22 Expected End: 09/04/22 Plan Plan for next session: Continue strength training in the L knee (chair squats with TB, heel digs in supine, step ups with 18 step) and increase neuromuscular stability in the knee (SLS with airex mat). Time Entry Total Treatment Time Start Time: 1530 Stop Time: 1600 Time Calculation (min): 30 min PT Therapeutic Procedures Time Entry Therapeutic Exercise Time Entry: Ya Michel, OMAR documented in this encounter [facility] 07-30-2022 History of Present illness Narrative Images from the original note were not included. [facility] [address] [place] [address] [address] [facility] [address] Dept: [phone] Dept Chief Complaint Patient presents with Follow-up Lower leg mass, left Subjective History of Present Illness: Swathi Neely follows up today for left knee pain. Since the last visit on 06/13/2022, symptoms are unchanged. Current symptoms are sharp. She rates symptoms as a 0/10 at rest and a 7/10 at worst. 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 Physical Exam: General: Alert, well appearing, no acute distress. Respiratory: Breathing comfortably on room air. No respiratory distress. Skin: Warm, dry, intact. No visible rashes or erythema overlying area of focused exam. Musculoskeletal/Neurologic: Left Knee. Contralateral side is normal unless otherwise noted. Gait: Normal. Inspection: Alignment: Normal. Effusion: None. Ecchymosis: No ecchymosis noted of the examined area. Palpation: Non-tender to palpation. Range of Motion: Right Knee: Full, pain free. Left Knee: Full, pain with terminal flexion. Strength: 5/5 bilateral lower extremity strength testing, within normal limits for age. Sensation: Sensation to light touch intact, symmetric of the examined bilateral lower extremities. Special Tests: Varus stress (LCL): Normal. Valgus stress (MCL): Normal. Julian's: Normal. Posterior Drawer: Normal. Loida's: Normal. Fat pad impingement: Normal. Resisted leg extension with knee extended: normal Resisted leg extension with knee flexed: reproduces pain External Notes No pertinent interval updates Labs No results found for: HGBA1C No results found for: CREATININE Imaging Images reviewed with patient today I have personally reviewed the images pertinent to the appointment today MRI of tibia and fibula Impression: Benign sessile osteochondroma arising from the proximal fibular diaphysis. No abnormal thickening of the cartilage cap. No overlying soft tissue edema. EMG/NCT None available Procedure No procedures completed today Assessment 1. Patellofemoral pain syndrome of left knee 2. Hamstring tendonitis of left thigh 3. Osteochondroma of fibula, left Patient with benign sessile osteochondroma of the fibula on MRI. This does not seem to be bothering her. She continues to exhibit signs of hamstring tendonitis. Will get into formal physical therapy to work on this and PFPS. Will see back in 6 weeks. Plan Activity: Progress activity under guidance of PT. Medication(s): Ice. Heat. OTC tylenol as needed for pain. OTC NSAIDs as needed for pain. Diclofenac gel 1% as needed. Test(s)/Imaging/Referral(s): Referral to Physical Therapy. Additional Intervention(s): Consider corticosteroid injection. Follow up: 4-6 weeks. Maddie Marina MD 07/30/2022 8:10 AM Please note that portions of this note may have been completed with voice recognition software. Documentation reviewed prior to signing but minor errors in controls technician may have occurred. documented in this encounter [facility] 07-30-2022 Instructions Maddie Marina MD - 07/30/2022 8:50 AM EDT Images from the original note were not included. HOW TO USE VOLTAREN GEL: Voltaren dosing card Read the label and use the enclosed dosing card. Do not use on more than two body areas at the same time. Dosage Using the dosing card, apply the following amounts: Small joint areas (hand, wrist, elbow, ankle): 2.25 inches Larger joint areas (shoulder, knee, foot): 4.5 inches Voltaren being applied to the knee instuctions: Rub gently into affected area. It is intended to be used 4 times a day everyday for up to 21 days. With 7-fgkva-v-day use, you may start to feel relief within a few days. DRUG INFORMATION: Diclofenac topical Pronunciation: dye KLMATI fen ak TOP ik al Brand: DST Plus Bj, Pennsaid, Solaraze, Voltaren Topical What is the most important information I should know about diclofenac topical? Diclofenac can increase your risk of fatal heart attack or stroke, especially if you use it intermediate or take high doses, or if you have heart disease. Do not use this medicine just before or after heart bypass surgery (coronary artery bypass graft, or CABG). Diclofenac may also cause stomach or intestinal bleeding, which can be fatal. These conditions can occur without warning while you are using diclofenac, especially in older adults. What is diclofenac topical? Diclofenac is a nonsteroidal anti-inflammatory drug (NSAID). Diclofenac topical (for the skin) is used to treat joint pain caused by osteoarthritis. Pennsaid is for use on the knees. Voltaren Topical is for use on the hands, wrists, elbows, knees, ankles, or feet. This medicine may not be effective in treating arthritis pain elsewhere in the body. Solaraze is used to treat warty overgrowths of skin (actinic keratoses) on sun-exposed areas of the body. Diclofenac topical may also be used for purposes not listed in this medication guide. What should I discuss with my healthcare provider before using diclofenac topical? Diclofenac can increase your risk of fatal heart attack or stroke, especially if you use it intermediate or take high doses, or if you have heart disease. Even people without heart disease or risk factors could have a stroke or heart attack while taking this medicine. Do not use this medicine just before or after heart bypass surgery (coronary artery bypass graft, or CABG). Diclofenac may also cause stomach or intestinal bleeding, which can be fatal. These conditions can occur without warning while you are using diclofenac, especially in older adults. You should not use this medicine if you are allergic to diclofenac (Voltaren, Cataflam, Flector, and others), or if you have ever had an asthma attack or severe allergic reaction after taking aspirin or an NSAID. Diclofenac topical is not approved for use by anyone younger than 18 years old. Tell your doctor if you have ever had: heart disease, high blood pressure, high cholesterol, diabetes, or if you smoke; a heart attack, stroke, or blood clot; stomach ulcers, bleeding in your stomach or intestines; asthma; liver or kidney disease; fluid retention. Diclofenac can affect ovulation and it may be harder to get while you are using this medicine. However, using diclofenac topical during the last 3 months of may harm the unborn baby. Tell your doctor if you are or plan to become . It may not be safe to breast-feed while using this medicine. Ask your doctor about any risk. How should I use diclofenac topical? Follow all directions on your prescription label and read all medication guides. Use the lowest dose that is effective in treating your condition. Do not take by mouth. Topical medicine is for use only on the skin. Rinse with water if this medicine gets in your eyes or mouth. Read and carefully follow any Instructions for Use provided with your medicine. Ask your doctor or pharmacist if you do not understand these instructions. Do not apply diclofenac topical to an open skin wound, or on areas of infection, rash, burn, or peeling skin. Store at room temperature away from moisture and heat. Do not freeze. Store Pennsaid in an upright position. What happens if I miss a dose? Apply the medicine as soon as you can, but skip the missed dose if it is almost time for your next dose. Do not apply two doses at one time. What happens if I overdose? Seek emergency medical attention or call the Poison Help line at . What should I avoid while using diclofenac topical? Ask a doctor or pharmacist before using other medicines for pain, fever, swelling, or cold/flu symptoms. They may contain ingredients similar to diclofenac (such as aspirin, ibuprofen, ketoprofen, or naproxen). Avoid drinking alcohol. It may increase your risk of stomach bleeding. Avoid exposing treated skin to heat, sunlight, or tanning beds. Heat can increase the amount of diclofenac you absorb through your skin. Avoid getting this medicine in your eyes. If contact does occur, rinse with water. Call your doctor if you have eye irritation that lasts longer than 1 hour. Do not use cosmetics, sunscreen, lotions, insect repellant, or other medicated skin products on the same area you treat with diclofenac topical. What are the possible side effects of diclofenac topical? Get emergency medical help if you have signs of an allergic reaction (hives, sneezing, runny or stuffy nose, wheezing or trouble breathing, swelling in your face or throat) or a severe skin reaction (fever, sore throat, burning eyes, skin pain, red or purple skin rash with blistering and peeling). Although the risk of serious side effects is low when diclofenac is applied to the skin, this medicine can be absorbed through the skin, which may cause steroid side effects throughout the body. Stop using diclofenac and seek emergency medical attention if you have signs of a heart attack or stroke: chest pain spreading to your jaw or shoulder, sudden numbness or weakness on one side of the body, slurred speech, feeling short of breath. Also call your doctor at once if you have: the first sign of any skin rash, no matter how mild; swelling, rapid weight gain; severe headache, blurred vision, pounding in your neck or ears; little or no urination; liver problems --nausea, diarrhea, stomach pain (upper right side), tiredness, itching, dark urine, shilpa-colored stools, jaundice (yellowing of the skin or eyes); low red blood cells (anemia) --pale skin, unusual tiredness, feeling light-headed or short of breath, cold hands and feet; or signs of stomach bleeding --bloody or tarry stools, coughing up blood or vomit that looks like coffee grounds. Common side effects may include: heartburn, gas, stomach pain, nausea, vomiting; diarrhea, constipation; headache, dizziness, drowsiness; stuffy nose; itching, increased sweating; increased blood pressure; or skin redness, itching, dryness, scaling, or peeling where the medicine was applied. This is not a complete list of side effects and others may occur. Call your doctor for medical advice about side effects. You may report side effects to FDA at 4-072-YMF-0856. What other drugs will affect diclofenac topical? Ask your doctor before using diclofenac if you take an antidepressant. Taking certain antidepressants with an NSAID may cause you to bruise or bleed easily. Tell your doctor about all your current medicines, especially: cyclosporine; lithium; methotrexate; a blood thinner (warfarin, Coumadin, Jantoven); heart or blood pressure medication, including a diuretic or water pill; or steroid medicine (prednisone and others). This list is not complete and many other drugs may affect diclofenac. This includes prescription and [id number] medicines, vitamins, and herbal products. Not all possible drug interactions are listed here. Where can I get more information? Your pharmacist can provide more information about diclofenac topical. Remember, keep this and all other medicines out of the reach of children, never share your medicines with others, and use this medication only for the indication prescribed. Every effort has been made to ensure that the information provided by [employer] ('[employer]') is accurate, up-to-date, and complete, but no guarantee is made to that effect. Drug information contained herein may be time sensitive. [employer] information has been compiled for use by healthcare practitioners and consumers in the [place] and therefore [employer] does not warrant that uses outside of the [place] are appropriate, unless specifically indicated otherwise. [employer] drug information does not endorse drugs, diagnose patients or recommend therapy. [employer] drug information is an informational resource designed to assist licensed healthcare practitioners in caring for their patients and/or to serve consumers viewing this service as a supplement to, and not a substitute for, the expertise, skill, knowledge and judgment of healthcare practitioners. The absence of a warning for a given drug or drug combination in no way should be construed to indicate that the drug or drug combination is safe, effective or appropriate for any given patient. [employer] does not assume any responsibility for any aspect of healthcare administered with the aid of information [employer] provides. The information contained herein is not intended to cover all possible uses, directions, precautions, warnings, drug interactions, allergic reactions, or adverse effects. If you have questions about the drugs you are taking, check with your doctor, nurse or pharmacist. Copyright 1738-0835 [employer] Version: 10.. Revision date: 11/28/2017. Care instructions adapted under license by [employer]. If you have questions about a medical condition or this instruction, always ask your healthcare professional. [employer] disclaims any warranty or liability for your use of this information. documented in this encounter [facility] 06-13-2022 History of Present illness Narrative Images from the original note were not included. [facility] [address] [facility] [address] Dept: [phone] Dept Chief Complaint Patient presents with New Patient Left knee pain Subjective History of Present Illness: Swathi Neely is a 31 y.o. female who presents today for evaluation of left knee pain. Location: lateral along the fibular head and heck Onset: chronic years, chronic Injury: no Quality: sharp Mechanical symptoms: popping, crepitus Radiation of symptoms: no Severity: 0/10 at rest and 7/10 at worst Exacerbating factor(s): prolonged standing walking , increased activity, sitting with her left leg crossed over the other (stressing fibular head region) Relieving factor(s): rest and activity modification Timing: intermittently Imaging to date: X-ray April 2022, MRI 05/2022 Treatment to date: PT/OT/HEP: no Ice: yes, not helpful Heat: yes, not helpful Medications: Tylenol: yes, not helpful NSAIDs: yes, Ibuprofen/Motrin/Advil, not helpful, Aleve-not helpful Oral steroids: no Muscle relaxants: no Nerve medications: no Targeted injections: none Assistive devices: none Prior surgery: no 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 Respiratory: Breathing comfortably on room air. No respiratory distress. Skin: Warm, dry, intact. No visible rashes or erythema overlying area of focused exam. Musculoskeletal/Neurologic: Left Knee. Contralateral side is normal unless otherwise noted. Gait: Normal. Inspection: Alignment: Normal. Effusion: None. Ecchymosis: No ecchymosis noted of the examined area. Palpation: Tender to palpation: fibular head and neck Range of Motion: Right Knee: Full, pain free. Left Knee: Full, pain with terminal flexion. Strength: 5/5 bilateral lower extremity strength testing, within normal limits for age. Sensation: Sensation to light touch intact, symmetric of the examined bilateral lower extremities. Special Tests: Varus stress (LCL): Normal. Valgus stress (MCL): Normal. Julian's: Normal. Posterior Drawer: Normal. Loida's: Normal. Pain with this maneuver at the fibular head. Fat pad impingement: Normal. External Notes None available Labs No results found for: HGBA1C No results found for: CREATININE Imaging Images reviewed with patient today I have personally reviewed the images pertinent to the appointment today Personal interpretation: AP weight-bearing, PA flexion weight-bearing, lateral and sunrise views of the patient's Left knee were performed 05/17/22 and reviewed by me. No fracture, Normal alignment, and No effusion. Bony protrusion likely an osteochondroma at the proximal fibular diametaphysis junction. Unfused ossification that are remote and corticated in nature at the anterior tibial tuberosity. Medial joint space: Within normal limits bilaterally Lateral joint space: Within normal limits bilaterally Medial PF joint: Within normal limits on left Lateral PF joint: Within normal limits on left. The patella is well seated within the femoral trochlea. EMG/NCT None available Procedure No procedures completed today Assessment 1. Lower leg mass, left 2. Chronic pain of left knee 3. Patellar subluxation, left, initial encounter 4. Patellofemoral pain syndrome of left knee 5. Hamstring tendonitis of left thigh Patient has lateral knee pain at the fibular head region with findings of mass at that location. MRI of knee did not fully visualize the mass so getting MRI tibia/fibula to assess the nature of the mass as it is where the patient is tender. Will give HEP for hamstring tendonitis and patellofemoral pain syndrome as her knee MRI did show this and her hamstring is tight. Will see back pending MRI results. Plan Activity: PFPS and hamstring strain home exercise handout given today. Medication(s): Ice. Heat. OTC tylenol as needed for pain. Diclofenac gel 1% as needed. Test(s)/Imaging/Referral(s): MRI ordered today. External xrays independently interpreted and reviewed with patient today Additional Intervention(s): Consider referral for formal Physical Therapy. Consider referral to Orthopedic Surgery. Follow up: Pending results of MRI. Maddie Marina MD 06/13/2022 10:33 AM Please note that portions of this note may have been completed with voice recognition software. Documentation reviewed prior to signing but minor errors in controls technician may have occurred. documented in this encounter [facility] [place] 06-13-2022 Instructions Maddie Marina MD - 06/13/2022 11:10 AM EDT Images from the original note were not included. HOW TO USE VOLTAREN GEL: Voltaren dosing card Read the label and use the enclosed dosing card. Do not use on more than two body areas at the same time. Dosage Using the dosing card, apply the following amounts: Small joint areas (hand, wrist, elbow, ankle): 2.25 inches Larger joint areas (shoulder, knee, foot): 4.5 inches Voltaren being applied to the knee instuctions: Rub gently into affected area. It is intended to be used 4 times a day everyday for up to 21 days. With 1-zeadp-y-day use, you may start to feel relief within a few days. DRUG INFORMATION: Diclofenac topical Pronunciation: dye ANGELAOE ari ak TOP ik al Brand: DST Plus Bj, Pennsaid, Solaraze, Voltaren Topical What is the most important information I should know about diclofenac topical? Diclofenac can increase your risk of fatal heart attack or stroke, especially if you use it intermediate or take high doses, or if you have heart disease. Do not use this medicine just before or after heart bypass surgery (coronary artery bypass graft, or CABG). Diclofenac may also cause stomach or intestinal bleeding, which can be fatal. These conditions can occur without warning while you are using diclofenac, especially in older adults. What is diclofenac topical? Diclofenac is a nonsteroidal anti-inflammatory drug (NSAID). Diclofenac topical (for the skin) is used to treat joint pain caused by osteoarthritis. Pennsaid is for use on the knees. Voltaren Topical is for use on the hands, wrists, elbows, knees, ankles, or feet. This medicine may not be effective in treating arthritis pain elsewhere in the body. Solaraze is used to treat warty overgrowths of skin (actinic keratoses) on sun-exposed areas of the body. Diclofenac topical may also be used for purposes not listed in this medication guide. What should I discuss with my healthcare provider before using diclofenac topical? Diclofenac can increase your risk of fatal heart attack or stroke, especially if you use it meterman or take high doses, or if you have heart disease. Even people without heart disease or risk factors could have a stroke or heart attack while taking this medicine. Do not use this medicine just before or after heart bypass surgery (coronary artery bypass graft, or CABG). Diclofenac may also cause stomach or intestinal bleeding, which can be fatal. These conditions can occur without warning while you are using diclofenac, especially in older adults. You should not use this medicine if you are allergic to diclofenac (Voltaren, Cataflam, Flector, and others), or if you have ever had an asthma attack or severe allergic reaction after taking aspirin or an NSAID. Diclofenac topical is not approved for use by anyone younger than 18 years old. Tell your doctor if you have ever had: heart disease, high blood pressure, high cholesterol, diabetes, or if you smoke; a heart attack, stroke, or blood clot; stomach ulcers, bleeding in your stomach or intestines; asthma; liver or kidney disease; fluid retention. Diclofenac can affect ovulation and it may be harder to get while you are using this medicine. However, using diclofenac topical during the last 3 months of may harm the unborn baby. Tell your doctor if you are or plan to become . It may not be safe to breast-feed while using this medicine. Ask your doctor about any risk. How should I use diclofenac topical? Follow all directions on your prescription label and read all medication guides. Use the lowest dose that is effective in treating your condition. Do not take by mouth. Topical medicine is for use only on the skin. Rinse with water if this medicine gets in your eyes or mouth. Read and carefully follow any Instructions for Use provided with your medicine. Ask your doctor or pharmacist if you do not understand these instructions. Do not apply diclofenac topical to an open skin wound, or on areas of infection, rash, burn, or peeling skin. Store at room temperature away from moisture and heat. Do not freeze. Store Pennsaid in an upright position. What happens if I miss a dose? Apply the medicine as soon as you can, but skip the missed dose if it is almost time for your next dose. Do not apply two doses at one time. What happens if I overdose? Seek emergency medical attention or call the Poison Help line at . What should I avoid while using diclofenac topical? Ask a doctor or pharmacist before using other medicines for pain, fever, swelling, or cold/flu symptoms. They may contain ingredients similar to diclofenac (such as aspirin, ibuprofen, ketoprofen, or naproxen). Avoid drinking alcohol. It may increase your risk of stomach bleeding. Avoid exposing treated skin to heat, sunlight, or tanning beds. Heat can increase the amount of diclofenac you absorb through your skin. Avoid getting this medicine in your eyes. If contact does occur, rinse with water. Call your doctor if you have eye irritation that lasts longer than 1 hour. Do not use cosmetics, sunscreen, lotions, insect repellant, or other medicated skin products on the same area you treat with diclofenac topical. What are the possible side effects of diclofenac topical? Get emergency medical help if you have signs of an allergic reaction (hives, sneezing, runny or stuffy nose, wheezing or trouble breathing, swelling in your face or throat) or a severe skin reaction (fever, sore throat, burning eyes, skin pain, red or purple skin rash with blistering and peeling). Although the risk of serious side effects is low when diclofenac is applied to the skin, this medicine can be absorbed through the skin, which may cause steroid side effects throughout the body. Stop using diclofenac and seek emergency medical attention if you have signs of a heart attack or stroke: chest pain spreading to your jaw or shoulder, sudden numbness or weakness on one side of the body, slurred speech, feeling short of breath. Also call your doctor at once if you have: the first sign of any skin rash, no matter how mild; swelling, rapid weight gain; severe headache, blurred vision, pounding in your neck or ears; little or no urination; liver problems --nausea, diarrhea, stomach pain (upper right side), tiredness, itching, dark urine, shilpa-colored stools, jaundice (yellowing of the skin or eyes); low red blood cells (anemia) --pale skin, unusual tiredness, feeling light-headed or short of breath, cold hands and feet; or signs of stomach bleeding --bloody or tarry stools, coughing up blood or vomit that looks like coffee grounds. Common side effects may include: heartburn, gas, stomach pain, nausea, vomiting; diarrhea, constipation; headache, dizziness, drowsiness; stuffy nose; itching, increased sweating; increased blood pressure; or skin redness, itching, dryness, scaling, or peeling where the medicine was applied. This is not a complete list of side effects and others may occur. Call your doctor for medical advice about side effects. You may report side effects to FDA at 6-821-QJV-9207. What other drugs will affect diclofenac topical? Ask your doctor before using diclofenac if you take an antidepressant. Taking certain antidepressants with an NSAID may cause you to bruise or bleed easily. Tell your doctor about all your current medicines, especially: cyclosporine; lithium; methotrexate; a blood thinner (warfarin, Coumadin, Jantoven); heart or blood pressure medication, including a diuretic or water pill; or steroid medicine (prednisone and others). This list is not complete and many other drugs may affect diclofenac. This includes prescription and [id number] medicines, vitamins, and herbal products. Not all possible drug interactions are listed here. Where can I get more information? Your pharmacist can provide more information about diclofenac topical. Remember, keep this and all other medicines out of the reach of children, never share your medicines with others, and use this medication only for the indication prescribed. Every effort has been made to ensure that the information provided by [employer] ('[employer]') is accurate, up-to-date, and complete, but no guarantee is made to that effect. Drug information contained herein may be time sensitive. [employer] information has been compiled for use by healthcare practitioners and consumers in the [place] and therefore [employer] does not warrant that uses outside of the [place] are appropriate, unless specifically indicated otherwise. [employer] drug information does not endorse drugs, diagnose patients or recommend therapy. [employer] drug information is an informational resource designed to assist licensed healthcare practitioners in caring for their patients and/or to serve consumers viewing this service as a supplement to, and not a substitute for, the expertise, skill, knowledge and judgment of healthcare practitioners. The absence of a warning for a given drug or drug combination in no way should be construed to indicate that the drug or drug combination is safe, effective or appropriate for any given patient. [employer] does not assume any responsibility for any aspect of healthcare administered with the aid of information [employer] provides. The information contained herein is not intended to cover all possible uses, directions, precautions, warnings, drug interactions, allergic reactions, or adverse effects. If you have questions about the drugs you are taking, check with your doctor, nurse or pharmacist. Copyright [id number] [employer] Version: 10.. Revision date: 11/28/2017. Care instructions adapted under license by [employer]. If you have questions about a medical condition or this instruction, always ask your healthcare professional. [employer] disclaims any warranty or liability for your use of this information. documented in this encounter [facility] 05-24-2022 History of Present illness Narrative Images from the original note were not included. 05/24/2022 Swathi Neely (: 1990) is a 31 y.o. female , Established patient, here for evaluation of the following chief complaint(s): Follow-up (1 wk ) ASSESSMENT/PLAN: 1. Chronic pain of left knee - Unchanged. Will proceed with MRI pending insurance approval. Provided with central schedule number to call once approved. - Ice/heat for pain relief. - Knee sleeve for compression and pain relief. Follow up for follow up after knee MRI. SUBJECTIVE/OBJECTIVE: HPI - Swathi presents today for her 1 week follow up on her chronic left knee pain. Had an x-ray of the knee completed on 05/17/22 that showed signs of an osteochondroma and possible multiple avulsion fracture fragments. Has an MRI order placed for further evaluation. Was given Naproxen to take twice a day and home exercises to do at her previous appointment and has not noticed much improvement in her symptoms. Denies worsening symptoms. Soaking in a hot tub provides the most pain relief for her. Review of Systems Musculoskeletal: Positive for arthralgias (left knee). Vitals: 05/24/22 1517 BP: 112/77 BP Location: Left arm Patient Position: Sitting BP Cuff Size: Large adult Pulse: 76 Temp: 36.6 C (97.8 F) TempSrc: Temporal SpO2: 99% Weight: 203 lb (92.1 kg) Height: 5' 2 (1.575 m) Physical Exam Constitutional: General: She is not in acute distress. Appearance: She is not ill-appearing or diaphoretic. Pulmonary: Effort: Pulmonary effort is normal. Musculoskeletal: Left knee: No swelling, deformity, effusion or erythema. Neurological: Mental Status: She is alert and oriented to person, place, and time. Psychiatric: Mood and Affect: Mood normal. Behavior: Behavior normal. Thought Content: Thought content normal. Judgment: Judgment normal. An electronic signature was used to authenticate this note. FLORA Pollock CNP 05/24/2022 3:33 PM documented in this encounter [facility] 05-17-2022 History of Present illness Narrative Images from the original note were not included. 05/17/2022 Swathi Neely (: 1990) is a 31 y.o. female , Established patient, here for evaluation of the following chief complaint(s): Knee Pain (Left knee pain) ASSESSMENT/PLAN: 1. Chronic pain of left knee - XR knee 4+ views left - naproxen (Naprosyn) 500 MG tablet; Take 1 tablet (500 mg) by mouth in the morning and 1 tablet (500 mg) in the evening. Take with meals., Starting 05/17/2022, Until 05/17/2023, Normal - Will obtain imaging due to chronicity of symptoms. - Home exercises provided. Follow up in about 1 week (around 05/24/2022) for follow up on left knee pain. SUBJECTIVE/OBJECTIVE: HPI - Swathi presents today with concerns of left knee pain. States this has been an intermittent issue for her for the past several years. Symptoms have worsened over the past 2-3 months. 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 Denies known history of left knee injuries or surgeries. Has taken OTC Aleve or Advil without much improvement. Certain feet positions that require twisting or bending the knee will aggravate her symptoms. Denies known alleviating factors. Denies knee swelling, locking, or erythema. Has noticed some weakness in the left knee if standing from a squatting position. Rates current level of pain at 0/10, but it can get up to a 7/10- sharp. Review of Systems Musculoskeletal: Positive for arthralgias (left knee). Vitals: 05/17/22 1446 BP: 114/76 Pulse: 84 Temp: 36.6 C (97.8 F) TempSrc: Temporal SpO2: 97% Weight: 201 lb (91.2 kg) Height: 5' 2 (1.575 m) Physical Exam Constitutional: General: She is not in acute distress. Appearance: She is not ill-appearing or diaphoretic. Pulmonary: Effort: Pulmonary effort is normal. Musculoskeletal: Left knee: No swelling, deformity, effusion, erythema, bony tenderness or crepitus. Normal range of motion. Tenderness present over the medial joint line. No LCL laxity, MCL laxity, ACL laxity or PCL laxity.Normal alignment, normal meniscus and normal patellar mobility. Normal pulse. Skin: General: Skin is warm and dry. Coloration: Skin is not pale. Findings: No erythema. Neurological: Mental Status: She is alert and oriented to person, place, and time. Psychiatric: Mood and Affect: Mood normal. Behavior: Behavior normal. Thought Content: Thought content normal. Judgment: Judgment normal. An electronic signature was used to authenticate this note. FLORA Pollock CNP 05/17/2022 3:07 PM documented in this encounter [facility] 09-05-2021 Note [facility] Work Phone: Pap Smear Specimen Adequacy September 05, 2021 10:45am Comment . Satisfactory for evaluation. Endocervical and/or squamous metaplasticcells (endocervical component) are present. Comment on above: Satisfactory for christa luation. Endocervical and/or squamous metaplasticcells (endocervical component) are present. Evaluation note No assessment information availa ble [facility] Work Phone: Evaluation note Diagnosis Chronic pain of left knee- Primary [facility] [place] [facility] Diagnosis Chronic pain of left knee- Primary [facility] [place] [facility] Diagnosis Lower leg mass, left- Primary Chronic pain of left knee Patellar subluxation, left, initial encounter Patellofemoral pain syndrome of left knee Hamstring tendonitis of left thigh documented in this encounter [facility] note* Diagnosis Patellofemoral pain syndrome of left knee- Primary Hamstring tendonitis of left thigh Osteochondroma of fibula, left documented in this encounter [facility] note* Diagnosis Hamstring tendonitis of left thigh- Primary Patellofemoral pain syndrome of left knee documented in this encounter [facility] note* Diagnosis Hamstring tendonitis of left thigh- Primary Patellofemoral pain syndrome of left knee documented in this encounter [facility] note* Diagnosis Hamstring tendonitis of left thigh- Primary Patellofemoral pain syndrome of left knee documented in this encounter [facility] note* Diagnosis Sinobronchitis- Primary documented in this encounter [facility] note* Diagnosis Cellulitis of chest wall- Primary Cellulitis and abscess of trunk documented in this encounter [facility] note* Diagnosis Renal stone- Primary Calculus of kidney documented in this encounter [facility] note* Diagnosis Anovulation- Primary Female infertility associated with anovulation Ovarian cyst, complex Other and unspecified ovarian cyst Hydronephrosis with renal and ureteral calculus obstruction Hydronephrosis documented in this encounter [facility] note* Diagnosis Ovarian cyst, complex Other and unspecified ovarian cyst documented in this encounter [facility] note* Diagnosis Pelvic pain in female- Primary Unspecified symptom associated with female genital organs Irregular periods Irregular menstrual cycle documented in this encounter [facility] note* Diagnosis Irregular periods Irregular menstrual cycle documented in this encounter [facility] note* Diagnosis Pelvic pain in female- Primary Unspecified symptom associated with female genital organs Irregular periods Irregular menstrual cycle Class 2 obesity with body mass index (BMI) of 35.0 to 35.9 in adult, unspecified obesity type, unspecified whether serious comorbidity present Dyslipidemia Other and unspecified hyperlipidemia documented in this encounter [facility] note* Diagnosis Gastroesophageal reflux disease without esophagitis- Primary Esophageal reflux Anxiety and depression History of renal calculi Personal history of urinary calculi documented in this encounter [facility] note* Diagnosis Sore throat- Primary Acute pharyngitis documented in this encounter [facility] note* Diagnosis Anxiety and depression- Primary Gastroesophageal reflux disease without esophagitis Esophageal reflux Acute recurrent frontal sinusitis documented in this encounter [facility] note* Diagnosis Gastroesophageal reflux disease without esophagitis- Primary Esophageal reflux documented in this encounter [facility] note* Diagnosis Gastroesophageal reflux disease without esophagitis Esophageal reflux documented in this encounter [facility] note* Diagnosis Gastroesophageal reflux disease without esophagitis Esophageal reflux documented in this encounter [facility] note* Diagnosis Gastroesophageal reflux disease without esophagitis- Primary Esophageal reflux Gastroesophageal reflux disease Esophageal reflux Hiatal hernia Diaphragmatic hernia without mention of obstruction or gangrene Gastroesophageal reflux disease, unspecified whether esophagitis present Hiatal hernia Diaphragmatic hernia without mention of obstruction or gangrene documented in this encounter [facility] note* Diagnosis Gastroesophageal reflux disease without esophagitis- Primary Esophageal reflux Gastroesophageal reflux disease, unspecified whether esophagitis present Hiatal hernia Diaphragmatic hernia without mention of obstruction or gangrene documented in this encounter [facility] note* Diagnosis Insulin resistance- Primary Dysmetabolic Syndrome X Low HDL (under 40) Lipoprotein deficiencies Dyslipidemia Other and unspecified hyperlipidemia Screening cholesterol level Screening for lipoid disorders Screening for deficiency anemia Screening for other and unspecified deficiency anemia Screening for diabetes mellitus Screening for metabolic disorder Screening for thyroid disorder Encounter for vitamin deficiency screening Screening for other and unspecified endocrine, nutritional, metabolic, and immunity disorders Class 2 obesity with body mass index (BMI) of 35.0 to 35.9 in adult, unspecified obesity type, unspecified whether serious comorbidity present Migraine without status migrainosus, not intractable, unspecified migraine type documented in this encounter [facility] note* Diagnosis Gastroesophageal reflux disease, unspecified whether esophagitis present- Primary Hiatal hernia Diaphragmatic hernia without mention of obstruction or gangrene Gastroesophageal reflux disease Esophageal reflux Hiatal hernia Diaphragmatic hernia without mention of obstruction or gangrene Gastroesophageal reflux disease, unspecified whether esophagitis present Hiatal hernia Diaphragmatic hernia without mention of obstruction or gangrene documented in this encounter [facility] note* Diagnosis Dermatitis- Primary Contact dermatitis and other eczema, due to unspecified cause Skin infection Unspecified local infection of skin and subcutaneous tissue documented in this encounter [facility] note* Diagnosis Skin rash- Primary Rash and other nonspecific skin eruption documented in this encounter [facility] note* Diagnosis Gastroesophageal reflux disease, unspecified whether esophagitis present Hiatal hernia Diaphragmatic hernia without mention of obstruction or gangrene documented in this encounter [facility] note* Diagnosis Insulin resistance- Primary Dysmetabolic Syndrome X Constipation, unspecified constipation type Low HDL (under 40) Lipoprotein deficiencies Dyslipidemia Other and unspecified hyperlipidemia Migraine without status migrainosus, not intractable, unspecified migraine type Class 2 obesity with body mass index (BMI) of 35.0 to 35.9 in adult, unspecified obesity type, unspecified whether serious comorbidity present documented in this encounter [facility] note* Diagnosis Anxiety and depression- Primary Gastroesophageal reflux disease without esophagitis Esophageal reflux History of renal calculi Personal history of urinary calculi documented in this encounter [facility] note* Diagnosis Insulin resistance- Primary Dysmetabolic Syndrome X Constipation, unspecified constipation type Low HDL (under 40) Lipoprotein deficiencies Dyslipidemia Other and unspecified hyperlipidemia Migraine without status migrainosus, not intractable, unspecified migraine type Class 2 obesity with body mass index (BMI) of 35.0 to 35.9 in adult, unspecified obesity type, unspecified whether serious comorbidity present documented in this encounter [facility] note* Diagnosis Irregular periods Irregular menstrual cycle documented in this encounter [facility] Discharge instructions* Attachments The following attachments cannot be sent through Care Everywhere. * Upper GI Endoscopy Discharge Instructions (Macanese) * Moderate Sedation in Adults Discharge Instructions (Macanese) [facility] Attachments The following attachments cannot be sent through Care Everywhere. * Active Range of Motion Exercises, Knees and Ankles (Macanese) * Standing Exercises (Macanese) [facility] Consultation (Urgent) - Pending Review Specialty Diagnoses / Procedures Referred By Cyril spencer Referred To Contact Physical Therapy Diagnoses Patellofemoral pain syndrome of left knee Hamstring tendonitis of left thigh Procedures AR OFFICE/OUTPATIENT [facility] 60-74 MINUTES Maddie Marina MD [address] [place] [address] [address] [place] [address] [facility] [address] [facility] [address] [place] [address] Referral ID Status Reason Start Date Expiration Date Visits Requested Visits Authorized [id number] Pending Review Specialty Services Required 07/30/2022 07/30/2023 99 99 [facility] for referral (narrative)* Diagnostic Procedure Only (Routine) - Authorized Specialty Diagnoses / Procedures Referred By Contac t Referred To Contact [facility] Diagnoses Ovarian cyst, complex Procedures PELVIC US I US PELVIC NONOBSTETRIC REAL-TIME IMAGE COMPLETE Vicente Lin MD [address] [place] [address] [place] [id number] Referral ID Status Reason Start Date Expiration Date Visits Requested Visits Authorized [id number] Authorized Auto-Generat ed Referral 08/20/2023 08/19/2024 1 1 [facility] for referral (narrative)* Diagnostic Procedure Only (Routine) - Authorized Specialty Diagnoses / Procedures Referred By Contac t Referred To Contact [facility] Diagnoses Irregular periods Procedures PELVIC US I US PELVIC NONOBSTETRIC REAL-TIME IMAGE COMPLETE Lilly Muniz APRN.CNP [address] [place] [address] [place] [phone] Referral ID Status Reason Start Date Expiration Date Visits Requested Visits Authorized [id number] Authorized Auto-Generat ed Referral 11/20/2023 11/19/2024 1 1 [facility] for referral (narrative)No reason for referral information availableWKettering Health [facility] Work Phone: Reason for visit Narrative* Diagnostic Procedure Only (Routine) - Closed Specialty Diagnoses / Procedures Referred By Contac t Referred To Contact [facility] Diagnoses Ovarian cyst, complex Procedures PELVIC US I US PELVIC NONOBSTETRIC REAL-TIME IMAGE COMPLETE Vicente Lin MD [address] [place] [address] [facility][Note 3] [address] [place] [address] Referral ID Status Reason Start Date Expiration Date V isits Requested Visits Authorized [id number] Closed Auto-Generate d Referral 08/20/2023 08/19/2024 1 1 [facility] for visit Narrative* Diagnostic Procedure Only (Routine) - Closed Specialty Diagnoses / Procedures Referred By Contac t Referred To Contact [facility] Diagnoses Irregular periods Procedures PELVIC US WHI US PELVIC NONOBSTETRIC REAL-TIME IMAGE COMPLETE Lilly Muniz, FLORA.CANNERY WORKER [address] [place] [address] [address] Referral ID Status Reason Start Date Expiration Date V isits Requested Visits Authorized [id number] Closed Auto-Generate d Referral 11/20/2023 11/19/2024 1 1 [facility] for visit Narrative* Auth/Cert (Routine) Specialty Diagnoses / Procedures Referred By Contcecy t Referred To Contact Diagnoses Gastroesophageal reflux disease, unspecified whether esophagitis present Hiatal hernia Gastroesophageal reflux disease, unspecified whether esophagitis present [K21.9] Hiatal hernia [K44.9] Procedures AR EGD TRANSORAL BIOPSY SINGLE/MULTIPLE ESOPHAGOGASTRODUODENOSCOPY WITH BIOPSY Timothy Xiao MD [address] [place] [address] Phone: tel: fax: Referral ID Status Reason Start Date Expiration Date Visits Re quested Visits Authorized [id number] 07/27/2024 1 1 [facility] Summary Purpose Family History No Family History Records Found Relationship Condition Age at Onset Recorded Date/T leda father Hypertension Unknown Advance Directives No Advanced Directives Records Found Date Activated Date Inactivated Comments 08/24/2024 7:05 AM 08/24/2024 10:29 AM Date Activated Date Inactivated Comments 08/24/2024 7:05 AM 08/24/2024 10:29 AM Reason for Referral Specialty Diagnoses / Procedures Referred By Stevenac t Referred To Contact Radiology Diagnoses Chronic pain of left knee Patellar subluxation, left, initial encounter Lower leg mass, left Procedures MR tibia fibula left wo IV contrast Maddie Marina MD [address] [facility] [address] [place] [address] Referral ID Status Reason Start Date Expiration Date V isits Requested Visits Authorized [id number] Pending Review 06/13/2022 12/10/2022 1 1 Specialty Diagnoses / Procedures Referred By Contac t Referred To Contact Diagnoses Renal stone Jc Leslie F, DO [address] [place] [address] Referral ID Status Reason Start Date Expiration Date Visits Re quested Visits Authorized [id number] Closed 08/14/2023 02/10/2024 1 1 Specialty Diagnoses / Procedures Referred By Contac t Referred To Contact Diagnoses Pelvic pain in female Procedures CONSULT TO LINE CAMERA OPERATOR PELVIC PAIN OFFICE/OUTPATIENT NEW HIGH MDM 60 MINUTES Lilly Muniz APRN.LAUREL [address] [place] [address] Referral ID Status Reason Start Date Expiration Date Visits Requested Visits Authorized [id number] Authorized PCP Requested Referral Auto-Generate d Referral 11/28/2023 11/27/2024 1 1 Specialty Diagnoses / Procedures Referred By Contac t Referred To Contact Diagnoses Class 2 obesity with body mass index (BMI) of 35.0 to 35.9 in adult, unspecified obesity type, unspecified whether serious comorbidity present Procedures CONSULT TO [facility] WEIGHT MANAGEMENT PROGRAM OFFICE/OUTPATIENT NEW HIGH [facility] 60 MINUTES Lilly Muniz APRN.CANNERY WORKER [address] [place] [address] Referral ID Status Reason Start Date Expiration Date Visits Requested Visits Authorized [id number] Authorized PCP Requested Referral Auto-Generate d Referral 11/28/2023 11/27/2024 1 1 Additional Source Comments INFORMATION SOURCE (unrecogn ized section and content) DATE CREATED AUTHOR 08/20/2017 [employer] DATE CREATED AUTHOR AUTHOR'S ORGANIZ ATION 10/11/2024 [employer] [facility] DATE CREATED AUTHOR AUTHOR'S ORGANIZ ATION 12/13/2024 [facility] DATE CREATED AUTHOR AUTHOR'S ORGANIZ ATION 01/02/2025 [facility] Goals (unrecognized section and content) Goals may be documented in a n alternate sectionGoals may be documented in an alternate section Reason for Visit (unrecogniz ed section and content) Reason Comments Knee Pain Left knee pain Reason Comments Follow-up 1 wk Reason Comments New Patient Left knee pain Specialty Diagnoses / Procedures Referred By Contac t Referred To Contact Sports Medicine Diagnoses Chronic pain of left knee Patellar subluxation, left, initial encounter Procedures AR OFFICE/OUTPATIENT NEW HIGH MDM 60-74 MINUTES Aminta Monroe S, PHOTOGRAPHY PROFESSOR - CANNERY WORKER [address] [place] [address] Maddie Marina MD [address] [place] [address] Referral ID Status Reason Start Date Expiration Date V isits Requested Visits Authorized [id number] Closed Specialty Services Required 06/12/2022 06/12/2023 1 1 Reason Comments Follow-up Lower leg mass, left Specialty Diagnoses / Procedures Referred By Contac t Referred To Contact Physical Therapy Diagnoses Patellofemoral pain syndrome of left knee Hamstring tendonitis of left thigh Procedures AR OFFICE/OUTPATIENT NEW [facility] 60-74 MINUTES Maddie Marina MD [address] [facility] [address] [place] [address] [facility] [address] [facility] [address] [place] [address] Referral ID Status Reason Start Date Expiration Date Visits Requested Visits Authorized [id number] Authorized Specialty Services Required 07/30/2022 07/30/2023 40 40 Reason Onset Date Comments Sore Throat 12/26/2022 Reason Comments Sore Throat Chest congestion, co ugh Reason Comments Rash Left rib cage-starte d in January Reason Onset Date Comments skin lesion 03/10/2023 Reason Onset Date Comments Referral 08/15/2023 Reason Comments Ovarian Cyst Pelvic Pain Reason Comments Pelvic Pain Reason Comments Follow Up Reason Comments GI Problem Over the last month if she eats late it comes back up in her throat and the last 2 wks every time she eats she feels sick to her stomach. Reason Comments Med Refill Reason Comments Sore Throat Entered by patient Cough With congestion & so re throat x10 days Reason Comments Follow-up Med check Cough And sore throat and drainage for three weeks Reason Onset Date Comments Referral 04/29/2024 [facility] Reason Comments New Patient STEREOTYPER GERD Specialty Diagnoses / Procedures Referred By Cyril spencer Referred To Contact General Surgery Diagnoses Gastroesophageal reflux disease without esophagitis Procedures AR OFFICE/OUTPATIENT NEW HIGH MDM 60 MINUTES Jc Leslie F, DO [address] [place] [address] Phone: tel: fax: [facility] [address] [facility] [address] [place] [address] Phone: tel: fax: Referral ID Status Reason Start Date Expiration Date V isits Requested Visits Authorized [id number] Closed Specialty Services Required 04/29/2024 04/29/2025 1 1 Reason Comments Follow-up FU GERD Reason Onset Date Comments Weight Management 07/27/2024 Specialty Diagnoses / Procedures Referred By Cyril spencer Referred To Contact Diagnoses Class 2 obesity with body mass index (BMI) of 35.0 to 35.9 in adult, unspecified obesity type, unspecified whether serious comorbidity present Procedures CONSULT TO [facility] WEIGHT MANAGEMENT PROGRAM OFFICE/OUTPATIENT NEW HIGH MDM 60 MINUTES Lilly Muniz APRN.LAUREL [address] [place] [address] Phone: tel: fax: Referral ID Status Reason Start Date Expiration Date V isits Requested Visits Authorized [id number] Closed PCP Requested Referral Auto-Generated Referral 11/28/2023 11/27/2024 1 1 Reason Comments Rash Blistered rash on le ft inner elbow x 1 day Reason Onset Date Comments Results 08/17/2024 Reason Comments Derm Problem Left arm anti cubita l area, x 5 days, redness warmth whole ext, blistering, tender, increasing in blisters Reason Comments Weight Management Reason Onset Date Comments Blister 08/16/2024 Reason Comments Follow-up Med check Reason Onset Date Comments Refill Request 10/14/2024 Care Teams (unrecognized sec tion and content) Tanning Consultant Relationship Specialty Start Date End Date Mariama Jc Meyer, DO [address], [place] [id number] PCP - General 11/09/14 Tanning Consultant Relationship Specialty Start Date End Date Mariama Jc Meyer DO [address] [place] [address] PCP - General 11/09/14 Tanning Consultant Relationship Specialty Start Date End Date Mariajacklyn Jc Meyer, DO [address] [place] [address] PCP - General 11/09/14 Tanning Consultant Relationship Specialty Start Date End Date Mariama Jc Meyer DO [address] [place] [address] PCP - General 11/09/14 Tanning Consultant Relationship Specialty Start Date End Date Mariama Jc Meyer, DO [address], [place] [id number] PCP - General 11/09/14 Tanning Consultant Relationship Specialty Start Date End Date Mariama Jc Meyer, DO [address] [place] [address] PCP - General 11/09/14 Tanning Consultant Relationship Specialty Start Date End Date Mariama Jc Meyer DO [address], [place] [id number] PCP - General 11/09/14 Tanning Consultant Relationship Specialty Start Date End Date Mariama Jc Meyer DO [address] [place] [address] PCP - General 11/09/14 Tanning Consultant Relationship Specialty Start Date End Date Jc Leslie, DO [address] [place] [address] PCP - General 11/09/14 Tanning Consultant Relationship Specialty Start Date End Date Jc Leslie, DO [address] [place] [phone] PCP - General 11/09/14 Tanning Consultant Relationship Specialty Start Date End Date Jc Leslie, DO [address] [place] [address] PCP - General 11/09/14 Tanning Consultant Relationship Specialty Start Date End Date Jc Leslie, DO [address] [place] [address] PCP - General 11/09/14 Tanning Consultant Relationship Specialty Start Date End Date Jc Leslie, DO [address] [place] [address] PCP - General 11/09/14 Tanning Consultant Relationship Specialty Start Date End Date Jc Leslie, DO [address] [place] [address] PCP - General Family Medicine 08/20/23 Tanning Consultant Relationship Specialty Start Date End Date Jc Leslie, DO [address] [place] [address] PCP - General Family Medicine 08/20/23 Tanning Consultant Relationship Specialty Start Date End Date Jc Leslie, DO [address] [place] [phone] PCP - General Family Medicine 08/20/23 Tanning Consultant Relationship Specialty Start Date End Date Jc Leslie DO [address] [place] [phone] PCP - General Family Medicine 08/20/23 Tanning Consultant Relationship Specialty Start Date End Date Jc Leslie, DO [address] [place] [address] PCP - General Family Medicine 08/20/23 Tanning Consultant Relationship Specialty Start Date End Date Jc Leslie, [address] [place] [phone] PCP - General 11/09/14 Tanning Consultant Relationship Specialty Start Date End Date Jc Leslie DO [address] [place] [address] PCP - General 11/09/14 Tanning Consultant Relationship Specialty Start Date End Date Jc Leslie, [address] [place] [address] PCP - General Family Medicine 08/20/23 Tanning Consultant Relationship Specialty Start Date End Date Jc Leslie, DO [address] [place] [address] PCP - General 11/09/14 Tanning Consultant Relationship Specialty Start Date End Date Jc Leslie, DO [address] [place] [address] PCP - General 11/09/14 Tanning Consultant Relationship Specialty Start Date End Date Jc Leslie, [address] [place] [address] PCP - General Family Medicine 08/20/23 Tanning Consultant Relationship Specialty Start Date End Date Jc Leslie, DO [address] [place] [address] PCP - General 11/09/14 Tanning Consultant Relationship Specialty Start Date End Date Jc Leslie, DO [address] [place] [address] PCP - General 11/09/14 Tanning Consultant Relationship Specialty Start Date End Date Jc Leslie, DO [address] [place] [address] PCP - General Family Medicine 08/20/23 Tanning Consultant Relationship Specialty Start Date End Date Jc Leslie, DO [address] [place] [address] PCP - General 11/09/14 Tanning Consultant Relationship Specialty Start Date End Date Jc Leslie, DO [address] [place] [address] PCP - General Family Medicine 08/20/23 Tanning Consultant Relationship Specialty Start Date End Date Jc Leslie, DO [address] [place] [address] PCP - General Family Medicine 08/20/23 Tanning Consultant Relationship Specialty Start Date End Date Jc Leslie ОльгаDO [address] [place] [address] PCP - General Family Medicine 08/20/23 Tanning Consultant Relationship Specialty Start Date End Date Jc Leslie Betsy, DO [address] [place] [address] PCP - General 11/09/14 Tanning Consultant Relationship Specialty Start Date End Date Jc Leslie DO [address] [place] [phone] PCP - General 11/09/14 Tanning Consultant Relationship Specialty Start Date End Date Jc Leslie DO [address] [place] [address] PCP - General Family Medicine 08/20/23 Tanning Consultant Relationship Specialty Start Date End Date Jc Leslie Betsy DO [address] [place] [phone] PCP - General 11/09/14 Tanning Consultant Relationship Specialty Start Date End Date Jc Leslie DO [address] [place] [phone] PCP - General Family Medicine 08/20/23 Team Status: Active Member Role/Relationship Status Dates Dr. Yannick Griggs DO Family Provider Active Dr. Jc Leslie DO Primary Care Provider Active Team Status: Inactive Member Role/Relationship Status Dates Dr. Jc Leslie , DO Primary Care Provider Active Start: October 05, 2024 End: October 05, 2024 Dr. Lee Walsh MD Attending Provider Active Start: October 05, 2024 End: October 05, 2024 Dr. Lee Walsh MD Referring Provider Active Start: October 05, 2024 End: October 05, 2024 Tanning Consultant Relationship Specialty Start Date End Date Jc Leslie DO [address] [place] [address] PCP - General Family Medicine 08/20/23 Tanning Consultant Relationship Specialty Start Date End Date Jc Leslie DO [address] [place] [address] PCP - General Family Medicine 08/20/23 Source Comments (unrecognize d section and content) In the event this informatio n is protected by the Federal Confidentiality of Alcohol and Drug Abuse Patient Records regulations: The Federal rules restrict any use of the information to criminally investigate or prosecute any alcohol or drug abuse patient.[facility] the event this information is protected by the Federal Confidentiality of Alcohol and Drug Abuse Patient Records regulations: The Federal rules restrict any use of the information to criminally investigate or prosecute any alcohol or drug abuse patient.[facility] the event this information is protected by the Federal Confidentiality of Alcohol and Drug Abuse Patient Records regulations: The Federal rules restrict any use of the information to criminally investigate or prosecute any alcohol or drug abuse patient.[facility] the event this information is protected by the Federal Confidentiality of Alcohol and Drug Abuse Patient Records regulations: The Federal rules restrict any use of the information to criminally investigate or prosecute any alcohol or drug abuse patient.[facility] the event this information is protected by the Federal Confidentiality of Alcohol and Drug Abuse Patient Records regulations: The Federal rules restrict any use of the information to criminally investigate or prosecute any alcohol or drug abuse patient.[facility] the event this information is protected by the Federal Confidentiality of Alcohol and Drug Abuse Patient Records regulations: The Federal rules restrict any use of the information to criminally investigate or prosecute any alcohol or drug abuse patient.[facility] the event this information is protected by the Federal Confidentiality of Alcohol and Drug Abuse Patient Records regulations: The Federal rules restrict any use of the information to criminally investigate or prosecute any alcohol or drug abuse patient.[facility] the event this information is protected by the Federal Confidentiality of Alcohol and Drug Abuse Patient Records regulations: The Federal rules restrict any use of the information to criminally investigate or prosecute any alcohol or drug abuse patient.[facility] the event this information is protected by the Federal Confidentiality of Alcohol and Drug Abuse Patient Records regulations: The Federal rules restrict any use of the information to criminally investigate or prosecute any alcohol or drug abuse patient.[facility] the event this information is protected by the Federal Confidentiality of Alcohol and Drug Abuse Patient Records regulations: The Federal rules restrict any use of the information to criminally investigate or prosecute any alcohol or drug abuse patient.[facility] HospitalIn the event this information is protected by the Federal Confidentiality of Alcohol and Drug Abuse Patient Records regulations: The Federal rules restrict any use of the information to criminally investigate or prosecute any alcohol or drug abuse patient.[facility] the event this information is protected by the Federal Confidentiality of Alcohol and Drug Abuse Patient Records regulations: The Federal rules restrict any use of the information to criminally investigate or prosecute any alcohol or drug abuse patient.[facility] Hospital[facility] the event this information is protected by the Federal Confidentiality of Alcohol and Drug Abuse Patient Records regulations: The Federal rules restrict any use of the information to criminally investigate or prosecute any alcohol or drug abuse patient.[facility] the event this information is protected by the Federal Confidentiality of Alcohol and Drug Abuse Patient Records regulations: The Federal rules restrict any use of the information to criminally investigate or prosecute any alcohol or drug abuse patient.[facility] Hospital[facility] the event this information is protected by the Federal Confidentiality of Alcohol and Drug Abuse Patient Records regulations: The Federal rules restrict any use of the information to criminally investigate or prosecute any alcohol or drug abuse patient.[facility] Scheduled Active and Recently Administ ered Medications (unrecognized section and content) Medication Order 08/22/2024 08/23/2024 08/24/2024 sodium chloride 0.9% (NS) flush 10 mL 10 mL, IntraVENous, Every 12 hours scheduled (2 times per day), First dose on Fri08/24/24 at 0900, Preprocedure 0900 (Canceled Entry - Provider: Automatic Discharge Provider - Comment: Automatically canceled at discontinue of medication order) PRN Medication Order 08/22/2024 08/23/2024 08/24/2024 ondansetron (Zofran) injection 4 mg 4 mg, IntraVENous, Once PRN, nausea, vomiting, Starting on Fri08/24/24 at 0705, For 1 dose, Preprocedure sodium chloride 0.9 % infusion 5-250 mL/hr, IntraVENous, PRN, if patient receiving piggyback infusions and maintenance fluids are not ordered OR KVO fluids to protect IV site / prevent frequent line interruptions/ long duration, Starting on Fri08/24/24 at 0705, Preprocedure, For piggyback infusion, administer at same rate as piggyback for a total of 25 mL. Enter 25 mL into dose field and piggyback rate into rate field of order. If piggyback is infusing at a rate less than 100 mL/hr, enter 25 mL into dose field and 100 mL/hr into rate field of order. For KVO fluids, enter rate of 20 mL/hr or less into rate field of order. sodium chloride 0.9% (NS) flush 10 mL 10 mL, IntraVENous, PRN, line care, Starting on Fri08/24/24 at 0705, Preprocedure, After every IV line use FOR RECORDS PERTAINING TO PATIENTS WHO ARE OR HAVE BEEN ENROLLED IN A CHEMICAL DEPENDENCY/SUBSTANCEABUSE PROGRAM, SOME INFORMATION MAY BE OMITTED. This clinical summary was aggregated from multiple sources. Caution should be exercised in using it in the provision of clinical care. This summary normalizes information from multiple sources, and as a consequence, information in this document may materially change the coding, format and clinical context of patient data. In addition, data may be omitted in some cases. CLINICAL DECISIONS SHOULD BE BASED ON THE PRIMARY CLINICAL RECORDS. [employer] provides no warranty or guarantee of the accuracy or completeness of information in this document.
== END | disposition home or self-care (01) ==
LOC: LABSPEC 15:57
PROVIDERS: Referring Provider Urology; Visit Provider Urology
DX: N39.0 Urinary tract infection, site not specified (principal)
CPT/HCPCS: 87077; 87086; 87088; 87186